=== PATIENT | female | born 1935 | race Caucasian/White ===

== ENCOUNTER 2019-12-11 10:57 | Emergency (ER) | payer MEDICARE, BC ==
[~2019-12-11] VITALS: Ht 172.7 cm; Wt 90.7 kg
--- OUTSIDE RECORDS SUMMARY | ~2019-12-11 | XMS | Encounter Summary ---
Demographics + + + | Address | [address] | | | [place] [address] | + + + | Home Phone | | + + + | Preferred Language | Unknown | + + + | Marital Status | | + + + | Pentecostalism Affiliation | 1073 | + + + | Race | Unknown | + + + | Ethnic Group | Unknown | + + + Author + + + | Author | [facility] | | | and [place] | + + + | Organization | [facility] | | | and [place] | + + + | Address | Unknown | + + + | Phone | Unavailable | + + + Support + + +---------+ + | Name | Relationship | Address | Phone | + + +---------+ + | Indy Cristal | ECON | Unknown | | + + +---------+ + | Rachelvaleria Mckeon | ECON | Unknown | | + + +---------+ + Care Team Providers + +------+ + | Care Screw Machine Adjuster Automatic Name | Role | Phone | + +------+ + | Chinmay Driscoll MD | PCP | | + +------+ + Reason for Visit + + + | Reason | Comments | + + + | ED Follow-up | | + + + Encounter Details +--------+ + + + + | Date | Type | Department | Care Team | Description | +--------+ + + + + | 07/25/ | Telephone | [facility] | Nidhi Vázquez | ED Follow-up | | 2017 | | [facility] | L, Technologist | | | | | [address] | | | | | | [facility] | | | | | | [place] | | | | | | [address] | | | | | | [phone] | | | +--------+ + + + + Social History + +-------+ +--------+------+ | Tobacco Use | Types | Packs/Day | Years | Date | | | | | Used | | + +-------+ +--------+------+ | Never Smoker | | | | | + +-------+ +--------+------+ + +---+---+---+ | Smokeless Tobacco: | | | | | Never Used | | | | + +---+---+---+ + + +---------+ + | Alcohol Use | Drinks/Week | oz/Week | Comments | + + +---------+ + | No | | | | + + +---------+ + + + + | Sex Assigned at | Date Recorded | | | | + + + | Not on file | | + + + + + + + | Job Start Date | Occupation | Industry | + + + + | Not on file | Not on file | Not on file | + + + + + + + + | Travel History | Travel Start | Travel End | + + + + + + | No recent travel history available. | + + documented as of this encounter Plan of Treatment +--------+---------+ + + + | Date | Type | Specialty | Care Team | Description | +--------+---------+ + + + | 02/08/ | Office | Nephrology | Homero Soto MD | | | 2019 | Visit | | [address] [facility] [address] | | | | | | [address] | | | | | | [address] | | | | | | (Fax) | | +--------+---------+ + + + documented as of this encounter Visit Diagnoses Not on filedocumented in this encounter"
--- OUTSIDE RECORDS SUMMARY | ~2019-12-11 | XMS | Encounter Summary ---
Demographics + + + | Address | [address] | | | [place] [address] | + + + | Home Phone | | + + + | Preferred Language | Unknown | + + + | Marital Status | | + + + | Latter-Day Affiliation | 1073 | + + + | Race | Unknown | + + + | Ethnic Group | Unknown | + + + Author + + + | Author | [facility] | | | and [place] | + + + | Organization | [facility] | | | [...] Team Providers + +------+ + | Care Finishing Powder Press Operator Name | Role | Phone | + +------+ + | Chinmay Driscoll MD | PCP | | + +------+ + Encounter Details +--------+ + + + + | Date | Type | Department | Care Team | Description | +--------+ + + + + | 01/20/ | Orders Only | [facility] | Will Rodriguez MD | Back pain (Primary | | 2012 | | NEUROSURGERY [address] | [address] | Dx) | | | | [address] | [place] [address] | | | | | [place] | [phone] | | | | | [address] | | | | | | [phone] | | | +--------+ + + + + Social History + +-------+ +--------+------+ | Tobacco Use | Types | Packs/Day | Years | Date | | | | | Used | | + +-------+ +--------+------+ | Never Assessed | | | | | + +-------+ +--------+------+ + + + | Sex Assigned at [...] | Homero Soto MD | | | 2020 | Visit | | [address] [address] [address] | | | | | | [address] [place], [place] | | | | | | [address] | | | | | | | | +--------+---------+ + + + + +---------+--------+ + + | Name | Type | Priori | Associated Diagnoses | Order Schedule | | | | ty | | | + +---------+--------+ + + | XR Lumbar Spine 4 + | Imaging | Routin | Back pain | Expected: | | Vw | | e | | 01/20/2013, Expires: | | | | | | 01/20/2014 | + +---------+--------+ + + documented as of this encounter Visit Diagnoses + + | Diagnosis | + + | Back pain - Primary Backache, unspecified | + + documented in this encounter"
--- OUTSIDE RECORDS SUMMARY | ~2019-12-11 | XMS | Encounter Summary ---
Demographics + + + | Address | [address] | | | [place] [address] | + + + | Home Phone | | + + + | Preferred Language | Unknown | + + + | Marital Status | | + + + | Christianity Affiliation | 1073 | + + + | Race | Unknown | + + + | Ethnic Group | Unknown | + + + Author + + + | Author | [facility] | | | and [place] | + + + | Organization | [facility] | | | and [place] | + + + | Address | Unknown | + + + | Phone | Unavailable | + + + Support + + +---------+ + | Name | Relationship | Address | Phone | + + +---------+ + | Indy Bee | ECON | Unknown | | + + +---------+ + | Rachelvaleria Mckeon | ECON | Unknown | | + + +---------+ + Care Team Providers + +------+ + | Care Trauma Surgeon Name | Role | Phone | + +------+ + | Chinmay Driscoll MD | PCP | | + +------+ + Reason for Visit +--------+ + | Reason | Comments | +--------+ + | Other | cardiac clearance | +--------+ + Encounter Details +--------+ + + + + | Date | Type | Department | Care Team | Description | +--------+ + + + + | 05/13/ | Telephone | [facility] [place] | Will Rodriguez MD | Other (cardiac | | 2012 | | NEUROSURGERY [address] | [address] | clearance) | | | | [address] | [place] [address] | | | | | [place] | [phone] | | | | | [address] | | | | | | [phone] | | | +--------+ + + + [...] 2020 | Visit | | [address] [facility] | | | | | | [address] | | | | | | [address] | | | | | | | | +--------+---------+ + + + documented as of this encounter Visit Diagnoses Not on filedocumented in this encounter"
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
--- OUTSIDE RECORDS SUMMARY | ~2019-12-11 | XMS | Clinical Summary ---
Demographics + + + | Address | [address] | | | [place] [address] | + + + | Home Phone | | + + + | Preferred Language | Unknown | + + + | Marital Status | | + + + | Mandaen Affiliation | Unknown | + + + | Race | Unknown | + + + | Ethnic Group | Unknown | + + + Author + + + | Author | [email or web address] (Historical as of | | | 03-08-19) | + + + | Organization | 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 | Disp. | Refills | Star | End | Statu | | | | | | t | Date | s | | | | | | Date | | | + + +--------+---------+------+------+-------+ | telmisartan | Take 80 mg by mouth | | | | | Activ | | (MICARDIS) 80 MG | daily. | | | | | e | | tablet | | | | | | | + + +--------+---------+------+------+-------+ | potassium chloride | Take 10 mEq by mouth | | | | | Activ | | (K-TAB) 10 MEQ CR | 2 (two) times daily | | | | | e | | tablet | with meals. | | | | | | + + +--------+---------+------+------+-------+ | diltiazem (TIAZAC) | Take 360 mg by mouth | | | | | Activ | | 360 MG 24 hr | daily. | | | | | e | | capsule | | | | | | | + + +--------+---------+------+------+-------+ | atorvastatin | Take 10 mg by mouth | | | | | Activ | | (LIPITOR) 10 MG | daily. | | | | | e | | tablet | | | | | | | + + +--------+---------+------+------+-------+ | levothyroxine | Take 50 mcg by mouth | | | | | Activ | | (SYNTHROID) 50 MCG | every morning | | | | | e | | tablet | before breakfast. | | | | | | + + +--------+---------+------+------+-------+ | metoprolol | Take 25 mg by mouth | | | | | Activ | | (TOPROL-XL) 25 MG 24 | daily. | | | | | e | | hr tablet | | | | | | | + + +--------+---------+------+------+-------+ | terazosin (HYTRIN) | Take 10 mg by mouth | | | | | Activ | | 10 MG capsule | nightly. | | | | | e | + + +--------+---------+------+------+-------+ | metFORMIN | Take 500 mg by mouth | | | | | Activ | | (GLUCOPHAGE) 500 MG | 2 (two) times daily | | | | | e | | tablet | with meals. | | | | | | + + +--------+---------+------+------+-------+ | rivaroxaban | Take 20 mg by mouth | | | | | Activ | | (XARELTO) 20 MG | daily with dinner. | | | | | e | | tablet | | | | | | | + + +--------+---------+------+------+-------+ | misoprostol | Take 1 tablet by | 60 | 1 | 03/2 | | Activ | | (CYTOTEC) 200 MCG | mouth 2 (two) times | tablet | | 8/20 | | e | | tablet | daily. | | | 15 | | | + + +--------+---------+------+------+-------+ Active Problems + + + | Problem | Noted Date | + + + | Acute blood loss anemia | 10/16/2014 | + + + | Antral ulcer | 10/16/2014 | + + + | A-fib | 10/15/2014 | + + + | DM type 2 (diabetes mellitus, type 2) | 10/15/2014 | + + + | HTN (hypertension) | 10/15/2014 | + + + Resolved Problems + + + + | Problem | Noted | Resolved | | | Date | Date | + + + + | GI bleed | 10/16/19 | | | | 15 | 5 | + + + + Family History + + +------+ + | Medical History | Relation | Name | Comments | + + +------+ + | Cancer | Mother | | | + + +------+ + + +------+--------+ + | Relation | Name | Status | Comments | + +------+--------+ + | Mother | | | | + +------+--------+ + Social History + +-------+ +--------+------+ | Tobacco Use | Types | Packs/Day | Years | Date | | | | | Used | | + +-------+ +--------+------+ | Never Smoker | | | | | + +-------+ +--------+------+ + + +---------+ + | Alcohol Use | Drinks/We | oz/Week | Comments | | | ek | | | + + +---------+ + | No | | | | + + +---------+ + + + + | Sex Assigned at | Date Recorded | | | | + + + | Not on file | | + + + Last Filed Vital Signs + + + + | Vital Sign | Reading | Time Taken | + + + + | Blood Pressure | 166/82 | 10/17/2014 3:30 PM PDT | + + + + | Pulse | 96 | 10/17/2014 3:30 PM PDT | + + + + | Temperature | 36.7 C (98.1 F) | 10/17/2014 3:15 PM PDT | + + + + | Respiratory Rate | 20 | 10/17/2014 3:15 PM PDT | + + + + | Oxygen Saturation | 96% | 10/17/2014 3:15 PM PDT | + + + + | Inhaled Oxygen | - | - | | Concentration | | | + + + + | Weight | 102.8 kg (226 lb | 10/17/2014 3:49 AM PDT | | | 10.1 oz) | | + + + + | Height | 170.2 cm (5' 7") | 10/15/2014 4:27 PM PDT | + + + + | Body Mass Index | 35.5 | 10/17/2014 3:49 AM PDT | + + + + Plan of Treatment + + + + + | Health Maintenance | Due Date | Last Done | Comments | + + + + + | Vaccine: | | | | | Dtap/Tdap/Td (1 - | 5 | | | | Tdap) | | | | + + + + + | Vaccine: Zoster (1 | | | | | of 2) | 6 | | | + + + + + | DEXA SCAN SCREENING | | | | | | 1 | | | + + + + + | Vaccine: | | | | | Pneumococcal 65+ | 1 | | | | Low/Medium Risk (1 | | | | | of 2 - PCV13) | | | | + + + + + | Vaccine: Influenza | | | | | (Season Ended) | 0 | | | + + + + + Results Not on filefrom Last 3 Months Insurance + +--------+ +------+-------+ + | Payer | Benefi | Subscriber | Type | Phone | Address | | | t Plan | ID | | | | | | / | | | | | | | Group | | | | | + +--------+ +------+-------+ + | MEDICARE | MEDICA | [id number] | | | [address] | | | RE | | | | [place] [phone] | | | IP-OP | | | | | + +--------+ +------+-------+ + | REGENCE | REGENC | [id number] | | | | | | E-OREG | [phone] | | | | | | ON | | | | | + +--------+ +------+-------+ + + +--------+ +--------+ + + | Guarantor Name | Accoun | Relation to | Date | Phone | Billing Address | | | t Type | Patient | of | | | | | | | | | | + +--------+ +--------+ + + | GIA ARCOS | Person [birth year] Self [birth year] Home: | [address] | | | al/Fam | | [phone] | [phone] [place] | | | gee | | | [phone] | [phone] | + +--------+ +--------+ + +
--- OUTSIDE RECORDS SUMMARY | ~2019-12-11 | XMS | Encounter Summary ---
Demographics + + + | Address | [address] | | | [place] [address] | + + + | Home Phone | | + + + | Preferred Language | Unknown | + + + | Marital Status | | + + + | Jainism Affiliation | [id number] | + + + [...] Team Providers + +------+ + | Care Tutoring Manager Name | Role | Phone | + +------+ + | Chinmay Driscoll MD | PCP | | + +------+ + Encounter Details +--------+ + + + + | Date | Type | Department | Care Team | Description | +--------+ + + + + | 10/15/ | Hospital | [facility] | Abraham Lindsey, | STEVEN deras | | 2015 - | Encounter | [facility] | MD [address] | | | | | CARE FLO[address] | [place] [address] | | | 10/17/ | | [address] | [phone] | | | 2014 | | [place], [place] | | | | | | [address] | | | | | | [phone] | | | +--------+ + + + [...] + + documented as of this encounter Discharge Summaries Solis Blake MD - 10/17/2014 12:10 PM PDTFormatting of this note might be different f rom the original. Discharge Summaries by Solis Blake MD at 10/17/14 1210 Author: Solis Blake MD Service: Hospitalist Author Type: Physician Filed: 10/17/14 1214 Date of Service: 10/17/141209 Status: Signed Rehabilitation Specialist: Solis Blake MD (Physician) [facility] Service: Hospitalist Physician Discharge Summary Pt: Gia Arcos AGE/SEX: 78 y.o. female ROOM: 4459/4459-1 PCP: CHINMAY DRISCOLL : 1935 Admit date: 10/15/2014 Discharge date and time: 10/17/2014 12:10 PM Admitting Physician: Abraham Lindsey MD Discharge Physician: Solis Blake MD Consults: Dr. Tobar Primary Discharge Diagnoses: Principal Problem: Acute blood loss anemia Active Problems: A-fib DM type 2 (diabetes mellitus, type 2) HTN (hypertension) Antral ulcer Resolved Problems: GI bleed Secondary Discharge Diagnoses: Nill Discharged Condition: stable Significant Diagnostic Studies: EGD 1. Normal esophagus and duodenum. 2. Antral ulceration, most likely cause of upper gastrointestinal bleeding, biopsied for CL Otest. HPI and Hospital Course: The patient is a 78 y.o. female with significant past medical history of afib on xarelto, D M type 2, HTN, who presents as a transfer from [facility] with GI bleed and found to be in acute posthemorrhagic anemia GI bleed with acute blood loss anemia: Due to antral ulcer. She is already on PPI and use of Prossar. She received 4 units of pac ked RBCs. She is feeling better now. She said that she is feeling more energetic. I discu ssed with daughter in detail as well. I discussed with Dr. Tobar as well. Patient will be o n 2 PPIs. She should not be taking and regulation medication for 3-4 days. She should talk with her primary care doctor as well and am starting her" A-fib: Rate well controlled. Going to hold anticoagulant for another 4 days DM type 2 (diabetes mellitus, type 2) : Without any documented complication. Blood glucose is better controlled HTN (hypertension): Blood pressure is approximately control she is not on any medicines while she is in a hospi abdirizak She Had no CP, SOB, N/V, Diarrhea, Abdominal pain or THOMPSON. No constipation or change in bowel habits. No orthopnea or PND. Appetite is good without abdominal bloating. No cough or fever . No dizziness, lightheadedness or any symptoms suggestive of stroke. I recommended her to have a colonoscopy as an outpatient as well. Discharge Vitals: Filed Vitals: 10/16/14 2323 10/17/14 0349 10/17/14 0753 10/17/14 1122 BP: 153/78 162/75 168/90 162/82 Pulse: 82 87 95 92 Temp: 98.3 F (36.8 C) 97.8 F (36.6 C) 98.2 F (36.8 C) 98.3 F (36.8 C) TempSrc: Oral Oral Oral Oral Resp: 16 16 18 18 Height: Weight: 102.8 kg (226 lb 10.1 oz) SpO2: 98% 98% 96% Discharge Exam: Constitutional: Alert and oriented to person, place, and time. Appears well-developed and w ell-nourished. Cardiovascular: Normal rate, regular rhythm, normal heart sounds with S1 and S2 and intact distal pulses. Exam reveals no gallop and no friction rub. No murmur heard. Pulmonary/Chest: Effort normal and breath sounds normal. No stridor. No respiratory distres s. no wheezes. no rales. exhibits no tenderness. Abdominal: Soft. Bowel sounds are normal. exhibits no distension and no mass. There is no t enderness. There is no rebound and no guarding. Musculoskeletal: Normal range of motion.exhibits no tenderness. exhibits no edema. Neurological: Alert and oriented to person, place, and time. Has normal reflexes. display s normal reflexes. No cranial nerve deficit. Exhibits normal muscle tone. Coordination norm al. Skin: Skin is warm and dry. No rash noted. No erythema. No pallor. Psychiatric: Has a normal mood and affect. Behavior is normal. Judgment normal. LABS: Recent Labs Lab 10/17/14 0524 10/16/14 2200 10/16/14 0750 10/16/14 0601 10/15/14 1721 WBC 6.85 -- -- 8.12 -- 8.28 HGB 10.6* 10.0* 8.0* 8.3* < > 9.9* HCT 30.9* 30.7* 24.1* 24.9* < > 29.9* PLT 91* -- -- 107* -- 118* NEUTOPHILPCT 74.29 -- -- 81.03 -- 85.56 MONOPCT 6.10 -- -- 5.15 -- 4.72 < > = values in this interval not displayed. Recent Labs Lab 10/17/14 0524 10/16/14 0601 10/15/14 1721 NA 138 139 140 K 3.0* 3.1* 4.2 CL 107 109 107 CO2 27 24 24 BUN 28* 54* 73* CREATININE 1.12* 1.17* 1.31* PROT 4.8* 4.2* -- BILITOT 0.9 0.6 -- ALT 11 9* -- AST 14 11 -- Invalid input(s): LABALBU Recent Labs Lab 10/17/14 0524 10/16/14 0601 MG 2.0 2.3 No results for input(s): AMYLASE in the last 168 hours. No results for input(s): PHART, PO2ART, KFA4HBX, S7LHSGNM, BEART in the last 168 hours. Recent Labs Lab 10/16/14 06 APTT 26 INR 1.1 Recent Labs Lab 10/16/14 0601 10/16/14 0013 10/15/14 1721 CKTOTAL 24* 26* 27* TROPONINI 0.033 0.037 0.028 CKMBINDEX 5.8 8.1 5.6 Disposition: Final discharge disposition not confirmed Patient Instructions: Medication List START taking these medications misoprostol 200 MCG tablet QTY: 60 tablet Refills: 1 Commonly known as: CYTOTEC Take 1 tablet by mouth 2 (two) times daily. pantoprazole 40 MG tablet QTY: 30 tablet Refills: 1 Commonly known as: PROTONIX Take 1 tablet by mouth every morning before breakfast. CONTINUE taking these medications atorvastatin 10 MG tablet Refills: 0 Commonly known as: LIPITOR diltiazem 360 MG 24 hr capsule Refills: 0 Commonly known as: TIAZAC levothyroxine 50 MCG tablet Refills: 0 Commonly known as: SYNTHROID metFORMIN 500 MG tablet Refills: 0 Commonly known as: GLUCOPHAGE metoprolol 25 MG 24 hr tablet Refills: 0 Commonly known as: TOPROL-XL potassium chloride 10 MEQ CR tablet Refills: 0 Commonly known as: K-TAB telmisartan 80 MG tablet Refills: 0 Commonly known as: MICARDIS terazosin 10 MG capsule Refills: 0 Commonly known as: HYTRIN XARELTO 20 MG tablet Refills: 0 Generic drug: rivaroxaban Where to Get Your Medications These are the prescriptions that you need to picker tender. You may get the following medications from any pharmacy - misoprostol 200 MCG tablet - pantoprazole 40 MG tablet Activity: activity as tolerated Diet: clear liquids, advance as tolerated Wound Care: not applicable Follow-up with PCP [address] Tobar 2 weeks Discharge took more than 35 minutes, to include final examination, discussion of admission, and preparation of prescriptions, instructions for ongoing care, follow up and dictation of summary. Signed: Solis Blake MD 10/17/2014 12:10 PM Dictation software, Tag'By, used which may contain error for similar sounding words even af ter review. Personal communication requested for any clarification. documented in this encounter Medications at Time of Discharge + + + +---------+ + + | Medication | Sig | Dispensed | Refills | Start | End Date | | | | | | Date | | + + + +---------+ + + | atorvaSTATin | Take 10 mg by mouth | | 0 | 08/04/19 | | | (LIPITOR) 10 mg | Daily. | | | 15 | | | tablet | | | | | | + + + +---------+ + + | diltiazem | Take 360 mg by mouth | | 0 | | | | (CARDIZEM CD) 360 MG | Daily. | | | | | | 24 hr capsule | | | | | | + + + +---------+ + + | diphenhydrAMINE | Take 25 mg by mouth | | 0 | | | | (BENADRYL) 25 mg | as needed. | | | | | | tablet | | | | | | + + + +---------+ + + | levothyroxine | Take 50 mcg by mouth | | 0 | | | | (SYNTHROID, | every morning | | | | | | LEVOTHROID) 50 mcg | (before breakfast). | | | | | | tablet | | | | | | + + + +---------+ + + | loperamide | Take 2 mg by mouth | | 0 | | | | (IMODIUM) 2 mg | as needed. | | | | | | capsule | | | | | | + + + +---------+ + + | metoprolol | Take 25 mg by mouth | | 0 | | | | succinate | Daily. 1 tablet once | | | | | | (TOPROL-XL) 25 mg 24 | per day | | | | | | hr tablet | | | | | | + + + +---------+ + + | Multiple | Take by mouth | | 0 | | | | Vitamins-Minerals | Daily. | | | | | | (CENTRUM SILVER PO) | | | | | | + + + +---------+ + + | potassium chloride | | | 0 | 08/18/19 | | | (KLOR-CON) 10 mEq | | | | 15 | | | CR tablet | | | | | | + + + +---------+ + + | terazosin (HYTRIN) | Take 10 mg by mouth | | 0 | | | | 5 mg capsule | nightly. | | | | | + + + +---------+ + + | Ascorbic Acid | Take 1 tablet by | | 0 | | | | (VITAMIN C PO) | mouth Daily. | | | | 0 | + + + +---------+ + + | cromolyn | 1 spray by Nasal | | 0 | | | | (NASALCROM) 5.2 | route Daily as | | | | 0 | | MG/ACT nasal spray | needed. | | | | | + + + +---------+ + + | cyclobenzaprine | Take 5 mg by mouth 3 | | 0 | | | | (FLEXERIL) 10 mg | times daily as | | | | 8 | | tablet | needed. | | | | | + + + +---------+ + + | | Take 0.5 tablets by | | 0 | | | | HYDROcodone-acetamin | mouth every 6 hours | | | | 8 | | ophen (NORCO) 5-325 | as needed. | | | | | | mg per tablet | | | | | | + + + +---------+ + + | metFORMIN | Take 1,000 mg by | | 0 | | | | (GLUCOPHAGE) 500 mg | mouth 2 times daily | | | | 0 | | tablet | (with breakfast & | | | | | | | dinner). | | | | | + + + +---------+ + + | rivaroxaban | Take 20 mg by mouth | | 0 | | | | (XARELTO) 20 mg | Daily (with dinner). | | | | 8 | | tablet | | | | | | + + + +---------+ + + | TAZTIA XT 360 MG | | | 1 | 08/11/19 | | | 24 hr capsule | | | | 15 | 0 | + + + +---------+ + + | telmisartan | Take 80 mg by mouth | | 0 | | | | (MICARDIS) 80 MG | Daily. | | | | 0 | | tablet | | | | | | + + + +---------+ + + | | | | 0 | 08/17/19 | | | triamterene-hydrochl | | | | 15 | 8 | | orothiazide | | | | | | | (DYAZIDE) 37.5-25 MG | | | | | | | per capsule | | | | | | + + + +---------+ + + documented as of this encounter Progress Notes Conversion Transaction, Provider Unknown - 10/17/2014 5:44 PM PDTFormatting of this note m ight be different from the original. Nurse Progress Note by Anne Santa RN at 10/17/141743 Author: Anne Santa RN Service: (none) Author Type: Registered Nurse Filed: 10/17/141745 Date of Service: 10/17/141743 Status: Signed Rehabilitation Specialist: Anne Santa RN (Registered Nurse) Family And caregiver present for discharge teaching pt alert and oriented X4 . pts new RX' s given to caregiver. Pt discharged via private car to home with caregiver. onver shola Transaction, Provider Unknown - 10/17/2014 3:12 PM PDT Case Management by SOURAV Bradley at 10/17/141511 Author: SOURAV Bradley Service: (none) Author Type: Stock Wetter Filed: 10/17/141512 Date of Service: 10/17/141511 Status: Signed Rehabilitation Specialist: SOURAV Bradley (Stock Wetter) 10/17/14 1500 Discharge Planning Evaluation Admitting Diagnosis Acute Blood Loss Anticipated Disposition Facility Type Home Weekend Discharge planning: GEOLOGY FACULTY MEMBER spoke with Anne LEWIS Nurse regarding discharge needs, marc diehl Pt does not need to be seen by CM at this time and has no discharge needs or concerns. I encouraged them to enter a CM consult as needs arise. Jermaine Chevysom, Armor Officer [phone] cell onver shola Transaction, Provider Unknown - 10/16/2014 6:20 PM PDT Nurse Progress Note by Anne Santa RN at 10/16/141819 Author: Anne Santa RN Service: (none) Author Type: Registered Nurse Filed: 10/16/141824 Date of Service: 10/16/141819 Status: Signed Rehabilitation Specialist: Anne Santa RN (Registered Nurse) Pts first unit of blood is completed iv lasix is being given and second unit to be hung. Pt tolerated first infusion without complications. Solis Ortiz MD - 10/16/2014 1:07 PM PDT Progress Notes by Solis Blake MD at 10/16/14 1307 Author: Solis Blake MD Service: Hospitalist Author Type: Physician Filed: 10/16/14 1447 Date of Service: 10/16/14 1307 Status: Addendum Rehabilitation Specialist: Solis Blake MD (Physician) Related Notes: Original Note by Solis Blake MD (Physician) filed at 10/16/14 1446 [facility] Service: Hospitalist Progress Note Pt: Gia Arcos AGE/SEX: 78 y.o. female ROOM: [facility]9/4459-1 : 1935 PCP: CHINMAY DRISCOLL ADMIT DATE: 10/15/2014 TODAY'S DATE: 10/16/2014 Hospital Day/Hospital Course: LOS: 1 day The patient is a 78 y.o. female with significant past medical history of afib on xarelto, D M type 2, HTN, who presents as a transfer from [facility] ER from Dr Sarah for GI bleed. SP EGD 1. Normal esophagus and duodenum. 2. Antral ulceration, most likely cause of upper gastrointestinal bleeding, biopsied for CL Otest. SUBJECTIVE: Patient seen and examine. She still having a black colored stool. She is still feeling we ak and tired.. No chest pain, SOB, THOMPSON. No cough on recumbency. Had no orthopnea or PND. No Abdominal pain, N/V or fever. Still feeling tired and fatigued. No dizziness or lightheadedn ess. Scheduled Medications: misoprostol 200 mcg Oral BID pantoprazole 40 mg Intravenous BID Continuous Infusions sodium chloride (IV) 110 mL/hr at 10/15/14 2245 PRN Medications labetalol, ondansetron Allergy: Allergies Allergen Reactions Codeine Anxiety shortness of breath Shellfish Allergy Rash Shortness of breath Seasonal Allergies [Other-Environmental] Cough OBJECTIVE: Vitals: Patient Vitals for the past 24 hrs: BP Temp Temp src Pulse Resp SpO2 Height Weight 10/16/14 1114 111/58 mmHg 98.4 F (36.9 C) Oral 94 20 92 % - - 10/16/14 0741 123/57 mmHg 97.9 F (36.6 C) Axillary 94 18 95 % - - 10/16/14 0441 126/65 mmHg 98.7 F (37.1 C) Oral 109 20 96 % - 102 kg (224 lb 13.9 oz) 10/15/14 2318 116/57 mmHg 98.4 F (36.9 C) Oral 98 18 93 % - - 10/15/14 2139 114/64 mmHg 99.1 F (37.3 C) Oral 108 - 95 % - - 10/15/14 2112 92/51 mmHg 99.2 F (37.3 C) Temporal 108 18 98 % - - 10/15/14 1923 141/67 mmHg 98.8 F (37.1 C) Oral 129 18 98 % - 101.4 kg (223 lb 8.7 oz) 10/15/14 1627 134/68 mmHg 98.4 F (36.9 C) Oral 111 14 - 1.702 m (5' 7") 101.4 kg (223 l b 8.7 oz) I&O Detailed Table: Intake/Output Summary (Last 24 hours) at 10/16/14 1307 Last data filed at 10/16/14 1115 Gross per 24 hour Intake 1700 ml Output 1350 ml Net 350 ml Patient Vitals for the past 96 hrs: Weight 10/16/14 0441 102 kg (224 lb 13.9 oz) 10/15/14 1923 101.4 kg (223 lb 8.7 oz) 10/15/14 1627 101.4 kg (223 lb 8.7 oz) Hemodynamics Last 24hrs: Physical Examination: Constitutional: Alert and oriented to person, place, and time. Appears well-developed and w ell-nourished. HEENT: Neck supple, no JVD, non icteric sclera. Cardiovascular: Normal rate, regular rhythm, normal heart sounds with S1 and S2, and intact distal pulses. Exam reveals no gallop and no friction rub. No murmur heard. Pulmonary/Chest: Effort normal and breath sounds normal. No stridor. No respiratory distres s. no wheezes. no rales. exhibits no tenderness. Abdominal: Soft. Bowel sounds are normal. exhibits no distension and no mass. There is no t enderness. There is no rebound and no guarding. Extremeties/Musculoskeletal: Normal range of motion.exhibits no tenderness. exhibits no ed virgie. Neurological: Alert and oriented to person, place, and time. Has normal reflexes. No cran ial nerve deficit. Exhibits normal muscle tone. Coordination normal. Skin: Skin is warm and dry. No rash noted. No erythema. No pallor. Psychiatric: Has a normal mood and affect. Behavior is normal. Judgment normal. LABS: Recent Labs Lab 10/16/14 0750 10/16/14 0601 10/16/14 0013 10/15/14 1721 WBC -- 8.12 -- 8.28 HGB 8.0* 8.3* 9.6* 9.9* HCT 24.1* 24.9* 29.3* 29.9* PLT -- 107* -- 118* NEUTOPHILPCT -- 81.03 -- 85.56 MONOPCT -- 5.15 -- 4.72 Recent Labs Lab 10/16/14 0601 10/15/14 1721 NA 139 140 K 3.1* 4.2 CL 109 107 CO2 24 24 BUN 54* 73* CREATININE 1.17* 1.31* PROT 4.2* -- BILITOT 0.6 -- ALT 9* -- AST 11 -- Phosphorus: Lab Results Component Value Date PHOS 2.3 10/16/2014 Recent Labs Lab 10/16/14 0601 MG 2.3 Recent Labs Lab 10/16/14 0601 APTT 26 INR 1.1 Recent Labs Lab 10/16/14 0601 10/16/14 0013 10/15/14 1721 CKTOTAL 24* 26* 27* TROPONINI 0.033 0.037 0.028 CKMBINDEX 5.8 8.1 5.6 PROBLEM LIST Principal Problem: Acute blood loss anemia Active Problems: GI bleed A-fib DM type 2 (diabetes mellitus, type 2) HTN (hypertension) Antral ulcer ASSESSMENT & PLAN The patient is a 78 y.o. female with significant past medical history of afib on xarelto, D M type 2, HTN, who presents as a transfer from [facility] ER from for GI bleed. Principal Problem: GI bleed with acute blood loss anemia: Due to antral ulcer. She is already on PPI and use of Proscar. Her hemoglobin is low. I am going to give her 2 units of packed RBCs. Continue to monitor Active Problems: A-fib: Rate well controlled. Going to hold anticoagulant for another 3 days DM type 2 (diabetes mellitus, type 2) : Without any documented complication. Blood glucose is better controlled HTN (hypertension): Blood pressure is approximately control she is not on any medicines while she is in a hosp ital Solis Blake MD, FACP 10/16/2014 1:07 PM Dictation software, Tag'By, used which may contain error for similar sounding words even af ter review. Personal communication requested for any clarification. onversion Transac tion, Provider Unknown - 10/16/2014 7:59 AM PDTFormatting of this note might be different f rom the original. Nurse Progress Note by Anne Santa RN at 10/16/14 0759 Author: Anne Santa RN Service: (none) Author Type: Registered Nurse Filed: 10/16/14 0801 Date of Service: 10/16/14758 Status: Signed Rehabilitation Specialist: Anne Santa RN (Registered Nurse) Spoke with Dr. Hayden , pt Potassium is 3.1. And to request the meds to be released so the p t can get her morning meds as ordered. meds are on SEP hold. New orders recvd verbally for p otassium replacement. See orders. onver shola Transaction, Provider Unknown - 10/15/2014 10:01 PM PDT Progress Notes by Ngozi Liu RN at 10/15/142200 Author: Ngozi Liu RN Service: (none) Author Type: Registered Nurse Filed: 10/16/14433 Date of Service: 10/15/142200 Status: Addendum Rehabilitation Specialist: Ngozi Liu RN (Registered Nurse) Related Notes: Original Note by Ngozi Liu RN (Registered Nurse) filed at 2243 Dr Tobar made aware all of medications on SEP hold and needs to be released and he can only release them and the nurse or pharmacy does not have the authority. He replied "okay" , will wait until orders reviewed and released per physician to give any medication. [place] 2215: [facility] paged regarding releasing orders or placing new ones, will await call. 2245: Orders from [facility] received for few orders that Dr. Tobar continues to have on MAR hold . Replaced for mag citrate, cytotec and protnix drip and NS at 110/hr. Will continue to monitor. [place] 0430: Patient able to drink all of Mag Citrate per orders last evening. Patient had two lar ge incontinent dark black loose stools. All bedding changed and patient changed and cleaned. Mayelin Peralta RP - 10/15/2014 5:02 PM PDTFormatting of this note might be different from t he original. Progress Notes by Mayelin Minor RPH at 10/15/141701 Author: Mayelin Minor RPH Service: (none) Author Type: Pharmacist Filed: 10/15/141701 Date of Service: 10/15/141701 Status: Signed Rehabilitation Specialist: Mayelin Minor RPH (Pharmacist) Clinical Pharmacy Note - Renal Dose Adjustment Gia Arcos 78 y.o. female Ht Readings from Last 1 Encounters: No data found for Ht Wt Readings from Last 1 Encounters: 10/15/14 101.4 kg (223 lb 8.7 oz) No results found for this basename: creatinine Creatinine clearance cannot be calculated (Unknown ideal weight.) Pharmacy to renally adjust medications per Dr. Lindsey Plan: No height on file. Will follow up once data is available. Pharmacy will continue to follow and adjust as appropriate. Pharmacist: Mayelin Minor 10/15/2014 5:02 PM documente d in this encounter Plan of Treatment +--------+---------+ + + + | Date | Type | Specialty | Care Team | Description | +--------+---------+ + + + | 02/08/ | Office | Nephrology | Homero Soto MD | | | 2019 | Visit | | [address] [facility] | | | | | | [address] [place], [place] | | | | | | [address] | | | | | | | | +--------+---------+ + + + documented as of this encounter Procedures + +--------+ + + + | Procedure Name | Priori | Date/Time | Associated Diagnosis | Comments | | | ty | | | | + +--------+ + + + | EXTERNAL LAB: CBC | Routin | 10/17/2014 | | Results for this | | | e | 5:24 AM | | procedure are in the | | | | PDT | | results section. | + +--------+ + + + | MAGNESIUM | Routin | 10/17/2014 | | Results for this | | | e | 5:24 AM | | procedure are in the | | | | PDT | | results section. | + +--------+ + + + | COMPREHENSIVE | Routin | 10/17/2014 | | Results for this | | METABOLIC PANEL | e | 5:24 AM | | procedure are in the | | | | PDT | | results section. | + +--------+ + + + | HEMOGLOBIN AND | Routin | 10/16/2014 | | Results for this | | HEMATOCRIT | e | 10:00 PM | | procedure are in the | | | | PDT | | results section. | + +--------+ + + + | HEMOGLOBIN AND | Routin | 10/16/2014 | | Results for this | | HEMATOCRIT | e | 7:50 AM | | procedure are in the | | | | PDT | | results section. | + +--------+ + + + | EXTERNAL LAB: CBC | Routin | 10/16/2014 | | Results for this | | | e | 6:01 AM | | procedure are in the | | | | PDT | | results section. | + +--------+ + + + | TROPONIN I | Routin | 10/16/2014 | | Results for this | | | e | 6:01 AM | | procedure are in the | | | | PDT | | results section. | + +--------+ + + + | CK-MB | Routin | 10/16/2014 | | Results for this | | | e | 6:01 AM | | procedure are in the | | | | PDT | | results section. | + +--------+ + + + | PTT | Routin | 10/16/2014 | | Results for this | | | e | 6:01 AM | | procedure are in the | | | | PDT | | results section. | + +--------+ + + + | PROTIME INR | Routin | 10/16/2014 | | Results for this | | | e | 6:01 AM | | procedure are in the | | | | PDT | | results section. | + +--------+ + + + | PHOSPHORUS | Routin | 10/16/2014 | | Results for this | | | e | 6:01 AM | | procedure are in the | | | | PDT | | results section. | + +--------+ + + + | MAGNESIUM | Routin | 10/16/2014 | | Results for this | | | e | 6:01 AM | | procedure are in the | | | | PDT | | results section. | + +--------+ + + + | CK TOTAL | Routin | 10/16/2014 | | Results for this | | | e | 6:01 AM | | procedure are in the | | | | PDT | | results section. | + +--------+ + + + | COMPREHENSIVE | Routin | 10/16/2014 | | Results for this | | METABOLIC PANEL | e | 6:01 AM | | procedure are in the | | | | PDT | | results section. | + +--------+ + + + | TROPONIN I | Routin | 10/16/2014 | | Results for this | | | e | 12:13 AM | | procedure are in the | | | | PDT | | results section. | + +--------+ + + + | CK-MB | Routin | 10/16/2014 | | Results for this | | | e | 12:13 AM | | procedure are in the | | | | PDT | | results section. | + +--------+ + + + | HEMOGLOBIN AND | Routin | 10/16/2014 | | Results for this | | HEMATOCRIT | e | 12:13 AM | | procedure are in the | | | | PDT | | results section. | + +--------+ + + + | CK TOTAL | Routin | 10/16/2014 | | Results for this | | | e | 12:13 AM | | procedure are in the | | | | PDT | | results section. | + +--------+ + + + | HELICOBACTER PYLORI | Routin | 10/15/2014 | | Results for this | | BIOPSY | e | 9:06 PM | | procedure are in the | | | | PDT | | results section. | + +--------+ + + + | EXTERNAL LAB: OCCULT | Timed | 10/15/2014 | | Results for this | | BLOOD, SCREENING | | 6:09 PM | | procedure are in the | | | | PDT | | results section. | + +--------+ + + + | EXTERNAL LAB: CBC | Routin | 10/15/2014 | | Results for this | | | e | 5:21 PM | | procedure are in the | | | | PDT | | results section. | + +--------+ + + + | TROPONIN I | Routin | 10/15/2014 | | Results for this | | | e | 5:21 PM | | procedure are in the | | | | PDT | | results section. | + +--------+ + + + | CK-MB | Routin | 10/15/2014 | | Results for this | | | e | 5:21 PM | | procedure are in the | | | | PDT | | results section. | + +--------+ + + + | CK TOTAL | Routin | 10/15/2014 | | Results for this | | | e | 5:21 PM | | procedure are in the | | | | PDT | | results section. | + +--------+ + + + | BASIC METABOLIC | Routin | 10/15/2014 | | Results for this | | PANEL | e | 5:21 PM | | procedure are in the | | | | PDT | | results section. | + +--------+ + + + | ECG 12 LEAD | Routin | 10/15/2014 | | Results for this | | | e | 4:47 PM | | procedure are in the | | | | PDT | | results section. | + +--------+ + + + documented in this encounter Results External Lab: CBC (10/17/2014 5:24 AM PDT) + + + + + + | Component | Value | Ref Range | Performed | Pathologist | | | | | At | Signature | + + + + + + | WBC | 6.85Comment: Testing | 3.80 - 11.00 | EXTERNAL | | | | performed at [facility], [address] | K/uL | LAB | | | | [address], | | | | | | [place] [address] | | | | + + + + + + | Red Blood | 3.28 (L)Comment: Testing | 3.70 - 5.10 | EXTERNAL | | | Cells | performed at [facility], [address] | M/uL | LAB | | | Counted | [address], | | | | | | [place] [address] | | | | + + + + + + | Hemoglobin | 10.6 (L)Comment: Testing | 11.3 - 15.5 | EXTERNAL | | | | performed at [facility], [address] | g/dL | LAB | | | | [address], | | | | | | [place] [address] | | | | + + + + + + | Hematocrit, | 30.9 (L)Comment: Testing | 34.0 - 46.0 % | EXTERNAL | | | POC | performed at [facility], [address] | | LAB | | | | [address], | | | | | | [place] [address] | | | | + + + + + + | MCV | 94.3Comment: Testing | 80.0 - 100.0 fl | EXTERNAL | | | | performed at [facility], [address] | | LAB | | | | [address], | | | | | | [place] [address] | | | | + + + + + + | MCH | 32.4Comment: Testing | 27.0 - 34.0 pg | EXTERNAL | | | | performed at [facility], [address] | | LAB | | | | [address], | | | | | | [place] [address] | | | | + + + + + + | MCHC | 34.4Comment: Testing | 32.0 - 35.5 | EXTERNAL | | | | performed at [facility], [address] | g/dL | LAB | | | | [address], | | | | | | [place] [address] | | | | + + + + + + | RDW-CV | 48.1Comment: Testing | 37 - 53 fl | EXTERNAL | | | | performed at [facility], [address] | | LAB | | | | [address], | | | | | | [place] [address] | | | | + + + + + + | Platelet | 91 (L)Comment: Testing | 150 - 400 K/uL | EXTERNAL | | | Count | performed at [facility], [address] | | LAB | | | Plasma | [address], | | | | | | [place] [address] | | | | + + + + + + | MPV | 8.6Comment: Testing | fl | EXTERNAL | | | | performed at [facility], [address] | | LAB | | | | [address], | | | | | | [place] [address] | | | | + + + + + + | Differentia | AUTOMATEDComment: | | EXTERNAL | | | l Type | Testing performed at | | LAB | | | | [facility], [address] | | | | | | [place] | | | | | | [address] | | | | + + + + + + | % Segmented | 74.29Comment: Testing | % | EXTERNAL | | | | performed at [facility], [address] | | LAB | | | Neutrophils | [address], | | | | | | [place] [address] | | | | + + + + + + | % | 15.03Comment: Testing | % | EXTERNAL | | | Lymphocytes | performed at [facility], [address] | | LAB | | | | [address], | | | | | | [place] [address] | | | | + + + + + + | % Monocytes | 6.10Comment: Testing | % | EXTERNAL | | | | performed at [facility], [address] | | LAB | | | | [address], | | | | | | [place] [address] | | | | + + + + + + | % | 4.04Comment: Testing | % | EXTERNAL | | | Eosinophils | performed at [facility], [address] | | LAB | | | | [address], | | | | | | [place] [address] | | | | + + + + + + | % Basophils | 0.54Comment: Testing | % | EXTERNAL | | | | performed at [facility], [address] | | LAB | | | | [address], | | | | | | [place] [address] | | | | + + + + + + | Absolute | 5.09Comment: Testing | 1.90 - 7.40 | EXTERNAL | | | Segmented | performed at [facility], [address] | K/uL | LAB | | | Neutrophils | [address], | | | | | | [place] [address] | | | | + + + + + + | Absolute | 1.03Comment: Testing | 1.00 - 3.90 | EXTERNAL | | | Lymphocytes | performed at [facility], [address] | K/uL | LAB | | | | [address], | | | | | | [place] [address] | | | | + + + + + + | Absolute | 0.42Comment: Testing | 0.00 - 0.80 | EXTERNAL | | | Monocytes | performed at [facility], [address] | K/uL | LAB | | | | [address], | | | | | | [place] [address] | | | | + + + + + + | Absolute | 0.28Comment: Testing | 0.00 - 0.50 | EXTERNAL | | | Eosinophils | performed at [facility], [address] | K/uL | LAB | | | | [address], | | | | | | [place] [address] | | | | + + + + + + | Absolute | 0.04Comment: Testing | 0.00 - 0.10 | EXTERNAL | | | Basophils | performed at [facility], [address] | K/uL | LAB | | | | [address], | | | | | | [place] [address] | | | | + + + + + + + + | Specimen | + + | Blood specimen | | (specimen) | + + + +---------+ + + | Performing | Address | City/State/Zipcode | Phone Number | | Organization | | | | + +---------+ + + | EXTERNAL LAB | | | | + +---------+ + + Magnesium (10/17/2014 5:24 AM PDT) + + + + + + | Component | Value | Ref Range | Performed | Pathologist | | | | | At | Signature | + + + + + + | Magnesium | 2.0Comment: Testing | 1.7 - 2.4 mg/dL | EXTERNAL | | | | performed at [facility], [address] | | LAB | | | | [address], | | | | | | [place] [address] | | | | + + + + + + + + | Specimen | + + | Blood specimen | | (specimen) | + + + +---------+ + + | Performing | Address | City/State/Zipcode | Phone Number | | Organization | | | | + +---------+ + + | EXTERNAL LAB | | | | + +---------+ + + Comprehensive Metabolic Panel (10/17/2014 5:24 AM PDT) + + + + + + | Component | Value | Ref Range | Performed | Pathologist | | | | | At | Signature | + + + + + + | Na | 138Comment: Testing | 135 - 143 | EXTERNAL | | | | performed at [facility], [address] | mmol/L | LAB | | | | [address], | | | | | | [place] [address] | | | | + + + + + + | K | 3.0 (L)Comment: Testing | 3.5 - 4.9 | EXTERNAL | | | | performed at [facility], [address] | mmol/L | LAB | | | | [address], | | | | | | [place] [address] | | | | + + + + + + | Cl | 107Comment: Testing | 99 - 109 mmol/L | EXTERNAL | | | | performed at [facility], [address] | | LAB | | | | [address], | | | | | | [place] [address] | | | | + + + + + + | CO2 | 27Comment: Testing | 23 - 32 mmol/L | EXTERNAL | | | | performed at [facility], [address] | | LAB | | | | [address], | | | | | | [place] [address] | | | | + + + + + + | Anion Gap | 7Comment: Testing | 5 - 20 mmol/L | EXTERNAL | | | | performed at [facility], [address] | | LAB | | | | [address], | | | | | | [place] [address] | | | | + + + + + + | Glucose, | 142 (H)Comment: Testing | 65 - 99 mg/dL | EXTERNAL | | | Fasting | performed at [facility], [address] | | LAB | | | | [address], | | | | | | [place] [address] | | | | + + + + + + | BUN | 28 (H)Comment: Testing | 8 - 25 mg/dL | EXTERNAL | | | | performed at [facility], [address] | | LAB | | | | [address], | | | | | | [place] [address] | | | | + + + + + + | Creatinine | 1.12 (H)Comment: Testing | 0.50 - 1.00 | EXTERNAL | | | | performed at [facility], [address] | mg/dL | LAB | | | | [address], | | | | | | [place] [address] | | | | + + + + + + | BUN/Creatin | 25Comment: Testing | | EXTERNAL | | | ine Ratio | performed at [facility], [address] | | LAB | | | | [address], | | | | | | [place] [address] | | | | + + + + + + | Calcium | 8.0 (L)Comment: Testing | 8.5 - 10.5 | EXTERNAL | | | | performed at [facility], [address] | mg/dL | LAB | | | | [address], | | | | | | [place] [address] | | | | + + + + + + | Protein, | 4.8 (L)Comment: Testing | 6.3 - 8.2 g/dL | EXTERNAL | | | Total | performed at [facility], [address] | | LAB | | | | [address], | | | | | | [place] [address] | | | | + + + + + + | Albumin | 2.9 (L)Comment: Testing | 3.3 - 4.8 g/dL | EXTERNAL | | | | performed at [facility], [address] | | LAB | | | | [address], | | | | | | [place] [address] | | | | + + + + + + | Globulin | 1.9Comment: Testing | 1.3 - 4.9 g/dL | EXTERNAL | | | | performed at [facility], [address] | | LAB | | | | [address], | | | | | | [place] [address] | | | | + + + + + + | A/G Ratio | 1.5Comment: Testing | 1.0 - 2.4 | EXTERNAL | | | | performed at [facility], [address] | | LAB | | | | [address], | | | | | | [place] [address] | | | | + + + + + + | Bilirubin | 0.9Comment: Testing | 0.1 - 1.5 mg/dL | EXTERNAL | | | Total | performed at [facility], [address] | | LAB | | | | [address], | | | | | | [place] [address] | | | | + + + + + + | ALP, | 43Comment: Testing | 35 - 115 U/L | EXTERNAL | | | External | performed at [facility], [address] | | LAB | | | | [address], | | | | | | [place] [address] | | | | + + + + + + | AST | 14Comment: Testing | 10 - 45 U/L | EXTERNAL | | | | performed at [facility], [address] | | LAB | | | | [address], | | | | | | [place] [address] | | | | + + + + + + | ALT | 11Comment: Testing | 10 - 65 U/L | EXTERNAL | | | | performed at [facility], [address] | | LAB | | | | [address], | | | | | | [place] [address] | | | | + + + + + + | Estimated | 50 (L)Comment: GFR <60: | mL/min/1.73m2 | EXTERNAL | | | GFR | CHRONIC KIDNEY DISEASE, | | LAB | | | | IF FOUND OVER A 3 MONTH | | | | | | PERIOD.GFR <15: KIDNEY | | | | | | FAILURE.FOR | | | | | | AMERICANS, MULTIPLY THE | | | | | | CALCULATED GFR BY | | | | | | 1.210.Testing performed | | | | | | at [facility], [address] | | | | | | [address], | | | | | | [place] [address] | | | | + + + + + + + + | Specimen | + + | Blood specimen | | (specimen) | + + + +---------+ + + | Performing | Address | City/State/Zipcode | Phone Number | | Organization | | | | + +---------+ + + | EXTERNAL LAB | | | | + +---------+ + + Hemoglobin and Hematocrit (10/16/2014 10:00 PM PDT) + + + + + + | Component | Value | Ref Range | Performed | Pathologist | | | | | At | Signature | + + + + + + | Hemoglobin | 10.0 (L)Comment: Testing | 11.3 - 15.5 | EXTERNAL | | | | performed at [facility];[address] | g/dL | LAB | | | | [address];[place] | | | | | | [address] | | | | + + + + + + | Hematocrit, | 30.7 (L)Comment: Testing | 34.0 - 46.0 % | EXTERNAL | | | POC | performed at [facility];[address] | | LAB | | | | [address];[place] | | | | | | [address] | | | | + + + + + + + + | Specimen | + + | | + + + +---------+ + + | Performing | Address | City/State/Zipcode | Phone Number | | Organization | | | | + +---------+ + + | EXTERNAL LAB | | | | + +---------+ + + Hemoglobin and Hematocrit (10/16/2014 7:50 AM PDT) + + + + + + | Component | Value | Ref Range | Performed | Pathologist | | | | | At | Signature | + + + + + + | Hemoglobin | 8.0 (L)Comment: Testing | 11.3 - 15.5 | EXTERNAL | | | | performed at [facility];[address] | g/dL | LAB | | | | [address];[place] | | | | | | [address] | | | | + + + + + + | Hematocrit, | 24.1 (L)Comment: Testing | 34.0 - 46.0 % | EXTERNAL | | | POC | performed at [facility];[address] | | LAB | | | | [address];[place] | | | | | | [address] | | | | + + + + + + + + | Specimen | + + | | + + + +---------+ + + | Performing | Address | City/State/Zipcode | Phone Number | | Organization | | | | + +---------+ + + | EXTERNAL LAB | | | | + +---------+ + + CK-MB (10/16/2014 6:01 AM PDT) + + + + + -+ | Component | Value | Ref Range | Performed | Pathologist | | | | | At | Signature | + + + + + -+ | CK-MB | 1.4Comment: Testing | 0.5 - 3.6 ng/mL | EXTERNAL | | | | performed at [facility];[address] | | LAB | | | | [address];[place], [place] | | | | | | [address] | | | | + + + + + -+ | CK-MB Index | 5.8Comment: CK INDEX | | EXTERNAL | | | | INTERPRETATION: | | LAB | | | | MMB ng/mL | | | | | | | | | | | |CK INDEX INTERPRETATION: | | | | | | MMB ng/mL | | | | | | | | | | + + + + + -+ + + | Specimen | + + | Blood specimen | | (specimen) | + + + +---------+ + + | Performing | Address | City/State/Zipcode | Phone Number | | Organization | | | | + +---------+ + + | EXTERNAL LAB | | | | + +---------+ + + Troponin I (10/16/2014 6:01 AM PDT) + + + + + + | Component | Value | Ref Range | Performed | Pathologist | | | | | At | Signature | + + + + + + | Troponin I, | 0.033Comment: 0.00 to | 0.00 - 0.10 | EXTERNAL | | | Qual | 0.10 CONSISTENT WITH | ng/mL | LAB | | | | NORMAL POPULATION0.11 to | | | | | | 0.60 CONSISTENT WITH | | | | | | INCREASED RISK FOR | | | | | | ADVERSE OUTCOMES> 0.60 | | | | | | CONSISTENT | | | | | | WITH WHO CRITERIA FOR | | | | | | ACUTE SD Testing | | | | | | performed at [facility];[address] | | | | | | [address] [facility];[place], [place] | | | | | | [address] | | | | + + + + + + + + | Specimen | + + | Blood specimen | | (specimen) | + + + +---------+ + + | Performing | Address | City/State/Zipcode | Phone Number | | Organization | | | | + +---------+ + + | EXTERNAL LAB | | | | + +---------+ + + PTT (10/16/2014 6:01 AM PDT) + + + + + + | Component | Value | Ref Range | Performed | Pathologist | | | | | At | Signature | + + + + + + | aPTT, | 26Comment: Testing | 23 - 32 seconds | EXTERNAL | | | Patient | performed at [facility];[address] | | LAB | | | | [address];[place] | | | | | | [address] | | | | + + + + + + + + | Specimen | + + | Blood specimen | | (specimen) | + + + +---------+ + + | Performing | Address | City/State/Zipcode | Phone Number | | Organization | | | | + +---------+ + + | EXTERNAL LAB | | | | + +---------+ + + Protime INR (10/16/2014 6:01 AM PDT) + + + + + + | Component | Value | Ref Range | Performed | Pathologist | | | | | At | Signature | + + + + + + | INR | 1.1Comment: REFERENCE | | EXTERNAL | | | | RANGE:0.9 - 1.2 | | LAB | | | | NON-ANTICOAGULATED2.0 | | | | | | - 3.0 ALL OTHER | | | | | | THERAPEUTIC | | | | | | INDICATIONS2.5 - 3.5 | | | | | | MECHANICAL HEART VALVES, | | | | | | RECURRENT OR SYSTEMIC | | | | | | EMBOLISMTesting | | | | | | performed at [facility] | | | | | | [facility];[place], [place] | | | | | | [address] | | | | + + + + + + + + | Specimen | + + | Blood specimen | | (specimen) | + + + +---------+ + + | Performing | Address | City/State/Zipcode | Phone Number | | Organization | | | | + +---------+ + + | EXTERNAL LAB | | | | + +---------+ + + External Lab: CBC (10/16/2014 6:01 AM PDT) + + + + + + | Component | Value | Ref Range | Performed | Pathologist | | | | | At | Signature | + + + + + + | WBC | 8.12Comment: Testing | 3.80 - 11.00 | EXTERNAL | | | | performed at [facility], [address] | K/uL | LAB | | | | [address], | | | | | | [place] [address] | | | | + + + + + + | Red Blood | 2.62 (L)Comment: Testing | 3.70 - 5.10 | EXTERNAL | | | Cells | performed at [facility], [address] | M/[address] | LAB | | | Counted | [address], | | | | | | [place] [address] | | | | + + + + + + | Hemoglobin | 8.3 (L)Comment: Testing | 11.3 - 15.5 | EXTERNAL | | | | performed at [facility], [address] | g/dL | LAB | | | | [address], | | | | | | [place] [address] | | | | + + + + + + | Hematocrit, | 24.9 (L)Comment: Testing | 34.0 - 46.0 % | EXTERNAL | | | POC | performed at [facility], [address] | | LAB | | | | [address], | | | | | | [place] [address] | | | | + + + + + + | MCV | 95.1Comment: Testing | 80.0 - 100.0 fl | EXTERNAL | | | | performed at [facility], [address] | | LAB | | | | [address], | | | | | | [place] [address] | | | | + + + + + + | MCH | 31.7Comment: Testing | 27.0 - 34.0 pg | EXTERNAL | | | | performed at [facility], [address] | | LAB | | | | [address], | | | | | | [place] [address] | | | | + + + + + + | MCHC | 33.4Comment: Testing | 32.0 - 35.5 | EXTERNAL | | | | performed at [facility], [address] | g/dL | LAB | | | | [address], | | | | | | [place] [address] | | | | + + + + + + | RDW-CV | 46.8Comment: Testing | 37 - 53 fl | EXTERNAL | | | | performed at [facility], [address] | | LAB | | | | [address], | | | | | | [place] [address] | | | | + + + + + + | Platelet | 107 (L)Comment: Testing | 150 - 400 K/uL | EXTERNAL | | | Count | performed at [facility], [address] | | LAB | | | Plasma | [address], | | | | | | [place] [address] | | | | + + + + + + | MPV | 9.2Comment: Testing | fl | EXTERNAL | | | | performed at [facility], [address] | | LAB | | | | [address], | | | | | | [place] [address] | | | | + + + + + + | Differentia | AUTOMATEDComment: | | EXTERNAL | | | l Type | Testing performed at | | LAB | | | | [facility], [address] | | | | | | [place] | | | | | | [address] | | | | + + + + + + | % Segmented | 81.03Comment: Testing | % | EXTERNAL | | | | performed at [facility], [address] | | LAB | | | Neutrophils | [address], | | | | | | [place] [address] | | | | + + + + + + | % | 12.64Comment: Testing | % | EXTERNAL | | | Lymphocytes | performed at [facility], [address] | | LAB | | | | [address], | | | | | | [place] [address] | | | | + + + + + + | % Monocytes | 5.15Comment: Testing | % | EXTERNAL | | | | performed at [facility], [address] | | LAB | | | | [address], | | | | | | [place] [address] | | | | + + + + + + | % | 0.85Comment: Testing | % | EXTERNAL | | | Eosinophils | performed at [facility], [address] | | LAB | | | | [address], | | | | | | [place] [address] | | | | + + + + + + | % Basophils | 0.33Comment: Testing | % | EXTERNAL | | | | performed at [facility], [address] | | LAB | | | | [address], | | | | | | [place] [address] | | | | + + + + + + | Absolute | 6.58Comment: Testing | 1.90 - 7.40 | EXTERNAL | | | Segmented | performed at [facility], [address] | K/uL | LAB | | | Neutrophils | [address], | | | | | | [place] [address] | | | | + + + + + + | Absolute | 1.03Comment: Testing | 1.00 - 3.90 | EXTERNAL | | | Lymphocytes | performed at [facility], [address] | K/uL | LAB | | | | [address], | | | | | | [place] [address] | | | | + + + + + + | Absolute | 0.42Comment: Testing | 0.00 - 0.80 | EXTERNAL | | | Monocytes | performed at [facility], [address] | K/uL | LAB | | | | [address], | | | | | | [place] [address] | | | | + + + + + + | Absolute | 0.07Comment: Testing | 0.00 - 0.50 | EXTERNAL | | | Eosinophils | performed at [facility], [address] | K/uL | LAB | | | | [address], | | | | | | [place] [address] | | | | + + + + + + | Absolute | 0.03Comment: Testing | 0.00 - 0.10 | EXTERNAL | | | Basophils | performed at [facility], [address] | K/uL | LAB | | | | [address], | | | | | | [place] [address] | | | | + + + + + + + + | Specimen | + + | Blood specimen | | (specimen) | + + + +---------+ + + | Performing | Address | City/State/Zipcode | Phone Number | | Organization | | | | + +---------+ + + | EXTERNAL LAB | | | | + +---------+ + + Phosphorus (10/16/2014 6:01 AM PDT) + + + + + + | Component | Value | Ref Range | Performed | Pathologist | | | | | At | Signature | + + + + + + | PHOSPHORUS | 2.3Comment: Testing | 2.3 - 4.8 mg/dL | EXTERNAL | | | | performed at [facility], [address] | | LAB | | | | [address], | | | | | | [place] [address] | | | | + + + + + + + + | Specimen | + + | Blood specimen | | (specimen) | + + + +---------+ + + | Performing | Address | City/State/Zipcode | Phone Number | | Organization | | | | + +---------+ + + | EXTERNAL LAB | | | | + +---------+ + + Magnesium (10/16/2014 6:01 AM PDT) + + + + + + | Component | Value | Ref Range | Performed | Pathologist | | | | | At | Signature | + + + + + + | Magnesium | 2.3Comment: Testing | 1.7 - 2.4 mg/dL | EXTERNAL | | | | performed at [facility], [address] | | LAB | | | | [address], | | | | | | [place] [address] | | | | + + + + + + + + | Specimen | + + | Blood specimen | | (specimen) | + + + +---------+ + + | Performing | Address | City/State/Zipcode | Phone Number | | Organization | | | | + +---------+ + + | EXTERNAL LAB | | | | + +---------+ + + CK Total (10/16/2014 6:01 AM PDT) + + + + + + | Component | Value | Ref Range | Performed | Pathologist | | | | | At | Signature | + + + + + + | CK, Total | 24 (L)Comment: Testing | 30 - 240 U/L | EXTERNAL | | | | performed at [facility];[address] | | LAB | | | [address];[place], [place] | | | | | | [address] | | | | + + + + + + + + | Specimen | + + | Blood specimen | | (specimen) | + + + +---------+ + + | Performing | Address | City/State/Zipcode | Phone Number | | Organization | | | | + +---------+ + + | EXTERNAL LAB | | | | + +---------+ + + Comprehensive Metabolic Panel (10/16/2014 6:01 AM PDT) + + + + + + | Component | Value | Ref Range | Performed | Pathologist | | | | | At | Signature | + + + + + + | Na | 139Comment: Testing | 135 - 143 | EXTERNAL | | | | performed at [facility], [address] | mmol/L | LAB | | | | [address], | | | | | | [place] [address] | | | | + + + + + + | K | 3.1 (L)Comment: Testing | 3.5 - 4.9 | EXTERNAL | | | | performed at [facility], [address] | mmol/L | LAB | | | | [address], | | | | | | [place] [address] | | | | + + + + + + | Cl | 109Comment: Testing | 99 - 109 mmol/L | EXTERNAL | | | | performed at [facility], [address] | | LAB | | | | [address], | | | | | | [place] [address] | | | | + + + + + + | CO2 | 24Comment: Testing | 23 - 32 mmol/L | EXTERNAL | | | | performed at [facility], [address] | | LAB | | | | [address], | | | | | | [place] [address] | | | | + + + + + + | Anion Gap | 9Comment: Testing | 5 - 20 mmol/L | EXTERNAL | | | | performed at [facility], [address] | | LAB | | | | [address], | | | | | | [place] [address] | | | | + + + + + + | Glucose, | 182 (H)Comment: Testing | 65 - 99 mg/dL | EXTERNAL | | | Fasting | performed at [facility], [address] | | LAB | | | | [address], | | | | | | [place] [address] | | | | + + + + + + | BUN | 54 (H)Comment: Testing | 8 - 25 mg/dL | EXTERNAL | | | | performed at [facility], [address] | | LAB | | | | [address], | | | | | | [place] [address] | | | | + + + + + + | Creatinine | 1.17 (H)Comment: Testing | 0.50 - 1.00 | EXTERNAL | | | | performed at [facility], [address] | mg/dL | LAB | | | | [address], | | | | | | [place] [address] | | | | + + + + + + | BUN/Creatin | 46Comment: Testing | | EXTERNAL | | | ine Ratio | performed at [facility], [address] | | LAB | | | | [address], | | | | | | [place] [address] | | | | + + + + + + | Calcium | 7.7 (L)Comment: Testing | 8.5 - 10.5 | EXTERNAL | | | | performed at [facility], [address] | mg/dL | LAB | | | | [address], | | | | | | [place] [address] | | | | + + + + + + | Protein, | 4.2 (L)Comment: Testing | 6.3 - 8.2 g/dL | EXTERNAL | | | Total | performed at [facility], [address] | | LAB | | | | [address], | | | | | | [place] [address] | | | | + + + + + + | Albumin | 2.6 (L)Comment: Testing | 3.3 - 4.8 g/dL | EXTERNAL | | | | performed at [facility], [address] | | LAB | | | | [address], | | | | | | [place] [address] | | | | + + + + + + | Globulin | 1.6Comment: Testing | 1.3 - 4.9 g/dL | EXTERNAL | | | | performed at [facility], [address] | | LAB | | | | [address], | | | | | | [place] [address] | | | | + + + + + + | A/G Ratio | 1.6Comment: Testing | 1.0 - 2.4 | EXTERNAL | | | | performed at [facility], [address] | | LAB | | | | [address], | | | | | | [place] [address] | | | | + + + + + + | Bilirubin | 0.6Comment: Testing | 0.1 - 1.5 mg/dL | EXTERNAL | | | Total | performed at [facility], [address] | | LAB | | | | [address], | | | | | | [place] [address] | | | | + + + + + + | ALP, | 36Comment: Testing | 35 - 115 U/L | EXTERNAL | | | External | performed at [facility], [address] | | LAB | | | | [address], | | | | | | [place] [address] | | | | + + + + + + | AST | 11Comment: Testing | 10 - 45 U/L | EXTERNAL | | | | performed at [facility], [address] | | LAB | | | | [address], | | | | | | [place] [address] | | | | + + + + + + | ALT | 9 (L)Comment: Testing | 10 - 65 U/L | EXTERNAL | | | | performed at [facility], [address] | | LAB | | | | [facility], | | | | | | [place] [address] | | | | + + + + + + | Estimated | 48 (L)Comment: GFR <60: | mL/min/1.73m2 | EXTERNAL | | | GFR | CHRONIC KIDNEY DISEASE, | | LAB | | | | IF FOUND OVER A 3 MONTH | | | | | | PERIOD.GFR <15: KIDNEY | | | | | | FAILURE.FOR | | | | | | AMERICANS, MULTIPLY THE | | | | | | CALCULATED GFR BY | | | | | | 1.210.Testing performed | | | | | | at [facility], [address] | | | | | [facility], | | | | | | [place] [address] | | | | + + + + + + + + | Specimen | + + | Blood specimen | | (specimen) | + + + +---------+ + + | Performing | Address | City/State/Zipcode | Phone Number | | Organization | | | | + +---------+ + + | EXTERNAL LAB | | | | + +---------+ + + Hemoglobin and Hematocrit (10/16/2014 12:13 AM PDT) + + + + + + | Component | Value | Ref Range | Performed | Pathologist | | | | | At | Signature | + + + + + + | Hemoglobin | 9.6 (L)Comment: Testing | 11.3 - 15.5 | EXTERNAL | | | | performed at [facility];888 | g/dL | LAB | | | | [address];[place] | | | | | | [address] | | | | + + + + + + | Hematocrit, | 29.3 (L)Comment: Testing | 34.0 - 46.0 % | EXTERNAL | | | POC | performed at [facility];[address] | | LAB | | | | [address];[place], [place] | | | | | | [address] | | | | + + + + + + + + | Specimen | + + | | + + + +---------+ + + | Performing | Address | City/State/Zipcode | Phone Number | | Organization | | | | + +---------+ + + | EXTERNAL LAB | | | | + +---------+ + + CK-MB (10/16/2014 12:13 AM PDT) + + + + + -+ | Component | Value | Ref Range | Performed | Pathologist | | | | | At | Signature | + + + + + -+ | CK-MB | 2.1Comment: Testing | 0.5 - 3.6 ng/mL | EXTERNAL | | | | performed at [facility] | | LAB | | | | [facility];[place], [place] | | | | | | [address] | | | | + + + + + -+ | CK-MB Index | 8.1Comment: CK INDEX | | EXTERNAL | | | | INTERPRETATION: | | LAB | | | | MMB ng/mL | | | | | | | | | | | |CK INDEX INTERPRETATION: | | | | | | MMB ng/mL | | | | | | | | | | + + + + + -+ + + | Specimen | + + | Blood specimen | | (specimen) | + + + +---------+ + + | Performing | Address | City/State/Zipcode | Phone Number | | Organization | | | | + +---------+ + + | EXTERNAL LAB | | | | + +---------+ + + Troponin I (10/16/2014 12:13 AM PDT) + + + + + + | Component | Value | Ref Range | Performed | Pathologist | | | | | At | Signature | + + + + + + | Troponin I, | 0.037Comment: 0.00 to | 0.00 - 0.10 | EXTERNAL | | | Qual | 0.10 CONSISTENT WITH | ng/mL | LAB | | | | NORMAL POPULATION0.11 to | | | | | | 0.60 CONSISTENT WITH | | | | | | INCREASED RISK FOR | | | | | | ADVERSE OUTCOMES> 0.60 | | | | | | CONSISTENT | | | | | | WITH WHO CRITERIA FOR | | | | | | ACUTE SD Testing | | | | | | performed at [facility];[address] | [address];[place], [place] | | | | | | [address] | | | | + + + + + + + + | Specimen | + + | Blood specimen | | (specimen) | + + + +---------+ + + | Performing | Address | City/State/Zipcode | Phone Number | | Organization | | | | + +---------+ + + | EXTERNAL LAB | | | | + +---------+ + + CK Total (10/16/2014 12:13 AM PDT) + + + + + + | Component | Value | Ref Range | Performed | Pathologist | | | | | At | Signature | + + + + + + | CK, Total | 26 (L)Comment: Testing | 30 - 240 U/L | EXTERNAL | | | | performed at [facility];[address] | | LAB | | | | [address];[place] | | | | | | [address] | | | | + + + + + + + + | Specimen | + + | Blood specimen | | (specimen) | + + + +---------+ + + | Performing | Address | City/State/Zipcode | Phone Number | | Organization | | | | + +---------+ + + | EXTERNAL LAB | | | | + +---------+ + + Helicobactor pylori Biopsy (10/15/2014 9:06 PM PDT) + + + + + + | Component | Value | Ref Range | Performed | Pathologist | | | | | At | Signature | + + + + + + | Time | 2111Comment: Testing | | EXTERNAL | | | Received | performed at [facility];[address] | | LAB | | | | [address];[place] | | | | | | [address] | | | | + + + + + + | 24hr Read | NEGATIVEComment: Testing | | EXTERNAL | | | | performed at [facility];[address] | | LAB | | | | [address];[place] | | | | | | [address] | | | | + + + + + + + + | Specimen | + + | | + + + +---------+ + + | Performing | Address | City/State/Zipcode | Phone Number | | Organization | | | | + +---------+ + + | EXTERNAL LAB | | | | + +---------+ + + External Lab: Occult Blood, Screening (10/15/2014 6:09 PM PDT) + + | Specimen | + + | Stool specimen | | (specimen) | + + + + + | Narrative | Performed At | + + + | Fecal Occult Blood POSITIVE Abnormal | EXTERNAL LAB | | Testing performed at [facility];[address] [facility];[place] [address] | | + + + + +---------+ + + | Performing | Address | City/State/Zipcode | Phone Number | | Organization | | | | + +---------+ + + | EXTERNAL LAB | | | | + +---------+ + + CK-MB (10/15/2014 5:21 PM PDT) + + + + + -+ | Component | Value | Ref Range | Performed | Pathologist | | | | | At | Signature | + + + + + -+ | CK-MB | 1.5Comment: Testing | 0.5 - 3.6 ng/mL | EXTERNAL | | | | performed at [facility];[address] | | LAB | | | | [address];[place] | | | | | | [address] | | | | + + + + + -+ | CK-MB Index | 5.6Comment: CK INDEX | | EXTERNAL | | | | INTERPRETATION: | | LAB | | | | MMB ng/mL | | | | | | | | | | | |CK INDEX INTERPRETATION: | | | | | | MMB ng/mL | | | | | | | | | | + + + + + -+ + + | Specimen | + + | | + + + +---------+ + + | Performing | Address | City/State/Zipcode | Phone Number | | Organization | | | | + +---------+ + + | EXTERNAL LAB | | | | + +---------+ + + Troponin I (10/15/2014 5:21 PM PDT) + + + + + + | Component | Value | Ref Range | Performed | Pathologist | | | | | At | Signature | + + + + + + | Troponin I, | 0.028Comment: 0.00 to | 0.00 - 0.10 | EXTERNAL | | | Qual | 0.10 CONSISTENT WITH | ng/mL | LAB | | | | NORMAL POPULATION0.11 to | | | | | | 0.60 CONSISTENT WITH | | | | | | INCREASED RISK FOR | | | | | | ADVERSE OUTCOMES> 0.60 | | | | | | CONSISTENT | | | | | | WITH WHO CRITERIA FOR | | | | | | ACUTE SD Testing | | | | | | performed at [facility];[address] | | | | | | [address] [facility];[place], [place] | | | | | | [address] | | | | + + + + + + + + | Specimen | + + | Blood specimen | | (specimen) | + + + +---------+ + + | Performing | Address | City/State/Zipcode | Phone Number | | Organization | | | | + +---------+ + + | EXTERNAL LAB | | | | + +---------+ + + External Lab: CBC (10/15/2014 5:21 PM PDT) + + + + + + | Component | Value | Ref Range | Performed | Pathologist | | | | | At | Signature | + + + + + + | WBC | 8.28Comment: Testing | 3.80 - 11.00 | EXTERNAL | | | | performed at [facility];[address] | K/uL | LAB | | | | [address];[place] | | | | | | [address] | | | | + + + + + + | Red Blood | 3.12 (L)Comment: Testing | 3.70 - 5.10 | EXTERNAL | | | Cells | performed at [facility];[address] | M/uL | LAB | | | Counted | [address];[place] | | | | | | [address] | | | | + + + + + + | Hemoglobin | 9.9 (L)Comment: Testing | 11.3 - 15.5 | EXTERNAL | | | | performed at [facility];888 | g/dL | LAB | | | | [address];[place] | | | | | | [address] | | | | + + + + + + | Hematocrit, | 29.9 (L)Comment: Testing | 34.0 - 46.0 % | EXTERNAL | | | POC | performed at [facility];[address] | | LAB | | | | [address];[place] | | | | | | [address] | | | | + + + + + + | MCV | 95.8Comment: Testing | 80.0 - 100.0 fl | EXTERNAL | | | | performed at [facility];[address] | | LAB | | | | [address];[place] | | | | | | [address] | | | | + + + + + + | MCH | 31.8Comment: Testing | 27.0 - 34.0 pg | EXTERNAL | | | | performed at [facility];[address] | | LAB | | | | [address];[place] | | | | | | [address] | | | | + + + + + + | MCHC | 33.2Comment: Testing | 32.0 - 35.5 | EXTERNAL | | | | performed at [facility];888 | g/dL | LAB | | | | [address];[place] | | | | | | [address] | | | | + + + + + + | RDW-CV | 46.8Comment: Testing | 37 - 53 fl | EXTERNAL | | | | performed at [facility];[address] | | LAB | | | | [address];[place] | | | | | | [address] | | | | + + + + + + | Platelet | 118 (L)Comment: Testing | 150 - 400 K/uL | EXTERNAL | | | Count | performed at [facility];[address] | | LAB | | | Plasma | [address];[place] | | | | | | [address] | | | | + + + + + + | MPV | 9.1Comment: Testing | fl | EXTERNAL | | | | performed at [facility];[address] | | LAB | | | | [address];[place] | | | | | | [address] | | | | + + + + + + | Differentia | AUTOMATEDComment: | | EXTERNAL | | | l Type | Testing performed at | | LAB | | | | [facility];[address];[place] [address] | | | | + + + + + + | % Segmented | 85.56Comment: Testing | % | EXTERNAL | | | | performed at [facility];[address] | | LAB | | | Neutrophils | [address];[place] | | | | | | [address] | | | | + + + + + + | % | 9.29Comment: Testing | % | EXTERNAL | | | Lymphocytes | performed at [facility];[address] | | LAB | | | | [address];[place] | | | | | | [address] | | | | + + + + + + | % Monocytes | 4.72Comment: Testing | % | EXTERNAL | | | | performed at [facility];[address] | | LAB | | | | [address];[place] | | | | | | [address] | | | | + + + + + + | % | 0.03Comment: Testing | % | EXTERNAL | | | Eosinophils | performed at [facility];[address] | | LAB | | | | [address];[place] | | | | | | [address] | | | | + + + + + + | % Basophils | 0.40Comment: Testing | % | EXTERNAL | | | | performed at [facility];[address] | | LAB | | | | [address];[place] | | | | | | [address] | | | | + + + + + + | Absolute | 7.09Comment: Testing | 1.90 - 7.40 | EXTERNAL | | | Segmented | performed at [facility];[address] | K/uL | LAB | | | Neutrophils | [address];[place] | | | | | | [address] | | | | + + + + + + | Absolute | 0.77 (L)Comment: Testing | 1.00 - 3.90 | EXTERNAL | | | Lymphocytes | performed at [facility];[address] | K/uL | LAB | | | | [address];[place] | | | | | | [address] | | | | + + + + + + | Absolute | 0.39Comment: Testing | 0.00 - 0.80 | EXTERNAL | | | Monocytes | performed at [facility];[address] | K/uL | LAB | | | | [address];[place] | | | | | | [address] | | | | + + + + + + | Absolute | 0.00Comment: Testing | 0.00 - 0.50 | EXTERNAL | | | Eosinophils | performed at [facility];[address] | K/uL | LAB | | | | [address];[place] | | | | | | [address] | | | | + + + + + + | Absolute | 0.03Comment: Testing | 0.00 - 0.10 | EXTERNAL | | | Basophils | performed at [facility];[address] | K/uL | LAB | | | | [address];[place] | | | | | | [address] | | | | + + + + + + | RBC | RBC AND PLT MORPHOLOGY | | EXTERNAL | | | Morphology | APPEAR NORMALComment: | | LAB | | | | Testing performed at | | | | | | [facility];[address];[place] [address] | | | | + + + + + + | Platelet | ADEQUATEComment: Testing | | EXTERNAL | | | Estimate | performed at [facility];[address] | | LAB | | | | [address];[place] | | | | | | [address] | | | | + + + + + + | Differentia | SLIDE SCANNED, AGREES | | EXTERNAL | | | l Comments | WITH AUTOMATED | | LAB | | | | RESULTS.Comment: Testing | | | | | | performed at [facility];[address] | | | | | | [address];[place] | | | | | | [address] | | | | + + + + + + + + | Specimen | + + | Blood specimen | | (specimen) | + + + +---------+ + + | Performing | Address | City/State/Zipcode | Phone Number | | Organization | | | | + +---------+ + + | EXTERNAL LAB | | | | + +---------+ + + CK Total (10/15/2014 5:21 PM PDT) + + + + + + | Component | Value | Ref Range | Performed | Pathologist | | | | | At | Signature | + + + + + + | CK, Total | 27 (L)Comment: Testing | 30 - 240 U/L | EXTERNAL | | | | performed at [facility];[address] | | LAB | | | | [facility], [place] | | | | | | [address] | | | | + + + + + + + + | Specimen | + + | Blood specimen | | (specimen) | + + + +---------+ + + | Performing | Address | City/State/Zipcode | Phone Number | | Organization | | | | + +---------+ + + | EXTERNAL LAB | | | | + +---------+ + + Basic Metabolic Panel (10/15/2014 5:21 PM PDT) + + + + + + | Component | Value | Ref Range | Performed | Pathologist | | | | | At | Signature | + + + + + + | Na | 140Comment: Testing | 135 - 143 | EXTERNAL | | | | performed at [facility];888 | mmol/L | LAB | | | | [address];[place] | | | | | | [address] | | | | + + + + + + | K | 4.2Comment: Testing | 3.5 - 4.9 | EXTERNAL | | | | performed at [facility];888 | mmol/L | LAB | | | | [address];[place] | | | | | | [address] | | | | + + + + + + | Cl | 107Comment: Testing | 99 - 109 mmol/L | EXTERNAL | | | | performed at [facility];[address] | | LAB | | | | [address];[place] | | | | | | [address] | | | | + + + + + + | CO2 | 24Comment: Testing | 23 - 32 mmol/L | EXTERNAL | | | | performed at [facility];[address] | | LAB | | | | [address];[place] | | | | | | [address] | | | | + + + + + + | Anion Gap | 14Comment: Testing | 5 - 20 mmol/L | EXTERNAL | | | | performed at [facility];[address] | | LAB | | | | [address];[place] | | | | | | [address] | | | | + + + + + + | Glucose, | 234 (H)Comment: Testing | 65 - 99 mg/dL | EXTERNAL | | | Fasting | performed at [facility];[address] | | LAB | | | | [address];[place] | | | | | | [address] | | | | + + + + + + | BUN | 73 (H)Comment: Testing | 8 - 25 mg/dL | EXTERNAL | | | | performed at [facility];[address] | | LAB | | | | [address];[place] | | | | | | [address] | | | | + + + + + + | Creatinine | 1.31 (H)Comment: Testing | 0.50 - 1.00 | EXTERNAL | | | | performed at [facility];888 | mg/dL | LAB | | | | [address];[place] | | | | | | [address] | | | | + + + + + + | BUN/Creatin | 56Comment: Testing | | EXTERNAL | | | ine Ratio | performed at [facility];[address] | | LAB | | | | [address];[place] | | | | | | [address] | | | | + + + + + + | Calcium | 7.9 (L)Comment: Testing | 8.5 - 10.5 | EXTERNAL | | | | performed at [facility];888 | mg/dL | LAB | | | | [address];[place] | | | | | | [address] | | | | + + + + + + | Estimated | 42 (L)Comment: GFR <60: | mL/min/1.73m2 | EXTERNAL | | | GFR | CHRONIC KIDNEY DISEASE, | | LAB | | | | IF FOUND OVER A 3 MONTH | | | | | | PERIOD.GFR <15: KIDNEY | | | | | | FAILURE.FOR | | | | | | AMERICANS, MULTIPLY THE | | | | | | CALCULATED GFR BY | | | | | | 1.210.Testing performed | | | | | | at [facility];[address];[place] [address] | | | | + + + + + + + + | Specimen | + + | Blood specimen | | (specimen) | + + + +---------+ + + | Performing | Address | City/State/Zipcode | Phone Number | | Organization | | | | + +---------+ + + | EXTERNAL LAB | | | | + +---------+ + + ECG 12 lead (10/15/2014 4:47 PM PDT) + + + + + + | Component | Value | Ref Range | Performed | Pathologist | | | | | At | Signature | + + + + + + | DIAGNOSIS: | Atrial fibrillation with | | EXTERNAL | | | | rapid ventricular | | LAB | | | | rateLeft anterior | | | | | | fascicular | | | | | | blockNonspecific ST and | | | | | | T wave | | | | | | abnormalityAbnormal | | | | | | ECGNo previous ECGs | | | | | | availableConfirmed by | | | | | | HOMERO MIKE ([id number]) on | | | | | | 10/18/2014 4:04:41 PM | | | | + + + + + + + + | Specimen | + + | | + + + + + | Narrative | Performed At | + + + | Historically converted procedure from [facility] environment | EXTERNAL LAB | + + + + +---------+ + + | Performing | Address | City/State/Zipcode | Phone Number | | Organization | | | | + +---------+ + + | EXTERNAL LAB | | | | + +---------+ + + documented in this encounter Visit Diagnoses + + | Diagnosis | + + | GI bleed Hemorrhage of gastrointestinal tract, unspecified | + + documented in this encounter
--- OUTSIDE RECORDS SUMMARY | ~2019-12-11 | XMS | Encounter Summary ---
Demographics + + + | Address | [address] | | | [place] [address] | + + + | Home Phone | | + + + | Preferred Language | Unknown | + + + | Marital Status | | + + + | Jain Affiliation | [id number] | + + + | Race | Unknown | + + + | Ethnic Group | Unknown | + + + Author + + + | Author | [facility] | | | and [place] | + + + | Organization | [facility] | | | [...] Team Providers + +------+ + | Care Indexer Name | Role | Phone | + +------+ + | Tino Salmeron DO | PCP | | + +------+ + Encounter Details +--------+ + + + + | Date | Type | Department | Care Team | Description | +--------+ + + + + | 08/23/ | Orders Only | [facility] | Will Rodriguez MD | S/P lumbar spinal | | 2018 | | NEUROSURGERY [address] | fusion (Primary Dx); | | | | [address] | [place] [address] | Spinal stenosis of | | | | [place], [place] | [phone] | lumbar region with | | | | [address] | | neurogenic | | | | [phone] | | claudication; Lumbar | | | | | | radiculopathy - | | | | | | primarily into the | | | | | | left lower | | | | | | extremity; Lumbar | | | | | | [...] | | | | | | nerve roots; DDD | | | | | | (degenerative disc | | | | | | disease), lumbar - | | | | | | multilevel, | | | | | | especially at L3-L4 | | | | | | and L4-L5; Spinal | | | | | | stenosis of lumbar | | | | | | region with | | | | | | radiculopathy - | | | | | | severe at L4-L5 | +--------+ + + + + Social [...] 2019 | Visit | | [address] [facility] | | | | | | [address] [place] | | | | | | [address] | | | | | | | | +--------+---------+ + + + documented as of this encounter Results XR Lumbar Spine 4 + Vw (08/28/2017 1:18 PM PST) + + | Specimen | + + | | + + + + + | Narrative | Performed At | + + + | EXAM:XR LUMBAR SPINE 4 + VW CLINICAL HISTORY: Back pain | [facility] | | COMPARISON: Lumbar spine radiographs dating to February 16, 2014. | | | FINDINGS: Frontal and lateral views. Mild levoconvex scoliosis. | | | Posterior and interbody fusion changes at L4-L5. Intact hardware. | | | No change in position of the interbody graft markers. No change | | | in spinal alignment. There is the suggestion of solid fusion at the | | | L4-L5 disc level. Moderate disc narrowing at L3-L4. Mild at | | | L2-L3. Stable mild superior endplate deformity of L1. In the | | | neutral lateral position there is minimal anterolisthesis of L2. | | | There is no abnormal translation with flexion or extension. | | | Partially visualized arthroplasty changes in the left hip. | | | IMPRESSION - No radiographic evidence for an interval | | | complication. Suggestion of solid osseous fusion at the L4-L5 | | | level. Spondylosis above the operative level. L2 | | | spondylolisthesis without abnormal translation. Dictated and | | | Signed by: Ant Jackson MD Electronically signed: 08/28/2017 4:30 | | | PM | | + + + + + | Procedure Note | + + | Km Samuels Results In - 08/28/2017 4:33 PM PST EXAM:XR LUMBAR SPINE 4 + VW | | | | CLINICAL HISTORY: Back pain | | | | COMPARISON: Lumbar spine radiographs dating to February 16, 2014. | | | | FINDINGS: Frontal and lateral views. Mild levoconvex scoliosis. Posterior and | | interbody fusion changes at L4-L5. Intact hardware. No change in position of | | the interbody graft markers. No change in spinal alignment. There is the | | suggestion of solid fusion at the L4-L5 disc level. Moderate disc narrowing at | | L3-L4. Mild at L2-L3. Stable mild superior endplate deformity of L1. In the | | neutral lateral position there is minimal anterolisthesis of L2. There is no | | abnormal translation with flexion or extension. Partially visualized | | arthroplasty changes in the left hip. | | | | IMPRESSION - | | | | No radiographic evidence for an interval complication. | | | | Suggestion of solid osseous fusion at the L4-L5 level. | | | | Spondylosis above the operative level. | | | | L2 spondylolisthesis without abnormal translation. | | | | Dictated and Signed by: Ant Jackson MD | | Electronically signed: 08/28/2017 4:30 PM | + + + +---------+ + + | Performing | Address | City/State/Zipcode | Phone Number | | Organization | | | | + +---------+ + + | [facility] | | | | + +---------+ + + documented in this encounter Visit Diagnoses + + | Diagnosis | + + | S/P lumbar spinal fusion - Primary Arthrodesis status | + + | Spinal stenosis of lumbar region with neurogenic claudication Spinal stenosis, lumbar | | region, with neurogenic claudication | + + | Lumbar radiculopathy - primarily into the left lower extremity Thoracic or | | lumbosacral neuritis or radiculitis, unspecified | + + | 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
--- OUTSIDE RECORDS SUMMARY | ~2019-12-11 | XMS | Encounter Summary ---
Demographics + + + | Address | [address] | | | [place] [address] | + + + | Home Phone | | + + + | Preferred Language | Unknown | + + + | Marital Status | | + + + | Taoist Affiliation | 1073 | + + + | Race | Unknown | + + + | Ethnic Group | Unknown | + + + Author + + + | Author | [facility] | | | and [place] | + + + | Organization | [facility] | | | and [...] Team Providers + +------+ + | Care Bail Agent Name | Role | Phone | + +------+ + | Tino Salmeron DO | PCP | | + +------+ + Encounter Details +--------+ + + + + | Date | Type | Department | Care Team | Description | +--------+ + + + + | 10/06/ | Orders Only | [facility] | Homero Soto MD | Essential | | 2020 | | NEPHROLOGY [place] | [address] [place] | hypertension | | | | [address] | [address] [place], [place] | (Primary Dx); CKD | | | | [address] | [address] | (chronic kidney | | | | [place], [place] | | disease) stage 3, | | | | [address] | | GFR 30-59 ml/min | | | | [phone] | | (HCC); Persistent | | | [...] 2020 | Visit | | [address] [place] | | | | | | [address] [place] | | | | | | [address] | | | | | | (Fax) | | +--------+---------+ + + + + [...] ml/min | | | | | | (HCC) Persistent | | | | | | proteinuria | | + +---------+--------+ + + | Renal Function Panel | Lab | Routin | Essential | Expected: | | | | e | hypertension CKD | 02/06/2020, Expires: | | | | | (chronic kidney | 10/06/2020 | | | | | disease) stage 3, | | | | | | GFR 30-59 ml/min | | | | | | (HCC) Persistent | | | | | | proteinuria | | + +---------+--------+ + + | CBC with | Lab | Routin | Essential | Expected: | | Differential | | e | hypertension CKD | 02/06/2020, Expires: | | | | | (chronic kidney | 10/06/2020 | | | | | disease) stage 3, | | | | | | GFR 30-59 ml/min | | | | | | ([facility]) Persistent | | | | | | proteinuria | | + +---------+--------+ + + | Parathyroid Hormone, | Lab | Routin | Essential | Expected: | | Intact | | e | hypertension CKD | 02/06/2020, Expires: | | | | | (chronic kidney | 10/06/2020 | | | | | disease) stage 3, | | | | | | GFR 30-59 ml/min | | | | | | ([facility]) Persistent | | | | [...] ml/min | | | | | | ([facility]) Persistent | | | | | | proteinuria | | + +---------+--------+ + + documented as of this encounter Visit Diagnoses + + | Diagnosis | + + | Essential hypertension - Primary Unspecified essential hypertension | + + | CKD (chronic kidney disease) stage 3, GFR 30-59 ml/min ([facility]) Chronic kidney disease, | | Stage III (moderate) | + + | Persistent proteinuria Proteinuria | + + documented in this encounter"
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
--- OUTSIDE RECORDS SUMMARY | ~2019-12-11 | XMS | Encounter Summary ---
Demographics + + + | Address | [address] | | | [place] [address] | + + + | Home Phone | | + + + | Preferred Language | Unknown | + + + | Marital Status | | + + + | Sabianist Affiliation | 1073 | + + + | Race | Unknown | + + + | Ethnic Group | Unknown | + + + Author + + + | Author | [facility] | | | and [place] | + + + | Organization | [facility] | | [...] Team Providers + +------+ + | Care Women'S Garment Fitter Name | Role | Phone | + [...] | | | e disc | [place] [address] | [address] Phone: | | | | | disease), | Phone: | [phone] | | | | | lumbar | [phone] | Fax: | | | | | Lumbar | Fax: | [phone] | | | | | radicular | [phone] | | | | | | pain [...] | | | | e disc | [place] [address] | | | | | | disease), | Phone: | | | | | | lumbar | [phone] | | | | | | Lumbar | Fax: | | | | | | radicular | [phone] | | | | | | pain [...] | | | | | Procedures | [address] | [address] [place] | | | | | SD OFFICE | [address] | [place], [place] | | | | | CONSULTATION | [place], | [address] Phone: | | | | | NEW/ESTAB | [place] | [phone] | | | | | PATIENT 60 | [address] | Fax: | | | | | MIN | Phone: | [phone] | | | | | | [phone] | | | | | | | Fax: | | | | | | | [phone] | | +--------+--------+ + + + + Encounter Details +--------+---------+ + + + | Date | Type | Department | Care Team | Description | +--------+---------+ + + + | 01/20/ | Office | [facility] | Luigi James, | Lumbar stenosis | | 2013 | Visit | NEUROSURGERY [address] | PA-C [address] | (Primary Dx); DDD | | | | [address] | [address] [place] [facility], [place] | (degenerative disc | | | | [place], [place] | [address] | disease), lumbar; | | | | [address] | | Lumbar radicular | | | | [phone] | | pain; Low back pain; | [...] 11:45 AM PDT Luigi James PA-C [address] [facility] [place] [address] FAX: NEUROSURGERY HISTORY AND PHYSICAL EXAMINATION CHIEF [...] has no apparent deficits with short or longterm memory. CRANIAL NERVES: II: Acuity is intact. [...] Intrinsics 5 5 Ulnar Intrinsics 5 5 Sports Medicine Trainer Strength 5 5 Hip Flexion 4+ 4+ [...] 2020 | Visit | | [address] [facility] | | | | | | [address] [place] | | | | | | [address] | | | | | | | [...]
--- OUTSIDE RECORDS SUMMARY | ~2019-12-11 | XMS | Encounter Summary ---
Demographics + + + | Address | [address] | | | [place] [address] | + + + | Home Phone | | + + + | Preferred Language | Unknown | + + + | Marital Status | | + + + | Presybeterian Affiliation | 1073 | + + + | Race | Unknown | + + + | Ethnic Group | Unknown | + + + Author + + + | Author | [facility] | | | and [place] | + + + | Organization | [facility] | | | [...] Team Providers + +------+ + | Care Reinforcing Steel Worker Wire Mesh Name | Role | Phone | + +------+ + | Tino Salmeron DO | PCP | | + +------+ + Encounter Details +--------+ + + + + | Date | Type | Department | Care Team | Description | +--------+ + + + + | 09/06/ | Imaging | [facility] | Provider, | | | 2018 | Exam | [facility] | [place] [address] | | | | | IMAGING [address] | [address]. | | | | | [address] [place] | [place] [address] | | | | | [place] [address] | | | | | | [phone] | | | +--------+ + + + [...] 2020 | Visit | | [address] [facility] | | | | | | [facility] | | | | | | [address] | | | | | | | | +--------+---------+ + + + documented as of this encounter Procedures + +--------+ + + + | Procedure Name | Priori | Date/Time | Associated Diagnosis | Comments | | | ty | | | | + +--------+ + + + | MRI CERVICAL SPINE | Routin | 09/04/2017 | | Results for this | | WO CONTRAST | e | 3:20 PM | | procedure are in the | | | | PST | | results section. | + +--------+ + + + documented in this encounter Results MRI Cervical Spine wo Contrast (09/04/2017 3:20 PM PST) + + | Specimen | + + | | + + + + + | Narrative | Performed At | + + + | External films for comparison only - no result from [facility]. | [facility] | + + + + +---------+ + + | Performing | Address | City/State/Zipcode | Phone Number | | Organization | | | | + +---------+ + + | [facility] | | | | + +---------+ + + documented in this encounter Visit Diagnoses Not on filedocumented in this encounter"
--- OUTSIDE RECORDS SUMMARY | ~2019-12-11 | XMS | Encounter Summary ---
Demographics + + + | Address | [address] | | | [place] [address] | + + + | Home Phone | | + + + | Preferred Language | Unknown | + + + | Marital Status | | + + + | Adventist Affiliation | 1073 | + + + [...] Team Providers + +------+ + | Care Die Sinking Machine Operator Name | Role | Phone | + +------+ + | Chinmay Driscoll MD | PCP | | + +------+ + Encounter Details +--------+ + + + + | Date | Type | Department | Care Team | Description | +--------+ + + + + | 01/20/ | Hospital | [facility] | Luigi James, | | | 2013 | Encounter | MED CTR XRAY [address] | PA-C [address] | | | | | [place] | [place], [place] | | | | | [place] [address] | [address] | | | | | [phone] | | | +--------+ + + + [...] | 250 mcg tablet | mouth Daily. 1/2 | | | | 4 | | [...] | + + + +---------+--------+ + | Iron-Vitamins | Take by mouth. | | 0 | | | | (GERITOL PO) | Geritopl Vitamin B | | | | 3 | | | complex with C and | | | | | | | Iron tablet I capful | | | | | | | daily | | | | | + + + +---------+--------+ + | levothyroxine | Take 50 mcg by mouth | | 0 | | | | (SYNTHROID, | every morning | | | | 3 | | LEVOTHROID) 25 | (before breakfast). | | | | | | mcg/mL suspension | | | | | | + + + +---------+--------+ + | losartan (COZAAR) | Take 100 mg by mouth | | 0 | | | | 100 MG tablet | Daily. | | | | 3 | + + + +---------+--------+ + | metFORMIN | Take 1,000 mg by | | 0 | | | | (GLUCOPHAGE) 500 mg | mouth 2 times daily | | | | 0 | | tablet | (with breakfast & | | | | | | | dinner). | | | | | + + + +---------+--------+ + | Naproxen Sodium | Take by mouth. | | 0 | | | | (ALEVE PO) | | | | | 3 | + + + +---------+--------+ + | [...] | + + + +---------+--------+ + | Triamterene-HCTZ | Take 25 mg by mouth. | | 0 | | | | (DYAZIDE PO) | Take 1 capsule | | | | 3 | | | daily | | | | | + + + +---------+--------+ + documented as of this encounter Plan of Treatment +--------+---------+ + + + | Date | Type | Specialty | Care Team | Description | +--------+---------+ + + + | 02/08/ | Office | Nephrology | Homero Soto MD | | | 2019 | Visit | | [address] [facility] | | | | | | [address] [facility] [place] | | | | | | [address] | | | | | | | | +--------+---------+ + + + documented as of this encounter Procedures + +--------+ + + + | Procedure Name | Priori | Date/Time | Associated Diagnosis | Comments | | | ty | | | | + +--------+ + + + | XR LUMBAR SPINE 2 [place] | Routin | 01/20/2013 | | Results for this | | 3 VW | e | 1:35 PM | | procedure are in the | | | | PDT | | results section. | + +--------+ + + + documented in this encounter Results XR Lumbar Spine 2 or 3 Vw (01/20/2013 1:35 PM PDT) + + | Specimen | + + | | + + + + + | Narrative | Performed At | + + + | [facility] | [place] | | Department [address] [facility] [place] [facility] | | [ rep [address]] [ rep [facility] | | st zip] Signed | - IMAGING | | | | | Patient Name: GIA ARCOS Physician: | | | ANTHONY. : 1935 Age: 77 Sex: F Unit #: [id number] | | | Exam Date: 01/20/13 [facility]: [facility] | | | Report #: [id number] Page: | | | %(RAD)RES..mtdd.print.filter("pg") of %(RAD) | | | RES..mtdd.print.filter("tpg") | | | | | | Accession Number: [id number] | | | LUMBAR SPINE, 01/20/2013 CLINICAL HISTORY: BACK PAIN. | | | FINDINGS: AP and lateral views of the lumbar spine are | | | reviewed. Flexion and extension views could not be performed | | | because of patient's pain, and inability to position. | | | There are five lumbar-type vertebral bodies. On these views, alignment | | | is within the normal range. There is 20% loss of vertebral body | | | height of L1, secondary to superior endplate depression. This would | | | be age indeterminate, with no prior studies available for comparison. | | | The other vertebral body heights appear normal. There is narrowing | | | of the L3-4 disk interspace with good maintenance of the remaining | | | disk interspaces. Heavy vascular calcifications are noted. | | | IMPRESSION: 1. LIMITED EXAM BECAUSE OF PATIENT'S INABILITY TO | | | PERFORM FLEXION AND EXTENSION MANEUVERS. 2. A 20% | | | COMPRESSION DEFORMITY INVOLVING THE SUPERIOR ENDPLATE OF L1. | | | 3. DISK SPACE NARROWING AT L3-4. Dictated | | | Date/Time: 01/20/2013 13:35 Transcribed Date/Time: 01/20/2013 | | | 14:16 Exercise Specialist: <<Signature | | | on File>> | | | | | | Antonio Minor MD01/20/13 1527 <Electronically signed by | | | Antonio Minor MD> Antonio Minor MD 01/20/13 | | | 1335 Exercise Specialist: [email or web address]/01/13 1416 | | | Luigi James PA-C | | + + + + + + + + | Performing | Address | City/State/Zipcode | Phone Number | | Organization | | | | + + + + + | [facility] | [address] | [place] | [phone] | | [facility] | | [address] | | | - IMAGING | | | | + + + + + documented in this encounter Visit Diagnoses Not on filedocumented in this encounter
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
--- OUTSIDE RECORDS SUMMARY | ~2019-12-11 | XMS | Encounter Summary ---
Demographics + + + | Address | [address] | | | [place] [address] | + + + | Home Phone | | + + + | Preferred Language | Unknown | + + + | Marital Status | | + + + | Hinduism Affiliation | 1073 | + + + | Race | Unknown | + + + | Ethnic Group | Unknown | + + + Author + + + | Author | [facility] | | | and [place] | + + + | Organization | [facility] | | | [...] Team Providers + +------+ + | Care Orchestrator Name | Role | Phone | + +------+ + | Chinmay Driscoll MD | PCP | | + +------+ + Encounter Details +--------+ + + + + | Date | Type | Department | Care Team | Description | +--------+ + + + + | 07/09/ | Hospital | [facility] | Will Rodriguez MD | | | 2012 | Encounter | MED CTR LABORATORY | [address] | | | | | [address] [place] | [place] [address] | | | | | [place] | [phone] | | | | | [address] | | | | | | [phone] | | | +--------+ + + + [...] 2019 | Visit | | [address] [facility] | | | | | | [address] [facility] | | | | | | [address] | | | | | | | [...] Performed At | + + + | [facility] | [place] | | Department [address] | [facility] | | [ rep [address]] [ rep [facility] | | st zip] Signed | - IMAGING | | | | | Patient Name: DILSHAD ARCOS Physician: | | | JUD. : 1935 Age: 77 Sex: F Unit #: [id number] | | | Exam Date: 07/09/13 Location: LAB | | | Report #: [id number] Page: | | | %(RAD)RES..mtdd.print.filter("pg") of %(RAD) | | | RES..mtdd.print.filter("tpg") | | | | | | Accession Number: [id number] | | | CHEST X-RAY CLINICAL HISTORY: [...] Transcribed | | | Date/Time: 07/09/2013 13:23 Concrete Analyst: | | | <<Signature on File>> | | | Jair | | | MD Merrill07/09/13 1726 <Electronically signed by Jair Momin MD> | | | Jair Momin MD 07/09/13 1317 Concrete Analyst: [employer] | | | Qorsdyucjfeki01/18/13 1323 Will Rodriguez MD | | + + + + + + + + | Performing | Address | City/State/Zipcode | Phone Number | | Organization | | | | + + + + + | [facility] | [address] | [place] | [phone] | | [facility] | | [address] | | | - IMAGING | | [...] + | [facility] | [address] | [place] | [phone] | | [facility] | | [address] | | | - LABORATORY | | | | + + + + + | [facility] | [address] | [place], [place] | | | [facility] | | [address] | | | - LABORATORY | | [...] | | Time | | seconds | [facility] | | | | | | MEDICAL | | | | | | CENTER - | | | | | | LABORATORY | | + + + + + + | PATIENT | 13.1 | seconds | [facility] | | | NORMAL MEAN | | | [facility] | | [...] + | [facility] | [address] | [place] | [phone] | | [facility] | | [address] | | | - LABORATORY | | | | + + + + + | [facility] | [address] | [place], [place] | | | [facility] | | [address], [facility] | | | - LABORATORY | | | | + + + + + CBC no Differential (07/09/2013 11:50 AM PST) + +---------+ + + + | Component | Value | Ref Range | Performed | Pathologist | | | | | At | Signature | + +---------+ + + + | WBC | 6.0 | 4.0 - 11.0 K/uL | [facility] | | | | | | [facility] | | | | | [facility] | | | | | | C[facility] - | | | | | | LABORATORY | | + +---------+ + + + | RBC | 4.25 | 3.70 - 5.20 | [facility] | | | | | M/uL | [facility] | | | | | | [facility] | | | | | | CENTER - | | | | | | LABORATORY | | + +---------+ + + + | Hemoglobin | 13.6 | 11.5 - 16.0 | [facility] | | | | | gm/dL | [facility] | | | | [...] (L) | 140 - 440 K/uL | [facility] | | | Count | | | [facility] | | [...] + + | [facility] | [address] | [place] | [phone] | | [facility] | | [address] | | | - LABORATORY | | | | + + + + + | [facility] | [address] | [place] | | | [facility] | | [address], [facility] | | | - LABORATORY | [...] [facility] | | | | | | [facility] | | | | | | [facility] | | | | | | CENTER - | | | | | | LABORATORY | | + + + + + + | Calcium | 10.0 | 8.3 - 10.5 | [facility] | | | | | mg/dL | [facility] | | | | [...] (H) | 7 - 18 mg/dL | [facility] | | | | | | [facility] | | | | | | MEDICAL | | | | | | CENTER - | | | | | | LABORATORY | | + + + + + + | Creatinine | 1.31 (H) | 0.60 - 1.30 | [facility] | | | | | mg/dL | [facility] | | | | | | MEDICAL | | | | | | CENTER - | | | | | | LABORATORY | | + + + + + + | Estimated | 39 (L)Comment: For | >60 mL/min/A | [facility] | | | GFR | -Americans, | [...] | ine Ratio | | | [facility] | | [...] | + + + + + | [facility] | [address] | [place] | [phone] | | [facility] | | [address] | | | - LABORATORY | | | | + + + + + | [facility] | [address] | [place] | | | [facility] | | [address] [place] [address] | | | - LABORATORY | | | | + + + + + documented in this encounter Visit Diagnoses Not on filedocumented in this encounter
--- OUTSIDE RECORDS SUMMARY | ~2019-12-11 | XMS | Encounter Summary ---
Demographics + + + | Address | [address] | | | [place] [address] | + + + | Home Phone [...] Team Providers + +------+ + | Care Field Talent Qualification Specialist Name | Role | Phone | + +------+ + | Chinmay Driscoll MD | PCP | | + +------+ + Encounter Details +--------+ + + + + | Date | Type | Department | Care Team | Description | +--------+ + + + + | 09/01/ | Hospital | [facility] | Tate Barrientos | S/P lumbar spinal | | 2014 | Encounter | MED CTR XRAY [address] | [address] | fusion; Lumbar | | | | [place] | [address] | radiculopathy - | | | | [place] [address] | [place] [address] | primarily into the | | | | [phone] | [phone] | left lower | | | | [...] | | | | nerve roots | +--------+ + + + + Social [...] 2020 | Visit | | [address] [facility] | | | | | | [address] [place] | | | | | | [address] | | | | | | | | +--------+---------+ + + + documented as of this encounter Procedures + +--------+ + + + | Procedure Name | Priori | Date/Time | Associated Diagnosis | Comments | | | ty | | | | + +--------+ + + + | XR LUMBAR SPINE 2 OR | Routin | 09/01/2014 | S/P lumbar spinal | Results for this | | 3 VW | e | 1:26 PM | fusion Lumbar | procedure are in the | | | | PST | radiculopathy - | results section. | | | | | primarily into the | | | | | | left lower extremity | | | | | | DDD (degenerative | | | | | | disc disease), | | | | | | lumbar - multilevel, | | | | | | especially at L3-L4 | | | | | | and L4-L5 Lumbar | | | | | | [...] | | | | nerve roots | | + +--------+ + + + documented [...] prior lumbar spine x-rays. FINDINGS: There | [facility] | | is stable hardware for posterior fusion extending from L4 through L5 | [facility] | | with interbody hardware at L4-5. [...] ST. | [address] | [place], [place] | [phone] | | [facility] | | [address] | | | - IMAGING | | | | + + + + + documented in this encounter Visit Diagnoses + + | Diagnosis | + + | S/P lumbar spinal fusion Arthrodesis status | + + | Lumbar [...] myelopathy | + + documented in this encounter"
--- OUTSIDE RECORDS SUMMARY | ~2019-12-11 | XMS | Encounter Summary ---
Demographics + + + | Address | [address] | | | [place] [address] | + + + | Home Phone [...] Team Providers + +------+ + | Care Data Center Consultant Name | Role | Phone | + [...] | | | [address] | [place] [address] | | | | | [place] [address] | | | | | | [phone] | | | +--------+ + + + [...] 2020 | Visit | | [address] [facility] | | | | | | [address] [facility] | | | | | | [address] | | | | | | | | +--------+---------+ + + + documented as of this encounter Procedures + +--------+ + + + | Procedure Name | Priori | Date/Time | Associated Diagnosis | Comments | | | ty | | | | + +--------+ + + + | XR FEMUR LEFT 2+VW | Routin | 07/24/2017 | | Results for this | | | e | 2:00 PM | | procedure are in the | | | | PST | | results section. | + +--------+ + + + documented in this encounter Results XR Femur Left 2+Vw (07/24/2017 2:00 PM PST) + + | Specimen | + + | | + + + + + | Narrative | Performed At | + + + | External films for comparison only - no result from [place]. | [facility] | + + + + +---------+ + + | Performing | Address | City/State/Zipcode | Phone Number | | Organization | | | | + +---------+ + + | [facility] | | | | + +---------+ + + documented in this encounter Visit Diagnoses Not on filedocumented in this encounter"
--- OUTSIDE RECORDS SUMMARY | ~2019-12-11 | XMS | Encounter Summary ---
Demographics + + + | Address | [address] | | | [place] [address] | + + + | Home Phone | | + + + | Preferred Language | Unknown | + + + | Marital Status | | + + + | Confucianism Affiliation | 1073 | + + + | Race | Unknown | + + + | Ethnic Group | Unknown | + + + Author + + + | Author | [facility] | | | and [place] | + + + | Organization | [facility] | | | [...] Team Providers + +------+ + | Care Merchandise Displayer Name | Role | Phone | + +------+ + | Chinmay Driscoll MD | PCP | | + +------+ + Reason for Visit +--------+ + | Reason | Comments | +--------+ + | Other | PO information | +--------+ + Encounter Details +--------+ + + + + | Date | Type | Department | Care Team | Description | +--------+ + + + + | 04/21/ | Telephone | [facility] | Will Rodriguez MD | Other (PO | | 2012 | | NEUROSURGERY [address] | [address] | information) | | | | [address] | [place] [address] | | | | | [place] | [phone] | | | | | [address] | | | | | | [phone] | | | +--------+ + + + [...] 2020 | Visit | | [address] [facility] | | | | | | [address] [place] | | | | | | [address] | | | | | | | | +--------+---------+ + + + documented as of this encounter Visit Diagnoses Not on filedocumented in this encounter"
--- OUTSIDE RECORDS SUMMARY | ~2019-12-11 | XMS | Encounter Summary ---
Demographics + + + | Address | [address] | | | [place] [address] | + + + | Home Phone | | + + + | Preferred Language | Unknown | + + + | Marital Status | | + + + | Latter Day Affiliation | 1073 | + + + | Race | Unknown | + + + | Ethnic Group | Unknown | + + + Author + + + | Author | [facility] | | | and [place] | + + + | Organization | 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 | | | | | | tablet | | | | | | + + + +---------+ + + | apixaban (ELIQUIS) | Take 2.5 mg by mouth | | 0 | | | | 2.5 mg tablet | 2 times daily. | | | | | + + [...] + + + +---------+ + + | miSOPROStol | Take 200 mcg by | | 0 | | | | (CYTOTEC) 200 MCG | mouth 2 times daily. | | | | | | tablet | | | | | | + + + +---------+ + + | Multiple | Take by mouth | | 0 | | | | Vitamins-Minerals | Daily. | | | | | | (CENTRUM SILVER PO) | | | | | | + + + +---------+ + + | pantoprazole | Take 40 mg by mouth | | 0 | | | | (PROTONIX) 40 mg | every morning | | | | | | tablet | (before breakfast). | | | | | + + [...] +---------+ + + | metFORMIN | Take 500 mg by mouth | | 0 | 07/27/19 | | | (GLUCOPHAGE-XR) 500 | 2 times daily. | | | 18 | 0 | | mg 24 hr tablet | | | | | [...] 2019 | Visit | | [address] [place] | | | | | | [address] [place] | | | | | | [address] | | | | | | | | +--------+---------+ + + + documented as of this encounter Procedures + +--------+ + + + | Procedure Name | Priori | Date/Time | Associated Diagnosis | Comments | | | ty | | | | + +--------+ + + + | XR LUMBAR SPINE 4 + | Routin | 08/28/2017 | Spinal stenosis of | Results for this | | VW | e | 1:18 PM | lumbar region with | procedure are in the | | | | PST | neurogenic | results section. | | | | | claudication Lumbar | | | | | | radiculopathy - | | | | | | primarily into the | | | | | | left lower extremity | | | | | | Lumbar disc | | | | | | herniation with | | | | | [...] | | | | | nerve roots DDD | | | | | | (degenerative disc | | | | | | disease), lumbar - | | | | | | multilevel, | | | | | | especially at L3-L4 | | | | | | and L4-L5 Spinal | | | | | | stenosis of lumbar | | | | | | region with | | | | | | radiculopathy - | | | | | | severe at L4-L5 S/P | | | | | | lumbar spinal | | | | | | fusion | | + +--------+ + + + documented in this encounter Results XR Lumbar Spine 4 [...] + | Arvind, Rad Results In - 08/28/2017 4:33 PM PST [...] status | + + documented in this encounter"
--- OUTSIDE RECORDS SUMMARY | ~2019-12-11 | XMS | Clinical Summary ---
Demographics + + + | Address | [address] | | | [place] [address] | + + + | Home Phone | | + + + | Preferred Language | Unknown | + + + | Marital Status | | + + + | Cheondoism Affiliation | [id number] | + + + | Race | Unknown | + + + | Ethnic Group | Unknown | + + + Author + + + | Author | [facility] | | | and [place] | + + + | Organization | [facility] | | | and [...] Team Providers + +------+ + | Care Operating Room Aide Name | Role | Phone | + +------+ + | Tino Salmeron DO | PCP | | + +------+ + Allergies + + + + + + | Active Allergy | Reactions | Severity | Noted | Comments | | | | | Date | | + + + + + + | Codeine | Itching, Anxiety | Medium | 01/21/20 | shortness of | | | | | 13 | breath | + + + + + + | Iodine | Other (See Comments) | | 08/28/19 | Reaction not | | | | | 18 | specified on patient | | | | | | questionnaire. | + + + + + + | Lisinopril | Other (See Comments) | | 04/17/20 | cough | | | | | 13 | | + + + + + + | Amlodipine Besylate | | | 04/17/20 | | | | | | 13 | | + + + + + + | Shellfish | Hives, Nausea And | Medium | 01/21/20 | | | | Vomiting | | 13 | | + + + + + + Medications + + + +---------+------+------+-------+ | Medication | Sig | Dispensed | Refills | Star | End | Statu | | | | | | t | Date | s | | | | | | Date | | | + + + +---------+------+------+-------+ | metoprolol | Take 25 mg by mouth | | 0 | | | Activ | | succinate | Daily. 1 tablet once | | | | | e | | (TOPROL-XL) 25 mg 24 | per day | | | | | | | hr tablet | | | | | | | + + + +---------+------+------+-------+ | diltiazem | Take 360 mg by mouth | | 0 | | | Activ | | (CARDIZEM CD) 360 MG | Daily. | | | | | e | | 24 hr capsule | | | | | | | + + + +---------+------+------+-------+ | terazosin (HYTRIN) | Take 10 mg by mouth | | 0 | | | Activ | | 5 mg capsule | nightly. | | | | | e | + + + +---------+------+------+-------+ | levothyroxine | Take 50 mcg by mouth | | 0 | | | Activ | | (SYNTHROID, | every morning | | | | | e | | LEVOTHROID) 50 mcg | (before breakfast). | | | | | | | tablet | | | | | | | + + + +---------+------+------+-------+ | Multiple | Take by mouth | | 0 | | | Activ | | Vitamins-Minerals | Daily. | | | | | e | | (CENTRUM SILVER PO) | | | | | | | + + + +---------+------+------+-------+ | loperamide | Take 2 mg by mouth | | 0 | | | Activ | | (IMODIUM) 2 mg | as needed. | | | | | e | | capsule | | | | | | | + + + +---------+------+------+-------+ | diphenhydrAMINE | Take 25 mg by mouth | | 0 | | | Activ | | (BENADRYL) 25 mg | as needed. | | | | | e | | tablet | | | | | | | + + + +---------+------+------+-------+ | atorvaSTATin | Take 10 mg by mouth | | 0 | 01/1 | | Activ | | (LIPITOR) 10 mg | Daily. | | | 3/20 | | e | | tablet | | | | 15 | | | + + + +---------+------+------+-------+ | potassium chloride | | | 0 | /2 | | Activ | | (KLOR-CON) 10 mEq | | | | 7/20 | | e | | CR tablet | | | | 15 | | | + + + +---------+------+------+-------+ | pantoprazole | Take 40 mg by mouth | | 0 | | | Activ | | (PROTONIX) 40 mg | every morning | | | | | e | | tablet | (before breakfast). | | | | | | + + + +---------+------+------+-------+ | apixaban (ELIQUIS) | Take 2.5 mg by mouth | | 0 | | | Activ | | 2.5 mg tablet | 2 times daily. | | | | | e | + + + +---------+------+------+-------+ | miSOPROStol | Take 200 mcg by | | 0 | | | Activ | | (CYTOTEC) 200 MCG | mouth 2 times daily. | | | | | e | | tablet | | | | | | | + + + +---------+------+------+-------+ | acetaminophen | Take 500 mg by mouth | | 0 | | | Activ | | (TYLENOL) 500 mg | as needed for Pain. | | | | | e | | tablet | | | | | | | + + + +---------+------+------+-------+ | glipiZIDE | | | 0 | 12/1 | | Activ | | (GLUCOTROL XL) 5 mg | | | | 6/20 | | e | | 24 hr tablet | | | | 19 | | | + + + +---------+------+------+-------+ | losartan (COZAAR) | Take 100 mg by mouth | | 0 | 11/2 | | Activ | | 100 MG tablet | Daily. | | | 5/20 | | e | | | | | | 19 | | | + + + +---------+------+------+-------+ | torsemide | Take 10 mg by mouth | | 0 | | | Activ | | (DEMADEX) 10 mg | Daily. | | | | | e | | tablet | | | | | | | + + + +---------+------+------+-------+ Active Problems + + + | Problem | Noted Date | + + + | CKD (chronic kidney disease) stage 3, GFR 30-59 ml/min | 10/06/2019 | + + + | Persistent proteinuria | 10/06/2019 | + + + | Continuous leakage of urine | 10/06/2019 | + + + | Cervical spinal stenosis | 11/21/2017 | + + + | Lumbar spinal stenosis | 11/21/2017 | + + + | Cervical radicular pain | 08/28/2017 | + + + | Hyperreflexia | 08/28/2017 | + + + | Antral ulcer | 10/16/2014 | + + + | Acute blood loss anemia | 10/16/2014 | + + + | Type 2 diabetes mellitus with diabetic nephropathy, without | 10/15/2014 | | long-term current use of insulin | | + + + | S/P lumbar spinal fusion | 02/16/2014 | + + + | Essential hypertension | 04/17/2013 | + + + | A-fib | 04/17/2013 | + + + | Lumbar radiculopathy - primarily into the left lower extremity | 03/01/2013 | + + + | DDD (degenerative disc disease), lumbar - multilevel, especially | 03/01/2013 | | at L3-L4 and L4-L5 | | + + + | 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 disc | 03/01/2013 | | herniation at L4-L5 that significantly narrows the central canal | | | and appears to impinge on the L5 nerve roots | | + + + | Spinal stenosis of lumbar region with radiculopathy - severe at | 03/01/2013 | | L4-L5 | | + + + Encounters +--------+ + + + + | Date | Type | Specialty | Care Team | Description | +--------+ + + + + | 10/29/ | Office | Cardiology | Arminda Askew DO | Atrial fibrillation, | | 2019 | Visit | | | unspecified type | | | | | | ([facility]) (Primary Dx); | | | | | | Pulmonary HTN ([facility]); | | | | | | Pre-op evaluation; | | | | | | Essential | | | | | | hypertension; 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, without | | | | | | long-term current | | | | | | use of insulin | | | | | | ([facility]); CKD (chronic | | | | | | kidney disease) | | | | | | stage 3, GFR 30-59 | | | | | | ml/min ([facility]) | +--------+ + + + + | 10/06/ | Orders Only | Nephrology | Homero Soto MD | Essential | | 2020 | | | | hypertension | | | | | | (Primary Dx); CKD | | | | | | (chronic kidney | | | | | | disease) stage 3, | | | | | | GFR 30-59 ml/min | | | | | | ([facility]); Persistent | | | | | | proteinuria | +--------+ + + + + | 10/05/ | Office | Nephrology | Homero Soto MD | Essential | | 2019 | Visit | | | hypertension | | | | | | (Primary Dx); CKD | | | | | | (chronic kidney | | | | | | disease) stage 3, | | | | | | GFR 30-59 ml/min | | | | | | ([facility]); Persistent | | | | | | proteinuria; 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, without | | | | | | long-term current | | | | | | use of insulin | | | | | | ([facility]); Continuous | | | | | | leakage of urine | +--------+ + + + + | 10/02/ | Documentati | Nephrology | Jaylon | Results (10/02/19) | | 2020 | on | | Ngo[facility] Terrell | | | | | | [employer] | | +--------+ + + + + | 09/23/ | Orders Only | Nephrology | Homero Soto MD | Hypertension, | | 2019 | | | | unspecified type | | | | | | (Primary Dx); | | | | | | Chronic kidney | | | | | | disease, stage III | | | | | | (moderate) (HCC) | +--------+ + + + + | 09/23/ | Orders Only | Nephrology | Jaylon, | | | 2020 | | | [facility] | | | | | | [employer] | | +--------+ + + + + from Last 3 Months Family History + + + + + | Medical History | Relation | Name | Comments | + + + + + | Parkinsonism | Brother | Willy | | + + + + + | No known problems | Brothjennifer | Roc | | | | | 1/2 | | + + + + + | Early | Father | | MVA | + + + + + | Cancer | Maternal | | | | | Aunt | | | + + + + + | No known problems | Maternal | | | | | Grandfath | | | | | er | | | + + + + + | No known problems | Maternal | | | | | Grandmoth | | | | | er | | | + + + + + | Heart disease | Maternal | | | | | Uncle | | | + + + + + | Cancer | Mother | | | + + + + + | Diabetes | Mother | | | + + + + + | No known problems | Paternal | | | | | Grandfath | | | | | er | | | + + + + + | No known problems | Paternal | | | | | Grandmoth | | | | | er | | | + + + + + | Hypertension | Sister | Skye 1/2 | | + + + + + | No known problems | Sister | Darlyssa | | | | | 1/2 | | + + + + + + + + + + | Relation | Name | Status | Comments | + + + + + | Brother | Willy | Alive | Parkinsons | + + + + + | Brother | Roc 1/2 | | Arthritis | | | | (Age | | | | | 74) | | + + + + + | Father | | | car accident | | | | (Age | | | | | 25) | | + + + + + | Maternal Aunt | | | Cancer | | | | (Age | | | | | 82) | | + + + + + | Maternal Grandfather | | | | | | | (Age | | | | | 87) | | + + + + + | Maternal Grandmother | | | | | | | (Age | | | | | 89) | | + + + + + | Maternal Uncle | | | Heart Disease | | | | (Age | | | | | 85) | | + + + + + | Mother | | | Cancer | | | | (Age | | | | | 78) | | + + + + + | Paternal Grandfather | | | | | | | (Age | | | | | 81) | | + + + + + | Paternal Grandmother | | | | | | | (Age | | | | | 81) | | + + + + + | Sister | Skye 1/2 | Alive | HTN | + + + + + | Sister | Darlyssa | Alive | | | | 1/2 | | | + + + + + Social History + [...] recent travel history available. | + + Last Filed Vital Signs + + + + + | Vital Sign | Reading | Time Taken | Comments | + + + + + | Blood Pressure | 116/62 | 10/30/2019 2:47 PM | | | | | PDT | | + + + + + | Pulse | 100 | 10/30/2019 2:47 PM | | | | | PDT | | + + + + + | Temperature | 37.2 C (98.9 F) | 07/24/2017 12:21 PM | | | | | PST | | + + + + + | Respiratory Rate | 16 | 11/21/2017 10:43 AM | | | | | PDT | | + + + + + | Oxygen Saturation | 96% | 10/30/2019 2:47 PM | | | | | PDT | | + + + + + | Inhaled Oxygen | - | - | | | Concentration | | | | + + + + + | Weight | 92.1 kg (203 lb) | 10/30/2019 2:47 PM | | | | | PDT | | + + + + + | Height | 170.2 cm (5' 7") | 10/30/2019 2:47 PM | | | | | PDT | | + + + + + | Body Mass Index | 31.79 | 10/30/2019 2:47 PM | | | | | PDT | | + + + + + Plan of Treatment +--------+---------+ + + + | Date | Type | Specialty | Care Team | Description | +--------+---------+ + + + | 02/08/ | Office | Nephrology | Homero Soto MD | | | 2019 | Visit | | [address] | | | | | | [address] [place], [place] | | | | | | [address] | | | | | | | | +--------+---------+ + + + + + + + + | Health Maintenance | Due Date | Last Done | Comments | + + + + + | Vaccine: | | | | | Dtap/Tdap/Td (1 - | 7 | | | | Tdap) | | | | + + + + + | Diabetic Eye Exam | | | | | | 4 | | | + + + + + | Diabetic Foot Exam | | | | | | 4 | | | + + + + + | Hemoglobin A1c | | | | | Screening | 4 | | | + + + + + | Vaccine: Zoster (1 | | | | | of 2) | 6 | | | + + + + + | Vaccine: | | | | | Pneumococcal 65+ (1 | 1 | | | | of 2 - PCV13) | | | | + + + + + | Adult Annual | | | | | Wellness Visit | 5 | | | + + + + + | Vaccine: Influenza | | | | | (Season Ended) | 0 | | | + + + + + Procedures + +--------+ + + + | Procedure Name | Priori | Date/Time | Associated Diagnosis | Comments | | | ty | | | | + +--------+ + + + | ECG 12 LEAD | Routin | 10/30/2019 | Atrial | Results for this | | | e | 2:58 PM | fibrillation, | procedure are in the | | | | PDT | unspecified type | results section. | | | | | (HCC) | | + +--------+ + + + | LABS - EXTERNAL SCAN | | 10/02/2019 | | Results for this | | | | 12:00 AM | | procedure are in the | | | | PDT | | results section. | + +--------+ + + + | LABS - EXTERNAL SCAN | | 10/02/2019 | | Results for this | | | | 12:00 AM | | procedure are in the | | | | PDT | | results section. | + +--------+ + + + | LABS - EXTERNAL SCAN | | 10/02/2019 | | Results for this | | | | 12:00 AM | | procedure are in the | | | | PDT | | results section. | + +--------+ + + + | URINALYSIS | Routin | 10/02/2019 | | Results for this | | | e | | | procedure are in the | | | | | | results section. | + +--------+ + + + | CBC NO DIFFERENTIAL | Routin | 10/02/2019 | | Results for this | | | e | | | procedure are in the | | | | | | results section. | + +--------+ + + + | BASIC METABOLIC | Routin | 10/02/2019 | | Results for this | | PANEL | e | | | procedure are in the | | | | | | results section. | + +--------+ + + + | PROTEIN/CREATININE | Routin | 10/02/2019 | | Results for this | | RATIO, URINE | e | | | procedure are in the | | | | | | results section. | + +--------+ + + + | URIC ACID | Routin | 10/02/2019 | | Results for this | | | e | | | procedure are in the | | | | | | results section. | + +--------+ + + + from Last 3 Months Results ECG 12 lead (10/30/2019 2:58 PM PDT) + + + + + + | Component | Value | Ref Range | Performed | Pathologist | | | | | At | Signature | + + + + + + | VENTRICULAR | 99 | BPM | [facility] | | | RATE EKG | | | | | + + + + + + | ATRIAL RATE | 86 | BPM | [facility] | | + + + + + + | QRS | 110 | ms | [facility] | | | DURATION | | | | | + + + + + + | Q-T | 382 | ms | [facility] | | | INTERVAL | | | | | + + + + + + | Q-T | 490 | ms | [facility] | | | INTERVAL | | | | | | (CORRECTED) | | | | | + + + + + + | QRS AXIS | -33 | degrees | [facility] | | + + + + + + | T AXIS | 84 | degrees | [facility] | | + + + + + + | INTERPRETAT | Atrial fibrillationLeft | | [facility] | | | ION TEXT | axis deviationMinimal | | | | | | voltage criteria for | | | | | | LVH, may be normal | | | | | | variantNonspecific ST | | | | | | and T wave | | | | | | abnormalityProlonged | | | | | | QTAbnormal ECGWhen | | | | | | compared with ECG of | | | | | | 15-OCT-2014 16:47,No | | | | | | significant change was | | | | | | foundConfirmed by ROBERT | | | | | | ARMINDA ARAUJO ([id number]) on | | | | | | 11/03/2019 12:39:57 PM | | | | + + + + + + + + | Specimen | + + | | + + + + + | Narrative | Performed At | + + + | | | + + + + +---------+ + + | Performing | Address | City/State/Zipcode | Phone Number | | Organization | | | | + +---------+ + + | [facility] | | | | + +---------+ + + LABS - EXTERNAL SCAN (10/02/2019 12:00 AM PDT)Only the most recent of 3 results within the time period is included. + + + | Narrative | Performed At | + + + | Ordered by an | | | unspecified provider. | | + + + CBC with Manual Differential (10/02/2019) + + + + + + | Component | Value | Ref Range | Performed | Pathologist | | | | | At | Signature | + + + + + + | WBC | 5.2 | 4.5 - 11.0 | | | + + + + + + | RBC | 3.96 | 3.80 - 5.10 | | | | | | M/uL | | | + + + + + + | Hemoglobin | 12.6 | 12 - 16 | | | + + + + + + | Hematocrit, | 37.8 | 35.0 - 45.0 % | | | | POC | | | | | + + + + + + | MCV | 95.4 | 81.0 - 99.0 fL | | | + + + + + + | MCH | 32.0 | 27.0 - 33.0 pg | | | + + + + + + | MCHC | 33.0 | 30.0 - 36.0 | | | | | | g/dL | | | + + + + + + | Platelet | 147 | 140 - 440 | | | | Count | | | | | | Plasma | | | | | + + + + + + | RDW | 13.6 | 10.5 - 15.0 | | | + + + + + + | BAL | 74 | 39 - 80 % | | | | Neutrophils | | | | | | % | | | | | + + + + + + | % | 18.1 (A) | 24 - 44 | | | | Lymphocytes | | | | | + + + + + + | Monocyte % | 6.1 | 0 - 12 | | | + + + + + + | BAL | 2 | 0 - 6 % | | | | Eosinophils | | | | | | % | | | | | + + + + + + | BF % | 1 | 0 - 2 % | | | | Basophils | | | | | + + + + + + + + | Specimen | + + | Blood | + + Protein/Creatinine Ratio, Urine (10/02/2019) + +-------+ + + + | Component | Value | Ref Range | Performed | Pathologist | | | | | At | Signature | + +-------+ + + + | Protein/Cre | 111.7 | 0 - 150 | | | | at Ratio | | | | | + +-------+ + + + + + | Specimen | + + | Urine | + + Urinalysis (10/02/2019) + + + + + + | Component | Value | Ref Range | Performed | Pathologist | | | | | At | Signature | + + + + + + | Color | yellow | | | | + + + + + + | Clarity | Clear | | | | + + + + + + | Specific | 1.012 | 1.001 - 1.030 | | | | [place], | | | | | | Urine | | | | | + + + + + + | pH, Urine | 5.0 | 5.0 - 8.0 | | | + + + + + + | Protein, | Negative | Negative | | | | Urine | | | | | + + + + + + | Glucose, | Negative | Negative | | | | Urine | | | | | + + + + + + | Ketones, | Negative | Negative | | | | Urine | | | | | + + + + + + | Bilirubin, | Negative | Negative | | | | Urine | | | | | + + + + + + | Blood, | Negative | Negative | | | | Urine | | | | | + + + + + + | Nitrite, | Negative | Negative | | | | Urine | | | | | + + + + + + | Urobilinoge | Negative | < 0.2 mg/dL, | | | | n, Urine | | 1.0 mg/dL, 4.0 | | | | | | mg/dL, Normal, | | | | | | 1.0 E.U./dL, | | | | | | 0.2 E.U./dL, | | | | | | 0.2 mg/dL, | | | | | | Negative, 1 | | | | | | mg/dL, <2.0 | | | | | | mg/dL | | | + + + + + + | Leukocyte | Negative | Negative | | | | Esterase, | | | | | | Urine | | | | | + + + + + + | CASTS | 2+ | | | | + + + + + + | WBC UA | 5 | /HPF | | | + + + + + + | RBC UA | 0 | /HPF | | | + + + + + + | EPITHELIAL | 1 | /LPF | | | | CASTS UA | | | | | + + + + + + | Bacteria, | 1+ | | | | | UA | | | | | + + + + + + | CRYSTAL UA | Negative | | | | + + + + + + + + | Specimen | + + | Urine | + + Uric Acid (10/02/2019) + +-------+ + + + | Component | Value | Ref Range | Performed | Pathologist | | | | | At | Signature | + +-------+ + + + | Uric Acid | 5.7 | 2.3 - 6.6 | | | + +-------+ + + + + + | Specimen | + + | Blood | + + Basic Metabolic Panel (10/02/2019) + + + + + + | Component | Value | Ref Range | Performed | Pathologist | | | | | At | Signature | + + + + + + | Na | 137 | 132 - 143 | | | | | | mmol/L | | | + + + + + + | K | 3.7 | 3.6 - 5.1 | | | | | | mmol/L | | | + + + + + + | Cl | 99 | 95 - 112 mmol/L | | | + + + + + + | CO2 | 99 | 95 - 112 mmol/L | | | + + + + + + | Anion Gap | 11 | 7 - 21 mmol/L | | | + + + + + + | Glucose | 183 (A) | 70 - 100 mg/dL | | | + + + + + + | BUN | 31 (A) | 6 - 23 mg/dL | | | + + + + + + | Estimated | 36.0 (A) | 60.0 - 140.0 | | | | GFR | | mL/min/1.73m2 | | | + + + + + + | Creatinine | 1.41 (A) | 0.70 - 1.11 | | | | | | mg/dL | | | + + + + + + | BUN/Creatin | 22 | 6.0 - 28.6 | | | | ine Ratio | | | | | + + + + + + | Calcium | 9.4 | 8.5 - 10.3 | | | + + + + + + + + | Specimen | + + | Blood | + + from Last 3 Months Insurance + +--------+ +--------+ +---------+--------+ | Payer | Benefi | Subscriber | Effect | Phone | Address | Type | | | t Plan | ID | [place] | | | | | | / | | Dates | | | | | | Group | | | | | | + +--------+ +--------+ +---------+--------+ | MEDICARE | MEDICA | [id number] | 11/21/19 | [phone] | | Medica | | | RE | | 01-Pre | 5 | | re | | | PART A | | sent | | | | | | AND B | | | | | | + +--------+ +--------+ +---------+--------+ | MEDICARE | MEDICA | [id number] | 11/21/19 | [phone] | | Medica | | | RE | | 01-Pre | 5 | | re | | | PART A | | sent | | | | | | AND B | | | | | | + +--------+ +--------+ +---------+--------+ | [place] | [id number] | 07/23/19 | [phone] | | [place] | | | [place] | 3 | 11-Pre | 9 | | ity | | | MDCR | | sent | | | | | | SUPPL | | | | | | + +--------+ +--------+ +---------+--------+ | BCBS | BCBS | [id number] | 07/23/19 | | | Indemn | | | [place] | 3 | 11-Pre | | | ity | | | MDCR | | sent | | | | | | SUPPL | | | | | | + +--------+ +--------+ +---------+--------+ + +--------+ +--------+ + + | Guarantor Name | Accoun | Relation to | Date | Phone | Billing Address | | | t Type | Patient | of | | | | | | | | | | + +--------+ +--------+ + + | Gia Arcos | Person | Self [birth year] | [address] | | | al/Fam | | 1936 | [phone] | [place], [place] | | | gee | | | 8 (Home) | [phone] | + +--------+ +--------+ + + | Gia Arcos | Person | Self [birth year] | [address] | | | al/Fam | | 1936 | [phone] | [place], [place] | | | gee | | | [address] (Home) | [phone] | + +--------+ +--------+ + + Advance Directives + + + + + | Type | Date Recorded | Patient | Explanation | | | | 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
--- OUTSIDE RECORDS SUMMARY | ~2019-12-11 | XMS | Encounter Summary ---
Demographics + + + | Address | [address] | | | [place] [address] | + + + | Home Phone | | + + + | Preferred Language | Unknown | + + + | Marital Status | | + + + | Orthodoxy Affiliation | 1073 | + + + [...] Team Providers + +------+ + | Care Conference Assistant Name | Role | Phone | [...] + + | Closed | Specialty | Cardiology | Diagnoses | Will Michael | Matthew, | | | Services | | Arrhythmia | MD [address] | | | Required | | | [address] | MD Robert | | | | | | [place], | [address] | | | | | | [place] [address] | [address] | | | | | | Phone: | [place] | | | | | | [phone] | [address] Phone: | | | | | | Fax: | [phone] | | | | | | [phone] | Fax: | | | | | | | [phone] | +--------+ + + + + + Reason for Visit + + + | Reason | Comments | + + + | Follow-up | Back pain and discuss surgery | + + + Encounter Details +--------+---------+ + + + | Date | Type | Department | Care Team | Description | +--------+---------+ + + + | 03/18/ | Office | [facility] [place] | Will Michael MD | Lumbar stenosis with | | 2012 | Visit | NEUROSURGERY [address] | [address] | neurogenic | | | | [address] | [place] [address] | claudication | | | | [place] | [phone] | (Primary Dx); | | | | [address] | | Spondylolisthesis of | | | | [phone] | | lumbar region; | | | | | | Lumbar | | | | | | radiculopathy; Facet | | | | | | arthropathy, | | | | | | lumbar; Lumbar | | | | | | spondylosis; | | | | | | Arrhythmia | +--------+---------+ + + + Social History [...] | Blood Pressure | 121/62 | 03/18/2013 2:11 PM | | | | | PDT | | + + + + + | Pulse | 71 | 03/18/2013 2:11 PM | | | | | PDT | | + + + + + | Temperature | - | - | | + + + + + | Respiratory Rate | 18 | 03/18/2013 2:11 PM | | | | | PDT | | + + + + + | Oxygen Saturation | - | - | | + + + + + | Inhaled Oxygen | - | - | | | Concentration | | | | + + + + + | Weight | 71.7 kg (158 lb) | 03/18/2013 2:11 PM | | | | | PDT | | + + + + + | Height | 172.7 cm (5' 8") | 03/18/2013 2:11 PM | | | | | PDT | | + + + + + | Body Mass Index | 24.02 | 03/18/2013 2:11 PM | | | | | PDT | | + + + + + documented in this encounter Progress Notes Will Michael MD - 03/18/2013 2:50 PM PDTFormatting of this note might be different from t néstor original. Arnaud Barrientos PA-C and Will Michael M.D. [address] [place] [address], [address] [place], [place] [id number] FAX: NEUROSURGERY FOLLOW-UP CHIEF COMPLAINT: Chief Complaint Patient presents with Follow-up Back pain and discuss surgery HISTORY OF PRESENT ILLNESS: The patient is a 77 y.o. female with the complaint of left viral ed low back and leg pain. She is here today to discuss potential surgery with Dr. michael. She has not yet followed up with her primary care provider to have surgical clearance. Patient admits that she has evidently a history of atrial fibrillation it does not sound like she i s seen a chairman president and chief executive officer before. Her symptoms began a long time ago, but with recent exacerbat ion of symptoms about 4 months ago. Since that time the patient feel her pain has been wors ening. She rates the pain as severe. She describes the pain as a sharp, burning pain that starts in her left low back/buttock region and shoots down the posterior aspect of her left leg all the way down to the bottom of her foot. She recently saw Dr. Jaime and had an injection February 27, 2013, which has given her some relief but this has worn off. She repor ts that she is now able to walk, albeit very slowly. She states that she has no symptoms on her right leg. She admits that before this injection she can hardly walk and function lik e a normal person. She also has a little bit of numbness in her toes on both feet, but has had this for a long time. The patient does not report any change in bowel or bladder functio n recently. She reports that the pain just comes on when it wants to and it is severe. She knows that at her age the outcome may not be as great, but she would like to have surgery b ecause she just can't continue living this way. [...] accident CURRENT MEDICATIONS: Current Outpatient Prescriptions Medication Status Sig Dispense [...] Active Take 250 mcg by mouth Daily. diltiazem (CARDIZEM CD) 360 MG 24 hr capsule Active Take 360 mg by mouth Daily. HYDROcodone-acetaminophen (NORCO) 5-325 mg per tablet Active Take 0.5 tablets by mouth every 6 hours as needed. Iron-Vitamins (GERITOL PO) Active Take by mouth. Geritopl Vitamin B complex with C and Iron tablet I capful daily levothyroxine (SYNTHROID, LEVOTHROID) 25 mcg/mL suspension Active Take 50 mcg by mouth every morning (before breakfast). losartan (COZAAR) 100 MG tablet Active Take 100 mg by mouth Daily. metFORMIN (GLUCOPHAGE) 500 mg tablet Active Take 500 mg by mouth 2 times daily (with br eakfast & dinner). metoprolol succinate (TOPROL-XL) 25 mg 24 hr tablet Active Take 25 mg by mouth Daily. 1 tablet once per day potassium chloride (KLOR-CON 10) 10 mEq CR tablet Active Take 10 mEq by mouth Daily. Ta ke 1 tablet PO twice daily rivaroxaban (XARELTO) 20 mg tablet Active Take 20 mg by mouth Daily (with dinner). terazosin (HYTRIN) 5 mg capsule Active Take 5 mg by mouth nightly. Take one tablet raz y Triamterene-HCTZ (DYAZIDE PO) Active Take 25 mg by mouth. Take 1 [...] no rheumatoid arthritis. PHYSICAL EXAMINATION: Blood pressure 121/62, pulse 71, resp. rate 18, height 1.727 m (5' 8"), weight 71.668 kg (1 58 lb). Body mass index is 24.02 kg/(m^2). GENERAL: Gia Arcos is in no [...] has no apparent deficits with short or shelter memory. CRANIAL NERVES: II: Acuity is intact. [...] Intrinsics 5 5 Ulnar Intrinsics 5 5 Water Attendant Strength 5 5 Hip Flexion 4+ 4+ [...] ASSESSMENT: NEUROSURGICAL DIAGNOSES: Encounter Diagnoses Name Primary? Spondylolisthesis of lumbar region Lumbar stenosis with neurogenic claudication Yes Lumbar radiculopathy Facet arthropathy, lumbar Lumbar spondylosis Arrhythmia GENERAL DIAGNOSES: Past Medical History Diagnosis Date [...] felt cardiac evaluation would be of benefit. I will refer her for this and hope she can be cleared and the blood thinners can be safely stopped and managed. In terms of s urgery, if she is cleared, I favored a TLIF at L4-5 to address her major disease. We discussed the risks, alternatives, and benefits [...] provide her with the best possible outcome. We will get the cardiac clearance and then make a final decision. I spent 30 minutes in visit with Gia Gutierrez Isrrael today with the majority of time spent counse lling the patient on her diagnosis, options for her care, and coordinating her care. ELECTRONICALLY SIGNED BY: Arnaud Barrientos PA-C, Will Michael M.D. 03/18/2013 15:19Electronica lly signed by Will Michael MD at 03/18/2013 3:20 PM PDTdocumented in this encounter Plan of Treatment +--------+---------+ + + + | Date | Type | Specialty | Care Team | Description | +--------+---------+ + + + | 02/08/ | Office | Nephrology | Homero Soto MD | | | 2019 | Visit | | [address] [facility] | | | | | | [address] [place], [place] | | | | | | [id number] | | | | | | | | +--------+---------+ + + + + + +--------+ + + | Name | Type | Priori | Associated Diagnoses | Order Schedule | | | | ty | | | + + +--------+ + + | Ambulatory referral | Outpatient | Routin | Arrhythmia | 1 Occurrences | | to Cardiology | Referral | e | | starting 03/18/2013 | | | | | | until 03/18/2014 | + + +--------+ + + documented as of this encounter Visit Diagnoses + + | Diagnosis | + + | Lumbar stenosis with neurogenic claudication - Primary Spinal stenosis, lumbar | | region, with neurogenic claudication | + + | Spondylolisthesis of lumbar region Acquired spondylolisthesis | + + | Lumbar radiculopathy Thoracic or lumbosacral neuritis or radiculitis, unspecified | + + | Facet arthropathy, lumbar Lumbosacral spondylosis without myelopathy | + + | Lumbar spondylosis Lumbosacral spondylosis without myelopathy | + + | Arrhythmia Cardiac dysrhythmia, unspecified | + + documented in this encounter
--- OUTSIDE RECORDS SUMMARY | ~2019-12-11 | XMS | Encounter Summary ---
Demographics + + + | Address | [address] | | | [place] [address] | + + + | Home Phone | | + + + | Preferred Language | Unknown | + + + | Marital Status | | + + + | Shinto Affiliation | 1073 | + + + | Race | Unknown | + + + | Ethnic Group | Unknown | + + + Author + + + | Author | [facility] | | | and [place] | + + + | Organization | [facility] | | | and [...] Team Providers + +------+ + | Care Property Loss Insurance Claim Adjuster Name | Role | Phone | + [...] | | | [address] | [place] [address] | | | | | [place] [address] | | | | | | [phone] | | | +--------+ + + + [...] 2020 | Visit | | [address] [facility] | | | | | | [address] [facility] | | | | | | [address] | | | | | | | | +--------+---------+ + + + documented as of this encounter Procedures + +--------+ + + + | Procedure Name | Priori | Date/Time | Associated Diagnosis | Comments | | | ty | | | | + +--------+ + + + | CT LUMBAR SPINE WO | Routin | 09/04/2017 | | Results for this | | CONTRAST | e | 2:30 PM | | procedure are in the | | | | PST | | results section. | + +--------+ + + + documented in this encounter Results CT Lumbar Spine wo Contrast (09/04/2017 2:30 PM PST) + + | Specimen | + + | | + + + + + | Narrative | Performed At | + + + | External films for comparison only - no result from [place]. | [facility] | + + + + +---------+ + + | Performing | Address | City/State/Zipcode | Phone Number | | Organization | | | | + +---------+ + + | [facility] | | | | + +---------+ + + documented in this encounter Visit Diagnoses Not on filedocumented in this encounter"
--- OUTSIDE RECORDS SUMMARY | ~2019-12-11 | XMS | Encounter Summary ---
Demographics + + + | Address | [address] | | | [place] [address] | + + + | Home Phone | | + + + | Preferred Language | Unknown | + + + | Marital Status | | + + + | Anabaptism Affiliation | 1073 | + + + | Race | Unknown | + + + | Ethnic Group | Unknown | + + + Author + + + | Author | [facility] | | | and [place] | + + + | Organization | [facility] | | | [...] Team Providers + +------+ + | Care Auto Technician Name | Role | Phone | + +------+ + | Chinmay Driscoll MD | PCP | | + +------+ + Reason for Visit + + + | Reason | Comments | + + + | Leg Pain | | + + + Encounter Details +--------+ + + + + | Date | Type | Department | Care Team | Description | +--------+ + + + + | 07/24/ | Hospital | [facility] | Andres Rick W, | Left hip pain | | 2018 | Encounter | [facility] | [place] [address] | (Primary Dx); | | | | Care [address] | [place] [address] | Chronic left-sided | | | | Jhon[place], | [phone] | low back pain with | | | | [place] [address] | | left-sided sciatica | | | | [phone] | Favio Jaffe MD | | | | | | [address] | | | | | | [address] [place] | | | | | | [phone] | | | | | | | [...] + + + | Blood Pressure | 142/63 | 07/24/2017 10:40 AM | | | | | PST | | + + + + + | Pulse | 62 | 07/24/2017 10:40 AM | | | | | PST | | + + + + + | Temperature | 37.1 C (98.7 F) | 07/24/2017 10:40 AM | | | | | PST | | + + + + + | Respiratory Rate | 16 | 07/24/2017 10:40 AM | | | | | PST | | + + + + + | Oxygen Saturation | 99% | 07/24/2017 10:40 AM | | | | | PST | | + + + + + | Inhaled Oxygen | - | - | | | Concentration | | | | + + + + + | Weight | 90.7 kg (200 lb) | 07/24/2017 10:40 AM | | | | | PST | | + + + + + | Height | 170.2 cm (5' 7") | 07/24/2017 10:40 AM | | | | | PST | | + + + + + | Body Mass Index | 31.32 | 07/24/2017 10:40 AM | | | | | PST | | + + + + + documented in this encounter Medications at Time [...] by mouth | | 0 | | 02/06/201 | | (XARELTO) 20 mg | Daily [...] Visit | | [address] [facility] | | | | | | [address] [place], [place] | | | | | | [address] | | | | | | | | +--------+---------+ + + + documented as of this encounter Visit Diagnoses + + | Diagnosis | + + | Left hip pain - Primary Pain in joint, pelvic region and thigh | + + | Chronic left-sided low back pain with left-sided sciatica | + + documented in this encounter
--- OUTSIDE RECORDS SUMMARY | ~2019-12-11 | XMS | Encounter Summary ---
Demographics + + + | Address | [address] | | | [place] [address] | + + + | Home Phone | | + + + | Preferred Language | Unknown | + + + | Marital Status | | + + + | Quaker Affiliation | 1073 | + + + | Race | Unknown | + + + | Ethnic Group | Unknown | + + + Author + + + | Author | [facility] | | | and [place] | + + + | Organization | [facility] | | [...] Team Providers + +------+ + | Care Engine Watchman Name | Role | Phone | + +------+ + | Chinmay Driscoll MD | PCP | | + +------+ + Reason for Visit + + + | Reason | Comments | + + + | Appointment | | + + + Encounter Details +--------+ + + + + | Date | Type | Department | Care Team | Description | +--------+ + + + + | 12/09/ | Telephone | [facility] | Shakeel, | Appointment | | 2013 | | CARDIOLOGY [address] | Nadine ELECTRICAL APPLIANCE SERVICER [address] | | | | | [place], | [place], | | | | | [place] [address] | [place] [address] | | | | | [phone] | [phone] | | | | | | | [...] 2020 | Visit | | [address] [facility] | | | | | | [address] [place] | | | | | | [address] | | | | | | | | +--------+---------+ + + + documented as of this encounter Visit Diagnoses Not on filedocumented in this encounter"
--- OUTSIDE RECORDS SUMMARY | ~2019-12-11 | XMS | Encounter Summary ---
Demographics + + + | Address | [address] | | | [place] [address] | + + + | Home Phone | | + + + | Preferred Language | Unknown | + + + | Marital Status | | + + + | Hinduism Affiliation | 1073 | + + + | Race | Unknown | + + + | Ethnic Group | Unknown | + + + Author + + + | Author | [facility] | | | and [place] | + + + | Organization | [facility] | | | and [...] Team Providers + +------+ + | Care Stock Or Delivery Clerk Name | Role | Phone | + +------+ + | Chinmay Driscoll MD | PCP | | + +------+ + Encounter Details +--------+ + + + + | Date | Type | Department | Care Team | Description | +--------+ + + + + | 02/16/ | Hospital | [facility] | Tate Barrientos | Spinal stenosis of | | 2013 | Encounter | MED CTR XRAY [address] | [address] | lumbar region with | | | | [place] | [address] | radiculopathy - | | | | [place] [address] | [place] [address] | severe at L4-L5 | | | | [phone] | [phone] | | | | | | | [...] 2020 | Visit | | [address] [facility] | | | | | | [address] [place], [place] | | | | | | [address] | | | | | | | | +--------+---------+ + + + documented as of this encounter Procedures + +--------+ + + + | Procedure Name | Priori | Date/Time | Associated Diagnosis | Comments | | | ty | | | | + +--------+ + + + | XR LUMBAR SPINE 2 OR | Routin | 02/16/2014 | Spinal stenosis of | Results for this | | 3 VW | e | 1:55 PM | lumbar region with | procedure are in the | | | | PDT | radiculopathy - | results section. | | | | | severe at L4-L5 | | + +--------+ + + + documented in this encounter Results XR Lumbar Spine 2 or 3 Vw (02/16/2014 1:55 PM PDT) + + | Specimen | + + | | + + + + + | Narrative | Performed At | + + + | XR LUMBAR SPINE 2 OR 3 VW 02/16/2014 1:55 PM HISTORY: Postop. | [facility] | | COMPARISON: 11/04/2013. FINDINGS: There is stable hardware for | LAB | | posterior fusion from L4 through L5 with interbody hardware at L4-5. | | | The hardware remain intact. Mild levoscoliosis of the lumbar spine is | | | present. There is mild spondylosis. Stable mild superior endplate | | | depression is visualized of L1. Mild disc narrowing is at L2-3. There | | | is severe disc narrowing at L3-4. Facet joints are intact. There is | | | no evidence for spondylolysis. Moderate atherosclerosis is observed. | | | Visualized ribs and pelvic osseous structures show no acute findings. | | | IMPRESSION - Stable posterior fusion from L4 through L5. | | | Stable degenerative changes. Stable mild compression fracture of | | | L1. Dictated and Signed by: Jair Momin MD Electronically | | | signed: 02/16/2014 3:25 PM | | + + + + + | Procedure Note | + + | Arvind, Rad Results In - 02/16/2014 3:28 PM PDT XR LUMBAR SPINE 2 OR 3 VW 02/16/2014 | | 1:55 PMHISTORY: Postop.COMPARISON: 11/04/2013.FINDINGS:There is stable hardware for | | posterior fusion from L4 through L5 with interbodyhardware at L4-5. The hardware remain | | intact. Mild levoscoliosis of the lumbarspine is present. There is mild spondylosis. | | Stable mild superior endplatedepression is visualized of L1. Mild disc narrowing is at | | L2-3. There is severedisc narrowing at L3-4. Facet joints are intact. There is no | | evidence forspondylolysis. Moderate atherosclerosis is observed. Visualized ribs and | | pelvicosseous structures show no acute findings.IMPRESSION -Stable posterior fusion from | | L4 through L5.Stable degenerative changes.Stable mild compression fracture of | | L1.Dictated and Signed by: Jair Momin MD Electronically signed: 02/16/2014 3:25 PM | |depression is visualized of L1. Mild disc narrowing is at L2-3. There is severe | |disc narrowing at L3-4. Facet joints are intact. There is no evidence for | |spondylolysis. Moderate atherosclerosis is observed. Visualized ribs and pelvic | |osseous structures show no acute findings. | | | |IMPRESSION - | |Stable posterior fusion from L4 through L5. | | | |Stable degenerative changes. | | | |Stable mild compression fracture of L1. | | | |Dictated and Signed by: Jair Momin MD | | Electronically signed: 02/16/2014 3:25 PM | + + + +---------+ + + | Performing | Address | City/State/Zipcode | Phone Number | | Organization | | | | + +---------+ + + | [facility] | | | [phone] | + +---------+ + + | [facility] | | | [phone] | + +---------+ + + documented in this encounter Visit Diagnoses + + | Diagnosis | + + | 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
--- OUTSIDE RECORDS SUMMARY | ~2019-12-11 | XMS | Encounter Summary ---
Demographics + + + | Address | [address] | | | [place] [address] | + + + | Home Phone [...] Author | [facility] | | | and [place] | + [...] Team Providers + +------+ + | Care Highway Patrol Commander Name | Role | Phone | + [...] + + | 07/11/ | Telephone | [facility] | AyadpowertanikaJoni, | Appointment | | 2019 | | CARDIOLOGY [address] | MD [address] [place] | | | | | [place], | [place], | | | | | [place] [address] | [place] [address] | | | | | [phone] | [phone] | | | | | | | [...] | Visit | | [address] [facility] | | | | | | [address] [place] | | | | | | [address] | | | | | | | | +--------+---------+ + + + documented as of this encounter Visit Diagnoses Not on filedocumented in this encounter"
--- OUTSIDE RECORDS SUMMARY | ~2019-12-11 | XMS | Encounter Summary ---
Demographics + + + | Address | [address] | | | [place] [address] | + + + | Home Phone | | + + + | Preferred Language | Unknown | + + + | Marital Status | | + + + | Mormonism Affiliation | 1073 | + + + | Race | Unknown | + + + | Ethnic Group | Unknown | + + + Author + + + | Author | [facility] | | | and [place] | + + + | Organization | [facility] | | | [...] Providers + +------+ + | Care Auto Leasing Manager Name | Role | Phone | [...] + + | 02/16/ | Office | [facility] | Tate Barrientos | S/P lumbar spinal | | 2013 | Visit | NEUROSURGERY [address] | [address] | fusion (Primary Dx); | | | | [address] | [address] | Lumbar | | | | [place], [place] | [place] [address] | radiculopathy - | | | | [address] | [phone] | primarily into the | | | | [phone] | | left lower | | | [...] months with x-rays of your lumbar spineElectron donny signed by LAVINIA Baker at 02/16/2014 3:36 PM PDT documented in this encounter Progress Notes Tate Barrientos PA - 02/16/2014 3:38 PM PDTFormatting of this note might be differen t from the original. LAVINIA Rosenthal [address] [facility], [address] [place] [address] FAX: NEUROSURGERY FOLLOW-UP CHIEF COMPLAINT: Chief Complaint [...] spent 20 minutes in visit with Gia Arcos today [...] 2020 | Visit | | [address] [facility] | | | | | | [address] [place] | | | | | | [address] | | | | | | | [...] lumbar spine x-rays. FINDINGS: There | [facility] | | is stable hardware for posterior fusion extending from L4 through L5 | [facility] | | with interbody hardware at [...] | Procedure Note | + + | mK Samuels Results In - 09/01/2014 5:38 PM PST [...] ST[address] | [address] | [place] | [phone] | | [facility] | | [address] | | | - IMAGING | | [...]
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
--- OUTSIDE RECORDS SUMMARY | ~2019-12-11 | XMS | Encounter Summary ---
Demographics + + + | Address | [address] | | | [place] [address] | + + + | Home Phone [...] Team Providers + +------+ + | Care Applied Research Director Name | Role | Phone | [...] | | | [place], | [address] | | | | | | [place] [address] | [address] | | | | | | Phone: | [place] | | | | | | [phone] | [address] Phone: | | | | | | Fax: | [phone] | | | | | | [phone] | Fax: | | | | | | | [phone] | +--------+ + + + + + Reason for Visit + + + | Reason | Comments | + + + | Follow-up | Back pain and discuss surgery | + + + Encounter Details +--------+---------+ + + + | Date | Type | Department | Care Team | Description | +--------+---------+ + + + | 03/18/ | Office | [facility] [place] | Will Michael MD | Lumbar stenosis with | | 2012 | Visit | NEUROSURGERY [address] | [address] | neurogenic | | | | [address] | [place] [address] | claudication | | | | [place] | [phone] | (Primary Dx); | | | | [address] | | 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 [address] [place] [address], [address] [place], [place] [address] FAX: NEUROSURGERY FOLLOW-UP CHIEF COMPLAINT: Chief Complaint [...] sound like she i s seen a central supply manager before. Her symptoms began a long time [...] has no apparent deficits with short or skilled nursing memory. CRANIAL NERVES: II: Acuity is intact. [...] Intrinsics 5 5 Ulnar Intrinsics 5 5 Kettle Room Helper Strength 5 5 Hip Flexion 4+ 4+ [...] 2019 | Visit | | [address] [facility] | | | | | | [address] [place], [place] | | | | | | [address] | | | | | | | [...]
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
--- OUTSIDE RECORDS SUMMARY | ~2019-12-11 | XMS | Encounter Summary ---
Demographics + + + | Address | [address] | | | [place] [address] | + + + | Home Phone | | + + + | Preferred Language | Unknown | + + + | Marital Status | | + + + | Rastafarian Affiliation | 1073 | + + + | Race | Unknown | + + + | Ethnic Group | Unknown | + + + Author + + + | Author | [facility] | | | and [place] | + + + | Organization | [facility] | | [...] Team Providers + +------+ + | Care National Park Ranger Name | Role | Phone | + +------+ + | Tino Salmeron DO | PCP | | + +------+ + Reason for Visit + + + | Reason | Comments | + + + | Appointment | | + + + | Neurosurgery | | | Appointment | | + + + Encounter Details +--------+ + + + + | Date | Type | Department | Care Team | Description | +--------+ + + + + | 12/26/ | Telephone | [facility] | Will Rodriguez MD | Appointment; | | 2017 | | NEUROSUR[address]ERY [address] | [address] | Neurosurgery | | | | [address] | [place] [address] | Appointment | | | | [place] | [phone] | | | | | [address] | | | | | | [phone] | | | +--------+ + + + [...] [place] | | | | | | [address] | | | | | | | | +--------+---------+ + + + documented as of this encounter Visit Diagnoses Not on filedocumented in this encounter"
--- OUTSIDE RECORDS SUMMARY | ~2019-12-11 | XMS | Encounter Summary ---
Demographics + + + | Address | [address] | | | [place] [address] | + + + | Home Phone | | + + + | Preferred Language | Unknown | + + + | Marital Status | | + + + | Advent Affiliation | 1073 | + + + | Race | Unknown | + + + | Ethnic Group | Unknown | + + + Author + + + | Author | [facility] | | | and [place] | + + + | Organization | [facility] | | | [...] Team Providers + +------+ + | Care Survey Operations Director Name | Role | Phone | [...] | Physical | Diagnoses | [place], | | | | Services | Therapy | Spinal | Tate | | | | Required | | stenosis of | NAYA Thayer | | | | | | lumbar | [address] | | | | | | region with | [address] | | | | | | radiculopath | [place] | | | | | | y | [address] | | | | | | | Phone: | | | | | | | [phone] | | | | | | | Fax: | | | | | | | [phone] | | +--------+ + + + + + Reason for Visit + + + | Reason | Comments | + + + | Follow-up | 12 week PO s/p lumbar fusion | + + + Encounter Details +--------+---------+ + + + | Date | Type | Department | Care Team | Description | +--------+---------+ + + + | 11/04/ | Office | [facility] | Tate Barrientos | Spinal stenosis of | | 2013 | Visit | NEUROSURGERY [address] | [address] | lumbar region with | | | | [address] | [address] | radiculopathy - | | | | [place], [place] | [place] [address] | severe at L4-L5 | | | | [address] | [phone] | (Primary Dx) | | | | [phone] | | | +--------+---------+ + + + [...] + + + | Blood Pressure | 128/71 | 11/04/2013 3:03 PM | | | | | PDT | | + + + + + | Pulse | 84 | 11/04/2013 3:03 PM | | | | | PDT | | + + + + + | Temperature | - | - | | + + + + + | Respiratory Rate | 16 | 11/04/2013 3:03 PM | | | | | PDT | | + + + + + | Oxygen Saturation | - | - | | + + + + + | Inhaled Oxygen | - | - | | | Concentration | | | | + + + + + | Weight | 81.6 kg (180 lb) | 11/04/2013 3:03 PM | | | | | PDT | | + + + + + | Height | 170.2 cm (5' 7") | 11/04/2013 3:03 PM | | | | | PDT | | + + + + + | Body Mass Index | 28.19 | 11/04/2013 3:03 PM | | | | | PDT | | + + + + + documented in this encounter Patient Instructions Patient Instructions Tate Barrientos PA - 11/04/2013 3:22 PM PDTToday we ordered phy sical therapy for you to start participating in. I've asked you to start increasing your ac tivities very slowly over the next couple months. You can also start weaning your brace. I nstructions are noted below. We will see you back in 3 months with x-rays SPINE BRACE WEANING PROTOCOL (5 WEEKS) Below are instructions for weaning your brace. You can move through the weeks slower if yo u feel the need to do so, but the overall goal is to get you out of the brace slowly over th e next several weeks. WEEK 1 If you have been using your brace for activities like sleeping, showering, do not use the b race for these activities any longer but continue using it for everything else. WEEK 2 Stop wearing your brace for sitting and short distance walking. You should use the brace f or anything more involved. WEEK 3 Stop using the brace for medium distance walking. You can bend and twist your back but sti ll proceed slowly with these activities. WEEK 4 Stop using the brace for everything but the most difficult tasks. You should now be able to go on long walks and lift more weight as directed. Add more bending and twisting as tolera igor. WEEK 5 Stop using the brace for daily use. I would encourage you to use the brace in the future f or activities that you know might aggravate your back or cause pain. You should still work to strengthen your back and use good technique when rock picker 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 Electronica lly signed by LAVINIA Baker at 11/04/2013 3:23 PM PDT documented in this encounter Progress Notes Tate Barrientos PA - 11/04/2013 3:24 PM PDTFormatting of this note might be differen t from the original. LAVINIA Rosenthal [address] [facility] [facility] [place], [place] [address] FAX: NEUROSURGERY FOLLOW-UP CHIEF COMPLAINT: Chief Complaint Patient presents with Follow-up 12 week PO s/p lumbar fusion HISTORY OF PRESENT ILLNESS: The patient is a 77 y.o. female that had a lumbar fusion by Dr Sharon michael around 3 months ago . She returns and overall is doing well. The patient complains o f occasional low back pain but her leg symptoms have improved. She is slowly increasing her activities. The patient is still taking narcotics for pain management. She takes about on e half of a tablet up to twice a day. The patient has been walking as directed and has trie d to remain active although she is fairly slowly progressing her activities. Overall, the p atient is pleased with her improvement. PAST MEDICAL HISTORY: Past Medical History Diagnosis [...] Hypertension Sister INTERIM PHYSICAL EXAMINATION: Blood pressure 128/71, pulse 84, resp. rate 16, height 1.702 m (5' 7"), weight 81.647 kg (1 80 lb). Body mass index is 28.19 kg/(m^2). GENERAL: Gia Arcos is in no acute distress with unlabored respirations. SPINE: The patient s incisions are healing well without drainage, significant erythema, o r discharge EXTREMITIES: No lower extremity edema. NEUROLOGICAL EXAMINATION: MENTAL STATUS: The patient is awake, alert, and oriented. She follows simple and complex commands MOTOR EXAM: Motor strength is 5/5. SENSORY EXAM: The sensory examination is stable REFLEXES: Reflexes are unchanged from her preoperative history and physical. RADIOGRAPHIC REVIEW: The patient s postoperative x-rays show stable instrumentation and alignment and were rev iewed with the patient today. There have been no interval changes since the immediate posto perative films. Complete fusion has yet occurred, but this is normal and would not be expec igor at this time. ASSESSMENT: S/P lumbar fusion for: Encounter Diagnosis Name Primary? 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 I was pleased to see at least some further improvement and expect more improvement with time. This was discussed with the patient today. I have increased the patient s activities further, and I would like the patient to continue to ad ortiz with activities as tolerated and as directed. I would like her to start weaning her b race at this time and have included instructions for this. We would also ask her to partici clovis in physical therapy I spent 15 minutes in visit with Gia Arcos today with the majority of time spent cou nselling the patient on her recovery and coordinating her future care. The patient will fol low-up with me in around 3-4 months for re-evaluation. ELECTRONICALLY SIGNED BY: LAVINIA Rosenthal, 11/04/2013 15:24 documented in this encounter Plan of Treatment +--------+---------+ + + + | Date | Type | Specialty | Care Team | Description | +--------+---------+ + + + | 02/08/ | Office | Nephrology | Homero Soto MD | | | 2020 | Visit | | [address] | | | | | | [address] [place] | | | | | | [address] | | | | | | | | +--------+---------+ + + + + + +--------+ + + | Name | Type | Priori | Associated Diagnoses | Order Schedule | | | | ty | | | + + +--------+ + + | OUTPATIENT PT | Outpatient | Routin | Spinal stenosis of | 1 Occurrences | | EXTERNAL | Referral | e | lumbar region with | starting 11/04/2013 | | | | | radiculopathy - | until 11/04/2014 | | | | | severe at L4-L5 | | + + +--------+ + + [...] + + | Performing | Address | City/State/[facility] | Phone Number | | Organization | | | | + +---------+ + + | [facility] | | | [phone] | + +---------+ + + | [facility] | | | [phone] | + +---------+ + + documented in this encounter Visit Diagnoses + + | Diagnosis | + + | 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
--- OUTSIDE RECORDS SUMMARY | ~2019-12-11 | XMS | Encounter Summary ---
Demographics + + + | Address | [address] | | | [place] [address] | + + + | Home Phone [...] Team Providers + +------+ + | Care Manager Of Environmental Services Name | Role | Phone | + +------+ + | Chinmay Driscoll MD | PCP | | + +------+ + Encounter Details +--------+ + + + + | Date | Type | Department | Care Team | Description | +--------+ + + + + | 04/25/ | Hospital | [facility] | Joni Sepulveda, | | | 2012 | Encounter | MED CTR XRAY [address] | MD [address] | | | | | [address] [place] | [place], | | | | | [place] [address] | [place] [address] | | | | | [phone] | [phone] | | | | | | | [...] | Visit | | [address] [facility] [facility] | | | | | | [address] [place], [place] | | | | | | [address] | | | | | | | | +--------+---------+ + + + documented as of this encounter Procedures + +--------+ + + + | Procedure Name | Priori | Date/Time | Associated Diagnosis | Comments | | | ty | | | | + +--------+ + + + | ECHO COMPLETE | Routin | 04/25/2013 | | Results for this | | | e | 9:55 AM | | procedure are in the | | | | PDT | | results section. | + +--------+ + + + documented in this encounter Results ECHO Complete (04/25/2013 9:55 AM PDT) + + | Specimen | + + | | + + + + + | Narrative | Performed At | + + + | [facility] | [place] | | Department [address] | [facility] | | [ rep ct [address]] [ rep ct [facility] | | st zip] Signed | - IMAGING | | | | | Patient Name: DILSHAD ARCOS Physician: | | | Kianna : 1935 Age: 77 Sex: F Unit #: [id number] | | | Exam Date: 04/25/13 Location: [facility] | | | Report #: [id number] Page: | | | %(RAD)RES..mtdd.print.filter("pg") of %(RAD) | | | RES..mtdd.print.filter("tpg") | | | | | | Accession Number: [id number] | | | E C H O C A R D I O G R A P H Y R E P O R T | | | HEIGHT: 67" WEIGHT: 158# | | | TANK TENDER: THALIA REFERRING DR: JOHN GARCIA DR: | | | JOHN DIAGNOSIS: A-FIB | | | | | | M E A S U R E M E N T S | | | Aortic Root: 30 mm LV | | | Diameter-diastole: 53 mm Aortic Cusp Sep: 17 mm | | | LV Diameter--systole: 35 mm LA: | | | 41 mm Fractional Shortenin % | | | IVS--diastole: 11 mm PFV Aortic Valve: | | | IVS--systole: 16 mm MPG Mitral | | | Valve: mmHg LVPW--diastole: 11 mm | | | PFV TR Jet: 3.14 m/s LVPW--systole: | | | 16 mm RA/RV PP mmHg | | | | | | | | | ECHOCARDIOGRAM, 04/25/2013 CLINICAL HISTORY: | | | ATRIAL FIBRILLATION. TECHNICAL DATA: The quality of the | | | study is adequate. This is a 2-D Echo/M-Mode/Doppler/color flow | | | Doppler study. FINDINGS: Left atrial size is mildly | | | dilated. Left ventricular size is normal with normal wall | | | thickness and normal left ventricular systolic function. LVEF is 65%. | | | Aortic root is normal. Right atrial size is mildly dilated. | | | Right ventricular size normal with normal wall thickness and normal | | | right ventricular systolic function. Pericardium is normal. The | | | pulmonary artery is normal with a mild pulmonary hypertension. | | | Peak systolic pressure of 40-45 mmHg. Aortic valve is trileaflet | | | and opens normally. Mitral valve is mildly thickened and calcified | | | with a mild mitral valve regurgitation. Mitral valve opens | | | adequately. There is a mild mitral annular calcification. | | | Pulmonic valve is normal with a mild pulmonary valve insufficiency. | | | Tricuspid valve is normal with a mild tricuspid valve | | | regurgitation. IVC is dilated with a less than 60% of a respiratory | | | collapse. IMPRESSION: 1. A MILD BIATRIAL | | | DILATATION. 2. A NORMAL LEFT VENTRICULAR SIZE WALL | | | THICKNESS AND MOTION. PRESERVED LEFT VENTRICULAR SYSTOLIC | | | FUNCTION. LVEF IS 65%. 3. A MILDLY THICKENED AND | | | CALCIFIED MITRAL VALVE WITH A MILD MITRAL VALVE REGURGITATION. | | | 4. A MILD MITRAL ANNULAR CALCIFICATION. 5. A MILD | | | TRICUSPID VALVE REGURGITATION. 6. A MILD PULMONARY | | | HYPERTENSION WITH A PEAK SYSTOLIC PRESSURE OF 45-50 MMHG. | | | Dictated Date/Time: 04/25/2013 09:55 Transcribed Date/Time: | | | 04/25/2013 11:21 Corn Popper: | | | <<Signature on File>> | | | Joni | | | MD Coco [facility] FAS 0723 <Electronically signed by | | | Joni Sepulveda MD, [facility], [facility] CENTERErnesto, FASMatt, FASYOSEF> Maidaong | | | MD Coco [facility] ANTHONY 04/25/13 0955 Corn Popper: South | | | [id number]/04/13 1121 | | + + + + + + + + | Performing | Address | City/State/Zipcode | Phone Number | | Organization | | | | + + + + + | [facility] | [address] | [place] | [phone] | | [facility] | | [address] | | | - IMAGING | | | | + + + + + documented in this encounter Visit Diagnoses Not on filedocumented in this encounter
--- OUTSIDE RECORDS SUMMARY | ~2019-12-11 | XMS | Encounter Summary ---
Demographics + + + | Address | [address] | | | [place] [address] | + + + | Home Phone | | + + + | Preferred Language | Unknown | + + + | Marital Status | | + + + | Sikh Affiliation | 1073 | + + + [...] Team Providers + +------+ + | Care Insulation Sprayer Name | Role | Phone | + +------+ + | Chinmay Driscoll MD | PCP | | + +------+ + Encounter Details +--------+ + + + + | Date | Type | Department | Care Team | Description | +--------+ + + + + | 07/28/ | Hospital | [facility] | Will Rodriguez MD | | | 2014 - | Encounter | MED CTR SURGICAL | [address] | | | | | [address] | [place] [address] | | | 07/30/ | | [place] [address] | [phone] | | | 2013 | | [phone] | | | +--------+ + + + [...] Visit | | [address] [facility] | | | | | | [address] [place] | | | | | | [address] | | | | | | | [...] + | [facility] | [address] | [place], [place] | [phone] | | [facility] | | [address] | | | - LABORATORY | | | | + + + + + | [facility] | [address] | [place], [place] | | | [facility] | | [address] [place] [address] | | | - LABORATORY | | [...] + | [facility] | [address] | [place] | [phone] | | [facility] | | [address] | | | - LABORATORY | | | | + + + + + | [facility] | [address] | [place], [place] | | | [facility] | | [address], [facility] | | | - LABORATORY | [...] + | [facility] | [address] | [place] | [phone] | | [facility] | | [address] | | | - LABORATORY | | | | + + + + + | [facility] | [address] | [place] | | | [facility] | | [address] | | | - LABORATORY [...] + | [facility] | [address] | [place], [place] | [phone] | | [facility] | | [address] | | | - LABORATORY | | | | + + + + + | [facility] | [address] | [place], [place] | | | [facility] | | [address], [facility] | | | - LABORATORY | | | | + + + + + XR Lumbar Spine 2 or 3 Vw (07/29/2013 5:55 PM PST) + + | Specimen | + + | | + + + + + | Narrative | Performed At | + + + | [facility] | [place] | | Department [address] [facility] [place] | [facility] | | [ rep ct [address]] [ rep [facility] | | st zip] Signed | - IMAGING | | | | | Patient Name: DILSHAD ARCOS Matt Physician: | | | YAMLio. : 1935 Age: 77 Sex: F Unit #: [id number] | | | Exam Date: 07/29/13 Location: [address] [place] [address] | | | Report #: [id number] Page: | | | %(RAD)RES..mtdd.print.filter("pg") of %(RAD) | | | RES..mtdd.print.filter("tpg") | | | | | | Accession Number: [id number] | | | LUMBAR SPINE LIMITED X-RAY [...] | | | Transcribed Date/Time: 07/29/2013 18:32 Colorist Dyer: | | | MS1 <<Signature on File>> | | | Will | | | Matt Lagos MD07/30/13 0913 <Electronically signed by Will Gutierrez | | | Yolis ARAUJO> Will Lagos MD 07/29/13 1162 | | | Colorist Dyer: South Sbvclafndbufy13/07/14 1254 | | | Will Rodriguez MD | | + + + + + + + + | Performing | Address | City/State/Zipcode | Phone Number | | Organization | | | | + + + + + | [facility] | [address] | [place] | [phone] | | [facility] | | [address] | | | - IMAGING | | [...] + | [facility] | [address] | [place] | [phone] | | [facility] | | [address] | | | - LABORATORY | | | | + + + + + | [facility] | [address] | [place], [place] | | | [facility] | | [address] | | | - LABORATORY [...] + | [facility] | [address] | [place], [place] | [phone] | | [facility] | | [address] | | | - LABORATORY | | | | + + + + + | [facility] | [address] | [place], [place] | | | [facility] | | [address], [facility] | | | - LABORATORY | [...] + | [facility] | [address] | [place] | [phone] | | [facility] | | [address] | | | - LABORATORY | | | | + + + + + | [facility] | [address] | [place] | | | [facility] | | [address], [facility] | | | - LABORATORY | [...] + | [facility] | [address] | [place], [place] | [phone] | | [facility] | | [address] | | | - LABORATORY | | | | + + + + + | [facility] | [address] | [place], [place] | | | [facility] | | [address] | | | - LABORATORY | | | | + + + + + XR Spine 1 Vw (07/28/2013 11:09 AM PST) + + | Specimen | + + | | + + + + + | Narrative | Performed At | + + + | [facility] | [place] | | Department [address] [facility] | [facility] | | [ rep ct street1+2] [ rep [facility] | | [facility]] Signed | - IMAGING | | | | | Patient Name: DILSHAD ARCOS Physician: | | | Lio. : 1935 Age: 77 Sex: F Unit #: [id number] | | | Exam Date: 07/28/13 Location: [address] [place] [address] | | | Report #: [id number] Page: | | | %(RAD)RES..mtdd.print.filter("pg") of %(RAD) | | | RES..mtdd.print.filter("tpg") | | | | | | Accession Number: [id number] | | | SPINE, [facility] [...] Jackson MD 07/28/13 1109 | | | Colorist Dyer: Christina Palm07/28/13 1536 | | | Will Rodriguez MD | | + + + + + + + + | Performing | Address | City/State[facility] | Phone Number | | Organization | | | | + + + + + | [facility] | [address] | [place], [place] | [phone] | | [facility] | | [address] | | | - IMAGING | | [...] + | [facility] | [address] | [place], [place] | [phone] | | [facility] | | [address] | | | - LABORATORY | | | | + + + + + | [facility] | [address] | [place], [place] | | | [facility] | | [address] [place] [address] | | | - LABORATORY | | [...] + | [facility] | [address] | [place], [place] | [phone] | | [facility] | | [address] | | | - LABORATORY | | | | + + + + + | [facility] | [address] | [place], [place] | | | [facility] | | [address], [facility] | | | - LABORATORY | | | | + + + + + POC Glucose (07/28/2013 6:57 AM PST) + +-------+ + + + | Component | Value | Ref Range | Performed | Pathologist | | | | | At | Signature | + +-------+ + + + | Glucose, | 140 | 79 - 150 md/dL | PAVELE [...] | + + + + + | [facility] | [address] | [place] | [phone] | | [facility] | | [address] | | | - LABORATORY | | | | + + + + + | [facility] | [address] | [place] | | | [facility] | | [address] | | | - LABORATORY | | | | + + + + + documented in this encounter Visit Diagnoses Not on filedocumented in this encounter
--- OUTSIDE RECORDS SUMMARY | ~2019-12-11 | XMS | Clinical Summary ---
Demographics + + + | Address | [address] | | | [place] [address] | + + + | Home Phone | | + + + | Preferred Language | Unknown | + + + | Marital Status | | + + + | Shinto Affiliation | 1073 | + + + | Race | Unknown | + + + | Ethnic Group | Unknown | + + + Author + + + | Author | [facility] | | | and [place] | + + + | Organization | [facility] | | | and [...] Team Providers + +------+ + | Care Sales Enablement Specialist Name | Role | Phone | [...] type | | | | | | ([facility]) (Primary Dx); | | | | | | Pulmonary HTN ([facility]); | | | | | | Pre-op [...] insulin | | | | | | ([facility]); CKD (chronic | | | | | | kidney disease) | | | | | | stage 3, GFR 30-59 | | | | | | ml/min ([facility]) | +--------+ + + + + | [...] ml/min | | | | | | ([facility]); Persistent | | | | | | [...] ml/min | | | | | | ([facility]); Persistent | | | | | | proteinuria; 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, without | | | | | | long-term current | | | | | | use of insulin | | | | | | ([facility]); Continuous | | | | | | leakage of urine | +--------+ + + + + | 10/02/ | Documentati | Nephrology | Jaylon | Results (10/02/19) | | 2020 | on | | Ngozi Terrell | | | | | | Ladle Repairer | | +--------+ + + + [...] Medical | | | | | | Ladle Repairer | | +--------+ + + + [...] 2019 | Visit | | [address] [facility] | | | | | | [address] [place], [place] | | | | | | [address] | | | | | | | [...] | | | | | ARMINDA ARAUJO (4520) on | | | | | | [...] 1.001 - 1.030 | | | | [place], | | | | | | Urine [...] +--------+ +---------+--------+ | MEDICARE | MEDICA | [id number] | 11/21/19 | [phone] | | Medica | | | RE | | 01-Pre | 5 | | re | | | PART A | | sent | | | | | | AND B | | | | | | + +--------+ +--------+ +---------+--------+ | MEDICARE | MEDICA | [id number] | 11/21/19 | [phone] | | Medica | | | RE | | 01-Pre | 5 | | re | | | PART A | | sent | | | | | | AND B | | | | | | + +--------+ +--------+ +---------+--------+ | [place] | [place] | [id number] | 07/23/19 | [phone] | | Indemn | | | [place] | 3 | 11-Pre | 9 | | ity | | | MDCR | | sent | | | | | | SUPPL | | | | | | + +--------+ +--------+ +---------+--------+ | BCBS | BCBS | [id number] | 07/23/19 | | | Indemn | [...] | | al/Fam | | 1936 | [phone] | [place], [place] | | | gee | | | 8 (Home) | [phone] | + +--------+ +--------+ + + | Gia Arcos | Person | Self | [birth year] | [address] | | | al/Fam | | 1936 | [phone] | [place], [place] | | | gee | | | 8 (Home) | [address] | + +--------+ +--------+ + + Advance Directives + + + + + | Type | Date Recorded | Patient | Explanation | | | | Sales Operations Director | | + + + + + | Power of | | | | | Pantry Goods Maker | | | | + + + + + | Advance | 02/16/2014 1:11 | | | | Directive | PM | | | + + + + +
--- OUTSIDE RECORDS SUMMARY | ~2019-12-11 | XMS | Encounter Summary ---
Demographics + + + | Address | [address] | | | [place] [address] | + + + | Home Phone | | + + + | Preferred Language | Unknown | + + + | Marital Status | | + + + | Latter Day Affiliation | 1073 | + + + | Race | Unknown | + + + | Ethnic Group | Unknown | + + + Author + + + | Author | [facility] | | | and [place] | + + + | Organization | [facility] | | | [...] Team Providers + +------+ + | Care Shingle Trimmer Name | Role | Phone | + +------+ + | Chinmay Drisclol MD | PCP | | + +------+ + Reason for Visit +--------+ + | Reason | Comments | +--------+ + | Other | | +--------+ + Encounter Details +--------+ + + + + | Date | Type | Department | Care Team | Description | +--------+ + + + + | 03/06/ | Telephone | [facility] | Thaddeus Jaime | Other | | 2012 | | PHYSIATRY [address] | [address], [address] | | | | [address] | [place], [place] | | | | | [place], [place] | [address] | | | | | [address] | | | | | | [phone] | | | +--------+ + + + [...] 2020 | Visit | | [address] [facility] | | | | | | [address] | | | | | | [address] | | | | | | | | +--------+---------+ + + + documented as of this encounter Visit Diagnoses Not on filedocumented in this encounter"
--- OUTSIDE RECORDS SUMMARY | ~2019-12-11 | XMS | Encounter Summary ---
Demographics + + + | Address | [address] | | | [place] [address] | + + + | Home Phone | | + + + | Preferred Language | Unknown | + + + | Marital Status | | + + + | Mandaeism Affiliation | 1073 | + + + | Race | Unknown | + + + | Ethnic Group | Unknown | + + + Author + + + | Author | [facility] | | | and [place] | + + + | Organization | [facility] | | [...] Team Providers + +------+ + | Care Foreclosure Paralegal Name | Role | Phone | + [...] + | 12/09/ | Telephone | [facility] | Shakeel, | Appointment | | 2013 | | CARDIOLOGY [address] | Nadine BRAKE REPAIRER [address] | | | | | [place], | [place], | | | | | [place] [address] | [place] [address] | | | | | [phone] | [phone] | | | | | | | [...] 2020 | Visit | | [address] [facility] | | | | | | [address] | | | | | | [address] | | | | | | | | +--------+---------+ + + + documented as of this encounter Visit Diagnoses Not on filedocumented in this encounter"
--- OUTSIDE RECORDS SUMMARY | ~2019-12-11 | XMS | Encounter Summary ---
Demographics + + + | Address | [address] | | | [place] [address] | + + + | Home Phone | | + + + | Preferred Language | Unknown | + + + | Marital Status | | + + + | Pentecostalism Affiliation | 1073 | + + + | Race | Unknown | + + + | Ethnic Group | Unknown | + + + Author + + + | Author | [facility] | | | and [place] | + + + | Organization | [facility] | | | [...] Team Providers + +------+ + | Care Chair Springer Name | Role | Phone | + +------+ + | Chinmay Driscoll MD | PCP | | + +------+ + Reason for Visit +--------+ + | Reason | Comments | +--------+ + | Other | injections | +--------+ + Encounter Details +--------+ + + + + | Date | Type | Department | Care Team | Description | +--------+ + + + + | 01/27/ | Telephone | [facility] [place] | Luigi James, | Other (injections ) | | 2012 | | NEUROSURGERY [address] | PA-C [address] | | | | [address] | [place], [place] | | | | | [place], [place] | [address] | | | | | [address] | | | | | | [phone] | | | +--------+ + + + [...] 2020 | Visit | | [address] [facility] | | | | | | [facility] | | | | | | [address] | | | | | | | | +--------+---------+ + + + documented as of this encounter Visit Diagnoses Not on filedocumented in this encounter"
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
--- OUTSIDE RECORDS SUMMARY | ~2019-12-11 | XMS | Encounter Summary ---
Demographics + + + | Address | [address] | | | [place] [address] | + + + | Home Phone | | + + + | Preferred Language | Unknown | + + + | Marital Status | | + + + | Lutheran Affiliation | 1073 | + + + [...] Providers + +------+ + | Care Director Product Development Name | Role | Phone | + +------+ + | Tino Salmeron DO | PCP | | + +------+ + Encounter Details +--------+ + + + + | Date | Type | Department | Care Team | Description | +--------+ + + + + | 08/24/ | Abstract | [facility] [place] | Tate Barrientos | | | 2017 | | NEUROSURGERY [address] | [address] | | | | | [address] | [address] | | | | | [place], [place] | [place] [address] | | | | | [address] | [phone] | | | | | [phone] | | | +--------+ + + + [...] 2020 | Visit | | [address] [facility] | | | | | | [address] | | | | | | [address] | | | | | | | | +--------+---------+ + + + documented as of this encounter Visit Diagnoses Not on filedocumented in this encounter"
--- OUTSIDE RECORDS SUMMARY | ~2019-12-11 | XMS | Encounter Summary ---
Demographics + + + | Address | [address] | | | [place] [address] | + + + | Home Phone [...] Team Providers + +------+ + | Care System Integration Engineer Name | Role | Phone | + [...] + | 03/06/ | Telephone | [facility] | Thaddeus Jaime | Other | | 2012 | | PHYSIATRY [address] | [address] | | | | [address] | [place], [place] | | | | | [place], [place] | [address] | | | | | [address] | | | | | | [phone] | | | +--------+ + + + [...] 2020 | Visit | | [address] [facility] | | | | | | [address] | | | | | | [address] | | | | | | | | +--------+---------+ + + + documented as of this encounter Visit Diagnoses Not on filedocumented in this encounter"
--- OUTSIDE RECORDS SUMMARY | ~2019-12-11 | XMS | Encounter Summary ---
Demographics + + + | Address | [address] | | | [place] [address] | + + + | Home Phone | | + + + | Preferred Language | Unknown | + + + | Marital Status | | + + + | Holiness Affiliation | 1073 | + + + | Race | Unknown | + + + | Ethnic Group | Unknown | + + + Author + + + | Author | [facility] | | | and [place] | + + + | Organization | [facility] | | [...] Team Providers + +------+ + | Care Staff Genetic Counselor Name | Role | Phone | + [...] | | | [address] | [place] [address] | | | | | [place] [address] | | | | | | [phone] | | | +--------+ + + + [...] 2020 | Visit | | [address] [facility] | | | | | | [address] [facility] | | | | | | [address] | | | | | | | [...] for comparison only - no result from [place]. | [facility] | + + + + +---------+ + + | Performing | Address | City/State/Zipcode | Phone Number | | Organization | | | | + +---------+ + + | [facility] | | | | + +---------+ + + documented in this encounter Visit Diagnoses Not on filedocumented in this encounter"
--- OUTSIDE RECORDS SUMMARY | ~2019-12-11 | XMS | Encounter Summary ---
Demographics + + + | Address | [address] | | | [place] [address] | + + + | Home Phone [...] Team Providers + +------+ + | Care Lead Teller Name | Role | Phone | + +------+ + | Tino Salmeron DO | PCP | | + +------+ + Encounter Details +--------+ + + + + | Date | Type | Department | Care Team | Description | +--------+ + + + + | 09/06/ | Imaging | [facility] | Provider, | | | 2018 | Exam | [facility] | MD [address] | | | | | IMAGING [address] | [address]. | | | | | [address] | [place] [address] | | | | | [place] [address] | | | | | | [phone] | | | +--------+ + + + [...] 2020 | Visit | | [address] [facility] | | | | | | [address] [facility] | | | | | [address] | | | | | | | [...]
--- OUTSIDE RECORDS SUMMARY | ~2019-12-11 | XMS | Encounter Summary ---
Demographics + + + | Address | [address] | | | [place] [address] | + + + | Home Phone [...] Team Providers + +------+ + | Care City Collector Name | Role | Phone | + [...] | | [address] | [place] [address] | | | | | [place] | [phone] | | | | | [address] | | | | | | [phone] | | | +--------+ + + + [...] 2020 | Visit | | [address] [facility] | | | | | | [address] [place] | | | | | | [address] | | | | | | | | +--------+---------+ + + + documented as of this encounter Visit Diagnoses Not on filedocumented in this encounter"
--- OUTSIDE RECORDS SUMMARY | ~2019-12-11 | XMS | Encounter Summary ---
Demographics + + + | Address | [address] | | | [place] [address] | + + + | Home Phone [...] Team Providers + +------+ + | Care Chilling Hood Operator Name | Role | Phone | [...] + + | 06/06/ | Office | [facility] | Tate Barrientos | 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 | Visit | NEUROSURGERY [address] | [address] | lumbar region with | | | | [address] | [address] | radiculopathy - | | | | [place] | [place] [address] | severe at L4-L5 | | | | [address] | [phone] | (Primary Dx); Lumbar | | | | [phone] | | radiculopathy - | | | [...] from the original. Arnaud Barrientos PA-C [address] [facility] [facility] [place], [place] [address] FAX: NEUROSURGERY FOLLOW-UP CHIEF COMPLAINT: Chief Complaint Patient presents with Follow-up Discuss Surgery HISTORY OF PRESENT ILLNESS: The patient is a 77 y.o. female with the complaint of left viral ed low back and leg pain. She is here today to discuss potential surgery after having seen a retail reset merchandiser and has obtained cardiac clearance She has not yet followed up with her primary care provider to have surgical clearance. Ernesto araujo admits that she has evidently a history of atrial fibrillation it does not sound like she is seen a retail reset merchandiser before. Her symptoms began a long time [...] mg per tablet Take 1 tablet by Daily. ALLERGIES: Allergies Allergen Reactions Codeine Itching [...] has no apparent deficits with short or terminal carman memory. CRANIAL NERVES: II: Acuity is intact. [...] Intrinsics 5 5 Ulnar Intrinsics 5 5 Cannery Worker Strength 5 5 Hip Flexion 4+ 4+ [...] 2020 | Visit | | [address] [facility] | | | | | | [address] [place], [place] | | | | | | [address] | | | | | | | [...]
--- OUTSIDE RECORDS SUMMARY | ~2019-12-11 | XMS | Encounter Summary ---
Demographics + + + | Address | [address] | | | [place] [address] | + + + | Home Phone | | + + + | Preferred Language | Unknown | + + + | Marital Status | | + + + | Advent Affiliation | 1073 | + + + | Race | Unknown | + + + | Ethnic Group | Unknown | + + + Author + + + | Author | [facility] | | | and [place] | + + + | Organization | [facility] | | [...] Team Providers + +------+ + | Care Weather Analyst Name | Role | Phone | + +------+ + | Chinmay Driscoll MD | PCP | | + +------+ + Encounter Details +--------+ + + + + | Date | Type | Department | Care Team | Description | +--------+ + + + + | 07/10/ | Orders Only | [facility] [place] | Tate Barrientos | S/P lumbar fusion | | 2012 | | NEUROSURGERY [address] | [address] | (Primary Dx) | | | | [address] | [address] | | | | | [place], [place] | [place] [address] | | | | | [address] | [phone] | | | | | [phone] | | | +--------+ + + + [...] | Visit | | [address] [facility] | | | | | | [address] [place], [place] | | | | | | [address] | | | | | | | | +--------+---------+ + + + documented as of this encounter Results XR Lumbar Spine 2 or 3 Vw (09/03/2013 4:06 PM PST) + + | Specimen | + + | | + + + + + | Narrative | Performed At | + + + | [facility] | [place] | | Department [address] [facility] [address] | [facility] | | [ rep [address]] [ rep [facility] | | [facility]] Signed | - IMAGING | | | | | Patient Name: DILSHAD ARCOS Physician: | | | : 1935 Age: 77 Sex: F Unit #: [id number] | | | Exam Date: 09/03/13 Location: [facility] | | | Report #: [id number] Page: | | | %(RAD)RES..mtdd.print.filter("pg") of %(RAD) | | | RES..mtdd.print.filter("tpg") | | | | | | Accession Number: [id number] | | | TWO VIEWS LUMBAR SPINE FROM 09/03/2013 CLINICAL HISTORY: | | | FOLLOWUP LUMBAR FUSION. COMPARISON: Lumbar radiographs | | | 07/29/2013 and 01/20/2013, lumbar MRI 12/20/2012. FINDINGS: | | | Five fez-oud-cjyxwin, lumbar-type vertebrae are suggested. There | | [...] Transcribed Date/Time: 09/03/2013 16:17 | | | Taxation Economist: <<Signature on File>> | | | Eulogio Buckner | | Constantine Cerda MD09/03/13 2226 <Electronically signed by Eulogio Cerda | | | MD> Eulogio Cerda MD 09/03/13 1606 Taxation Economist: | | | TagCashx Ppdvkzadjnoel90/12/14 1617 LAVINIA Holder | | | | | + + + + + + + + | Performing | Address | City/State/Zipcode | Phone Number | | Organization | | | | + + + + + | [facility] | [address] | [place] | [phone] | | [facility] | | [address] | | | - IMAGING | | | | + + + + + documented in this encounter Visit Diagnoses + + | Diagnosis | + + | S/P lumbar fusion - Primary Arthrodesis status | + + documented in this encounter
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
--- OUTSIDE RECORDS SUMMARY | ~2019-12-11 | XMS | Encounter Summary ---
Demographics + + + | Address | [address] | | | [place] [address] | + + + | Home Phone | | + + + | Preferred Language | Unknown | + + + | Marital Status | | + + + | Evangelical Affiliation | 1073 | + + + | Race | Unknown | + + + | Ethnic Group | Unknown | + + + Author + + + | Author | [facility] | | | and [place] | + + + | Organization | [facility] | | | [...] Providers + +------+ + | Care Senior Database Administrator Name | Role | Phone | + [...] + + | 06/06/ | Office | [facility] | Tate Barrientos | 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 | Visit | NEUROSURGERY [address] | [address] | lumbar region with | | | | [address] | [address] | radiculopathy - | | | | [place] | [place] [address] | severe at L4-L5 | | | | [address] | [phone] | (Primary Dx); Lumbar | | | | [phone] | | radiculopathy - | | | [...] from the original. Arnaud Barrientos PA-C [address] [facility] [place], [place] [id number] FAX: NEUROSURGERY FOLLOW-UP CHIEF COMPLAINT: Chief Complaint Patient presents with Follow-up Discuss Surgery HISTORY OF PRESENT ILLNESS: The patient is a 77 y.o. female with the complaint of left viral ed low back and leg pain. She is here today to discuss potential surgery after having seen a fretted instrument maker hand and has obtained cardiac clearance She has not yet followed up with her primary care provider to have surgical clearance. Ernesto araujo admits that she has evidently a history of atrial fibrillation it does not sound like she is seen a fretted instrument maker hand before. Her symptoms began a long time [...] no apparent deficits with short or terminal supervisor memory. CRANIAL NERVES: II: Acuity is intact. [...] Intrinsics 5 5 Ulnar Intrinsics 5 5 Installer Strength 5 5 Hip Flexion 4+ 4+ [...] 2020 | Visit | | [address] [facility] | | | | | | [address] [place], [place] | | | | | | [address] | | | | | | | [...]
--- OUTSIDE RECORDS SUMMARY | ~2019-12-11 | XMS | Encounter Summary ---
Demographics + + + | Address | [address] | | | [place] [address] | + + + | Home Phone | | + + + | Preferred Language | Unknown | + + + | Marital Status | | + + + | Congregation Affiliation | 1073 | + + + | Race | Unknown | + + + | Ethnic Group | Unknown | + + + Author + + + | Author | [facility] | | | and [place] | + + + | Organization | [facility] | | | [...] Team Providers + +------+ + | Care Form Raiser Name | Role | Phone | + [...] | | | | | y | [address] | | | | | | | Phone: | | | | | | | [phone] | | | | | | | Fax: | | | | | | | [phone] | | +--------+ + + + + + Reason for Visit + + + | Reason | Comments | + + + | Follow-up | 12 week PO s/p lumbar fusion | + + + Encounter Details +--------+---------+ + + + | Date | Type | Department | Care Team | Description | +--------+---------+ + + + | 11/04/ | Office | [facility] | Tate Barrientos | Spinal stenosis of | | 2013 | Visit | NEUROSURGERY [address] | [address] | lumbar region with | | | | [address] | [address] | radiculopathy - | | | | [place], [place] | [place] [address] | severe at L4-L5 | | | | [address] | [phone] | (Primary Dx) | | | | [phone] | | | +--------+---------+ + + + [...] your back and use 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 Electronica lly signed by LAVINIA Baker at 11/04/2013 3:23 PM PDT documented in this encounter Progress Notes Tate Barrientos PA - 11/04/2013 3:24 PM PDTFormatting of this note might be differen t from the original. 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
--- OUTSIDE RECORDS SUMMARY | ~2019-12-11 | XMS | Encounter Summary ---
Demographics + + + | Address | [address] | | | [place] [address] | + + + | Home Phone | | + + + | Preferred Language | Unknown | + + + | Marital Status | | + + + | Temple Affiliation | 1073 | + + + | Race | Unknown | + + + | Ethnic Group | Unknown | + + + Author + + + | Author | [facility] | | | and [place] | + + + | Organization | [facility] | | [...] Team Providers + +------+ + | Care Detention Officer Name | Role | Phone | + +------+ + | Chinmay Driscoll MD | PCP | | + +------+ + Encounter Details +--------+ + + + + | Date | Type | Department | Care Team | Description | +--------+ + + + + | 04/17/ | Abstract | [facility] [place] | Joni Sepulveda, | HTN (hypertension) | | 2012 | | CARDIOLOGY [address] | MD [address] | (Primary Dx); | | | | [place], | [place], | Paroxysmal a-fib | | | | [place] [address] | [place] [address] | (HCC) | | | | [phone] | [phone] | | | | | | | [...] 2019 | Visit | | [address] [facility] | | | | | | [address] [place] | | | | | | [address] | | | | | | | | +--------+---------+ + + + documented as of this encounter Visit Diagnoses + + | Diagnosis | + + | HTN (hypertension) - Primary Unspecified essential hypertension | + + | Paroxysmal A-fib (HCC) Atrial fibrillation | + + documented in this encounter
--- OUTSIDE RECORDS SUMMARY | ~2019-12-11 | XMS | Encounter Summary ---
Demographics + + + | Address | [address] | | | [place] [address] | + + + | Home Phone | | + + + | Preferred Language | Unknown | + + + | Marital Status | | + + + | Denominational Affiliation | 1073 | + + + [...] Providers + +------+ + | Care Senior Marketing Associate Name | Role | Phone | + [...] [place], [place] | | | | | [place], [place] | [address] | | | | | [address] | | | | | | [phone] | | | +--------+ + + + [...] 2019 | Visit | | [address] [facility] | | | | | | [address] [place] | | | | | | [address] | | | | | | | | +--------+---------+ + + + documented as of this encounter Visit Diagnoses Not on filedocumented in this encounter"
--- OUTSIDE RECORDS SUMMARY | ~2019-12-11 | XMS | Encounter Summary ---
Demographics + + + | Address | [address] | | | [place] [address] | + + + | Home Phone | | + + + | Preferred Language | Unknown | + + + | Marital Status | | + + + | Caodaism Affiliation | 1073 | + + + | Race | Unknown | + + + | Ethnic Group | Unknown | + + + Author + + + | Author | [facility] | | | and [place] | + + + | Organization | [facility] | | [...] Providers + +------+ + | Care Lead Furnace Operator Name | Role | Phone | [...] | | | [address] [place] | [place] [address] | | | | | [place] [address] | | | | | | [phone] | | | +--------+ + + + [...] 2020 | Visit | | [address] [facility] | | | | | | [facility] | | | | | | [address] | | | | | | | [...] for comparison only - no result from [place]. | [facility] | + + + + +---------+ + + | Performing | Address | City/State/Zipcode | Phone Number | | Organization | | | | + +---------+ + + | [facility] | | | | + +---------+ + + documented in this encounter Visit Diagnoses Not on filedocumented in this encounter"
--- OUTSIDE RECORDS SUMMARY | ~2019-12-11 | XMS | Encounter Summary ---
Demographics + + + | Address | [address] | | | [place] [address] | + + + | Home Phone | | + + + | Preferred Language | Unknown | + + + | Marital Status | | + + + | Mandaen Affiliation | 1073 | + + + | Race | Unknown | + + + | Ethnic Group | Unknown | + + + Author + + + | Author | [facility] | | | and [place] | + + + | Organization | [facility] | | | [...] Providers + +------+ + | Care Marketing Co Op Name | Role | Phone | + [...] + | 04/25/ | Office | [facility] | Joni Sepulveda, | Atrial fibrillation | | 2012 | Visit | CARDIOLOGY [address] | [address] [facility] | ([facility]) (Primary Dx); | | | | [place], | [place], | Preoperative | | | | [place] [address] | [place] [address] | clearance | | | | [phone] | [phone] | | | | | | | [...] + documented in this encounter Progress Notes oJni Sepulveda MD - 04/25/2013 10:11 AM PDTFormatting [...] normal angiogram approximately in 2004 at the [place], [place]. B. Patient was first diagnosed with [...] is complaining about the expensive copayment of 100-2011 months. She prefers to try less ex [...] made to ensure accuracy; however, inadvertent computerized senior data integration developer errors may be pre sent. documented in this encounter Plan of Treatment +--------+---------+ + + + | Date | Type | Specialty | Care Team | Description | +--------+---------+ + + + | 02/08/ | Office | Nephrology | Homero Soto MD | | | 2020 | Visit | | [address] [facility] | | | | | | [address] [place], [place] | | | | | | [address] | | | | | | | | +--------+---------+ + + + documented as of this encounter Visit Diagnoses + + | Diagnosis | + + | Atrial fibrillation (HCC) - Primary Atrial fibrillation | + + | Preoperative clearance Preoperative examination, unspecified | + + documented in this encounter
--- OUTSIDE RECORDS SUMMARY | ~2019-12-11 | XMS | Encounter Summary ---
Demographics + + + | Address | [address] | | | [place] [address] | + + + | Home Phone | | + + + | Preferred Language | Unknown | + + + | Marital Status | | + + + | Episcopalian Affiliation | 1073 | + + + | Race | Unknown | + + + | Ethnic Group | Unknown | + + + Author + + + | Author | [facility] | | | and [place] | + + + | Organization | [facility] | | [...] Team Providers + +------+ + | Care Pharmacy Data Analyst Name | Role | Phone | [...] | | | [address] [place] | [place] [address] | | | | | [place] [address] | | | | | | [phone] | | | +--------+ + + + [...] 2020 | Visit | | [address] [facility] | | | | | | [facility] | | | | | | [address] | | | | | | | [...] for comparison only - no result from [place]. | [facility] | + + + + +---------+ + + | Performing | Address | City/State/Zipcode | Phone Number | | Organization | | | | + +---------+ + + | [facility] | | | | + +---------+ + + documented in this encounter Visit Diagnoses Not on filedocumented in this encounter"
--- OUTSIDE RECORDS SUMMARY | ~2019-12-11 | XMS | Encounter Summary ---
Demographics + + + | Address | [address] | | | [place] [address] | + + + | Home Phone | | + + + | Preferred Language | Unknown | + + + | Marital Status | | + + + | Mormonism Affiliation | 1073 | + + + | Race | Unknown | + + + | Ethnic Group | Unknown | + + + Author + + + | Author | [facility] | | | and [place] | + + + | Organization | [facility] | | [...] Team Providers + +------+ + | Care Mechanical Car Checker Name | Role | Phone | + +------+ + | Tino Salmeron DO | PCP | | + +------+ + Encounter Details +--------+ + + + + | Date | Type | Department | Care Team | Description | +--------+ + + + + | 08/28/ | Abstract | [facility] [place] | Tate Barrientos | | | 2018 | | NEUROSURGERY [address] | [address] | | | | | [address] | [address] | | | | | [place], [place] | [place] [address] | | | | | [address] | [phone] | | | | | [phone] | | | +--------+ + + + [...] 2020 | Visit | | [address] [facility] | | | | | | [address] [place] [address] | | | | | | [address] | | | | | | | | +--------+---------+ + + + documented as of this encounter Visit Diagnoses Not on filedocumented in this encounter"
--- OUTSIDE RECORDS SUMMARY | ~2019-12-11 | XMS | Encounter Summary ---
Demographics + + + | Address | [address] | | | [place] [address] | + + + | Home Phone [...] Team Providers + +------+ + | Care Configuration Management Architect Name | Role | Phone | + +------+ + | Tino Salmeron DO | PCP | | + +------+ + Encounter Details +--------+ + + + + | Date | Type | Department | Care Team | Description | +--------+ + + + + | 09/23/ | Orders Only | [facility] | Jaylon, | | | 2019 | | NEPHROLOGY [place] | Ngozi Terrell | | | | | [address] | Squad Sergeant | | | | | [address] [place], [place] | | | | | | [address] | | | | | | [phone] | | | +--------+ + + + [...] 2020 | Visit | | [address] [facility] | | | | | | [address] [place], [place] | | | | | | [address] | | | | | | | | +--------+---------+ + + + documented as of this encounter Procedures + +--------+ + + + | Procedure Name | Priori | Date/Time | Associated Diagnosis | Comments | | | ty | | | | + +--------+ + + + | BASIC METABOLIC | Routin | 06/20/2019 | | Results for this | | PANEL | e | | | procedure are in the | | | | | | results section. | + +--------+ + + + | CBC NO DIFFERENTIAL | Routin | 02/27/2019 | | Results for this | | | e | | | procedure are in the | | | | | | results section. | + +--------+ + + + | TSH | Routin | 02/27/2019 | | Results for this | | | e | | | procedure are in the | | | | | | results section. | + +--------+ + + + | COMPREHENSIVE | Routin | 02/27/2019 | | Results for this | | METABOLIC PANEL | e | | | procedure are in the | | | | | | results section. | + +--------+ + + + | CBC NO DIFFERENTIAL | Routin | 08/29/2018 | | Results for this | | | e | | | procedure are in the | | | | | | results section. | + +--------+ + + + | TSH | Routin | 08/29/2018 | | Results for this | | | e | | | procedure are in the | | | | | | results section. | + +--------+ + + + | BASIC METABOLIC | Routin | 08/29/2018 | | Results for this | | PANEL | e | | | procedure are in the | | | | | | results section. | + +--------+ + + + documented in this encounter Results Basic Metabolic Panel (06/20/2019) + + + + + + | Component | Value | Ref Range | Performed | Pathologist | | | | | At | Signature | + + + + + + | Na | 138 | 132 - 143 | | | | | | mmol/L | | | + + + + + + | K | 3.6 | 3.6 - 5.1 | | | | | | mmol/L | | | + + + + + + | Cl | 98 | 95 - 112 mmol/L | | | + + + + + + | CO2 | 30 | 19 - 31 mmol/L | | | + + + + + + | Glucose | 14 | 7 - 21 mg/dL | | | + + + + + + | Calcium | 9.6 | 8.5 - 10.3 | | | + + + + + + | BUN | 25 (A) | 6 - 23 mg/dL | | | + + + + + + | Creatinine | 1.36 (A) | 0.70 - 1.11 | | | | | | mg/dL | | | + + + + + + | Estimated | 37.0 (A) | 60.0 - 140.0 | | | | GFR | | mL/min/1.73m2 | | | + + + + + + | BUN/Creatin | 18 | 6.0 - 28.6 | | | | ine Ratio | | | | | + + + + + + + + | Specimen | + + | Blood | + + CBC with Manual Differential (02/27/2019) + + + + + + | Component | Value | Ref Range | Performed | Pathologist | | | | | At | Signature | + + + + + + | WBC | 6.2 | 4.5 - 11.0 | | | + + + + + + | RBC | 4.26 | 3.80 - 5.10 | | | | | | M/uL | | | + + + + + + | Hemoglobin | 13.2 | 12 - 16 | | | + + + + + + | Hematocrit, | 39.9 | 35.0 - 45.0 % | | | | POC | | | | | + + + + + + | MCV | 93.7 | 81.0 - 99.0 fL | | | + + + + + + | MCH | 31.0 | 27.0 - 33.0 pg | | | + + + + + + | MCHC | 33.0 | 30.0 - 36.0 | | | | | | g/dL | | | + + + + + + | Platelet | 167 | 140 - 440 | | | | Count | | | | | | Plasma | | | | | + + + + + + | RDW | 14.5 | 10.5 - 15.0 | | | + + + + + + | BAL | 76 | 39 - 80 % | | | | Neutrophils | | | | | | % | | | | | + + + + + + | % | 16.5 (A) | 24 - 44 | | | | Lymphocytes | | | | | + + + + + + | Monocyte % | 6.6 | 0 - 12 | | | + + + + + + | BAL | 1 | 0 - 6 % | | | | Eosinophils | | | | | | % | | | | | + + + + + + | BF % | 0 | 0 - 2 % | | | | Basophils | | | | | + + + + + + + + | Specimen | + + | Blood | + + TSH (02/27/2019) + +-------+ + + + | Component | Value | Ref Range | Performed | Pathologist | | | | | At | Signature | + +-------+ + + + | TSH+Free T4 | 1.46 | 0.270 - 4.20 | | | + +-------+ + + + + + | Specimen | + + | Blood | + + Comprehensive Metabolic Panel (02/27/2019) + + + + + + | Component | Value | Ref Range | Performed | Pathologist | | | | | At | Signature | + + + + + + | Na | 135 | 132 - 143 | | | | | | mmol/L | | | + + + + + + | K | 4.2 | 3.6 - 5.1 | | | | | | mmol/L | | | + + + + + + | Cl | 99 | 95 - 112 mmol/L | | | + + + + + + | CO2 | 28 | 19 - 31 mmol/L | | | + + + + + + | Anion Gap | 12 | 7 - 21 mmol/L | | | + + + + + + | Glucose | 174 (A) | 70 - 100 mg/dL | | | + + + + + + | BUN | 26 (A) | 6 - 23 mg/dL | | | + + + + + + | Creatinine | 1.36 (A) | 0.70 - 1.11 | | | | | | mg/dL | | | + + + + + + | Estimated | 37.0 (A) | 60.0 - 140.0 | | | | GFR | | mL/min/1.73m2 | | | + + + + + + | BUN/Creatin | 19.1 | 6.0 - 28.6 | | | | ine Ratio | | | | | + + + + + + | Calcium | 9.6 | 8.5 - 10.3 | | | + + + + + + | AST | 10 (A) | 13 - 39 U/L | | | + + + + + + | ALT | 7 | 7 - 52 U/L | | | + + + + + + | ALP, | 108 | 31 - 130 | | | | External | | | | | + + + + + + | Protein, | 6.7 | 6.0 - 8.3 | | | | Total | | | | | + + + + + + | Albumin | 4.0 | 3.5 - 5.0 g/dL | | | + + + + + + | Globulin | 2.7 | 1.8 - 3.5 | | | + + + + + + | Albumin/Magdalene | 1.5 | 1.1 - 2.4 | | | | bulin Ratio | | | | | + + + + + + + + | Specimen | + + | Blood | + + CBC with Manual Differential (08/29/2018) + + + + + + | Component | Value | Ref Range | Performed | Pathologist | | | | | At | Signature | + + + + + + | WBC | 6.30 | 4.5 - 11.0 | | | + + + + + + | RBC | 4.36 | 3.80 - 5.10 | | | | | | M/uL | | | + + + + + + | Hemoglobin | 13.3 | 12 - 16 | | | + + + + + + | Hematocrit, | 40.3 | 35.0 - 45.0 % | | | | POC | | | | | + + + + + + | MCV | 92.3 | 81.0 - 99.0 fL | | | + + + + + + | MCH | 31.0 | 27.0 - 33.0 pg | | | + + + + + + | MCHC | 33.0 | 30.0 - 36.0 | | | | | | g/dL | | | + + + + + + | Platelet | 166 | 140 - 440 | | | | Count | | | | | | Plasma | | | | | + + + + + + | RDW | 14.2 | 10.5 - 15.0 | | | + + + + + + | BAL | 73 | 39 - 80 % | | | | Neutrophils | | | | | | % | | | | | + + + + + + | % | 18.1 (A) | 24 - 44 | | | | Lymphocytes | | | | | + + + + + + | Monocyte % | 7.2 | 0 - 12 | | | + + + + + + | BAL | 2 | 0 - 6 % | | | | Eosinophils | | | | | | % | | | | | + + + + + + | BF % | 0 | 0 - 2 % | | | | Basophils | | | | | + + + + + + + + | Specimen | + + | Blood | + + TSH (08/29/2018) + +-------+ + + + | Component | Value | Ref Range | Performed | Pathologist | | | | | At | Signature | + +-------+ + + + | TSH+Free T4 | 1.30 | 0.270 - 4.20 | | | + +-------+ + + + + + | Specimen | + + | Blood | + + Basic Metabolic Panel (08/29/2018) + + + + + + | [...] | 4.2 | 3.6 - 5.1 | | | | | | mmol/L | | | + + + + + + | Cl | 100 | 95 - 112 mmol/L | | | + + + + + + | CO2 | 27 | 19 - 31 mmol/L | | | + + + + + + | Anion Gap | 14 | 7 - 21 mmol/L | | | + + + + + + | Glucose | 174 (A) | 70 - 100 mg/dL | | | + + + + + + | BUN | 23 | 6 - 23 mg/dL | | | + + + + + + | Creatinine | 1.35 (A) | 0.70 - 1.11 | | | | | | mg/dL | | | + + + + + + | Estimated | 38.0 (A) | 60.0 - 140.0 | | | | GFR | | mL/min/1.73m2 | | | + + + + + + | BUN/Creatin | 17 | 6.0 - 28.6 | | | | ine Ratio | | | | | + + + + + + | Calcium | 9.2 | 8.5 - 10.3 | | | + + + + + + | AST | 11 (A) | 13 - 39 U/L | | | + + + + + + | ALT | 7 | 7 - 52 U/L | | | + + + + + + | ALP, | 102 | 31 - 130 | | | | External | | | | | + + + + + + | BILIRUBIN, | 0.7 | 0.0 - 1.2 | | | | TOTAL | | | | | + + + + + + | Protein, | 6.5 | 6.0 - 8.3 | | | | Total | | | | | + + + + + + | Albumin | 3.9 | 3.5 - 5.0 g/dL | | | + + + + + + | Globulin | 2.6 | 1.8 - 3.5 | | | + + + + + + | Albumin/Magdalene | 1.5 | 1.1 - 2.4 | | | | bulin Ratio | | | | | + + + + + + + + | Specimen | + + | Blood | + + documented in this encounter Visit Diagnoses Not on filedocumented in this encounter"
--- OUTSIDE RECORDS SUMMARY | ~2019-12-11 | XMS | Encounter Summary ---
Demographics + + + | Address | [address] | | | [place] [address] | + + + | Home Phone [...] Team Providers + +------+ + | Care Monogram And Letter Paster Name | Role | Phone | + [...] | | | [address] [place] | [place] [address] | | | | | [place] [address] | | | | | | [phone] | | | +--------+ + + + [...] 2020 | Visit | | [address] [facility] | | | | | | [address] [facility] | | | | | | [address] | | | | | | | [...]
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
--- OUTSIDE RECORDS SUMMARY | ~2019-12-11 | XMS | Encounter Summary ---
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
--- OUTSIDE RECORDS SUMMARY | ~2019-12-11 | XMS | Encounter Summary ---
Demographics + + + | Address | [address] | | | [place] [address] | + + + | Home Phone | | + + + | Preferred Language | Unknown | + + + | Marital Status | | + + + | Zoroastrian Affiliation | 1073 | + + + | Race | Unknown | + + + | Ethnic Group | Unknown | + + + Author + + + | Author | [facility] | | | and [place] | + + + | Organization | [facility] | | | [...] Team Providers + +------+ + | Care Bobcat Driver/Labor Name | Role | Phone | + [...] | | | [address] [place] | [place] [address] | | | | | [place] [address] | | | | | | [phone] | | | +--------+ + + + [...] 2020 | Visit | | [address] [facility] | | | | | | [address] [facility] | | | | | | [address] | | | | | | | [...] for comparison only - no result from [place]. | [facility] | + + + + +---------+ + + | Performing | Address | City/State/Zipcode | Phone Number | | Organization | | | | + +---------+ + + | [facility] | | | | + +---------+ + + documented in this encounter Visit Diagnoses Not on filedocumented in this encounter"
--- OUTSIDE RECORDS SUMMARY | ~2019-12-11 | XMS | Encounter Summary ---
Demographics + + + | Address | [address] | | | [place] [address] | + + + | Home Phone [...] Team Providers + +------+ + | Care Dialysis Technician Name | Role | Phone | [...] | | [address] | [place] [address] | | | | | [place] | [phone] | | | | | [address] | | | | | | [phone] | | | +--------+ + + + [...] 02/08/ | Office | Nephrology | Homero Soot MD | | | 2020 | Visit | | [address] [facility] [address] | | | | | | [address] [place], [place] | | | | | | [address] | | | | | | | [...]
--- OUTSIDE RECORDS SUMMARY | ~2019-12-11 | XMS | Encounter Summary ---
Demographics + + + | Address | [address] | | | [place] [address] | + + + | Home Phone [...] Team Providers + +------+ + | Care Heater Worker Name | Role | Phone | + +------+ + | Tino Salmeron DO | PCP | | + +------+ + Encounter Details +--------+ + + + + | Date | Type | Department | Care Team | Description | +--------+ + + + + | 09/23/ | Orders Only | [facility] | Homero Soto MD | Hypertension, | | 2019 | | NEPHROLOGY [place] | [address] [place] | unspecified type | | | | [address] [place] | [address] [place], [place] | (Primary Dx); | | | | [address] [place], [place] | [address] | Chronic kidney | | | | [address] | | disease, stage III | | | | [phone] | | (moderate) (HCC) | +--------+ + [...] | | | | | | [address] [place], [place] | | | | | | [address] | | | | | | | | +--------+---------+ + + + + +------+--------+ + + | Name | Type | Priori | Associated Diagnoses | Order Schedule | | | | ty | | | + +------+--------+ + + | Basic Metabolic | Lab | Routin | Hypertension, | Expected: | | Panel | | e | unspecified type | 09/25/2019, Expires: | | | | | Chronic kidney | 09/23/2020 | | | | | disease, stage III | | | | | | (moderate) (HCC) | | + +------+--------+ + + | Protein/Creatinine | Lab | Routin | Hypertension, | Expected: | | Ratio, Urine | | e | unspecified type | 09/25/2019, Expires: | | | | | Chronic kidney | 09/23/2020 | | | | | disease, stage III | | | | | | (moderate) (HCC) | | + +------+--------+ + + | Uric Acid | Lab | Routin | Hypertension, | Expected: | | | | e | unspecified type | 09/25/2019, Expires: | | | | | Chronic kidney | 09/23/2020 | | | | | disease, stage III | | | | | | (moderate) (HCC) | | + +------+--------+ + + | Urinalysis With | Lab | Routin | Hypertension, | Expected: | | Microscopic | | e | unspecified type | 09/25/2019, Expires: | | | | | Chronic kidney | 09/23/2020 | | | | | disease, stage III | | | | | | (moderate) (HCC) | | + +------+--------+ + + | CBC with | Lab | Routin | Hypertension, | Expected: | | Differential | | e | unspecified type | 09/25/2019, Expires: | | | | | Chronic kidney | 09/23/2020 | | | | | disease, stage III | | | | | | (moderate) (HCC) | | + +------+--------+ + + documented as of this encounter Visit Diagnoses + + | Diagnosis | + + | Hypertension, unspecified type - Primary | + + | Chronic kidney disease, stage III (moderate) (HCC) Chronic kidney disease, Stage III | | (moderate) | + + documented in this encounter"
--- OUTSIDE RECORDS SUMMARY | ~2019-12-11 | XMS | Encounter Summary ---
Demographics + + + | Address | [address] | | | [place] [address] | + + + | Home Phone [...] Team Providers + +------+ + | Care Winder Helper Name | Role | Phone | + [...] + | 04/25/ | Office | [facility] | Joni Sepulveda, | Atrial fibrillation | | 2012 | Visit | CARDIOLOGY [address] | [address] [facility] | ([facility]) (Primary Dx); | | | | [place], | [place], | Preoperative | | | | [place] [address] | [place] [address] | clearance | | | | [phone] | [phone] | | | | | | | [...] normal angiogram approximately in 2004 at the [place], [place]. B. Patient was first diagnosed with [...] made to ensure accuracy; however, inadvertent computerized data warehouse specialist errors may be pre sent. documented in this encounter Plan of Treatment +--------+---------+ + + + | Date | Type | Specialty | Care Team | Description | +--------+---------+ + + + | 02/08/ | Office | Nephrology | Homero Soto MD | | | 2020 | Visit | | [address] [facility] | | | | | | [address] [place], [place] | | | | | | [address] | | | | | | | | +--------+---------+ + + + documented as of this encounter Visit Diagnoses + + | Diagnosis | + + | Atrial fibrillation (HCC) - Primary Atrial fibrillation | + + | Preoperative clearance Preoperative examination, unspecified | + + documented in this encounter
--- OUTSIDE RECORDS SUMMARY | ~2019-12-11 | XMS | Encounter Summary ---
Demographics + + + | Address | [address] | | | [place] [address] | + + + | Home Phone | | + + + | Preferred Language | Unknown | + + + | Marital Status | | + + + | Adventism Affiliation | 1073 | + + + | Race | Unknown | + + + | Ethnic Group | Unknown | + + + Author + + + | Author | [facility] | | | and [place] | + + + | Organization | [facility] | | | [...] Team Providers + +------+ + | Care Thermal Cutter Hand Name | Role | Phone | + [...] | | [address] | [place] [address] | | | | | [place] | [phone] | | | | | [address] | | | | | | [phone] | | | +--------+ + + + [...] 2020 | Visit | | [address] [facility] | | | | | | [address] [place] | | | | | | [address] | | | | | | | | +--------+---------+ + + + documented as of this encounter Visit Diagnoses Not on filedocumented in this encounter"
--- OUTSIDE RECORDS SUMMARY | ~2019-12-11 | XMS | Encounter Summary ---
Demographics + + + | Address | [address] | | | [place] [address] | + + + | Home Phone [...] Team Providers + +------+ + | Care Nuclear Security Officer Name | Role | Phone | + +------+ + | Tino Salmeron DO | PCP | | + +------+ + Encounter Details +--------+ + + + + | Date | Type | Department | Care Team | Description | +--------+ + + + + | 09/23/ | Orders Only | [facility] | Homero Soto MD | Hypertension, | | 2019 | | NEPHROLOGY [place] | [address] [place] | unspecified type | | | | [address] [place] | [address] [place], [place] | (Primary Dx); | | | | [address] [place], [place] | [address] | Chronic kidney | | | | [address] | | disease, stage III | | | | [phone] | | (moderate) (HCC) | +--------+ + [...] | | | | | | [address] [place], [place] | | | | | | [address] | | | | | | | [...]
--- OUTSIDE RECORDS SUMMARY | ~2019-12-11 | XMS | Encounter Summary ---
Demographics + + + | Address | [address] | | | [place] [address] | + + + | Home Phone | | + + + | Preferred Language | Unknown | + + + | Marital Status | | + + + | Islam Affiliation | 1073 | + + + [...] Providers + +------+ + | Care Senior Information Security Architect Name | Role | Phone | + +------+ + | Chinmay Driscoll MD | PCP | | + +------+ + Encounter Details +--------+ + + + + | Date | Type | Department | Care Team | Description | +--------+ + + + + | 07/09/ | Hospital | [facility] | Will Rodriguez MD | | | 2012 | Encounter | MED CTR LABORATORY | [address] | | | | | [address] | [place] [address] | | | | | [place] | [phone] | | | | | [address] | | | | | | [phone] | | | +--------+ + + + [...] 2019 | Visit | | [address] [facility] | | | | | | [facility] | | | | | | [address] | | | | | | | [...] At | + + + | [facility] Diagnostic Imaging | [place] | | Department [address] [facility] | [facility] | | [ rep [address]] [ rep [facility] | | st zip] Signed | - IMAGING | | | | | Patient Name: DILSHAD ARCOS Physician: | | | JUD. : 1935 Age: 77 Sex: F Unit #: [id number] | | | Exam Date: 07/09/13 Location: LAB | | | Report #: [id number] Page: | | | %(RAD)RES..mtdd.print.filter("pg") of %(RAD) | | | RES..mtdd.print.filter("tpg") | | | | | | Accession Number: [id number] | | | CHEST X-RAY CLINICAL HISTORY: [...] Transcribed | | | Date/Time: 07/09/2013 13:23 Supervisor Electronics Inspection: | | | <<Signature on File>> | | | Jair | | | MD Merrill07/09/13 1726 <Electronically signed by Jair Momin MD> | | | Jair Momin MD 07/09/13 1317 Supervisor Electronics Inspection: [employer] | | | Xnqjeojzpokfl32/18/13 1323 Will Rodriguez MD | | + + + + + + + + | Performing | Address | City/State/Zipcode | Phone Number | | Organization | | | | + + + + + | [facility] | [address] | [place] | [phone] | | [facility] | | [address] | | | - IMAGING | | [...] + | [facility] | [address] | [place] | [phone] | | [facility] | | [address] | | | - LABORATORY | | | | + + + + + | [facility] | [address] | [place], [place] | | | [facility] | | [address] | | | - LABORATORY [...] + | [facility] | [address] | [place] | [phone] | | [facility] | | [address] | | | - LABORATORY | | | | + + + + + | [facility] | [address] | [place], [place] | | | [facility] | | [address], [facility] | | | [...] + | [facility] | [address] | [place] | [phone] | | [facility] | | [address] | | | - LABORATORY | | | | + + + + + | [facility] | [address] | [place] | | | [facility] | | [address], [facility] | | | [...] ST. | [address] | [place] | [phone] | | [facility] | | [address] | | | - LABORATORY | | | | + + + + + | [facility] | [address] | [place] | | | [facility] | | [address] [place] [address] | | | - LABORATORY | | | | + + + + + documented in this encounter Visit Diagnoses Not on filedocumented in this encounter
--- OUTSIDE RECORDS SUMMARY | ~2019-12-11 | XMS | Clinical Summary ---
Demographics + + + | Address | [address] | | | [place] [address] | + + + | Home Phone | | + + + | Preferred Language | Unknown | + + + | Marital Status | | + + + | Congregation Affiliation | Unknown | + + + | Race | Unknown | + + + | Ethnic Group | Unknown | + + + Author + + + | Author | [employer] (Historical as of | | | 03-08-19) | + + + | Organization | [facility] (Historical as of | | | 03-08-19) | + + + | Address | Unknown | + + + | Phone | Unavailable | + + + Support + + + + + | Name | Relationship | Address | Phone | + + + + + | Darlene Hatch | ECON | , [address] | | + + + + + | Rod Bain | ECON | Unknown | | + + + + + Care Team Providers + +------+ + | Care Surfacing Machine Operator Name | Role | Phone [...] +------+-------+ + | MEDICARE | MEDICA | [id number] | | | [address] | | | RE | | | | [place] [address] | | | IP-OP | | | | | + +--------+ +------+-------+ + | REGENCE | REGENC | [id number] | | | | | | E-OREG [...] | gee | | | [address]18 | [address] | + +--------+ +--------+ + +
--- OUTSIDE RECORDS SUMMARY | ~2019-12-11 | XMS | Encounter Summary ---
Demographics + + + | Address | [address] | | | [place] [address] | + + + | Home Phone [...] Team Providers + +------+ + | Care Wheel Molder Name | Role | Phone | + [...] [address] | | | | | [place], [place] | [place] [address] | | | | | [address] | [phone] | | | | | [phone] | | | +--------+ + + + [...] | | | | | | [address] [place], [place] | | | | | | [address] | | | | | | | | +--------+---------+ + + + documented as of this encounter Results XR Lumbar Spine 2 or 3 Vw (09/03/2013 4:06 PM PST) + + | Specimen | + + | | + + + + + | Narrative | Performed At | + + + | [facility] Diagnostic Imaging | [place] | | Department [address] [facility] | [facility] | | [ rep [address]] [ rep [facility] | | [facility]] Signed | - IMAGING | | | | | Patient Name: DILSHAD ARCOS Physician: | | | : 1935 Age: 77 Sex: F Unit #: [id number] | | | Exam Date: 09/03/13 [place] [facility] | | | Report #: [id number] Page: | | | %(RAD)RES..mtdd.print.filter("pg") of %(RAD) | | | RES..mtdd.print.filter("tpg") | | | | | | Accession Number: [id number] | | | TWO VIEWS LUMBAR SPINE FROM 09/03/2013 CLINICAL HISTORY: | | | FOLLOWUP LUMBAR FUSION. COMPARISON: Lumbar radiographs | | | 07/29/2013 and 01/20/2013, lumbar MRI 12/20/2012. FINDINGS: | | | Five nph-noc-yzxwljb, lumbar-type vertebrae are suggested. There | | [...] Transcribed Date/Time: 09/03/2013 16:17 | | | Mold Shaker: <<Signature on File>> | | | Eulogio Buckner | | Constantine Cerda MD09/03/13 2226 <Electronically signed by Eulogio Cerda | | | MD> Eulogio Cerda MD 09/03/13 1606 Mold Shaker: | | | Hashdocx Bsmmlgtnuorxz44/12/14 1617 LAVINIA Holder | | | | | + + + + + + + + | Performing | Address | City/State/Zipcode | Phone Number | | Organization | | | | + + + + + | [facility] | [address] | [place] | [phone] | | [facility] | | [address] | | | - IMAGING | | | | + + + + + documented in this encounter Visit Diagnoses + + | Diagnosis | + + | S/P lumbar fusion - Primary Arthrodesis status | + + documented in this encounter
--- OUTSIDE RECORDS SUMMARY | ~2019-12-11 | XMS | Encounter Summary ---
Demographics + + + | Address | [address] | | | [place] [address] | + + + | Home Phone [...] Team Providers + +------+ + | Care Owner Operator Tanker Truck Driver Name | Role | Phone | + +------+ + | Tino Salmeron DO | PCP | | + +------+ + Encounter Details +--------+ + + + + | Date | Type | Department | Care Team | Description | +--------+ + + + + | 04/25/ | Orders Only | [facility] [place] | Joni Sepulveda, | A-fib ([facility]) | | 2012 | | CARDIOLOGY [address] | MD [address] | | | | | [place], | [place], | | | | | [place] [address] | [place] [address] | | | | | [phone] | [phone] | | | | | | | [...] 2019 | Visit | | [address] [facility] | | | | | | [address] [place] | | | | | | [address] | | | | | | | | +--------+---------+ + + + documented as of this encounter Visit Diagnoses + + | Diagnosis | + + | A-fib (HCC) Atrial fibrillation | + + documented in this encounter"
--- OUTSIDE RECORDS SUMMARY | ~2019-12-11 | XMS | Encounter Summary ---
Demographics + + + | Address | [address] | | | [place] [address] | + + + | Home Phone | | + + + | Preferred Language | Unknown | + + + | Marital Status | | + + + | Episcopal Affiliation | 1073 | + + + [...] Team Providers + +------+ + | Care Oil Expeller Name | Role | Phone | + +------+ + | Chinmay Driscoll MD | PCP | | + +------+ + Encounter Details +--------+ + + + + | Date | Type | Department | Care Team | Description | +--------+ + + + + | 11/04/ | Hospital | [facility] | Will Rodriguez MD | S/P lumbar fusion | | 2014 | Encounter | MED CTR XRAY [address] | [address] | | | | | [place] | [place] [address] | | | | | [place] [address] | [phone] | | | | | [phone] | | | +--------+ + + + [...] 2020 | Visit | | [address] [facility] | | | | | | [address] [place], [place] | | | | | | [address] | | | | | | | [...] of the lumbar spine. 5 | | ffdjbo-sxvhggerdxoxj-pptk vertebral bodies. No change in spinal alignment. [...] + | MISCELLANEOUS LAB | | | [phone] | + +---------+ + + | MISCELANIOUS LAB | | | [phone] | + +---------+ + + documented in this encounter Visit Diagnoses + + | Diagnosis | + + | S/P lumbar fusion Arthrodesis status | + + documented in this encounter"
--- OUTSIDE RECORDS SUMMARY | ~2019-12-11 | XMS | Encounter Summary ---
Demographics + + + | Address | [address] | | | [place] [address] | + + + | Home Phone [...] Team Providers + +------+ + | Care Winterizer Name | Role | Phone | + [...] | | | [address] | [place] [address] | | | | | [place] [address] | | | | | | [phone] | | | +--------+ + + + [...] 2020 | Visit | | [address] [facility] | | | | | | [address] [facility] | | | | | | [address] | | | | | | | [...] for comparison only - no result from [place]. | [facility] | + + + + +---------+ + + | Performing | Address | City/State/Zipcode | Phone Number | | Organization | | | | + +---------+ + + | [facility] | | | | + +---------+ + + documented in this encounter Visit Diagnoses Not on filedocumented in this encounter"
--- OUTSIDE RECORDS SUMMARY | ~2019-12-11 | XMS | Encounter Summary ---
Demographics + + + | Address | [address] | | | [place] [address] | + + + | Home Phone | | + + + | Preferred Language | Unknown | + + + | Marital Status | | + + + | Restoration Affiliation | 1073 | + + + [...] Team Providers + +------+ + | Care Pastry Cook Name | Role | Phone | + [...] | | [address] | [place] [address] | | | | | [place] | [phone] | | | | | [address] | | | | | | [phone] | | | +--------+---------+ + + + [...] encounter Progress Notes Will Rodriguez MD - 09/03/2013 1:24 PM PSTFormatting of this note might be different from t he original. Will Rodriguez MD [address] [place] [address], [address] [place], [place] [address] FAX: NEUROSURGERY SURGICAL FOLLOW-UP CHIEF COMPLAINT: Chief [...] this process and discussed this at length d uring today's visit. I am hoping to see [...] 2019 | Visit | | [address] [place] | | | | | | [address] [place], [place] | | | | | | [address] | | | | | | | [...] + | Km Samuels Results In - 11/04/2013 3:06 PM PDT EXAM: XR LUMBAR SPINE 2 OR 3 VW dated | | 11/04/2013 2:05 PMHISTORY:PostopCOMPARISON: September 03, 2013 and July 29, | | 2013.FINDINGS: Frontal and lateral views of the lumbar spine. 5 | | bvdofy-ocgvmsvvuxgzn-hoxu vertebral bodies. No change in spinal alignment. [...] + | MISCELLANEOUS LAB | | | [phone] | + +---------+ + + | MISCELANIOUS LAB | | | [phone] | + +---------+ + + documented in this encounter Visit Diagnoses + + | Diagnosis | + + | S/P lumbar fusion - Primary Arthrodesis status | + + documented in this encounter
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
--- OUTSIDE RECORDS SUMMARY | ~2019-12-11 | XMS | Encounter Summary ---
Demographics + + + | Address | [address] | | | [place] [address] | + + + | Home Phone [...] Team Providers + +------+ + | Care Brick Molder Hand Name | Role | Phone | [...] + + | 10/02/ | Documentati | [facility] | Jaylon, | Results (10/02/19) | | 2020 | on | NEPHROLOGY [place] | Ngozi Terrell | | | | | [address] | Cable Repairer | | | | | [place] [facility] | | | | | | [place] | | | | | | [address] | | | | | | [phone] | | | +--------+ + + + [...] 2020 | Visit | | [address] [facility] | | | | | | [address] [place] | | | | | | [address] | | | | | | | [...] 1.001 - 1.030 | | | | Joshua, | | | | | | Urine [...]
--- OUTSIDE RECORDS SUMMARY | ~2019-12-11 | XMS | Encounter Summary ---
Demographics + + + | Address | [address] | | | [place] [address] | + + + | Home Phone | | + + + | Preferred Language | Unknown | + + + | Marital Status | | + + + | Yazidism Affiliation | 1073 | + + + | Race | Unknown | + + + | Ethnic Group | Unknown | + + + Author + + + | Author | [facility] | | | and [place] | + + + | Organization | [facility] | | | [...] Providers + +------+ + | Care Director Global Market Research Name | Role | Phone | + [...] [address] | | | | | [facility] [address] | [place] [address] | | | | | [place] | [phone] | | | | | [address] | | | | | | [phone] | | | +--------+ + + + [...] 2020 | Visit | | [address] [facility] | | | | | | [address] [place] | | | | | | [address] | | | | | | (Fax) | | +--------+---------+ + + + documented as of this encounter Visit Diagnoses Not on filedocumented in this encounter"
--- OUTSIDE RECORDS SUMMARY | ~2019-12-11 | XMS | Encounter Summary ---
Demographics + + + | Address | [address] | | | [place] [address] | + + + | Home Phone | | + + + | Preferred Language | Unknown | + + + | Marital Status | | + + + | Amish Affiliation | 1073 | + + + | Race | Unknown | + + + | Ethnic Group | Unknown | + + + Author + + + | Author | [facility] | | | and [place] | + + + | Organization | [facility] | | [...] Team Providers + +------+ + | Care Rate Analyst Name | Role | Phone | + +------+ + | Chinmay Driscoll MD | PCP | | + +------+ + Encounter Details +--------+ + + + + | Date | Type | Department | Care Team | Description | +--------+ + + + + | 04/17/ | Abstract | [facility] [place] | Joni Sepulveda, | HTN (hypertension) | | 2012 | | CARDIOLOGY [address] | MD [address] | (Primary Dx); | | | | [place], | [place], | Paroxysmal a-fib | | | | [place] [address] | [place] [address] | (HCC) | | | | [phone] | [phone] | | | | | | | [...] 2019 | Visit | | [address] [facility] | | | | | | [address] [place] | | | | | | [address] | | | | | | | | +--------+---------+ + + + documented as of this encounter Visit Diagnoses + + | Diagnosis | + + | HTN (hypertension) - Primary Unspecified essential hypertension | + + | Paroxysmal A-fib (HCC) Atrial fibrillation | + + documented in this encounter
--- OUTSIDE RECORDS SUMMARY | ~2019-12-11 | XMS | Encounter Summary ---
Demographics + + + | Address | [address] | | | [place] [address] | + + + | Home Phone [...] Team Providers + +------+ + | Care Mathematics Academic Chair Name | Role | Phone | + +------+ + | Chinmay Driscoll MD | PCP | | + +------+ + Reason for Visit +---------+ + | Reason | Comments | +---------+ + | Post Op | post op update | +---------+ + Encounter Details +--------+ + + + + | Date | Type | Department | Care Team | Description | +--------+ + + + + | 08/05/ | Telephone | [facility] | Will Rodriguez MD | Post Op (post op | | 2013 | | NEUROSURGERY [address] | [address] | update) | | | | [address] | [place] [address] | | | | | [place] | [phone] | | | | | [address] | | | | | | [phone] | | | +--------+ + + + [...] 2020 | Visit | | [address] [facility] | | | | | | [address] [place], [place] | | | | | | [address] | | | | | | | | +--------+---------+ + + + documented as of this encounter Visit Diagnoses Not on filedocumented in this encounter"
--- OUTSIDE RECORDS SUMMARY | ~2019-12-11 | XMS | Encounter Summary ---
Demographics + + + | Address | [address] | | | [place] [address] | + + + | Home Phone [...] Team Providers + +------+ + | Care Hospital Tray Service Worker Name | Role | Phone | [...] | | IMAGING [address] | [address]. | | | | | [address] | [place] [address] | | | | | [place] [address] | | | | | | [phone] | | | +--------+ + + + [...] 2020 | Visit | | [address] [facility] | | | | | | [address] [facility] | | | | | | [address] | | | | | | | [...]
--- OUTSIDE RECORDS SUMMARY | ~2019-12-11 | XMS | Encounter Summary ---
Demographics + + + | Address | [address] | | | [place] [address] | + + + | Home Phone [...] Team Providers + +------+ + | Care Compressed Gas Equipment Mechanic Name | Role | Phone | + [...] + + | 02/16/ | Office | [facility] | Tate Barrientos | S/P lumbar spinal | | 2013 | Visit | NEUROSURGERY [address] | [address] | fusion (Primary Dx); | | | | [address] | [address] | Lumbar | | | | [place], [place] | [place] [address] | radiculopathy - | | | | [address] | [phone] | primarily into the | | | | [phone] | | left lower | | | [...] t from the original. LAVINIA Rosenthal [address] [facility], [address] [place] [address] FAX: NEUROSURGERY FOLLOW-UP CHIEF COMPLAINT: Chief Complaint [...] 2020 | Visit | | [address] [facility] | | | | | | [address] [place] | | | | | | [address] | | | | | | | [...] fusion extending from L4 through L5 | [facility] | | with interbody hardware at [...] + | Km Samuels Results In - 09/01/2014 5:38 PM [...] [address] | [address] | [place] | [phone] | | [facility] | | [address] | | | - IMAGING | | [...]
--- OUTSIDE RECORDS SUMMARY | ~2019-12-11 | XMS | Encounter Summary ---
Demographics + + + | Address | [address] | | | [place] [address] | + + + | Home Phone [...] Providers + +------+ + | Care Building Rental Manager Name | Role | Phone | + +------+ + | Chinmay Driscoll MD | PCP | | + +------+ + Encounter Details +--------+ + + + + | Date | Type | Department | Care Team | Description | +--------+ + + + + | 02/28/ | Hospital | [facility] | Thaddeus Jaime | | | 2013 | Encounter | MED CTR XRAY [address] | T, [address] | | | | [place] | [place], [place] | | | | | [place] [address] | [address] | | | | | [phone] | | | +--------+ + + + [...] 2019 | Visit | | [address] [facility] | | | | | | [address] [place] | | | | | | [address] | | | | | | | [...] Performed At | + + + | [facility] Diagnostic Imaging | [place] | | Department [address] [facility] | [facility] | | [ rep ct [address]] [ rep [facility] | | st zip] Signed | - IMAGING | | | | | Patient Name: GIA ARCOS Physician: | | | 01 : 1935 Age: 77 Sex: F Unit #: [id number] | | | Exam Date: 02/28/13 Location: [facility] | | | Report #: [id number] Page: | | | %(RAD)RES..mtdd.print.filter("pg") of %(RAD) | | | RES..mtdd.print.filter("tpg") | | | | | | Accession Number: [id number] | | | PROCEDURE NOTE EPIDURAL STEROID [...] Transcribed Date/Time: 02/28/2013 | | | 20:36 Certified Medical Coding Specialist: | | | <<Signature on File>> | | | Thaddeus Colón | | | MD Addison03/12/13 1875 <Electronically signed by Thaddeus Colón | | | Addison ARAUJO> Thaddeus Jaime MD 02/28/13 3213 | | | Certified Medical Coding Specialist: LIFEmee Ymaczhohvpvyc25/09/136 | | | | | + + + + + + + + | Performing | Address | City/State/Zipcode | Phone Number | | Organization | | | | + + + + + | [facility] | [address] | [place] | [phone] | | [facility] | | [address] | | | - IMAGING | | | | + + + + + documented in this encounter Visit Diagnoses Not on filedocumented in this encounter
--- OUTSIDE RECORDS SUMMARY | ~2019-12-11 | XMS | Encounter Summary ---
Demographics + + + | Address | [address] | | | [place] [address] | + + + | Home Phone | | + + + | Preferred Language | Unknown | + + + | Marital Status | | + + + | Pentecostal Affiliation | 1073 | + + + | Race | Unknown | + + + | Ethnic Group | Unknown | + + + Author + + + | Author | [facility] | | | and [place] | + + + | Organization | [facility] | | [...] Team Providers + +------+ + | Care Fugitive Detective Name | Role | Phone | + [...] L, Technologist | | | | | [address] | | | | | | [facility] | | | | | | [place] | | | | | | [address] | | | | | | [phone] | | | +--------+ + + + [...] Visit | | [address] [facility] | | | | | | [address] [place] | | | | | | [address] | | | | | | (Fax) | | +--------+---------+ + + + documented as of this encounter Visit Diagnoses Not on filedocumented in this encounter"
--- OUTSIDE RECORDS SUMMARY | ~2019-12-11 | XMS | Encounter Summary ---
Demographics + + + | Address | [address] | | | [place] [address] | + + + | Home Phone | | + + + | Preferred Language | Unknown | + + + | Marital Status | | + + + | Synagogue Affiliation | 1073 | + + + | Race | Unknown | + + + | Ethnic Group | Unknown | + + + Author + + + | Author | [facility] | | | and [place] | + + + | Organization | [facility] | | [...] Providers + +------+ + | Care Product Inspection Supervisor Name | Role | Phone | [...] | | | e disc | [place] [address] | [address] Phone: | | | | | disease), | Phone: | [phone] | | | | | lumbar | [phone] | Fax: | | | | | Lumbar | Fax: | [phone] | | | | | radicular | [phone] | | | | | | pain Low | | | | | | | back pain | | | +--------+ + + + + + Encounter Details +--------+---------+ + + + | Date | Type | Department | Care Team | Description | +--------+---------+ + + + | 02/20/ | Office | [facility] | Thaddeus Jaime | Lumbar radiculopathy | | 2012 | Visit | PHYSIATRY [address] | TMD [address] | - primarily into | | | | [address] | [address] [place] | the left lower | | | | [place] | [address] | extremity (Primary | | | | [address] | | Dx); DDD | | | | [phone] | | (degenerative disc | | | [...] does have some health problems that make [facility] a less ideal surgical candidate but if she does not respond to conservative care this paulo uld be considered again. documented in this encounter Plan of Treatment +--------+---------+ + + + | Date | Type | Specialty | Care Team | Description | +--------+---------+ + + + | 02/08/ | Office | Nephrology | Homero Soto MD | | | 2019 | Visit | | [address] [facility] | | | | | | 160 [place], [place] | | | | | | [address] | | | | | | | [...]
--- OUTSIDE RECORDS SUMMARY | ~2019-12-11 | XMS | Encounter Summary ---
Demographics + + + | Address | [address] | | | [place] [address] | + + + | Home Phone [...] Team Providers + +------+ + | Care Joiner Name | Role | Phone | + [...] + | 07/11/ | Telephone | [facility] | AyadpowertanikaJoni, | Appointment | | 2019 | | CARDIOLOGY [address] | [place] [address] [place] | | | | | [place], | [place], | | | | | [place] [address] | [place] [address] | | | | | [phone] | [phone] | | | | | | | [...] [place] | | | | | | [address] | | | | | | | | +--------+---------+ + + + documented as of this encounter Visit Diagnoses Not on filedocumented in this encounter"
--- OUTSIDE RECORDS SUMMARY | ~2019-12-11 | XMS | Encounter Summary ---
Demographics + + + | Address | [address] | | | [place] [address] | + + + | Home Phone [...] Providers + +------+ + | Care Director Search Marketing Strategies Name | Role | Phone | + +------+ + | Chinmay Driscoll MD | PCP | | + +------+ + Encounter Details +--------+ + + + + | Date | Type | Department | Care Team | Description | +--------+ + + + + | 09/03/ | Hospital | [facility] | Will Rodriguez MD | S/P lumbar fusion | | 2014 | Encounter | MED CTR XRAY [address] | [address] | | | | | [place] | [place] [address] | | | | | [place] [address] | [phone] | | | | | [phone] | | | +--------+ + + + [...] 2020 | Visit | | [address] [facility] | | | | | | 160 [place], [place] | | | | | | [address] | | | | | | | [...] Performed At | + + + | [facility] | [place] | | Department [address] [facility] | [facility] | | [ rep ct [address]] [ rep [facility] | | [facility]] Signed | - IMAGING | | | | | Patient Name: GIA ARCOS Physician: | | | : 1935 Age: 77 Sex: F Unit #: [id number] | | | Exam Date: 09/03/13 Location: [facility] | | | Report #: [id number] Page: | | | %(RAD)RES..mtdd.print.filter("pg") of %(RAD) | | | RES..mtdd.print.filter("tpg") | | | | | | Accession Number: [id number] | | | TWO VIEWS LUMBAR SPINE FROM 09/03/2013 CLINICAL HISTORY: | | | FOLLOWUP LUMBAR FUSION. COMPARISON: Lumbar radiographs | | | 07/29/2013 and 01/20/2013, lumbar MRI 12/20/2012. FINDINGS: | | | Five fmd-szs-gypvduz, lumbar-type vertebrae are suggested. There | | [...] Transcribed Date/Time: 09/03/2013 16:17 | | | Records Specialist: <<Signature on File>> | | | Eulogio Cerda MD09/03/13 2226 <Electronically signed by Eulogio Cerda | | | > Eulogio Cerda MD 09/03/13 1606 Records Specialist: | | | Webmedx Wemtrzjpnycmf16/12/14 1617 LAVINIA Holder | | | | | + + + + + + + + | Performing | Address | City/State/Zipcode | Phone Number | | Organization | | | | + + + + + | [facility] | [address] | [place] | [phone] | | [facility] | | [address] | | | - IMAGING | | | | + + + + + documented in this encounter Visit Diagnoses + + | Diagnosis | + + | S/P lumbar fusion Arthrodesis status | + + documented in this encounter
--- OUTSIDE RECORDS SUMMARY | ~2019-12-11 | XMS | Encounter Summary ---
Demographics + + + | Address | [address] | | | [place] [address] | + + + | Home Phone | | + + + | Preferred Language | Unknown | + + + | Marital Status | | + + + | Nondenominational Affiliation | 1073 | + + + [...] Team Providers + +------+ + | Care Billposting Supervisor Name | Role | Phone | + +------+ + | Chinmay Driscoll MD | PCP | | + +------+ + Reason for Visit +--------+ + | Reason | Comments | +--------+ + | Other | COUMADIN RECOMMENDATIONS | +--------+ + Encounter Details +--------+ + + + + | Date | Type | Department | Care Team | Description | +--------+ + + + + | 07/10/ | Telephone | [facility] | Will Rodriguez MD | Other (COUMADIN | | 2012 | | NEUROSURGERY [address] | [address] | RECOMMENDATIONS) | | | | [address] [facility] [address] | [place] [address] | | | | | [place] | [phone] | | | | | [address] | | | | | | [phone] | | | +--------+ + + + [...] 2020 | Visit | | [address] [facility] | | | | | | [address] [place] | | | | | | [address] | | | | | | | | +--------+---------+ + + + documented as of this encounter Visit Diagnoses Not on filedocumented in this encounter"
--- OUTSIDE RECORDS SUMMARY | ~2019-12-11 | XMS | Encounter Summary ---
Demographics + + + | Address | [address] | | | [place] [address] | + + + | Home Phone [...] Providers + +------+ + | Care Food Or Baggage Handling Rampman Name | Role | Phone | + +------+ + | Tino Salmeron DO | PCP | | + +------+ + Encounter Details +--------+ + + + + | Date | Type | Department | Care Team | Description | +--------+ + + + + | 04/25/ | Orders Only | [facility] [place] | Joni Sepulveda, | A-fib ([facility]) | | 2012 | | CARDIOLOGY [address] | MD [address] [place] | | | | | [place], | [place], | | | | | [place] [address] | [place] [address] | | | | | [phone] | [phone] | | | | | | | [...] 2019 | Visit | | [address] [facility] | | | | | | [address] [place] | | | | | | [address] | | | | | | | | +--------+---------+ + + + documented as of this encounter Visit Diagnoses + + | Diagnosis | + + | A-fib (HCC) Atrial fibrillation | + + documented in this encounter"
--- OUTSIDE RECORDS SUMMARY | ~2019-12-11 | XMS | Encounter Summary ---
Demographics + + + | Address | [address] | | | [place] [address] | + + + | Home Phone [...] Team Providers + +------+ + | Care Laminating Machine Feeder Name | Role | Phone | + +------+ + | Tino Salmeron DO | PCP | | + +------+ + Encounter Details +--------+ + + + + | Date | Type | Department | Care Team | Description | +--------+ + + + + | 09/23/ | Orders Only | [facility] | Jaylon, | | | 2019 | | NEPHROLOGY [place] | Ngozi Terrell | | | | | [address] | Senior Clinical Data Manager | | | | | [address] [place], [place] | | | | | | [address] | | | | | | [phone] | | | +--------+ + + + [...] 2020 | Visit | | [address] [facility] | | | | | | 160 [place], [place] | | | | | | [address] | | | | | | | [...] + + + + + + | Albumin/Mag[place]en | 1.5 | 1.1 - 2.4 | [...]
--- OUTSIDE RECORDS SUMMARY | ~2019-12-11 | XMS | Encounter Summary ---
Demographics + + + | Address | [address] | | | [place] [address] | + + + | Home Phone | | + + + | Preferred Language | Unknown | + + + | Marital Status | | + + + | Amish Affiliation | 1073 | + + + | Race | Unknown | + + + | Ethnic Group | Unknown | + + + Author + + + | Author | [facility] | | | and [place] | + + + | Organization | [facility] | | [...] Team Providers + +------+ + | Care Window Covering Sales Consultant Name | Role | Phone | + +------+ + | Chinmay Driscoll MD | PCP | | + +------+ + Encounter Details +--------+ + + + + | Date | Type | Department | Care Team | Description | +--------+ + + + + | 02/28/ | Hospital | [facility] | Thaddeus Jaime | | | 2013 | Encounter | MED CTR XRAY [address] | T, [address] | | | | | [place] | ST [place], [place] | | | | | [place] [address] | [address] | | | | | [phone] | | | +--------+ + + + [...] Visit | | [address] [facility] | | | | | | [address] [place] | | | | | | [address] | | | | | | | [...] Performed At | + + + | [facility] Diagnostic Imaging | [place] | | Department [address] [facility] | [facility] | | [ rep ct street[address]] [ rep [facility] | | st zip] Signed | - IMAGING | | | | | Patient Name: GIA ARCOS Physician: | | | 01 : 1935 Age: 77 Sex: F Unit #: [id number] | | | Exam Date: 02/28/13 Location: [facility] | | | Report #: [id number] Page: | | | %(RAD)RES..mtdd.print.filter("pg") of %(RAD) | | | RES..mtdd.print.filter("tpg") | | | | | | Accession Number: [id number] | | | PROCEDURE NOTE EPIDURAL STEROID [...] Transcribed Date/Time: 02/28/2013 | | | 20:36 Canvas Worker Apprentice: | | | <<Signature on File>> | | | Thaddeus Colón | | | MD Addison03/12/13 5895 <Electronically signed by Thaddeus Colón | | | Addison ARAUJO> Thaddeus Jaime MD 02/28/13 0913 | | | Canvas Worker Apprentice: PAIEON Pjmtqelszpijy47/09/136 | | | | | + + + + + + + + | Performing | Address | City/State/Zipcode | Phone Number | | Organization | | | | + + + + + | [facility] | [address] | [place] | [phone] | | [facility] | | [address] | | | - IMAGING | | | | + + + + + documented in this encounter Visit Diagnoses Not on filedocumented in this encounter
--- OUTSIDE RECORDS SUMMARY | ~2019-12-11 | XMS | Encounter Summary ---
Demographics + + + | Address | [address] | | | [place] [address] | + + + | Home Phone [...] Team Providers + +------+ + | Care Regional Facilities Specialist Name | Role | Phone | + +------+ + | Chinmay Driscoll MD | PCP | | + +------+ + Reason for Visit +--------+ + | Reason | Comments | +--------+ + | Other | presurgical check-in | +--------+ + Encounter Details +--------+ + + + + | Date | Type | Department | Care Team | Description | +--------+ + + + + | 07/24/ | Telephone | [facility] | Will Rodriguez MD | Other (presurgical | | 2014 | | NEUROSURGERY [address] | [address] | check-in) | | | | [address] | [place] [address] | | | | | [place] | [phone] | | | | | [address] | | | | | | [phone] | | | +--------+ + + + [...] 2020 | Visit | | [address] [facility] | | | | | | [address] [place] | | | | | | [address] | | | | | | | | +--------+---------+ + + + documented as of this encounter Visit Diagnoses Not on filedocumented in this encounter"
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
--- OUTSIDE RECORDS SUMMARY | ~2019-12-11 | XMS | Encounter Summary ---
Demographics + + + | Address | [address] | | | [place] [address] | + + + | Home Phone [...] Team Providers + +------+ + | Care Privacy Specialist Name | Role | Phone | [...] Echo | | | | | Melva ([facility]) | MD Joni | [address] | | | | | Procedures | [address] | [place], | | | | | ECHO | [address] | [place] | | | | | Complete | [place], | [address] | | | | | | [place] [address] | Phone: | | | | | | Phone: | [phone] | | | | | | [phone] | Fax: | | | | | | Fax: | [phone] | | | | | | [phone] | | +--------+--------+ + + + + [...] + + | 04/18/ | Office | [facility] | Joni Sepulveda, | Establishing care | | 2012 | Visit | CARDIOLOGY [address] | [address] | with new doctor, | | | | Jazmin Khan, | [place], | encounter for | | | | [place] [address] | [place] [address] | (Primary Dx); Pre-op | | | | [phone] | [phone] | exam; HTN | | | | [...] [facility] [place] B. Patient was first diagnosed with [...] is in a class II of the [place] [employer] functional class. There is no [...] made to ensure accuracy; however, inadvertent computerized service developer errors may be pre sent. documented in this encounter Plan of Treatment +--------+---------+ + + + | Date | Type | Specialty | Care Team | Description | +--------+---------+ + + + | 02/08/ | Office | Nephrology | Homero Soto MD | | | 2020 | Visit | | [address] | | | | | | [address] [place], [place] | | | | | | [address] | | | | | | | [...] Complete | Echocardiog | Routin | A-fib ([facility]) | Expected: | | | luiz | [...]
--- OUTSIDE RECORDS SUMMARY | ~2019-12-11 | XMS | Encounter Summary ---
Demographics + + + | Address | [address] | | | [place] [address] | + + + | Home Phone [...] + | Author | [facility] | | | and [place] | + + + | Organization | [facility] | | | and [...] Team Providers + +------+ + | Care Toll Line Repairer Name | Role | Phone | + [...] | | [address] | [place] [address] | | | | | [place] | [phone] | | | | | [address] | | | | | | [phone] | | | +--------+ + + + [...] 2020 | Visit | | [address] [facility] | | | | | | [address] [place], [place] | | | | | | [address] | | | | | | | | +--------+---------+ + + + documented as of this encounter Visit Diagnoses Not on filedocumented in this encounter"
--- OUTSIDE RECORDS SUMMARY | ~2019-12-11 | XMS | Encounter Summary ---
Demographics + + + | Address | [address] | | | [place] [address] | + + + | Home Phone [...] Team Providers + +------+ + | Care Sonar Subsystem Equipment Operator Name | Role | Phone | + +------+ + | Chinmay Driscoll MD | PCP | | + +------+ + Encounter Details +--------+ + + + + | Date | Type | Department | Care Team | Description | +--------+ + + + + | 04/25/ | Hospital | [facility] | Joni Sepulveda, | | | 2012 | Encounter | MED CTR XRAY [address] | MD [address] [place] | | | | | [place] | [place], | | | | | [place] [address] | [place] [address] | | | | | [phone] | [phone] | | | | | | | [...] 2020 | Visit | | [address] [facility] | | | | | | 160 [place], [place] | | | | | | [address] | | | | | | | [...] Performed At | + + + | Merged With [facility] | SIMON | | Department [address] [place] | [facility] | | [ rep ct street[address]] [ rep ct [facility] | | st zip] Signed | - IMAGING | | | | | Patient Name: DILSHAD ARCOS Physician: | | | Kianna : 1935 Age: 77 Sex: F Unit #: [id number] | | | Exam Date: 04/25/13 [place] [facility] [place] | | Report #: [id number] Page: | | | %(RAD)RES..mtdd.print.filter("pg") of %(RAD) | | | RES..mtdd.print.filter("tpg") | | | | | | Accession Number: [id number] | | | E C H O C A R D I O G R A P H Y R E P O R T | | | HEIGHT: 67" WEIGHT: 158# | | | L[employer]CHO[employer] SPANISH TEACHER: THALIA REFERRING DR: JOHN GARCIA DR: | [...] Transcribed Date/Time: | | | 04/25/2013 11:21 Web Marketing Analyst: | | | <<Signature on File>> | | | Joni | | | MD Coco [facility] FAS 0723 <Electronically signed by | | | Joni Sepulveda MD, [facility], [facility]CAREErnesto, FASMatt, FASYOSEF> Maidaong | | | MD Coco [facility] ANTHONY 04/25/13 0955 Web Marketing Analyst: South | | | Uwbolxqusmsaq27/04/13 1121 | | + + + + + + + + | Performing | Address | City/State/Zipcode | Phone Number | | Organization | | | | + + + + + | ROBERT MURPHY | [address] | [place] | [phone] | | [facility] | | [address] | | | - IMAGING | | | | + + + + + documented in this encounter Visit Diagnoses Not on filedocumented in this encounter
--- OUTSIDE RECORDS SUMMARY | ~2019-12-11 | XMS | Encounter Summary ---
Demographics + + + | Address | [address] | | | [place] [address] | + + + | Home Phone | | + + + | Preferred Language | Unknown | + + + | Marital Status | | + + + | Yazidi Affiliation | 1073 | + + + [...] Team Providers + +------+ + | Care Shuttler Car Name | Role | Phone | + [...] + + | 09/01/ | Office | [facility] | FloydArnaudTate | Spinal stenosis of | | 2014 | Visit | NEUROSURGERY [address] | [address] | lumbar region with | | | | [address] | [address] | radiculopathy - | | | | [place], [place] | [place] [address] | severe at L4-L5 | | | | [address] | [phone] | (Primary Dx); S/P | | | | [phone] | | lumbar spinal fusion | +--------+---------+ [...] differen t from the original. LAVINIA Rosenthal [address] [place] [address], [facility] [address] [place] [address] FAX: NEUROSURGERY FOLLOW-UP CHIEF COMPLAINT: Chief Complaint [...] 2019 | Visit | | [address] [facility] | | | | | | 160 [place], [place] | | | | | | [address] | | | | | | | [...]
--- OUTSIDE RECORDS SUMMARY | ~2019-12-11 | XMS | Encounter Summary ---
Demographics + + + | Address | [address] | | | [place] [address] | + + + | Home Phone [...] Team Providers + +------+ + | Care Motor Coach Bus Driver Name | Role | Phone | [...] + + | 10/02/ | Documentati | [facility] | Jaylon, | Results (10/02/19) | | 2020 | on | NEPHROLOGY JAKUB | Ngozi Terrell | | | | | [address] | Train Controller | | | | | BRIANNA CHACON [facility] | | | | | | [place] | | | | | | [address] | | | | | | [phone] | | | +--------+ + + + [...] 2020 | Visit | | [address] [facility] | | | | | | [address] [place] | | | | | | [address] | | | | | | | [...] 1.001 - 1.030 | | | | [place], | | | | | | Urine [...]
--- OUTSIDE RECORDS SUMMARY | ~2019-12-11 | XMS | Encounter Summary ---
Demographics + + + | Address | [address] | | | [place] [address] | + + + | Home Phone [...] Team Providers + +------+ + | Care Slasher Tender Name | Role | Phone | + [...] | | | e disc | [place] [address] | [address] Phone: | | | | | disease), | Phone: | [phone] | | | | | lumbar | [phone] | Fax: | | | | | Lumbar | Fax: | [phone] | | | | | radicular | [phone] | | | | | | pain Low | | | | | | | back pain | | | +--------+ + + + + + Encounter Details +--------+---------+ + + + | Date | Type | Department | Care Team | Description | +--------+---------+ + + + | 02/20/ | Office | [facility] | Thaddeus Jaime | Lumbar radiculopathy | | 2012 | Visit | PHYSIATRY [address] | [address] | - primarily into | | | | [address] | [address] [place] | the left lower | | | | [place] | [address] | extremity (Primary | | | | [address] | | Dx); DDD | | | | [phone] | | (degenerative disc | | | [...] does have some health problems that make formerly [facility] a less ideal surgical candidate [...] 2019 | Visit | | [address] [facility] | | | | | | 160 [place], [place] | | | | | | [address] | | | | | | | [...]
--- OUTSIDE RECORDS SUMMARY | ~2019-12-11 | XMS | Encounter Summary ---
Demographics + + + | Address | [address] | | | [place] [address] | + + + | Home Phone [...] Team Providers + +------+ + | Care Cartoon Animator Name | Role | Phone | + [...] + + | 07/22/ | Office | [facility] | Floyd Tate | 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 | Visit | NEUROSURGERY [address] | [address] | lumbar region with | | | | [address] | [address] | radiculopathy - | | | | [place], [place] | [place] [address] | severe at L4-L5 | | | | [address] | [phone] | (Primary Dx); Lumbar | | | | [phone] | | radiculopathy - | | | [...] familiarity with bracing after surgery. Will Rodriguez est, Tate LAVINIA Thayer - 07/22/2013 11:30 AM PST Arnaud KATE-C [address] [facility], [address] [place] [address] FAX: NEUROSURGERY FOLLOW-UP CHIEF COMPLAINT: Chief Complaint Patient presents with Follow-up Pre-Op HISTORY OF PRESENT ILLNESS: The patient is a 77 y.o. female with the complaint of left viral ed low back and leg pain. She is here today to discuss her upcoming next week surgery after having seen a welfare interviewer and has obtained cardiac clearance. Patient is here to discuss her surgery. She has stopped her Coumadin at this time in anticipation of surgery next week . Patient admits that she has evidently a history of atrial fibrillation it does not soun d like she is seen a welfare interviewer before. Her symptoms began a long time [...] has no apparent deficits with short or termite technician memory. CRANIAL NERVES: II: Acuity is intact. [...] Intrinsics 5 5 Ulnar Intrinsics 5 5 Manager Sales Support Strength 5 5 Hip Flexion 4+ 4+ [...] 2020 | Visit | | [address] [facility] | | | | | | 160 [place], [place] | | | | | | [address] | | | | | | | [...]
--- OUTSIDE RECORDS SUMMARY | ~2019-12-11 | XMS | Encounter Summary ---
Demographics + + + | Address | [address] | | | [place] [address] | + + + | Home Phone [...] Team Providers + +------+ + | Care Capacitor Pack Press Operator Name | Role | Phone [...] + + | 07/22/ | Office | [facility] | Floyd Tate | 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 | Visit | NEUROSURGERY [address] | [address] | lumbar region with | | | | [address] | [address] | radiculopathy - | | | | [place], [place] | [place] [address] | severe at L4-L5 | | | | [address] | [phone] | (Primary Dx); Lumbar | | | | [phone] | | radiculopathy - | | | [...] 07/22/2013 11:30 AM PST Arnaud KATE-C [address] [facility], [address] [place] [address] FAX: NEUROSURGERY FOLLOW-UP CHIEF COMPLAINT: Chief Complaint Patient presents with Follow-up Pre-Op HISTORY OF PRESENT ILLNESS: The patient is a 77 y.o. female with the complaint of left viral ed low back and leg pain. She is here today to discuss her upcoming next week surgery after having seen a crm architect and has obtained cardiac clearance. Patient is here to discuss her surgery. She has stopped her Coumadin at this time in anticipation of surgery next week . Patient admits that she has evidently a history of atrial fibrillation it does not soun d like she is seen a crm architect before. Her symptoms began a long time [...] no apparent deficits with short or long goods drier memory. CRANIAL NERVES: II: Acuity is intact. [...] Intrinsics 5 5 Ulnar Intrinsics 5 5 Stabber Strength 5 5 Hip Flexion 4+ 4+ [...] 2020 | Visit | | [address] [facility] | | | | | | 160 [place], [place] | | | | | | [address] | | | | | | | [...]
--- OUTSIDE RECORDS SUMMARY | ~2019-12-11 | XMS | Encounter Summary ---
Demographics + + + | Address | [address] | | | [place] [address] | + + + | Home Phone | | + + + | Preferred Language | Unknown | + + + | Marital Status | | + + + | Yazdanism Affiliation | 1073 | + + + | Race | Unknown | + + + | Ethnic Group | Unknown | + + + Author + + + | Author | [facility] | | | and [place] | + + + | Organization | [facility] | | | [...] Team Providers + +------+ + | Care Accounting System Expert Name | Role | Phone | + +------+ + | Tino Salmeron DO | PCP | | + +------+ + Encounter Details +--------+ + + + + | Date | Type | Department | Care Team | Description | +--------+ + + + + | 10/06/ | Orders Only | [facility] | Homero Soto MD | Essential | | 2020 | | NEPHROLOGY JAKUB | [address] [place] | hypertension | | | | [address] | [address] [place], [place] | (Primary Dx); CKD | | | | [address] | [address] | (chronic kidney | | | | [place], [place] | | disease) stage 3, | | | | [address] | | GFR 30-59 ml/min | | | | [phone] | | (HCC); Persistent | | | [...] 02/08/ | Office | Nephrology | Homero Stoo MD | | | 2020 | Visit | | [address] [place] | | | | | | [address] [place] | | | | | | [address] | | | | | | (Fax) [...] | | | | | ([facility]) Persistent | | | | | [...] | | | | | ([facility]) Persistent | | | | | [...] | | | | | ([facility]) Persistent | | | | | | proteinuria | | + +---------+--------+ + + documented as of this encounter Visit Diagnoses + + | Diagnosis | + + | Essential hypertension - Primary Unspecified essential hypertension | + + | CKD (chronic kidney disease) stage 3, GFR 30-59 ml/min ([facility]) Chronic kidney disease, | | Stage III (moderate) | + + | Persistent proteinuria Proteinuria | + + documented in this encounter"
--- OUTSIDE RECORDS SUMMARY | ~2019-12-11 | XMS | Encounter Summary ---
Demographics + + + | Address | [address] | | | [place] [address] | + + + | Home Phone | | + + + | Preferred Language | Unknown | + + + | Marital Status | | + + + | Yazidi Affiliation | 1073 | + + + | Race | Unknown | + + + | Ethnic Group | Unknown | + + + Author + + + | Author | [facility] | | | and [place] | + + + | Organization | [facility] | | | [...] Team Providers + +------+ + | Care Policy Value Calculator Name | Role | Phone | + [...] | | [address] | [place] [address] | Spinal stenosis of | | | | [place], [place] | [phone] | lumbar region with | | | | [address] | | neurogenic | | | | [phone] | | claudication; Lumbar | | | [...] 2019 | Visit | | [address] [facility] | | | | | | 160 [place] | | | | | | [address] | | | | | | | [...]
--- OUTSIDE RECORDS SUMMARY | ~2019-12-11 | XMS | Encounter Summary ---
Demographics + + + | Address | [address] | | | [place] [address] | + + + | Home Phone [...] Team Providers + +------+ + | Care Distribution Tech Name | Role | Phone | + [...] | | [address] | [place] [address] | | | | | [place] | [phone] | | | | | [address] | | | | | | [phone] | | | +--------+ + + + [...] 2020 | Visit | | [address] [facility] | | | | | | 160 [place] | | | | | | [address] | | | | | | | | +--------+---------+ + + + documented as of this encounter Visit Diagnoses Not on filedocumented in this encounter"
--- OUTSIDE RECORDS SUMMARY | ~2019-12-11 | XMS | Encounter Summary ---
Demographics + + + | Address | [address] | | | [place] [address] | + + + | Home Phone | | + + + | Preferred Language | Unknown | + + + | Marital Status | | + + + | Gnosticist Affiliation | 1073 | + + + | Race | Unknown | + + + | Ethnic Group | Unknown | + + + Author + + + | Author | [facility] | | | and [place] | + + + | Organization | [facility] | | | [...] Team Providers + +------+ + | Care Line Welder Name | Role | Phone | [...] AVE | | | | | [address] [facility] [address] | [place] [address] | | | | | [place] | [phone] | | | | | [address] | | | | | | [phone] | | | +--------+ + + + [...] 2020 | Visit | | [address] [facility] | | | | | | [address] [place] | | | | | | [address] | | | | | | (Fax) | | +--------+---------+ + + + documented as of this encounter Visit Diagnoses Not on filedocumented in this encounter"
--- OUTSIDE RECORDS SUMMARY | ~2019-12-11 | XMS | Encounter Summary ---
Demographics + + + | Address | [address] | | | [place] [address] | + + + | Home Phone [...] Team Providers + +------+ + | Care Glass Frame Fitter Name | Role | Phone | [...] [address] | | | | | [place], [place] | [place] [address] | | | | | [address] | [phone] | | | | | [phone] | | | +--------+ + + + [...] 2020 | Visit | | [address] [facility] | | | | | | [address] [place] | | | | | | [address] | | | | | | | | +--------+---------+ + + + documented as of this encounter Visit Diagnoses Not on filedocumented in this encounter"
--- OUTSIDE RECORDS SUMMARY | ~2019-12-11 | XMS | Encounter Summary ---
Demographics + + + | Address | [address] | | | [place] [address] | + + + | Home Phone | | + + + | Preferred Language | Unknown | + + + | Marital Status | | + + + | Church Affiliation | 1073 | + + + [...] Team Providers + +------+ + | Care Network Account Manager Name | Role | Phone | [...] | (Primary Dx) | | | | [place] [address] [address] | [address] [facility] | | | | | [facility] | [place] [address] | | | | | [place], [place] | [phone] | | | | | [address] | | | | | | [phone] | | | +--------+ + + + [...] Instructions Instructions David Herzog MD - 07/24/2017Use yozl-yxk-uriguxi Tylenol, thousa nd milligrams every 6 hours [...] 2020 | Visit | | [address] [facility] | | | | | | [address] [place] | | | | | | [address] | | | | | | | [...] - 1.030 | [facility] | | | [place], | | | [facility] | | [...] | | | [place], | | | [facility] | | [...] + + + | [facility] | [address] [facility] | [place] [address] | | | [facility] | | | | | LABORATORY [...] + + | Arvind, Rad Results In 07/24/2017 5:01 PM PST | | MRI [...] | Arvind, Rad Results In - 07/24/2017 2:35 PM PST | | LEFT [...] | | | | | Signed by: Cla Arzola | + + + +---------+ + + | Performing | Address | City/State/[facility] | Phone Number | | Organization [...] | Extra Tube | B | | [facility] | | | | | | [facility] | | [...] + + + | [facility] | [address] | [place] [address] | | | [facility] | | [...] [facility] | | | | | | [facility] | | | | | | [facility] | | | | | | LABORATORY | | + + + + + + | Estimated | 45 (L)Comment: GFR <60: | >60 | [facility] | | | GFR | Chronic kidney disease, | ml/min/1.73m2 | [facility] | | | | if found over [...] + + | [facility] | [address] | [place] [address] | | | [facility] | | | | | LABORATORY | | | | + + + + + CBC with Differential (07/24/2017 1:05 PM PST) + + + + + + | Component | Value | Ref Range | Performed | Pathologist | | | | | At | Signature | + + + + + + | WBC | 5.1 | 4.0 - 11.0 K/uL | [facility] | | | | | | [facility] | [facility] | | | | | | LABORATORY | | + + + + + + | RBC | 4.18 | 3.80 - 5.20 | [facility] | | | | | M/uL | [facility] | | | | | | [facility] | | | | | | LABORATORY | | + + + + + + | Hemoglobin | 13.5 | 11.6 - 15.5 | [facility] | | | | | g/dL | [facility] | | | | | | [...] 0.00 | 0.0 - 0.1 K/uL | [facility] | | | Basophils | | | [facility] | | [...] + + + | [facility] | [address] [facility] | [place] [address] | | | [facility] | | | | | LABORATORY [...]
--- OUTSIDE RECORDS SUMMARY | ~2019-12-11 | XMS | Encounter Summary ---
Demographics + + + | Address | [address] | | | [place] [address] | + + + | Home Phone [...] Team Providers + +------+ + | Care Residential Plumber Name | Role | Phone | + [...] [address] | | | | | [place], [place] | [place] [address] | | | | | [address] | [phone] | | | | | [phone] | | | +--------+ + + + [...] 2020 | Visit | | [address] [facility] | | | | | | [address] [place] | | | | | | [address] | | | | | | | | +--------+---------+ + + + documented as of this encounter Visit Diagnoses Not on filedocumented in this encounter"
--- OUTSIDE RECORDS SUMMARY | ~2019-12-11 | XMS | Encounter Summary ---
Demographics + + + | Address | [address] | | | [place] [address] | + + + | Home Phone [...] Team Providers + +------+ + | Care Conversion Worker Name | Role | Phone | [...] Echo | | | | | Melva ([facility]) | MD Joni | [address] | | | | | Procedures | [address] | [place], | | | | | ECHO | [address] | [place] | | | | | Complete | [place], | [address] | | | | | | [place] [address] | Phone: | | | | | | Phone: | [phone] | | | | | | [phone] | Fax: | | | | | | Fax: | [phone] | | | | | | [phone] | | +--------+--------+ + + + + [...] + + | 04/18/ | Office | [facility] | Joni Sepulveda, | Establishing care | | 2012 | Visit | CARDIOLOGY [address] | [address] | with new doctor, | | | | [place], | [place], | [place] | | | | [place] [address] | [place] [address] | (Primary Dx); Pre-op | | | | [phone] | [phone] | exam; HTN | | | | [...] history of permanent atrial fibrillation, severe s yoamira stenosis with chronic back pain, diabetes, and [...] normal [place] [place] [facility] [place] B. Patient was first diagnosed with [...] is in a class II of the [place] [employer] functional class. There is no [...] made to ensure accuracy; however, inadvertent computerized fiction and nonfiction author errors may be pre sent. documented in this encounter Plan of Treatment +--------+---------+ + + + | Date | Type | Specialty | Care Team | Description | +--------+---------+ + + + | 02/08/ | Office | Nephrology | Homero Soto MD | | | 2020 | Visit | | [address] | | | | | | [address] [place], [place] | | | | | | [address] | | | | | | | [...] Complete | Echocardiog | Routin | A-fib ([facility]) | Expected: | | | [...]
--- OUTSIDE RECORDS SUMMARY | ~2019-12-11 | XMS | Encounter Summary ---
Demographics + + + | Address | [address] | | | [place] [address] | + + + | Home Phone | | + + + | Preferred Language | Unknown | + + + | Marital Status | | + + + | Sikhism Affiliation | 1073 | + + + | Race | Unknown | + + + | Ethnic Group | Unknown | + + + Author + + + | Author | [facility] | | | and [place] | + + + | Organization | [facility] | | | [...] Team Providers + +------+ + | Care Local Company Refrigerated Truck Driver Name | Role | Phone [...] + + | 07/24/ | Hospital | [place] | Andres Rick W, | Left hip pain | | 2018 | Encounter | [facility] | [place] [address] | (Primary Dx); | | | | Care [address] | [place] [address] | Chronic left-sided | | | | Jhonathan Serr[place], | [phone] | low back pain with | | | | [place] [address] | | left-sided sciatica | | | | [phone] | Favio Jaffe MD | | | | | | [address] [place] | | | | | | [address] [place] | | | | | | [id number] | | | | | | | [...] 2020 | Visit | | [address] [facility] | | | | | | 160 [place], [place] | | | | | | [address] | | | | | | | [...]
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
--- OUTSIDE RECORDS SUMMARY | ~2019-12-11 | XMS | Encounter Summary ---
Demographics + + + | Address | [address] | | | [place] [address] | + + + | Home Phone [...] Team Providers + +------+ + | Care Electrolysis Investigator Name | Role | Phone | + [...] + + | 03/03/ | [facility] | [facility] | Luigi James, | DDD (degenerative | | 2012 | Visit | NEUROSURGERY [address] | PA-C [address] | disc disease), | | | | [address] | [place], [place] | lumbar (Primary Dx); | | | | [place], [place] | [address] | Lumbar stenosis; | | | | [address] | | Lumbar radicular | | | | [phone] | | pain | +--------+---------+ + + [...] 03/03/2013 10:21 AM PDT Luigi James PA-C [address] [place] [address], [address] [place] [address] FAX: NEUROSURGERY HISTORY AND PHYSICAL EXAMINATION CHIEF [...] Dr. Jaime and had an injection Aug ust 2012, which has given her some relief. [...] has no apparent deficits with short or superintendent marine oil terminal memory. CRANIAL NERVES: II: Acuity is intact. [...] Intrinsics 5 5 Ulnar Intrinsics 5 5 Cylinder Batcher Strength 5 5 Hip Flexion 4+ 4+ [...] 2019 | Visit | | [address] [facility] | | | | | | [address] | | | | | | [address] | | | | | | | [...]
--- OUTSIDE RECORDS SUMMARY | ~2019-12-11 | XMS | Encounter Summary ---
Demographics + + + | Address | [address] | | | [place] [address] | + + + | Home Phone [...] Team Providers + +------+ + | Care Co Founder & Ceo Name | Role | Phone | + +------+ + | Chinmay Driscoll MD | PCP | | + +------+ + Encounter Details +--------+ + + + + | Date | Type | Department | Care Team | Description | +--------+ + + + + | 07/28/ | Hospital | [facility] | Will Rodriguez MD | | | 2014 - | Encounter | MED CTR SURGICAL | [address] | | | | | [address] | [place] [address] | | | 07/30/ | | [place] [address] | [phone] | | | 2013 | | [phone] | | | +--------+ + + + [...] 2019 | Visit | | [address] [facility] | | | | | | [address] | | | | | | [address] | | | | | | | [...] + | [facility] | [address] | [place], [place] | [phone] | | [facility] | | [address] | | | - LABORATORY | | | | + + + + + | [facility] | [address] | [place], [place] | | | [facility] | | [address] [place] [address] | | | - LABORATORY | | [...] + | [facility] | [address] | [place] | [phone] | | [facility] | | [address] | | | - LABORATORY | | | | + + + + + | [facility] | [address] | [place], [place] | | | [facility] | | [address], [facility] | | | - LABORATORY | | [...] + | [facility] | [address] | [place] | [phone] | | [facility] | | [address] | | | - LABORATORY | | | | + + + + + | [facility] | [address] | [place] | | | [facility] | | [address] | | | - LABORATORY | | [...] + | [facility] | [address] | [place], [place] | [phone] | | [facility] | | [address] | | | - LABORATORY | | | | + + + + + | [facility] | [address] | [place], [place] | | | [facility] | | [address], [facility] | | | - LABORATORY | | | | + + + + + XR Lumbar Spine 2 or 3 Vw (07/29/2013 5:55 PM PST) + + | Specimen | + + | | + + + + + | Narrative | Performed At | + + + | Diagnostic Imaging | [facility] | | Department [address] [facility], [place] | [facility] | | [ rep [address]] [ rep [facility] | | st zip] Signed | - IMAGING | | | | | Patient Name: DILSHAD ARCOS Matt Physician: | | | YAMLio. : 1935 Age: 77 Sex: F Unit #: [id number] | | | Exam Date: 07/29/13 Location: [address] [place] [address] | | | Report #: [id number] Page: | | | %(RAD)RES..mtdd.print.filter("pg") of %(RAD) | | | RES..mtdd.print.filter("tpg") | | | | | | Accession Number: [id number] | | | LUMBAR SPINE LIMITED X-RAY [...] | | | Transcribed Date/Time: 07/29/2013 18:32 Manager Machine: | | | MS1 <<Signature on File>> | | | Will | | | Matt Lagos MD07/30/13 0913 <Electronically signed by Will Gutierrez | | | Yolis ARAUJO> Will Lagos MD 07/29/13 0114 | | | Manager Machine: [place]ves[place]34/07/14 9509 | | | Will Rodriguez MD | | + + + + + + + + | Performing | Address | City/State/Zipcode | Phone Number | | Organization | | | | + + + + + | [facility] | [address] | [place] | [phone] | | [facility] | | [address] | | | - IMAGING | | [...] + | [facility] | [address] | [place] | [phone] | | [facility] | | [address] | | | - LABORATORY | | | | + + + + + | [facility] | [address] | [place], [place] | | | [facility] | | [address] | | | - LABORATORY | | [...] + | [facility] | [address] | [place], [place] | [phone] | | [facility] | | [address] | | | - LABORATORY | | | | + + + + + | [facility] | [address] | [place], [place] | | | [facility] | | [address], [facility] | | | - LABORATORY | | [...] + | [facility] | [address] | [place] | [phone] | | [facility] | | [address] | | | - LABORATORY | | | | + + + + + | [facility] | [address] | [place] | | | [facility] | | [address], [facility] | | | - LABORATORY | | [...] + | [facility] | [address] | [place], [place] | [phone] | | [facility] | | [address] | | | - LABORATORY | | | | + + + + + | [facility] | [address] | [place], [place] | | | [facility] | | [address] | | | - LABORATORY | | | | + + + + + XR Spine 1 Vw (07/28/2013 11:09 AM PST) + + | Specimen | + + | | + + + + + | Narrative | Performed At | + + + | Diagnostic Imaging | [facility] | | Department [address] [facility] | [facility] | | [ rep ct [address]] [ rep [facility] | | [facility]] Signed | - IMAGING | | | | | Patient Name: DILSHAD ARCOS Physician: | | | Lio. : 1935 Age: 77 Sex: F Unit #: [id number] | | | Exam Date: 07/28/13 Location: [address] [place] [address] | | | Report #: [id number] Page: | | | %(RAD)RES..mtdd.print.filter("pg") of %(RAD) | | | RES..mtdd.print.filter("tpg") | | | | | | Accession Number: [id number] | | | SPINE, [facility] [...] Jackson MD 07/28/13 1109 | | | Manager Machine: Christina Palm07/28/13 1536 | | | Will Rodriguez MD | | + + + + + + + + | Performing | Address | City/State/[facility] | Phone Number | | Organization | | | | + + + + + | [facility] | [address] | [place], [place] | [phone] | | [facility] | | [address] | | | - IMAGING | | [...] + | [facility] | [address] | [place], [place] | [phone] | | [facility] | | [address] | | | - LABORATORY | | | | + + + + + | [facility] | [address] | [place], [place] | | | [facility] | | [id number] [place] [address] | | | - LABORATORY | | [...] + | [facility] | [address] | [place], [place] | [phone] | | [facility] | | [address] | | | - LABORATORY | | | | + + + + + | [facility] | [address] | [place], [place] | | | [facility] | | [address], [facility] | | | - LABORATORY | | [...] [address] | [place] | [phone] | | [facility] | | [address] | | | - LABORATORY | | | | + + + + + | [facility] | [address] | [place] | | | [facility] | | [address] | | | - LABORATORY | | | | + + + + + documented in this encounter Visit Diagnoses Not on filedocumented in this encounter
--- OUTSIDE RECORDS SUMMARY | ~2019-12-11 | XMS | Encounter Summary ---
Demographics + + + | Address | [address] | | | [place] [address] | + + + | Home Phone [...] Providers + +------+ + | Care Sales Planning Coordinator Name | Role | Phone | [...] | [address] | [place], [place] | | | | | [place], [place] | [address] | | | | | [address] | | | | | | [phone] | | | +--------+ + + + [...] 2020 | Visit | | [address] [facility] | | | | | | [address] [facility] | | | | | | [address] | | | | | | | | +--------+---------+ + + + documented as of this encounter Visit Diagnoses Not on filedocumented in this encounter"
--- OUTSIDE RECORDS SUMMARY | ~2019-12-11 | XMS | Encounter Summary ---
Demographics + + + | Address | [address] | | | [place] [address] | + + + | Home Phone [...] Team Providers + +------+ + | Care Sawmill Hand Name | Role | Phone | + +------+ + | Chnimay Driscoll MD | PCP | | + +------+ + Encounter Details +--------+ + + + + | Date | Type | Department | Care Team | Description | +--------+ + + + + | 09/01/ | Hospital | [facility] | Tate Barrientos | S/P lumbar spinal | | 2014 | Encounter | MED CTR XRAY [address] | [address] | fusion; Lumbar | | | | [place] | [address] | radiculopathy - | | | | [place] [address] | [place] [address] | primarily into the | | | | [phone] | [phone] | left lower | | | | [...] 2020 | Visit | | [address] [facility] | | | | | | [address] | | | | | | [address] | | | | | | | [...] prior lumbar spine x-rays. FINDINGS: There | [facility] | | is stable hardware for posterior fusion extending from L4 through L5 | [facility] | | with interbody hardware at [...] | + + + + + | [facility] | [address] | [place], [place] | [phone] | | [facility] | | [address] | | | - IMAGING | | [...]
--- OUTSIDE RECORDS SUMMARY | ~2019-12-11 | XMS | Encounter Summary ---
Demographics + + + | Address | [address] | | | [place] [address] | + + + | Home Phone [...] Team Providers + +------+ + | Care Wool Supplier Name | Role | Phone | + +------+ + | Chinmay Driscoll MD | PCP | | + +------+ + Encounter Details +--------+ + + + + | Date | Type | Department | Care Team | Description | +--------+ + + + + | 11/04/ | Hospital | [facility] | Will Rodriguez MD | S/P lumbar fusion | | 2014 | Encounter | MED CTR XRAY [address] | [address] | | | | | [place] | [place] [address] | | | | | [place] [address] | [phone] | | | | | [phone] | | | +--------+ + + + [...] 2020 | Visit | | [address] [facility] | | | | | | [address] [place], [place] | | | | | | [address] | | | | | | | [...] of the lumbar spine. 5 | | [id number]-[id number]-[id number] vertebral bodies. No change in spinal alignment. [...] + | [facility] | | | [phone] | + +---------+ + + | [facility] | | | [phone] | + +---------+ + + documented in this encounter Visit Diagnoses + + | Diagnosis | + + | S/P lumbar fusion Arthrodesis status | + + documented in this encounter"
--- OUTSIDE RECORDS SUMMARY | ~2019-12-11 | XMS | Encounter Summary ---
Demographics + + + | Address | [address] | | | [place] [address] | + + + | Home Phone [...] Providers + +------+ + | Care Accounting Advisory Services Manager Name | Role | Phone | + +------+ + | Chinmay Driscoll MD | PCP | | + +------+ + Encounter Details +--------+ + + + + | Date | Type | Department | Care Team | Description | +--------+ + + + + | 10/15/ | Hospital | [facility] | bAraham Lindsey, | STEVEN deras | | 2015 - | Encounter | [facility] | MD [address] | | | | | CARE FLOOR [address] | [place] [address] | | | 10/17/ | | [address] | [phone] | | | 2014 | | [place], [place] | | | | | | [address] | | | | | | [phone] | | | +--------+ + + + [...] 1214 Date of Service: 10/17/141209 Status: Signed Elevator Operator Freight: Solis Blake MD (Physician) [facility] Service: Hospitalist Physician Discharge Summary Pt: [...] HTN, who presents as a transfer from [facility] with GI bleed and found to be [...] hours. No results for input(s): PHART, PO2ART, MWU4ABE, V4UOSBVI, BEART in the last 168 hours. Recent [...] are the prescriptions that you need to grape picker. You may get the following medications [...] Blake MD 10/17/2014 12:10 PM Dictation software, Retail Optimization, used which may contain error for similar [...] 10/17/141745 Date of Service: 10/17/141743 Status: Signed Elevator Operator Freight: Anne Santa RN (Registered Nurse) Family And caregiver present for discharge teaching pt alert and oriented X4 . pts new RX' s given to caregiver. Pt discharged via private car to home with caregiver. onver shola Transaction, Provider Unknown - 10/17/2014 3:12 PM PDT Case Management by SOURAV Bradley at 10/17/141511 Author: SOURAV Bradley Service: (none) Author Type: Precision Lathe Operator Filed: 10/17/141512 Date of Service: 10/17/141511 Status: Signed Elevator Operator Freight: SOURAV Bradley (Precision Lathe Operator) 10/17/14 1500 Discharge Planning Evaluation Admitting Diagnosis Acute Blood Loss Anticipated Disposition Facility Type Home Weekend Discharge planning: AUTOMOTIVE ELECTRICAL HELPER spoke with Anne LEWIS Nurse regarding discharge needs, marc diehl Pt does not need to be seen by CM at this time and has no discharge needs or concerns. I encouraged them to enter a CM consult as needs arise. Jermaine Chevysom, Retail Assistant Store Manager [phone] cell onver shola Transaction, Provider Unknown - 10/16/2014 6:20 PM PDT Nurse Progress Note by Anne Santa RN at 10/16/141819 Author: Anne Santa RN Service: (none) Author Type: Registered Nurse Filed: 10/16/141824 Date of Service: 10/16/141819 Status: Signed Elevator Operator Freight: Anne Santa RN (Registered Nurse) Pts first [...] Date of Service: 10/16/14 1307 Status: Addendum Elevator Operator Freight: Solis Blake MD (Physician) Related Notes: Original Note by Solis Blake MD (Physician) filed at 10/16/14 1446 [facility] Service: Hospitalist Progress Note Pt: Gia Arcos AGE/SEX: 78 y.o. female ROOM: [facility]9/4459-1 : 1935 PCP: CHINMAY DRISCOLL ADMIT DATE: 10/15/2014 TODAY'S DATE: 10/16/2014 Hospital Day/Hospital Course: LOS: 1 day The patient is a 78 y.o. female with significant past medical history of afib on xarelto, D M type 2, HTN, who presents as a transfer from [facility] ER from Dr Sarah for GI bleed. [...] HTN, who presents as a transfer from [facility] ER from for GI bleed. Principal Problem: [...] MD, FACP 10/16/2014 1:07 PM Dictation software, Retail Optimization, used which may contain error for similar [...] 0801 Date of Service: 10/16/14758 Status: Signed Elevator Operator Freight: Anne Santa RN (Registered Nurse) Spoke with [...] 10/16/14433 Date of Service: 10/15/142200 Status: Addendum Elevator Operator Freight: Ngozi Liu RN (Registered Nurse) Related Notes: [...] physician to give any medication. [place] 2215: [facility] paged regarding releasing orders or placing new ones, will await call. 2245: Orders from [facility] received for few orders that Dr. Tobar [...] 10/15/141701 Date of Service: 10/15/141701 Status: Signed Elevator Operator Freight: Mayelin Minor RPH (Pharmacist) Clinical Pharmacy Note [...] 2019 | Visit | | [address] | | | | | | [address] [place], [place] | | | | | | [address] | | | | | | | [...] EXTERNAL | | | | performed at [facility], [address] | K/uL | LAB | | | | [address], | | | | | | [place] [address] | | | | + + + + + + | Red Blood | 3.28 (L)Comment: Testing | 3.70 - 5.10 | EXTERNAL | | | Cells | performed at [facility], [address] | M/uL | LAB | | | Counted | [address], | | | | | | [place] [address] | | | | + + + + + + | Hemoglobin | 10.6 (L)Comment: Testing | 11.3 - 15.5 | EXTERNAL | | | | performed at [facility], [address] | g/dL | LAB | | | | [address], | | | | | | [place] [address] | | | | + + + + + + | Hematocrit, | 30.9 (L)Comment: Testing | 34.0 - 46.0 % | EXTERNAL | | | POC | performed at [facility], [address] | | LAB | | | | [address], | | | | | | [place] [address] | | | | + + + + + + | MCV | 94.3Comment: Testing | 80.0 - 100.0 fl | EXTERNAL | | | | performed at [facility], [address] | | LAB | | | | [address], | | | | | | [place] [address] | | | | + + + + + + | MCH | 32.4Comment: Testing | 27.0 - 34.0 pg | EXTERNAL | | | | performed at [facility], [address] | | LAB | | | | [address], | | | | | | [place] [address] | | | | + + + + + + | MCHC | 34.4Comment: Testing | 32.0 - 35.5 | EXTERNAL | | | | performed at [facility], [address] | g/dL | LAB | | | | [address], | | | | | | [place] [address] | | | | + + + + + + | RDW-CV | 48.1Comment: Testing | 37 - 53 fl | EXTERNAL | | | | performed at [facility], [address] | | LAB | | | | [address], | | | | | | [place] [address] | | | | + + + + + + | Platelet | 91 (L)Comment: Testing | 150 - 400 K/uL | EXTERNAL | | | Count | performed at [facility], [address] | | LAB | | | Plasma | [address], | | | | | | [place] [address] | | | | + + + + + + | MPV | 8.6Comment: Testing | fl | EXTERNAL | | | | performed at [facility], [address] | | LAB | | | | [address], | | | | | | [place] [address] | | | | + + + + + + | Differentia | AUTOMATEDComment: | | EXTERNAL | | | l Type | Testing performed at | | LAB | | | | [facility], [address] | | | | | | [place] | | | | | | [address] | | | | + + + + + + | % Segmented | 74.29Comment: Testing | % | EXTERNAL | | | | performed at [facility], [address] | | LAB | | | Neutrophils | [address], | | | | | | [place] [address] | | | | + + + + + + | % | 15.03Comment: Testing | % | EXTERNAL | | | Lymphocytes | performed at [facility], [address] | | LAB | | | | [address], | | | | | | [place] [address] | | | | + + + + + + | % Monocytes | 6.10Comment: Testing | % | EXTERNAL | | | | performed at [facility], [address] | | LAB | | | | [address], | | | | | | [place] [address] | | | | + + + + + + | % | 4.04Comment: Testing | % | EXTERNAL | | | Eosinophils | performed at [facility], [address] | | LAB | | | | [address], | | | | | | [place] [address] | | | | + + + + + + | % Basophils | 0.54Comment: Testing | % | EXTERNAL | | | | performed at [facility], [address] | | LAB | | | | [address], | | | | | | [place] [address] | | | | + + + + + + | Absolute | 5.09Comment: Testing | 1.90 - 7.40 | EXTERNAL | | | Segmented | performed at [facility], [address] | K/uL | LAB | | | Neutrophils | [address], | | | | | | [place] [address] | | | | + + + + + + | Absolute | 1.03Comment: Testing | 1.00 - 3.90 | EXTERNAL | | | Lymphocytes | performed at [facility], [address] | K/uL | LAB | | | | [address], | | | | | | [place] [address] | | | | + + + + + + | Absolute | 0.42Comment: Testing | 0.00 - 0.80 | EXTERNAL | | | Monocytes | performed at [facility], [address] | K/uL | LAB | | | | [address], | | | | | | [place] [address] | | | | + + + + + + | Absolute | 0.28Comment: Testing | 0.00 - 0.50 | EXTERNAL | | | Eosinophils | performed at [facility], [address] | K/uL | LAB | | | | [address], | | | | | | [place] [address] | | | | + + + + + + | Absolute | 0.04Comment: Testing | 0.00 - 0.10 | EXTERNAL | | | Basophils | performed at [facility], [address] | K/uL | LAB | | | | [address], | | | | | | [place] [address] | | | | + + + [...] EXTERNAL | | | | performed at [facility], [address] | | LAB | | | | [address], | | | | | | [place] [address] | | | | + + + [...] | | | | | [place] [address] | | | | + + + + + + | K | 3.0 (L)Comment: Testing | 3.5 - 4.9 | EXTERNAL | | | | performed at [facility], [address] | mmol/L | LAB | | | | [address], | | | | | | [place] [address] | | | | + + + + + + | Cl | 107Comment: Testing | 99 - 109 mmol/L | EXTERNAL | | | | performed at [facility], [address] | | LAB | | | | [address], | | | | | | [place] [address] | | | | + + + + + + | CO2 | 27Comment: Testing | 23 - 32 mmol/L | EXTERNAL | | | | performed at [facility], [address] | | LAB | | | | [address], | | | | | | [place] [address] | | | | + + + + + + | Anion Gap | 7Comment: Testing | 5 - 20 mmol/L | EXTERNAL | | | | performed at [facility], [address] | | LAB | | | | [address], | | | | | | [place] [address] | | | | + + + + + + | Glucose, | 142 (H)Comment: Testing | 65 - 99 mg/dL | EXTERNAL | | | Fasting | performed at [facility], [address] | | LAB | | | | [address], | | | | | | [place] [address] | | | | + + + + + + | BUN | 28 (H)Comment: Testing | 8 - 25 mg/dL | EXTERNAL | | | | performed at [facility], [address] | | LAB | | | | [address], | | | | | | [place] [address] | | | | + + + + + + | Creatinine | 1.12 (H)Comment: Testing | 0.50 - 1.00 | EXTERNAL | | | | performed at [facility], [address] | mg/dL | LAB | | | | [address], | | | | | | [place] [address] | | | | + + + + + + | BUN/Creatin | 25Comment: Testing | | EXTERNAL | | | ine Ratio | performed at [facility], [address] | | LAB | | | | [address], | | | | | | [place] [address] | | | | + + + + + + | Calcium | 8.0 (L)Comment: Testing | 8.5 - 10.5 | EXTERNAL | | | | performed at [facility], [address] | mg/dL | LAB | | | | [address], | | | | | | [place] [address] | | | | + + + + + + | Protein, | 4.8 (L)Comment: Testing | 6.3 - 8.2 g/dL | EXTERNAL | | | Total | performed at [facility], [address] | | LAB | | | [address], | | | | | | [place] [address] | | | | + + + + + + | Albumin | 2.9 (L)Comment: Testing | 3.3 - 4.8 g/dL | EXTERNAL | | | | performed at [facility], [address] | | LAB | | | | [address], | | | | | | [place] [address] | | | | + + + + + + | Globulin | 1.9Comment: Testing | 1.3 - 4.9 g/dL | EXTERNAL | | | | performed at [facility], [address] | | LAB | | | | [address], | | | | | | [place] [address] | | | | + + + + + + | A/G Ratio | 1.5Comment: Testing | 1.0 - 2.4 | EXTERNAL | | | | performed at [facility], [address] | | LAB | | | | [address], | | | | | | [place] [address] | | | | + + + + + + | Bilirubin | 0.9Comment: Testing | 0.1 - 1.5 mg/dL | EXTERNAL | | | Total | performed at [facility], [address] | | LAB | | | | [address], | | | | | | [place] [address] | | | | + + + + + + | ALP, | 43Comment: Testing | 35 - 115 U/L | EXTERNAL | | | External | performed at [facility], [address] | | LAB | | | | [address], | | | | | | [place] [address] | | | | + + + + + + | AST | 14Comment: Testing | 10 - 45 U/L | EXTERNAL | | | | performed at [facility], [address] | | LAB | | | | [address], | | | | | | [place] [address] | | | | + + + + + + | ALT | 11Comment: Testing | 10 - 65 U/L | EXTERNAL | | | | performed at [facility], [address] | | LAB | | | | [address], | | | | | | [place] [address] | | | | + + + [...] | | | | | | at [facility], [address] | | | | | | [address], | | | | | | [place] [address] | | | | + + + [...] EXTERNAL | | | | performed at [facility];[address] | g/dL | LAB | | | | [address];[place] | | | | | | [address] | | | | + + + + + + | Hematocrit, | 30.7 (L)Comment: Testing | 34.0 - 46.0 % | EXTERNAL | | | POC | performed at [facility];[address] | | LAB | | | | [address];[place] | | | | | | [address] | | | | + + + [...] EXTERNAL | | | | performed at [facility];[address] | g/dL | LAB | | | | [address];[place] | | | | | | [address] | | | | + + + + + + | Hematocrit, | 24.1 (L)Comment: Testing | 34.0 - 46.0 % | EXTERNAL | | | POC | performed at [facility];[address] | | LAB | | | | [address];[place] | | | | | | [address] | | | | + + + [...] EXTERNAL | | | | performed at [facility];[address] | | LAB | | | | [address];[place], [place] | | | | | | [address] | | | | + + + [...] | | | | | | ACUTE AR Testing | | | | | | performed at [facility];[address] | | | | | | [address] [facility];[place], [place] | | | | | | [address] | | | | + + + [...] | | | Patient | performed at [facility];[address] | | LAB | | | | [address];[place] | | | | | | [address] | | | | + + + [...] | | | | | performed at [facility] | | | | | | [facility];[place], [place] | | | | | | [address] | | | | + + + [...] EXTERNAL | | | | performed at [facility], [address] | K/uL | LAB | | | | [address], | | | | | | [place] [address] | | | | + + + + + + | Red Blood | 2.62 (L)Comment: Testing | 3.70 - 5.10 | EXTERNAL | | | Cells | performed at [facility], [address] | M/uL | LAB | | | Counted | [address], | | | | | | [place] [address] | | | | + + + + + + | Hemoglobin | 8.3 (L)Comment: Testing | 11.3 - 15.5 | EXTERNAL | | | | performed at [facility], [address] | g/dL | LAB | | | | [address], | | | | | | [place] [address] | | | | + + + + + + | Hematocrit, | 24.9 (L)Comment: Testing | 34.0 - 46.0 % | EXTERNAL | | | POC | performed at [facility], [address] | | LAB | | | | [address], | | | | | | [place] [address] | | | | + + + + + + | MCV | 95.1Comment: Testing | 80.0 - 100.0 fl | EXTERNAL | | | | performed at [facility], [address] | | LAB | | | | [address], | | | | | | [place] [address] | | | | + + + + + + | MCH | 31.7Comment: Testing | 27.0 - 34.0 pg | EXTERNAL | | | | performed at [facility], [address] | | LAB | | | | [address], | | | | | | [place] [address] | | | | + + + + + + | MCHC | 33.4Comment: Testing | 32.0 - 35.5 | EXTERNAL | | | | performed at [facility], [address] | g/dL | LAB | | | | [address], | | | | | | [place] [address] | | | | + + + + + + | RDW-CV | 46.8Comment: Testing | 37 - 53 fl | EXTERNAL | | | | performed at [facility], [address] | | LAB | | | | [address], | | | | | | [place] [address] | | | | + + + + + + | Platelet | 107 (L)Comment: Testing | 150 - 400 K/uL | EXTERNAL | | | Count | performed at [facility], [address] | | LAB | | | Plasma | [address], | | | | | | [place] [address] | | | | + + + + + + | MPV | 9.2Comment: Testing | fl | EXTERNAL | | | | performed at [facility], [address] | | LAB | | | | [address], | | | | | | [place] [address] | | | | + + + + + + | Differentia | AUTOMATEDComment: | | EXTERNAL | | | l Type | Testing performed at | | LAB | | | | [facility], [address] | | | | | | [place] | | | | | | [address] | | | | + + + + + + | % Segmented | 81.03Comment: Testing | % | EXTERNAL | | | | performed at [facility], [address] | | LAB | | | Neutrophils | [address], | | | | | | [place] [address] | | | | + + + + + + | % | 12.64Comment: Testing | % | EXTERNAL | | | Lymphocytes | performed at [facility], [address] | | LAB | | | | [address], | | | | | | [place] [address] | | | | + + + + + + | % Monocytes | 5.15Comment: Testing | % | EXTERNAL | | | | performed at [facility], [address] | | LAB | | | | [address], | | | | | | [place] [address] | | | | + + + + + + | % | 0.85Comment: Testing | % | EXTERNAL | | | Eosinophils | performed at [facility], [address] | | LAB | | | | [address], | | | | | | [place] [address] | | | | + + + + + + | % Basophils | 0.33Comment: Testing | % | EXTERNAL | | | | performed at [facility], [address] | | LAB | | | | [address], | | | | | | [place] [address] | | | | + + + + + + | Absolute | 6.58Comment: Testing | 1.90 - 7.40 | EXTERNAL | | | Segmented | performed at [facility], [address] | K/uL | LAB | | | Neutrophils | [address], | | | | | | [place] [address] | | | | + + + + + + | Absolute | 1.03Comment: Testing | 1.00 - 3.90 | EXTERNAL | | | Lymphocytes | performed at [facility], [address] | K/uL | LAB | | | | [address], | | | | | | [place] [address] | | | | + + + + + + | Absolute | 0.42Comment: Testing | 0.00 - 0.80 | EXTERNAL | | | Monocytes | performed at [facility], [address] | K/uL | LAB | | | | [address], | | | | | | [place] [address] | | | | + + + + + + | Absolute | 0.07Comment: Testing | 0.00 - 0.50 | EXTERNAL | | | Eosinophils | performed at [facility], [address] | K/uL | LAB | | | | [address], | | | | | | [place] [address] | | | | + + + + + + | Absolute | 0.03Comment: Testing | 0.00 - 0.10 | EXTERNAL | | | Basophils | performed at [facility], [address] | K/uL | LAB | | | | [address], | | | | | | [place] [address] | | | | + + + [...] | | | | | [place] [address] | | | | + + + [...] EXTERNAL | | | | performed at [facility], [address] | | LAB | | | | [address], | | | | | | [place] [address] | | | | + + + [...] EXTERNAL | | | | performed at [facility];[address] | | LAB | | | | [address];[place], [place] | | | | | | [address] | | | | + + + [...] | | | | | [place] [address] | | | | + + + + + + | K | 3.1 (L)Comment: Testing | 3.5 - 4.9 | EXTERNAL | | | | performed at [facility], [address] | mmol/L | LAB | | | | [address], | | | | | | [place] [address] | | | | + + + + + + | Cl | 109Comment: Testing | 99 - 109 mmol/L | EXTERNAL | | | | performed at [facility], [address] | | LAB | | | | [address], | | | | | | [place] [address] | | | | + + + + + + | CO2 | 24Comment: Testing | 23 - 32 mmol/L | EXTERNAL | | | | performed at [facility], [address] | | LAB | | | | [address], | | | | | | [place] [address] | | | | + + + + + + | Anion Gap | 9Comment: Testing | 5 - 20 mmol/L | EXTERNAL | | | | performed at [facility], [address] | | LAB | | | | [address], | | | | | | [place] [address] | | | | + + + + + + | Glucose, | 182 (H)Comment: Testing | 65 - 99 mg/dL | EXTERNAL | | | Fasting | performed at [facility], [address] | | LAB | | | | [address], | | | | | | [place] [address] | | | | + + + + + + | BUN | 54 (H)Comment: Testing | 8 - 25 mg/dL | EXTERNAL | | | | performed at [facility], [address] | | LAB | | | | [address], | | | | | | [place] [address] | | | | + + + + + + | Creatinine | 1.17 (H)Comment: Testing | 0.50 - 1.00 | EXTERNAL | | | | performed at [facility], [address] | mg/dL | LAB | | | | [address], | | | | | | [place] [address] | | | | + + + + + + | BUN/Creatin | 46Comment: Testing | | EXTERNAL | | | ine Ratio | performed at [facility], [address] | | LAB | | | | [address], | | | | | | [place] [address] | | | | + + + + + + | Calcium | 7.7 (L)Comment: Testing | 8.5 - 10.5 | EXTERNAL | | | | performed at [facility], [address] | mg/dL | LAB | | | | [address], | | | | | | [place] [address] | | | | + + + + + + | Protein, | 4.2 (L)Comment: Testing | 6.3 - 8.2 g/dL | EXTERNAL | | | Total | performed at [facility], [address] | | LAB | | | | [address], | | | | | | [place] [address] | | | | + + + + + + | Albumin | 2.6 (L)Comment: Testing | 3.3 - 4.8 g/dL | EXTERNAL | | | | performed at [facility], [address] | | LAB | | | | [address], | | | | | | [place] [address] | | | | + + + + + + | Globulin | 1.6Comment: Testing | 1.3 - 4.9 g/dL | EXTERNAL | | | | performed at [facility], [address] | | LAB | | | | [address], | | | | | | [place] [address] | | | | + + + + + + | A/G Ratio | 1.6Comment: Testing | 1.0 - 2.4 | EXTERNAL | | | | performed at [facility], [address] | | LAB | | | | [address], | | | | | | [place] [address] | | | | + + + + + + | Bilirubin | 0.6Comment: Testing | 0.1 - 1.5 mg/dL | EXTERNAL | | | Total | performed at [facility], [address] | | LAB | | | | [address], | | | | | | [place] [address] | | | | + + + + + + | ALP, | 36Comment: Testing | 35 - 115 U/L | EXTERNAL | | | External | performed at [facility], [address] | | LAB | | | | [address], | | | | | | [place] [address] | | | | + + + + + + | AST | 11Comment: Testing | 10 - 45 U/L | EXTERNAL | | | | performed at [facility], [address] | | LAB | | | | [address], | | | | | | [place] [address] | | | | + + + + + + | ALT | 9 (L)Comment: Testing | 10 - 65 U/L | EXTERNAL | | | | performed at [facility], [address] | | LAB | | | | [facility], | | | | | | [place] [address] | | | | + + + [...] | | | | | | at [facility], [address] | | | | | | [facility], | | | | | | [place] [address] | | | | + + + [...] EXTERNAL | | | | performed at [facility];888 | g/dL | LAB | | | | [address];[place] | | | | | | [address] | | | | + + + + + + | Hematocrit, | 29.3 (L)Comment: Testing | 34.0 - 46.0 % | EXTERNAL | | | POC | performed at [facility];[address] | | LAB | | | | [address];[place], [place] | | | | | | [address] | | | | + + + [...] EXTERNAL | | | | performed at [facility] | | LAB | | | | [facility];[place], [place] | | | | | | [address] | | | | + + + [...] | | | | | | ACUTE AR Testing | | | | | | performed at [facility];[address] | | | | | | [address];[place], [place] | | | | | | [address] | | | | + + + [...] EXTERNAL | | | | performed at [facility];[address] | | LAB | | | | [address];[place] | | | | | | [address] | | | | + + + [...] | | | Received | performed at [facility];[address] | | LAB | | | | [address];[place] | | | | | | [address] | | | | + + + + + + | 24hr Read | NEGATIVEComment: Testing | | EXTERNAL | | | | performed at [facility];[address] | | LAB | | | | [address];[place] | | | | | | [address] | | | | + + + [...] EXTERNAL LAB | | Testing performed at [facility];[address] [facility];[place] [address] | | + + + + +---------+ [...] EXTERNAL | | | | performed at [facility];888 | | LAB | | | | [address];[place] | | | | | | [address] | | | | + + + [...] | | | | | | ACUTE AR Testing | | | | | | performed at [facility];888 | | | | | | [facility];[place], [place] | | | | | | [address] | | | | + + + [...] EXTERNAL | | | | performed at [facility];888 | K/uL | LAB | | | | [address];[place] | | | | | | [address] | | | | + + + + + + | Red Blood | 3.12 (L)Comment: Testing | 3.70 - 5.10 | EXTERNAL | | | Cells | performed at [facility];888 | M/uL | LAB | | | Counted | [address];[place] | | | | | | [address] | | | | + + + + + + | Hemoglobin | 9.9 (L)Comment: Testing | 11.3 - 15.5 | EXTERNAL | | | | performed at [facility];888 | g/dL | LAB | | | | [address];[place] | | | | | | [address] | | | | + + + + + + | Hematocrit, | 29.9 (L)Comment: Testing | 34.0 - 46.0 % | EXTERNAL | | | POC | performed at [facility];[address] | | LAB | | | | [address];[place] | | | | | | [address] | | | | + + + + + + | MCV | 95.8Comment: Testing | 80.0 - 100.0 fl | EXTERNAL | | | | performed at [facility];[address] | | LAB | | | | [address];[place] | | | | | | [address] | | | | + + + + + + | MCH | 31.8Comment: Testing | 27.0 - 34.0 pg | EXTERNAL | | | | performed at [facility];[address] | | LAB | | | | [address];[place] | | | | | | [address] | | | | + + + + + + | MCHC | 33.2Comment: Testing | 32.0 - 35.5 | EXTERNAL | | | | performed at [facility];888 | g/dL | LAB | | | | [address];[place] | | | | | | [address] | | | | + + + + + + | RDW-CV | 46.8Comment: Testing | 37 - 53 fl | EXTERNAL | | | | performed at [facility];[address] | | LAB | | | | [address];[place] | | | | | | [address] | | | | + + + + + + | Platelet | 118 (L)Comment: Testing | 150 - 400 K/uL | EXTERNAL | | | Count | performed at [facility];888 | | LAB | | | Plasma | [address];[place] | | | | | | [address] | | | | + + + + + + | MPV | 9.1Comment: Testing | fl | EXTERNAL | | | | performed at [facility];[address] | | LAB | | | | [address];[place] | | | | | | [address] | | | | + + + + + + | Differentia | AUTOMATEDComment: | | EXTERNAL | | | l Type | Testing performed at | | LAB | | | | [facility];[address] | | | | | [address];[place] [address] | | | | + + + + + + | % Segmented | 85.56Comment: Testing | % | EXTERNAL | | | | performed at [facility];888 | | LAB | | | Neutrophils | [address];[place] | | | | | | [address] | | | | + + + + + + | % | 9.29Comment: Testing | % | EXTERNAL | | | Lymphocytes | performed at [facility];[address] | | LAB | | | | [address];[place] | | | | | | [address] | | | | + + + + + + | % Monocytes | 4.72Comment: Testing | % | EXTERNAL | | | | performed at [facility];[address] | | LAB | | | | [address];[place] | | | | | | [address] | | | | + + + + + + | % | 0.03Comment: Testing | % | EXTERNAL | | | Eosinophils | performed at [facility];[address] | | LAB | | | | [address];[place] | | | | | | [address] | | | | + + + + + + | % Basophils | 0.40Comment: Testing | % | EXTERNAL | | | | performed at [facility];[address] | | LAB | | | | [address];[place] | | | | | | [address] | | | | + + + + + + | Absolute | 7.09Comment: Testing | 1.90 - 7.40 | EXTERNAL | | | Segmented | performed at [facility];888 | K/uL | LAB | | | Neutrophils | [address];[place] | | | | | | [address] | | | | + + + + + + | Absolute | 0.77 (L)Comment: Testing | 1.00 - 3.90 | EXTERNAL | | | Lymphocytes | performed at [facility];888 | K/uL | LAB | | | | [address];[place] | | | | | | [address] | | | | + + + + + + | Absolute | 0.39Comment: Testing | 0.00 - 0.80 | EXTERNAL | | | Monocytes | performed at [facility];888 | K/uL | LAB | | | | [address];[place] | | | | | | [address] | | | | + + + + + + | Absolute | 0.00Comment: Testing | 0.00 - 0.50 | EXTERNAL | | | Eosinophils | performed at [facility];888 | K/uL | LAB | | | | [address];[place] | | | | | | [address] | | | | + + + + + + | Absolute | 0.03Comment: Testing | 0.00 - 0.10 | EXTERNAL | | | Basophils | performed at [facility];888 | K/uL | LAB | | | | [address];[place] | | | | | | [address] | | | | + + + + + + | RBC | RBC AND PLT MORPHOLOGY | | EXTERNAL | | | Morphology | APPEAR NORMALComment: | | LAB | | | | Testing performed at | | | | | | [facility];[address];[place] [address] | | | | + + + + + + | Platelet | ADEQUATEComment: Testing | | EXTERNAL | | | Estimate | performed at [facility];[address] | | LAB | | | | [address];[place] | | | | | | [address] | | | | + + + + + + | Differentia | SLIDE SCANNED, AGREES | | EXTERNAL | | | l Comments | WITH AUTOMATED | | LAB | | | | RESULTS.Comment: Testing | | | | | | performed at [facility];[address] | | | | | | [address];[place] | | | | | | [address] | | | | + + + [...] EXTERNAL | | | | performed at [facility];8 | | LAB | | | | [facility], [place] | | | | | | [address] | | | | + + + [...] EXTERNAL | | | | performed at [facility];888 | mmol/L | LAB | | | | [address];[place] | | | | | | [address] | | | | + + + + + + | K | 4.2Comment: Testing | 3.5 - 4.9 | EXTERNAL | | | | performed at [facility];888 | mmol/L | LAB | | | | [address];[place] | | | | | | [address] | | | | + + + + + + | Cl | 107Comment: Testing | 99 - 109 mmol/L | EXTERNAL | | | | performed at [facility];[address] | | LAB | | | | [address];[place] | | | | | | [address] | | | | + + + + + + | CO2 | 24Comment: Testing | 23 - 32 mmol/L | EXTERNAL | | | | performed at [facility];[address] | | LAB | | | | [address];[place] | | | | | | [address] | | | | + + + + + + | Anion Gap | 14Comment: Testing | 5 - 20 mmol/L | EXTERNAL | | | | performed at [facility];[address] | | LAB | | | | [address];[place] | | | | | | [address] | | | | + + + + + + | Glucose, | 234 (H)Comment: Testing | 65 - 99 mg/dL | EXTERNAL | | | Fasting | performed at [facility];[address] | | LAB | | | | [address];[place] | | | | | | [address] | | | | + + + + + + | BUN | 73 (H)Comment: Testing | 8 - 25 mg/dL | EXTERNAL | | | | performed at [facility];[address] | | LAB | | | | [address];[place] | | | | | | [address] | | | | + + + + + + | Creatinine | 1.31 (H)Comment: Testing | 0.50 - 1.00 | EXTERNAL | | | | performed at [facility];888 | mg/dL | LAB | | | | [address];[place] | | | | | | [address] | | | | + + + + + + | BUN/Creatin | 56Comment: Testing | | EXTERNAL | | | ine Ratio | performed at [facility];[address] | | LAB | | | | [address];[place] | | | | | | [address] | | | | + + + + + + | Calcium | 7.9 (L)Comment: Testing | 8.5 - 10.5 | EXTERNAL | | | | performed at [facility];888 | mg/dL | LAB | | | | [address];[place] | | | | | | [address] | | | | + + + [...] | | | | | | at [facility];[address] | | | | | [address];[place] [address] | | | | + + + [...] | | | | | HOMERO MIKE (771) on | | | | | | [...]
--- OUTSIDE RECORDS SUMMARY | ~2019-12-11 | XMS | Encounter Summary ---
Demographics + + + | Address | [address] | | | [place] [address] | + + + | Home Phone [...] Team Providers + +------+ + | Care Professor Of Special Education Name | Role | Phone | + [...] | 12/26/ | Telephone | [facility] | Will Rodriguez MD | Appointment; | | 2017 | | NEUROSURGERY [address] | [address] | Neurosurgery | | | | [address] | [place] [address] | Appointment | | | | [place] | [phone] | | | | | [address] | | | | | | [phone] | | | +--------+ + + + [...] 2020 | Visit | | [address] [facility] | | | | | | [address] [place] | | | | | | [address] | | | | | | | | +--------+---------+ + + + documented as of this encounter Visit Diagnoses Not on filedocumented in this encounter"
--- OUTSIDE RECORDS SUMMARY | ~2019-12-11 | XMS | Encounter Summary ---
Demographics + + + | Address | [address] | | | [place] [address] | + + + | Home Phone | | + + + | Preferred Language | Unknown | + + + | Marital Status | | + + + | Latter Day Affiliation | 1073 | + + + | Race | Unknown | + + + | Ethnic Group | Unknown | + + + Author + + + | Author | [facility] | | | and [place] | + + + | Organization | [facility] | | [...] Team Providers + +------+ + | Care Kick Plate Installer Name | Role | Phone | [...] + + | 03/03/ | Office | [facility] | Luigi James, | DDD (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 CRANIAL NERVES: II: Acuity is intact. [...] Intrinsics 5 5 Ulnar Intrinsics 5 5 Pressroom Supervisor Strength 5 5 Hip Flexion 4+ 4+ [...] 2019 | Visit | | [address] [facility] | | | | | | [address] [place] | | | | | | [address] | | | | | | | [...]
--- OUTSIDE RECORDS SUMMARY | ~2019-12-11 | XMS | Encounter Summary ---
Demographics + + + | Address | [address] | | | [place] [address] | + + + | Home Phone [...] Team Providers + +------+ + | Care Roll Capper Name | Role | Phone | + +------+ + | Chinmay Driscoll MD | PCP | | + +------+ + Encounter Details +--------+ + + + + | Date | Type | Department | Care Team | Description | +--------+ + + + + | 09/03/ | Hospital | [facility] | Will Rodriguez MD | S/P lumbar fusion | | 2014 | Encounter | MED CTR XRAY [address] | [address] | | | | | [place] | [place] [address] | | | | | [place] [address] | [phone] | | | | | [phone] | | | +--------+ + + + [...] 2020 | Visit | | [address] [facility] | | | | | | [address] [place], [place] | | | | | | [address] | | | | | | | [...] + | [facility] | [place] | | Department [address] [facility] | [facility] | | [ rep [address]] [ rep [facility] | | [facility]] Signed | - IMAGING | | | | | Patient Name: IGA ARCOS Physician: | | | : 1935 Age: 77 Sex: F Unit #: [id number] | | | Exam Date: 09/03/13 [place] [facility] | | | Report #: [id number] Page: | | | %(RAD)RES..mtdd.print.filter("pg") of %(RAD) | | | RES..mtdd.print.filter("tpg") | | | | | | Accession Number: [id number] | | | TWO VIEWS LUMBAR SPINE FROM 09/03/2013 CLINICAL HISTORY: | | | FOLLOWUP LUMBAR FUSION. COMPARISON: Lumbar radiographs | | | 07/29/2013 and 01/20/2013, lumbar MRI 12/20/2012. FINDINGS: | | | Five une-zbi-iopruen, lumbar-type vertebrae are suggested. There | | [...] Transcribed Date/Time: 09/03/2013 16:17 | | | Roller Skate Assembler: <<Signature on File>> | | | Eulogio Cerda MD09/03/13 2226 <Electronically signed by Eulogio Cerda | | | > Eulogio Cerda MD 09/03/13 1606 Roller Skate Assembler: | | | Webmedx Diragsawbtexj77/12/14 1617 LAVINIA Holder | | | | | + + + + + + + + | Performing | Address | City/State/Zipcode | Phone Number | | Organization | | | | + + + + + | [facility] [facility] | [address] | [place] | [phone] | | [facility] | | [address] | | | - IMAGING | | | | + + + + + documented in this encounter Visit Diagnoses + + | Diagnosis | + + | S/P lumbar fusion Arthrodesis status | + + documented in this encounter
--- OUTSIDE RECORDS SUMMARY | ~2019-12-11 | XMS | Encounter Summary ---
Demographics + + + | Address | [address] | | | [place] [address] | + + + | Home Phone [...] Team Providers + +------+ + | Care Geological Survey Field Assistant Name | Role | Phone | [...] | | [address] | [place] [address] | | | | | [place] | [phone] | | | | | [address] | | | | | | [phone] | | | +--------+---------+ + + + [...] from t he original. Will Rodriguez MD [address] [place] [address], [address] [place], [place] [address] FAX: NEUROSURGERY SURGICAL FOLLOW-UP CHIEF COMPLAINT: Chief [...] | | | | | | [address] [place], [place] | | | | | | [address] | | | | | | | [...] of the lumbar spine. 5 | | htudbd-eutmwrumjkkbl-prkn vertebral bodies. No change in spinal alignment. [...] + | MISCELLANEOUS LAB | | | [phone] | + +---------+ + + | MISCELANIOUS LAB | | | [phone] | + +---------+ + + documented in this encounter Visit Diagnoses + + | Diagnosis | + + | S/P lumbar fusion - Primary Arthrodesis status | + + documented in this encounter
--- OUTSIDE RECORDS SUMMARY | ~2019-12-11 | XMS | Encounter Summary ---
Demographics + + + | Address | [address] | | | [place] [address] | + + + | Home Phone [...] Team Providers + +------+ + | Care Calciner Feeder Name | Role | Phone | [...] | (Primary Dx) | | | | [place] [address] [address] | [address] [facility] | | | | | [facility] | [place] [address] | | | | | [place], [place] | [phone] | | | | | [address] | | | | | | [phone] | | | +--------+ + + + [...] Instructions Instructions David Herzog MD - 07/24/2017Use wwyk-vas-vnhhnse Tylenol, thousa nd milligrams every 6 hours [...] 2020 | Visit | | [address] [facility] | | | | | | [address] [place] | | | | | | [address] | | | | | | | [...] - 1.030 | [facility] | | | [place], | | | [facility] | | [...] + + + | [facility] | [address] [facility] | [place] [address] | | | [facility] | | | | | LABORATORY [...] + + | Performing | Address | City/State/[facility] Cent[facility]ode | Phone Number | | [...] + + + | [facility] | [address] | [place] [address] | | | [facility] | | [...] [facility] | [address] | [place] [address] | | | [facility] | | [...] | | | | | M/uL | [facility] | | | | [...] + + + | [facility] | [address] [facility] | [place] [address] | | | [facility] | | | | | LABORATORY [...]
--- OUTSIDE RECORDS SUMMARY | ~2019-12-11 | XMS | Encounter Summary ---
Demographics + + + | Address | [address] | | | [place] [address] | + + + | Home Phone [...] Team Providers + +------+ + | Care Wire Repairer Name | Role | Phone | [...] | RECOMMENDATIONS) | | | | [address] [facility] [address] | [place] [address] | | | | | [place] | [phone] | | | | | [address] | | | | | | [phone] | | | +--------+ + + + [...] 2020 | Visit | | [address] [facility] | | | | | | [address] [place] | | | | | | [address] | | | | | | | | +--------+---------+ + + + documented as of this encounter Visit Diagnoses Not on filedocumented in this encounter"
--- OUTSIDE RECORDS SUMMARY | ~2019-12-11 | XMS | Encounter Summary ---
Demographics + + + | Address | [address] | | | [place] [address] | + + + | Home Phone [...] Team Providers + +------+ + | Care Equipment Operator/Laborer Name | Role | Phone | + +------+ + | Chinmay Driscoll MD | PCP | | + +------+ + Encounter Details +--------+ + + + + | Date | Type | Department | Care Team | Description | +--------+ + + + + | 01/20/ | Hospital | [facility] | Luigi James, | | | 2013 | Encounter | MED CTR XRAY [address] | PA-C [address] | | | | | [place] | [place], [place] | | | | | [place] [address] | [address] | | | | | [phone] | | | +--------+ + + + [...] 2019 | Visit | | [address] [facility] | | | | | | [address] [facility] [place] | | | | | | [address] | | | | | | | [...] + | [facility] | [place] | | Department [address] [facility] [place], [place] [facility] | | [ rep [address]] [ rep [facility] | | st zip] Signed | - IMAGING | | | | | Patient Name: GIA ARCOS Physician: | | | ANTHONY. : 1935 Age: 77 Sex: F Unit #: [id number] | | | Exam Date: 01/20/13 Location: [facility] | | | Report #: [id number] Page: | | | %(RAD)RES..mtdd.print.filter("pg") of %(RAD) | | | RES..mtdd.print.filter("tpg") | | | | | | Accession Number: [id number] | | | LUMBAR SPINE, 01/20/2013 CLINICAL [...] Transcribed Date/Time: 01/20/2013 | | | 14:16 Nurse'S Companion: <<Signature | | | on File>> | | | | | | Antonio Minor MD01/20/13 1527 <Electronically signed by | | | Antonio Minor MD> Antonio Minor MD 01/20/13 | | | 1335 Nurse'S Companion: Storytree Jrpcacabmxodg48/01/13 1416 | | | Luigi James PA-C | | + + + + + + + + | Performing | Address | City/State/Zipcode | Phone Number | | Organization | | | | + + + + + | [facility] | [address] | [place] | [phone] | | [facility] | | [address] | | | - IMAGING | | | | + + + + + documented in this encounter Visit Diagnoses Not on filedocumented in this encounter
--- OUTSIDE RECORDS SUMMARY | ~2019-12-11 | XMS | Encounter Summary ---
Demographics + + + | Address | [address] | | | [place] [address] | + + + | Home Phone [...] | [facility] | | | and [place] | + [...] Team Providers + +------+ + | Care Tax Staff Accountant Name | Role | Phone | + +------+ + | Chinmay Driscoll MD | PCP | | + +------+ + Encounter Details +--------+ + + + + | Date | Type | Department | Care Team | Description | +--------+ + + + + | 02/16/ | Hospital | [facility] | Tate Barrientos | Spinal stenosis of | | 2013 | Encounter | MED CTR XRAY [address] | [address] | lumbar region with | | | | [place] | [address] | radiculopathy - | | | | [place] [address] | [place] [address] | severe at L4-L5 | | | | [phone] | [phone] | | | | | | | [...] | Visit | | [address] 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
--- OUTSIDE RECORDS SUMMARY | ~2019-12-11 | XMS | Encounter Summary ---
Demographics + + + | Address | [address] | | | [place] [address] | + + + | Home Phone [...] Team Providers + +------+ + | Care Jacquard Loom Weaver Name | Role | Phone | + [...] [place], [place] | | | | | [place], [place] | [address] | | | | | [address] | | | | | | [phone] | | | +--------+ + + + [...] [place] | | | | | | [address] | | | | | | | | +--------+---------+ + + + documented as of this encounter Visit Diagnoses Not on filedocumented in this encounter"
--- OUTSIDE RECORDS SUMMARY | ~2019-12-11 | XMS | Encounter Summary ---
Demographics + + + | Address | [address] | | | [place] [address] | + + + | Home Phone | | + + + | Preferred Language | Unknown | + + + | Marital Status | | + + + | Taoism Affiliation | 1073 | + + + | Race | Unknown | + + + | Ethnic Group | Unknown | + + + Author + + + | Author | [facility] | | | and [place] | + + + | Organization | [facility] | | | [...] Team Providers + +------+ + | Care Aerial Photographer Name | Role | Phone | + [...] | | | [address] [place] | [place] [address] | | | | | [place] [address] | | | | | | [phone] | | | +--------+ + + + [...] | | [address] [facility] | | | | | | [address] [facility] [facility] | | | | | | [address] | | | | | | | [...]
[~2019-12-11 10:57] MED LIST: ATORVASTATIN CA10 MG PO; LEVOTHYROXINE50 MCG PO; METFORMIN HCL500 M1 PO; METOPROLOL SUCC25 MG PO; POTASSIUM CHLO10 ME1 PO; TAZTIA XT360 MG PO; TELMISARTAN80 MG PO; TERAZOSIN HCL5 MG PO; TRIAMTERENE-HCTZ 37.; XARELTO20 MG PO
[2019-12-11] MEDS ORDERED: LOMOTIL TABLET1 EACH PO (12:52)
[2019-12-11] MEDS ORDERED: TORSEMIDE10 MG PO (13:57)
[2019-12-11] MEDS ORDERED: CYTOTEC200 MCG PO (13:58)
[2019-12-11] MEDS ORDERED: GLIPIZIDE XL5 MG PO (13:59)
[2019-12-11] MEDS ORDERED: COZAAR100 MG PO (13:59)
== END 2019-12-11 14:03 | disposition home or self-care (01) ==
LOC: ED 10:57
DX: K52.9 Noninfective gastroenteritis and colitis, unspecified (principal); E86.0 Dehydration; E11.9 Type 2 diabetes mellitus without complications; I10 Essential (primary) hypertension; I48.91 Unspecified atrial fibrillation; Z88.8 Allergy status to other drugs, medicaments and biological substances; Z88.5 Allergy status to narcotic agent; Z79.899 Other long term (current) drug therapy; Z79.84 Long term (current) use of oral hypoglycemic drugs
CPT/HCPCS: 80053; 84484; 85025; 96360; 99285-25; J7121

== ENCOUNTER 2020-02-18 18:25 | Inpatient (IN) | payer MEDICARE, BC, OTHER ==
[~2020-02-18] VITALS: Ht 172.7 cm; Wt 92.5 kg
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
--- OUTSIDE RECORDS SUMMARY | ~2020-02-18 | XMS | Encounter Summary ---
Demographics + + + | Address | [address] | | | [place] [address] | + + + | Home Phone | | + + + | Preferred Language | Unknown | + + + | Marital Status | | + + + | Holiness Affiliation | [id number] | + + + | Race | Unknown | + + + | Ethnic Group | Unknown | + + + Author + + + | Author | [facility] | | | and [place] | + + + | Organization | [facility] | | | and [...] Team Providers + +------+ + | Care Spudder Name | Role | Phone | + +------+ + | Tino Salmeron DO | PCP | | + +------+ + Encounter Details +--------+ + + + + | Date | Type | Department | Care Team | Description | +--------+ + + + + | 02/11/ | Telephone | [facility] | Nidhi Ray | | | 2019 | | CARDIOLOGY VERONICA Vaca, Manager Asset Management | | | | | [address] | | | | | | [place], [place] | | | | | | [address] | | | | | | [phone] | | | +--------+ + + + [...] + + documented as of this encounter Miscellaneous Notes Telephone Encounter - Nidhi Ray, Manager Asset Management - 02/12/2020 3:47 PM PDTPt [facility], ECHO not interpreted yet, and they are waiting for the results be cause patient will be getting a right hip replacement and they need cardiac clx. Message sent to Dr Askew for further evaluation. JCRIS:RN [facility]. doc umented in this encounter Plan of Treatment Not on filedocumented as of this encounter Visit Diagnoses Not on filedocumented in this encounter"
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
--- OUTSIDE RECORDS SUMMARY | ~2020-02-18 | XMS | Encounter Summary ---
Demographics + + + | Address | [address] | | | [place] [address] | + + + | Home Phone | | + + + | Preferred Language | Unknown | + + + | Marital Status | | + + + | Temple Affiliation | 1073 | + + + | Race | Unknown | + + + | Ethnic Group | Unknown | + + + Author + + + | Author | [facility] | | | and [place] | + + + | Organization | [facility] | | | [...] Team Providers + +------+ + | Care Patent Drafter Name | Role | Phone | + +------+ + | Tino Salmeron DO | PCP | | + +------+ + Encounter Details +--------+ + + + + | Date | Type | Department | Care Team | Description | +--------+ + + + + | 10/06/ | Orders Only | [facility] | Homero Soot MD | Essential | | 2020 | | NEPHROLOGY [place] | [address] [place] | hypertension | | | | [address] | [address] [place], [place] | (Primary Dx); CKD | | | | [address] [place] | [id number] | (chronic kidney | | | | [place], [place] | | disease) stage 3, | | | | [address] | | GFR 30-59 ml/min | | | | [phone] | | (HCC); Persistent | | | | | | proteinuria | +--------+ + + + + Social [...] as of this encounter Plan of Treatment + +---------+--------+ + + | Name | Type | Priori | Associated Diagnoses | Order Schedule | | | | ty | | | + +---------+--------+ + + | US Renal Complete | Imaging | Routin | Essential | Expected: | | | | e | hypertension CKD | 10/07/2019, Expires: | | | | | (chronic kidney | 10/06/2020 | | | | | disease) stage 3, | | | | | | GFR 30-59 ml/min | | | | | | ([facility]) Persistent | | | | | | proteinuria | | + +---------+--------+ + + | Protein/Creatinine | Lab | Routin | Essential | Expected: | | Ratio, Urine | | e | hypertension CKD | 02/06/2020, Expires: | | | | | (chronic kidney | 10/06/2020 | | | | | disease) stage 3, | | | | | | GFR 30-59 ml/min | | | | | | ([facility]) Persistent | | | | | | proteinuria | | + +---------+--------+ + + documented as of this encounter Results Parathyroid Hormone, Intact (02/02/2020 3:34 PM PDT) + + + + + + | Component | Value | Ref Range | Performed | Pathologist | | | | | At | Signature | + + + + + + | PTH Intact | 73 (A)Comment: 73.29 | 15 - 65 pg/mL | REFERENCE | | | | | | LAB | | | | | | [facility] | | | | | | LABORATORY | | + + + + + + + + | Specimen | + + | Blood | + + + + + + + | Performing | Address | City/State/Zipcode | Phone Number | | Organization | | | | + + + + + | REFERENCE LAB | [address] | [place], [place] | [phone] | | [facility] | [address] | [address] | | | LABORATORY | | | | + + + + + | REFERENCE LAB | [address] | [place], [place] | | | [facility] | [address] | [address] | | | LABORATORY | | | | + + + + + CBC with Differential (02/02/2020 3:34 PM PDT) + + + + + + | Component | Value | Ref Range | Performed | Pathologist | | | | | At | Signature | + + + + + + | WBC | 6.9 | 4.5 - 11.0 | REFERENCE | | | | | 10*3/uL | LAB | | | | | | [facility] | | | | | | LABORATORY | | + + + + + + | Red Blood | 3.85 | 3.80 - 5.10 | REFERENCE | | | Cells | | M/uL | LAB | | | | | | [facility] | | | | | | LABORATORY | | + + + + + + | Hemoglobin | 11.9 (A) | 12.0 - 16.0 | REFERENCE | | | | | g/dL | LAB | | | | | | [facility] | | | | | | LABORATORY | | + + + + + + | Hematocrit | 35.7 | 35.0 - 45.0 % | REFERENCE | | | | | | LAB | | | | | | [facility] | | | | | | LABORATORY | | + + + + + + | MCV | 92.5 | 81.0 - 99.0 fL | REFERENCE | | | | | | LAB | | | | | | [facility] | | | | | | LABORATORY | | + + + + + + | MCH | 31.0 | 27.0 - 33.0 pg | REFERENCE | | | | | | LAB | | | | | | [facility] | | | | | | LABORATORY | | + + + + + + | MCHC | 33.0 | 30.0 - 36.0 | REFERENCE | | | | | g/dL | LAB | | | | | | [facility] | | | | | | LABORATORY | | + + + + + + | RDW-SD | 14.7 | 10.5 - 15.0 | REFERENCE | | | | | | LAB | | | | | | [facility] | | | | | | LABORAT[facility] | | + + + + + + | Platelet | 263 | 140 - 440 K/uL | REFERENCE | | | Count | | | LAB | | | | | | [facility] | | | | | | LABORATORY | | + + + + + + | % | 78.3 | 39.0 - 80.0 % | REFERENCE | | | Neutrophils | | | LAB | | | | | | [facility] | | | | | | LABORATORY | | + + + + + + | % | 15.3 (A) | 24.0 - 44.0 % | REFERENCE | | | Lymphocytes | | | LAB | | | | | | [facility] | | | | | | LABORAT[facility] | | + + + + + + | Monocyte % | 5.3 | 0 - 12 | REFERENCE | | | | | | LAB | | | | | | [facility] | | | | | | LABORAT[facility] | | + + + + + + | Eosinophils | 0.6 | 0 - 6 | REFERENCE | | | % | | | LAB | | | | | | [facility] | | | | | | LABORATORY | | + + + + + + | Basophils % | 0.5 | 0 - 2 | REFERENCE | | | | | | LAB | | | | | | [facility] | | | | | | LABORATORY | | + + + + + + + + | Specimen | + + | Blood | + + + + + + + | Performing | Address | City/State/Zipcode | Phone Number | | Organization | | | | + + + + + | REFERENCE LAB | [address] | [place] | [phone] | | [facility] | [address] | [address] | | | LABORATORY | | | | + + + + + | REFERENCE LAB | [address] | [place] | | | [facility] | [address] | [address] | | | LABORATORY | | | | + + + + + Renal Function Panel (02/02/2020 3:34 PM PDT) + + + + + + | Component | Value | Ref Range | Performed | Pathologist | | | | | At | Signature | + + + + + + | Na | 133 | 132 - 143 | REFERENCE | | | | | mmol/L | LAB | | | | | | [facility] | | | | | | LABORAT[facility] | | + + + + + + | K | 4.2 | 3.6 - 5.1 | REFERENCE | | | | | mmol/L | LAB | | | | | | [facility] | | | | | | LABORATORY | | + + + + + + | Cl | 95 | 95 - 112 mmol/L | REFERENCE | | | | | | LAB | | | | | | [facility] | | | | | | LABORATORY | | + + + + + + | CO2 | 25 | 19 - 31 mmol/L | REFERENCE | | | | | | LAB | | | | | | [facility] | | | | | | LABORAT[facility] | | + + + + + + | Anion Gap | 17 | 7 - 21 mmol/L | REFERENCE | | | | | | LAB | | | | | | [facility] | | | | | | LABORAT[facility] | | + + + + + + | Glucose | 179 (A) | 70 - 100 mg/dL | REFERENCE | | | | | | LAB | | | | | | [facility] | | | | | | LABORATORY | | + + + + + + | BUN | 40 (A) | 6 - 23 mg/dL | REFERENCE | | | | | | LAB | | | | | | [facility] | | | | | | LABORATORY | | + + + + + + | Creatinine | 1.85 (A) | 0.70 - 1.11 | REFERENCE | | | | | mg/dL | LAB | | | | | | [facility] | | | | | | LABORATORY | | + + + + + + | Calcium | 8.7 | 8.5 - 10.3 | REFERENCE | | | | | mg/dL | LAB | | | | | | [facility] | | | | | | LABORATORY | | + + + + + + | Albumin | 3.6 | 3.5 - 5.0 g/dL | REFERENCE | | | | | | LAB | | | | | | [facility] | | | | | | LABORATORY | | + + + + + + | Phosphorus | 3.8 | 2.5 - 5.0 mg/dL | REFERENCE | | | | | | LAB | | | | | | [facility] | | | | | | LABORATORY | | + + + + + + | Estimated | 26.0 (A) | 60.0 - 140.0 | REFERENCE | | | GFR | | mL/min/1.73m2 | LAB | | | | | | [facility] | | | | | | LABORATORY | | + + + + + + | BUN/Creatin | 21.6 | 6.0 - 28.6 | REFERENCE | | | ine Ratio | | | LAB | | | | | | [facility] | | | | | | LABORATORY | | + + + + + + + + | Specimen | + + | Blood | + + + + + + + | Performing | Address | City/State/Zipcode | Phone Number | | Organization | | | | + + + + + | REFERENCE LAB | [address] | [place] | [phone] | | [facility] | [address] | [address] | | | LABORATORY | | | | + + + + + | REFERENCE LAB | [address] | [place] | | | [facility] | [address] | [address] | | | LABORATORY | | | | + + + + + documented in this encounter Visit Diagnoses + + | Diagnosis | + + | Essential hypertension - Primary Unspecified essential hypertension | + + | CKD (chronic kidney disease) stage 3, GFR 30-59 ml/min (HCC) Chronic kidney disease, | | Stage III (moderate) | + + | Persistent proteinuria Proteinuria | + + documented in this encounter"
--- OUTSIDE RECORDS SUMMARY | ~2020-02-18 | XMS | Encounter Summary ---
Demographics + + + | Address | [address] | | | [place] [address] | + + + | Home Phone | | + + + | Preferred Language | Unknown | + + + | Marital Status | | + + + | Uatsdin Affiliation | 1073 | + + + | Race | Unknown | + + + | Ethnic Group | Unknown | + + + Author + + + | Author | [facility] | | | and [place] | + + + | Organization | [facility] | | | and [...] Team Providers + +------+ + | Care Director Medical Economics Name | Role | Phone | + +------+ + | Chinmay Driscoll MD | PCP | | + +------+ + Encounter Details +--------+ + + + + | Date | Type | Department | Care Team | Description | +--------+ + + + + | 09/03/ | Hospital | [facility] | Will Rodriguez MD | S/P lumbar fusion | | 2014 | Encounter | MED CTR XRAY [address] | [address] | | | | | [place] | [place] [address] | | | | | [place] [address] | [phone] | | | | | [phone] | | | +--------+ + + + [...] + + documented as of this encounter Medications at Time of Discharge + + + +---------+--------+ + | Medication | Sig | Dispensed | Refills | Start | End Date | | | | | | Date | | + + + +---------+--------+ + | diltiazem | Take 360 mg by mouth | | 0 | | | | (CARDIZEM CD) 360 MG | Daily. | | | | | | 24 hr capsule | | | | | | + + + +---------+--------+ + | diphenhydrAMINE | Take 25 mg by mouth | | 0 | | | | (BENADRYL) 25 mg | as needed. | | | | | | tablet | | | | | | + + + +---------+--------+ + | levothyroxine | Take 50 mcg by mouth | | 0 | | | | (SYNTHROID, | every morning | | | | | | LEVOTHROID) 50 mcg | (before breakfast). | | | | | | tablet | | | | | | + + + +---------+--------+ + | loperamide | Take 2 mg by mouth | | 0 | | | | (IMODIUM) 2 mg | as needed. | | | | | | capsule | | | | | | + + + +---------+--------+ + | metoprolol | Take 25 mg by mouth | | 0 | | | | succinate | Daily. 1 tablet once | | | | | | (TOPROL-XL) 25 mg 24 | per day | | | | | | hr tablet | | | | | | + + + +---------+--------+ + | Multiple | Take by mouth | | 0 | | | | Vitamins-Minerals | Daily. | | | | | | (CENTRUM SILVER PO) | | | | | | + + + +---------+--------+ + | terazosin (HYTRIN) | Take 10 mg by mouth | | 0 | | | | 5 mg capsule | nightly. | | | | | + + + +---------+--------+ + | Ascorbic Acid | Take 1 tablet by | | 0 | | | | (VITAMIN C PO) | mouth Daily. | | | | 0 | + + + +---------+--------+ + | cromolyn | 1 spray by Nasal | | 0 | | | | (NASALCROM) 5.2 | route Daily as | | | | 0 | | MG/ACT nasal spray | needed. | | | | | + + + +---------+--------+ + | cyclobenzaprine | Take 5 mg by mouth 3 | | 0 | | | | (FLEXERIL) 10 mg | times daily as | | | | 8 | | tablet | needed. | | | | | + + + +---------+--------+ + | | Take 0.5 tablets by | | 0 | | | | HYDROcodone-acetamin | mouth every 6 hours | | | | 8 | | ophen (NORCO) 5-325 | as needed. | | | | | | mg per tablet | | | | | | + + + +---------+--------+ + | metFORMIN | Take 1,000 mg by | | 0 | | | | (GLUCOPHAGE) 500 mg | mouth 2 times daily | | | | 0 | | tablet | (with breakfast & | | | | | | | dinner). | | | | | + + + +---------+--------+ + | rivaroxaban | Take 20 mg by mouth | | 0 | | | | (XARELTO) 20 mg | Daily (with dinner). | | | | 8 | | tablet | | | | | | + + + +---------+--------+ + | telmisartan | Take 80 mg by mouth | | 0 | | | | (MICARDIS) 80 MG | Daily. | | | | 0 | | tablet | | | | | | + + + +---------+--------+ + documented as of this encounter Plan of Treatment Not on filedocumented as of this encounter Procedures + +--------+ + + + | Procedure Name | Priori | Date/Time | Associated Diagnosis | Comments | | | ty | | | | + +--------+ + + + | XR LUMBAR SPINE 2 OR | Routin | 09/03/2013 | S/P lumbar fusion | Results for this | | 3 VW | e | 4:06 PM | | procedure are in the | | | | PST | | results section. | + +--------+ + + + documented in this encounter Results XR Lumbar Spine 2 or 3 Vw (09/03/2013 4:06 PM PST) + + | Specimen | + + | | + + + + + | Narrative | Performed At | + + + | [facility] | [place] | | Department [address], [place] | [facility] | | [ [id number]] [ [address] [facility] | | zip] Signed | - IMAGING | | | | | Patient Name: DILSHAD ARCOS Physician: | | | : 1935 Age: 77 Sex: F Unit #: [id number] | | | Exam Date: 09/03/13 Location: [facility] [place] | | | Report #: [id number] Page: | | | %(RAD)RES..mtdd.print.filter("pg") of %(RAD) | | | RES..mtdd.print.filter("tpg") | | | | | | Accession Number: [id number] | | | TWO VIEWS LUMBAR SPINE FROM 09/03/2013 CLINICAL HISTORY: | | | FOLLOWUP LUMBAR FUSION. COMPARISON: Lumbar radiographs | | | 07/29/2013 and 01/20/2013, lumbar MRI 12/20/2012. FINDINGS: | | | Five vhz-[id number], lumbar-type vertebrae are suggested. There | | | is persistent leftward lumbar curvature. Interbody and posterior | | | janie and pedicle screw fusion hardware remains in similar, | | | satisfactory position and alignment at L4-5. There is stable, mild | | | compression deformity of the superior L1 vertebral end plate. | | | Lumbar vertebral height and alignment are otherwise maintained, | | | without evidence of recent fracture. Moderate disk space narrowing | | | and vertebral spondylosis are again evident asymmetrically on the | | | right at L3-4. Sacroiliac joints and imaged sacrum are | | | unremarkable. Left hip arthroplasty hardware is only minimally | | | imaged. Moderate to severe narrowing of the right hip joint is | | | suggested. There is prominent vascular calcification in the region | | | of the splenic artery. An ovoid calcification projecting anterior | | | and superior to the right sacral ala is unchanged dating back to | | | 12/17/2012, but difficult to further characterize. Moderate retained | | | stool is present in the imaged colon. IMPRESSION: 1. 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 2. | | | MODERATE COLONIC STOOL RETENTION. 3. 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 Dictated Date/Time: | | | 09/03/2013 16:06 Transcribed Date/Time: 09/03/2013 16:17 | | | Wind Turbine Erector: SharonANTOINE <<Signature on File>> | | | Eulogio | | | Constantine Cerda MD09/03/13 6786 <Electronically signed by Eulogio Cerda | | | MD> Eulogio Cerda MD 09/03/13 1606 Wind Turbine Erector: | | | [employer] [id number]/12/14 1617 LAVINIA Holder | | | | | + + + + + + + + | Performing | Address | City/State/Zipcode | Phone Number | | Organization | | | | + + + + + | [facility] | [address] | [place], [place] | [phone] | | [facility] | | [address] | | | - IMAGING | | | | + + + + + documented in this encounter Visit Diagnoses + + | Diagnosis | + + | S/P lumbar fusion Arthrodesis status | + + documented in this encounter
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
--- OUTSIDE RECORDS SUMMARY | ~2020-02-18 | XMS | Encounter Summary ---
Demographics + + + | Address | [address] | | | [place] [address] | + + + | Home Phone | | + + + | Preferred Language | Unknown | + + + | Marital Status | | + + + | Muslim Affiliation | 1073 | + + + | Race | Unknown | + + + | Ethnic Group | Unknown | + + + Author + + + | Author | [facility] | | | and [place] | + + + | Organization | [facility] | | | and [...] Team Providers + +------+ + | Care Beveller Operator Name | Role | Phone | [...] + | 04/25/ | Office | [facility] | Joni Sepulveda, | Atrial fibrillation | | 2012 | Visit | CARDIOLOGY [address] | [address] [facility] | ([facility]) (Primary Dx); | | | | [place], | [place], | Preoperative | | | | [place] [address] | [place] [address] | clearance | | | | [phone] | [phone] | | | | | | | [...] Date of Service: 04/25/2013 Patient ID: Gia Arcso is a 77 y.o. female. PCP: Chinmay [...] [facility] [place] B. Patient was first diagnosed with [...] made to ensure accuracy; however, inadvertent computerized ground surveillance systems operator errors may be pre sent. documented in this encounter Plan of Treatment Not on filedocumented as of this encounter Visit Diagnoses + + | Diagnosis | + + | Atrial fibrillation (HCC) - Primary Atrial fibrillation | + + | Preoperative clearance Preoperative examination, unspecified | + + documented in this encounter
--- OUTSIDE RECORDS SUMMARY | ~2020-02-18 | XMS | Encounter Summary ---
Demographics + + + | Address | [address] | | | [place] [address] | + + + | Home Phone | | + + + | Preferred Language | Unknown | + + + | Marital Status | | + + + | Gnosticist Affiliation | 1073 | + + + | Race | Unknown | + + + | Ethnic Group | Unknown | + + + Author + + + | Author | [facility] | | | and [place] | + + + | Organization | [facility] | | | and [place] | + + + | Address | Unknown | + + + | Phone | Unavailable | + + + Support + + +---------+ + | Name | Relationship | Address | Phone | + + +---------+ + | Indy Bee | ECON | Unknown | | + + +---------+ + | Rachel Linda | ECON | Unknown | | + + +---------+ + Care Team Providers + +------+ + | Care Talend Developer Name | Role | Phone | + +------+ + | Chinmay Driscoll MD | PCP | | + +------+ + Reason for Visit +--------+--------+ + | Reason | Onset | Comments | | | Date | | +--------+--------+ + | Other | 05/13/ | cardiac clearance | | | 2012 | | +--------+--------+ + Encounter Details +--------+ + + + + | Date | Type | Department | Care Team | Description | +--------+ + + + + | 05/13/ | Telephone | [facility] | Will Rodriguez MD | Other (cardiac | | 2012 | | NEUROSURGERY [address] | [address] | clearance) | | | | [facility] [address] | [place] [address] | | | | | [place] | [phone] | | | | | [address] | | | | | | [phone] | | | +--------+ + + + [...] this encounter Miscellaneous Notes Telephone Encounter - Desiree [place]ahn - 05/13/2013 11:00 AM PDTCarol and Rod are updat ed at this time. Scheduled Gia to see LAVINIA Leija on 06/06/13 to update medical informat ion and discuss final surgical plan-she hasn't been seen in the office since 03/18/13. Desiree Hahn elephone Encounter - Tate Barrientos PA-C - 05/13/2013 10:42 AM PDTPatient has been cleared by cardiology a nd we will plan to proceed with surgery plans at this time elephone Encounter - Desiree Hahn - 2012 10:35 AM PDTRod Bain calls to follow-up and find out if Dr. Rodriguez has reviewed Gia's cardiology notes to determine if Gia has been cleared for surgery. Please advise further. Desriee [place]ahn documented in this enc ounter Plan of Treatment Not on filedocumented as of this encounter Visit Diagnoses Not on filedocumented in this encounter"
--- OUTSIDE RECORDS SUMMARY | ~2020-02-18 | XMS | Encounter Summary ---
Demographics + + + | Address | [address] | | | [place] [address] | + + + | Home Phone | | + + + | Preferred Language | Unknown | + + + | Marital Status | | + + + | Yarsanism Affiliation | 1073 | + + + | Race | Unknown | + + + | Ethnic Group | Unknown | + + + Author + + + | Author | [facility] | | | and [place] | + + + | Organization | [facility] | | | [...] Team Providers + +------+ + | Care Litigation Legal Assistant Name | Role | Phone | + +------+ + | Chinmay Driscoll MD | PCP | | + +------+ + Encounter Details +--------+ + + + + | Date | Type | Department | Care Team | Description | +--------+ + + + + | 07/09/ | Hospital | [facility] | Will Rodriguez MD | | | 2012 | Encounter | MED CTR LAB[facility]ATORY | [address] | | | | | [address] | [place] [address] | | | | | [place] | [phone] | | | | | [address] | | | | | | [phone] | | | +--------+ + + + [...] | + + + +---------+--------+ + | Calcium | Take by mouth. | | 0 | | | | Citrate-Vitamin D | Citracal Caplets | | | | 4 | | (CITRACAL/VITAMIN D | Plus D 315 mg-200 | | | | | | PO) | intl units tablet 2 | | | | | | | tabs every day | | | | | + + [...] | + + + +---------+--------+ + | digoxin (LANOXIN) | Take 250 mcg by | | 0 | | | | 250 mcg tablet | mouth Daily. 07/24 | | | | 4 | | | tablet by mouth | | | | | | | daily | | | | | + + + +---------+--------+ + | DOCUSATE SODIUM | by Does not apply | | 0 | | | | | route as needed. | | | | 4 | + + + +---------+--------+ + | [...] | + + + +---------+--------+ + | potassium chloride | Take 10 mEq by mouth | | 0 | | | | (KLOR-CON 10) 10 | Daily. Take 1 | | | | 4 | | mEq CR tablet | tablet PO twice | | | | | | | daily | | | | | + + [...] + + +---------+--------+ + | | Take 1 tablet by | | 0 | | | | triamterene-hydrochl | mouth Daily. | | | | 4 | | orothiazide | | | | | | | (MAXZIDE-25) 37.5-25 | | | | | | | mg [...] + +--------+ + + + | XR CHEST PA AND | Routin | 07/09/2013 | | Results for this | | LATERAL | e | 1:17 PM | | procedure are in the | | | | PST | | results section. | + +--------+ + + + | PTT | Routin | 07/09/2013 | | Results for this | | | e | 11:50 AM | | procedure are in the | | | | PST | | results section. | + +--------+ + + + | PROTIME INR | Routin | 07/09/2013 | | Results for this | | | e | 11:50 AM | | procedure are in the | | | | PST | | results section. | + +--------+ + + + | CBC NO DIFFERENTIAL | Routin | 07/09/2013 | | Results for this | | | e | 11:50 AM | | procedure are in the | | | | PST | | results section. | + +--------+ + + + | COMPREHENSIVE | Routin | 07/09/2013 | | Results for this | | METABOLIC PANEL | e | 11:50 AM | | procedure are in the | | | | PST | | results section. | + +--------+ + + + documented in this encounter Results XR Chest PA and Lateral (07/09/2013 1:17 PM PST) + + | Specimen | + + | | + + + + + | Narrative | Performed At | + + + | [facility] | [facility] [place] | | Department [address] | | [ rep ct marfa1+2] [ rep [facility] | | [facility]] Signed | - IMAGING | | | | | Patient Name: DILSHAD ARCOS Physician: | | | D. : 1935 Age: 77 Sex: F Unit #: [id number] | | | Exam Date: 07/09/13 Location: LAB | | | Report #: [id number] Page: | | | %(RAD)RES..mtdd.print.filter("pg") of %(RAD) | | | RES..mtdd.print.filter("tpg") | | | | | | Accession Number: [id number] | | | CHEST X-RAY CLINICAL HISTORY: PREOPERATIVE CHEST | | | X-RAY. COMPARISON: None. FINDINGS: PA | | | and lateral views of the chest were obtained. There is | | | mild to moderate scarring of the bilateral lung bases. The heart is | | | enlarged. The aorta is tortuous with the presence of | | | atherosclerosis. Mild dextroscoliosis is visualized of the | | | thoracolumbar spine. There is mild spondylosis of the thoracic spine | | | and lumbar spine. Diffuse osteopenia is noted. | | | IMPRESSION: 1. NO ACUTE FINDINGS. 2. CARDIOMEGALY. | | | Dictated Date/Time: 07/09/2013 13:17 Transcribed | | | Date/Time: 07/09/2013 13:23 Tab Cutting Machine Operator: | | | <<Signature on File>> | | | Jair | | | MD Merrill07/09/13 2576 <Electronically signed by Jair Momin MD> | | | Jair Momin MD 07/09/13 1317 Tab Cutting Machine Operator: South | | | Dzdsalpgmuave77/18/13 1323 Will Rodriguez MD | | + + + + + + + + | Performing | Address | City/State/Zipcode | Phone Number | | Organization | | | | + + + + + | [facility] | [address] | [place] | [phone] | | [facility] | | [address] | | | - IMAGING | | | | + + + + + PTT (07/09/2013 11:50 AM PST) + + + + + + | Component | Value | Ref Range | Performed | Pathologist | | | | | At | Signature | + + + + + + | aPTT | 29.5Comment: Normal | 22.1 - 36.0 | [facility] | | | | Patient Mean Value: 29.0 | seconds | [facility] | | | | secondsIS THIS PATIENT | | MEDICAL | | | | ON HEPARIN PROTOCOL? Y | | CENTER - | | | | | | LABORATORY | | + + + + + + + + | Specimen | + + | | + + + + + + + | Performing | Address | City/State/Zipcode | Phone Number | | Organization | | | | + + + + + | [facility] | [address] | [place], [place] | [phone] | | [facility] | | [address] | | | - LABORATORY | | | | + + + + + | [facility] | [address] | [place] | | | [facility] | | [id number] | | | - LABORATORY | | | | + + + + + Protime INR (07/09/2013 11:50 AM PST) + + + + + + | Component | Value | Ref Range | Performed | Pathologist | | | | | At | Signature | + + + + + + | Prothrombin | 16.9 (H) | 11.3 - 13.9 | [facility] | | | Time | | seconds | [facility] | | | | | | MEDICAL | | | | | | CENTER - | | | | | | LABORATORY | | + + + + + + | PATIENT | 13.1 | seconds | [facility] | | | NORMAL MEAN | | | [facility] | | | | | | MEDICAL | | | | | | CENTER - | | | | | | LABORATORY | | + + + + + + | INR | 1.4 (H)Comment: INR: | 0.9 - 1.1 | [facility] | | | | USUAL ORAL | | [facility] | | | | ANTICOAGULATION RANGE | | MEDICAL | | | | 2.0-3.0 | | CENTER - | | | | HIGH LEVEL ORAL | | LABORATORY | | | | ANTICOAGULATION RANGE | | | | | | 2.5-3.5 | | | | + + + + + + + + | Specimen | + + | | + + + + + + + | Performing | Address | City/State/Zipcode | Phone Number | | Organization | | | | + + + + + | [facility] | [address] | [place] | [phone] | | [facility] | | [address] | | | - LABORATORY | | | | + + + + + | [facility] | [address] | [place], [place] | | | [facility] | | [address] | | | - LABORATORY | | | | + + + + + CBC no Differential (07/09/2013 11:50 AM PST) + +---------+ + + + | Component | Value | Ref Range | Performed | Pathologist | | | | | At | Signature | + +---------+ + + + | White Blood | 6.0 | 4.0 - 11.0 K/uL | [facility] | | | Cells | | | [facility] | | | | | | MEDICAL | | | | | | CENTER - | | | | | | LABORATORY | | + +---------+ + + + | Red Blood | 4.25 | 3.70 - 5.20 | [facility] | | | Cells | | M/uL | [facility] | | | | | | MEDICAL | | | | | | CENTER - | | | | | | LABORATORY | | + +---------+ + + + | Hemoglobin | 13.6 | 11.5 - 16.0 | [facility] | | | | | gm/dL | [facility] | | | | | | MEDICAL | | | | | | CENTER - | | | | | | LABORATORY | | + +---------+ + + + | Hematocrit | 40.7 | 34.0 - 47.0 % | [facility] | | | | | | [facility] | | | | | | MEDICAL | | | | | | CENTER - | | | | | | LABORATORY | | + +---------+ + + + | MCV | 95.8 | 83.0 - 101.0 fL | [facility] | | | | | | [facility] | | | | | | MEDICAL | | | | | | CENTER - | | | | | | LABORATORY | | + +---------+ + + + | MCH | 31.9 | 28.0 - 35.0 pg | [facility] | | | | | | [facility] | | | | | | MEDICAL | | | | | | CENTER - | | | | | | LABORATORY | | + +---------+ + + + | MCHC | 33.3 | 32.0 - 36.0 | [facility] | | | | | g/dL | [facility] | | | | | | MEDICAL | | | | | | CENTER - | | | | | | LABORATORY | | + +---------+ + + + | RDW-CV | 13.1 | <15.0 % | [facility] | | | | | | [facility] | | | | | | MEDICAL | | | | | | CENTER - | | | | | | LABORATORY | | + +---------+ + + + | Platelet | 137 (L) | 140 - 440 K/uL | [facility] | | | Count | | | [facility] | | | | | | MEDICAL | | | | | | CENTER - | | | | | | LABORATORY | | + +---------+ + + + + + | Specimen | + + | | + + + + + + + | Performing | Address | City/State/Zipcode | Phone Number | | Organization | | | | + + + + + | [facility] | [address] | [place] | [phone] | | [facility] | | [address] | | | - LABORATORY | | | | + + + + + | [facility] | [address] | [place] | | | [facility] | | [id number] | | | - LABORATORY | | | | + + + + + Comprehensive Metabolic Panel (07/09/2013 11:50 AM PST) + + + + + + | Component | Value | Ref Range | Performed | Pathologist | | | | | At | Signature | + + + + + + | Glucose | 129 (H) | 70 - 109 mg/dL | [facility] | | | | | | [facility] | | | | | | MEDICAL | | | | | | CENTER - | | | | | | LABORATORY | | + + + + + + | Calcium | 10.0 | 8.3 - 10.5 | [facility] | | | | | mg/dL | [facility] | | | | | | MEDICAL | | | | | | CENTER - | | | | | | LABORATORY | | + + + + + + | Alkaline | 87 | 40 - 110 IU/L | [facility] | | | Phosphatase | | | [facility] | | | | | | MEDICAL | | | | | | CENTER - | | | | | | LABORATORY | | + + + + + + | AST | 15 | 10 - 42 IU/L | [facility] | | | | | | [facility] | | | | | | MEDICAL | | | | | | CENTER - | | | | | | LABORATORY | | + + + + + + | ALT | 15 | 6 - 45 IU/L | [facility] | | | | | | [facility] | | | | | | MEDICAL | | | | | | CENTER - | | | | | | LABORATORY | | + + + + + + | Bilirubin | 1.0 | 0.2 - 1.0 mg/dL | [facility] | | | Total | | | [facility] | | | | | | MEDICAL | | | | | | CENTER - | | | | | | LABORATORY | | + + + + + + | Total | 6.2 | 6.0 - 7.8 gm/dL | [facility] | | | Protein | | | [facility] | | | | | | MEDICAL | | | | | | CENTER - | | | | | | LABORATORY | | + + + + + + | Albumin | 3.8 | 3.2 - 5.0 gm/dL | [facility] | | | | | | [facility] | | | | | | MEDICAL | | | | | | CENTER - | | | | | | LABORATORY | | + + + + + + | BUN | 26 (H) | 7 - 18 mg/dL | [facility] | | | | | | [facility] | | | | | | MEDICAL | | | | | | CENTER - | | | | | | LABORATORY | | + + + + + + | Creatinine | 1.31 (H) | 0.60 - 1.30 | [facility] | | | | | mg/dL | [facility] | | | | | | MEDICAL | | | | | | CENTER - | | | | | | LABORATORY | | + + + + + + | Estimated | 39 (L)Comment: For | >60 mL/min/A | [facility] | | | GFR | -Americans, | | [facility] | | | | please multiply the | | MEDICAL | | | | result by 1.210 | | CENTER - | | | | This is an estimated GFR | | LABORATORY | | | | and is based on a | | | | | | standard adult | | | | | | body mass (A=1.73m2) and | | | | | | serum creatinine | | | | + + + + + + | BUN/Creatin | 19.8 | 12 - 20 | [facility] | | | ine Ratio | | | [facility] | | | | | | MEDICAL | | | | | | CENTER - | | | | | | LABORATORY | | + + + + + + | Na | 139 | 136 - 149 mEq/L | [facility] | | | | | | [facility] | | | | | | MEDICAL | | | | | | CENTER - | | | | | | LABORATORY | | + + + + + + | K | 4.1 | 3.5 - 5.1 mEq/l | [facility] | | | | | | [facility] | | | | | | MEDICAL | | | | | | CENTER - | | | | | | LABORATORY | | + + + + + + | Cl | 100 | 98 - 109 mEq/l | [facility] | | | | | | [facility] | | | | | | MEDICAL | | | | | | CENTER - | | | | | | LABORATORY | | + + + + + + | CO2 | 32 (H) | 24 - 31 mEq/L | [facility] | | | | | | [facility] | | | | | | MEDICAL | | | | | | CENTER - | | | | | | LABORATORY | | + + + + + + | Anion Gap | 11.1 | 6.0 - 17.0 | [facility] | | | | | | [facility] | | | | | | MEDICAL | | | | | | CENTER - | | | | | | LABORATORY | | + + + + + + + + | Specimen | + + | | + + + + + + + | Performing | Address | City/State/Zipcode | Phone Number | | Organization | | | | + + + + + | [facility] | [address] | [place] | [phone] | | [facility] | | [address] | | | - LABORATORY | | | | + + + + + | [facility] | [address] | [place] | | | [facility] | | [id number] [place] [address] | | | - LABORATORY | | | | + + + + + documented in this encounter Visit Diagnoses Not on filedocumented in this encounter
--- OUTSIDE RECORDS SUMMARY | ~2020-02-18 | XMS | Encounter Summary ---
Demographics + + + | Address | [address] | | | [place] [address] | + + + | Home Phone | | + + + | Preferred Language | Unknown | + + + | Marital Status | | + + + | Faith Affiliation | 1073 | + + + [...] Team Providers + +------+ + | Care Neck Pinner Name | Role | Phone | + +------+ + | Chinmay Driscoll MD | PCP | | + +------+ + Encounter Details +--------+ + + + + | Date | Type | Department | Care Team | Description | +--------+ + + + + | 09/03/ | Hospital | [facility] | Will Rodriguez MD | S/P lumbar fusion | | 2014 | Encounter | MED CTR XRAY [address] | | | | | [address] | [place] [address] | | | | | [place] [address] | [phone] | | | | | [phone] | | | +--------+ + + + [...] Performed At | + + + | [facility] | [place] | | Department [address] [facility], [place] | [facility] | | [ rep ct [address]] [ rep ct [facility] | | zip] Signed | - IMAGING | | | | | Patient Name: DILSHAD ARCOS Physician: | | | : 1935 Age: 77 Sex: F Unit #: [id number] | | | Exam Date: 09/03/13 Location: [facility] | | | Report #: [id number] Page: | | | %(RAD)RES..mtdd.print.filter("pg") of %(RAD) | | | RES..mtdd.print.filter("tpg") | | | | | | Accession Number: [id number] | | | TWO VIEWS LUMBAR SPINE FROM 09/03/2013 CLINICAL HISTORY: | | | FOLLOWUP LUMBAR FUSION. COMPARISON: Lumbar radiographs | | | 07/29/2013 and 01/20/2013, lumbar MRI 12/20/2012. FINDINGS: | | | Five hbr-lsh-msgsrsd, lumbar-type vertebrae are suggested. There | | [...] Transcribed Date/Time: 09/03/2013 16:17 | | | Piping Supervisor: SharonANTOINE <<Signature on File>> | | | Eulogio | | | Constantine Cerda MD09/03/13 4216 <Electronically signed by Eulogio Cerda | | | MD> Eulogio Cerda MD 09/03/13 1606 Piping Supervisor: | | | NuORDERx Muzelhnolvkke33/12/14 1617 LAVINIA Holder | | | | | + + + + + + + + | Performing | Address | City/State/Zipcode | Phone Number | | Organization | | | | + + + + + | [facility] | [address] | [place], [place] | [phone] | | [facility] | | [address] | | | - IMAGING | | | | + + + + + documented in this encounter Visit Diagnoses + + | Diagnosis | + + | S/P lumbar fusion Arthrodesis status | + + documented in this encounter
--- OUTSIDE RECORDS SUMMARY | ~2020-02-18 | XMS | Encounter Summary ---
Demographics + + + | Address | [address] | | | [place] [address] | + + + | Home Phone | | + + + | Preferred Language | Unknown | + + + | Marital Status | | + + + | Jehovah'S Witness Affiliation | 1073 | + + + | Race | Unknown | + + + | Ethnic Group | Unknown | + + + Author + + + | Author | [facility] | | | and [place] | + + + | Organization | [facility] | | | [...] Team Providers + +------+ + | Care Gang Worker Name | Role | Phone | + +------+ + | Tino Salmeron DO | PCP | | + +------+ + Encounter Details +--------+ + + + + | Date | Type | Department | Care Team | Description | +--------+ + + + + | 04/25/ | Orders Only | [facility] | Joni Sepulveda, | A-fib ([facility]) | | 2012 | | CARDIOLOGY [address] | MD [address] | | | | | [place], | [place], | | | | | [place] [address] | [place] [address] | | | | | [phone] | [phone] | | | | | | | | +--------+ + + + [...] + | Diagnosis | + + | A-fib (HCC) Atrial fibrillation | + + documented in this encounter"
--- OUTSIDE RECORDS SUMMARY | ~2020-02-18 | XMS | Encounter Summary ---
Demographics + + + | Address | [address] | | | [place] [address] | + + + | Home Phone | | + + + | Preferred Language | Unknown | + + + | Marital Status | | + + + | Baptist Affiliation | 1073 | + + + [...] Team Providers + +------+ + | Care Computer Engineering Technologist Name | Role | Phone | + +------+ + | Tino Salmeron DO | PCP | | + +------+ + Encounter Details +--------+ + + + + | Date | Type | Department | Care Team | Description | +--------+ + + + + | 10/06/ | Orders Only | [facility] | Homero Soto MD | Essential | | 2020 | | NEPHROLOGY [place] | [address] [place] | hypertension | | | | [address] | [address] [place], [place] | (Primary Dx); CKD | | | | [address] [place] [address] | [address] | (chronic kidney | | | | [place], [place] | | disease) stage 3, | | | | [address] | | GFR 30-59 ml/min | | | | [phone] | | (HCC); Persistent | | | [...] ml/min | | | | | | ([facility]) Persistent | | | | | | [...] ml/min | | | | | | ([facility]) Persistent | | | | | | [...] REFERENCE LAB | [address] | [place], [place] | [phone] | | [facility] | [address] | [address] | | | LABORATORY | | | | + + + + + | REFERENCE LAB | [address] | [place], [place] | | | [facility] | [address] | [address] | | | LABORATORY | | | [...] + + | REFERENCE LAB | [address] | [place] | [phone] | | [facility] | Bl[address] | [address] | | | LABORATORY | | | | + + + + + | REFERENCE LAB | [address] | [place] | | | [facility] | [address] | [address] | | | LABORATORY | | | [...] [address] | [place] | [phone] | | [facility] | Bl[address] | [address] | | | LABORATORY | | | | + + + + + | REFERENCE LAB | [address] | [place] | | | [facility] | [address] | [address] | | | LABORATORY | | | [...]
--- OUTSIDE RECORDS SUMMARY | ~2020-02-18 | XMS | Encounter Summary ---
Demographics + + + | Address | [address] | | | [place] [address] | + + + | Home Phone | | + + + | Preferred Language | Unknown | + + + | Marital Status | | + + + | Sabianism Affiliation | 1073 | + + + | Race | Unknown | + + + | Ethnic Group | Unknown | + + + Author + + + | Author | [facility] | | | and [place] | + + + | Organization | [facility] | | | [...] Team Providers + +------+ + | Care Cutting Table Operator Name | Role | Phone | + +------+ + | Chinmay Driscoll MD | PCP | | + +------+ + Reason for Visit + + + | Reason | Comments | + + + | Follow-up | Pre-Op | + + + Encounter Details +--------+---------+ + + + | Date | Type | Department | Care Team | Description | +--------+---------+ + + + | 07/22/ | Office | [facility] | Tate Barrientos | 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 | Visit | NEUROSURGERY [address] | [address] | lumbar region with | | | | [address] [place], [place] | radiculopathy - | | | | [place], [place] | [address] | severe at L4-L5 | | | | [address] | | (Primary Dx); Lumbar | | | | [phone] | | radiculopathy - | | | [...] | | | | | | and L4-L5 | +--------+---------+ + + + Social History [...] + + + | Blood Pressure | 144/85 | 07/22/2013 11:09 AM | | | | | PST | | + + + + + | Pulse | 86 | 07/22/2013 11:09 AM | | | | | PST | | + + + + + | Temperature | - | - | | + + + + + | Respiratory Rate | 18 | 07/22/2013 11:09 AM | | | | | PST | | + + + + + | Oxygen Saturation | - | - | | + + + + + | Inhaled Oxygen | - | - | | | Concentration | | | | + + + + + | Weight | 85.7 kg (189 lb) | 07/22/2013 11:09 AM | | | | | PST | | + + + + + | Height | 167.6 cm (5' 6") | 07/22/2013 11:09 AM | | | | | PST | | + + + + + | Body Mass Index | 30.51 | 07/22/2013 11:09 AM | | | | | PST | | + + + + + documented in this encounter Patient Instructions Patient Instructions Tate Barrientos PA - 07/22/2013 11:30 AM PSTDo not eat or drink anything after midnight the night before your surgery. At this time he should be off of you r Coumadin. If you have any problems between now and that time your surgery please let us k now documented in this encounter Progress Notes Will Rodriguez MD - 08/15/2013 9:27 AM PSTI recommended for this patient that she be fitted with a brace (LSO) before surgery to improve her stability now and foa a chance for improve d compliance and familiarity with bracing after surgery. Will Rodriguez ate Barrientos PA - 07/22/2013 11:30 AM PST Arnaud Barrientos PA-C [address] [facility], [address] [place] [address] FAX: NEUROSURGERY FOLLOW-UP CHIEF COMPLAINT: Chief Complaint Patient presents with Follow-up Pre-Op HISTORY OF PRESENT ILLNESS: The patient is a 77 y.o. female with the complaint of left viral ed low back and leg pain. She is here today to discuss her upcoming next week surgery after having seen a vehicle care specialist and has obtained cardiac clearance. Patient is here to discuss her surgery. She has stopped her Coumadin at this time in anticipation of surgery next week . Patient admits that she has evidently a history of atrial fibrillation it does not soun d like she is seen a vehicle care specialist before. Her symptoms began a long time ago, but with rece nt exacerbation of symptoms about 4 months ago. Since that time the patient feel her pain h as been worsening. She rates the pain as severe. She describes the pain as a sharp, burnin g pain that starts in her left low back/buttock region and shoots down the posterior aspect of her left leg all the way down to the bottom of her foot. She recently saw Dr. Xavier brice and had an injection February 27, 2013, which has given her some relief but this has worn off . She reports that she is now able to walk, albeit very slowly. She states that she has no symptoms on her right leg. She admits that before this injection she can hardly walk and function like a normal person. She also has a little bit of numbness in her toes on both fe et, but has had this for a long time. The patient does not report any change in bowel or lisa dder function recently. She reports that the pain just comes on when it wants to and it is severe. She knows that at her age the outcome may not be as great, but she would like to kaur ve surgery because she just can't continue living this way. Her symptoms improve with heat. Her symptoms worsen with getting out of bed, walking, or sitting still. Her has tried pain medications, epidural steroid injection. PAST MEDICAL HISTORY: Past Medical History Diagnosis Date BP (high blood pressure) Diabetes mellitus Arrhythmia Hypothyroidism Arthritis Lumbar radiculopathy - primarily [...] Left hip replacement Bilateral carpal tunnel surgery CURRENT MEDICATIONS: Current Outpatient Prescriptions Medication Sig [...] tablet Take 250 mcg by mouth Daily. 1/2 tablet by mouth daily diltiazem (CARDIZEM CD) 360 MG 24 hr capsule Take 360 mg by mouth Daily. diphenhydrAMINE (BENADRYL) 25 mg tablet Take 25 mg by mouth as needed. DOCUSATE SODIUM by Does not apply route as needed. HYDROcodone-acetaminophen (NORCO) 5-325 mg per tablet Take 0.5 tablets by mouth every 6 hours as needed. HYDROcodone-acetaminophen (NORCO) 7.5-325 mg per tablet Take 1-2 tablets by mouth every 4 hours as needed for Pain. 60 tablet 1 Lactulose SOLN Take 30 mLs by mouth every 6 hours as needed (Constipation). 240 mL 1 levothyroxine (SYNTHROID, LEVOTHROID) 50 mcg tablet Take [...] PO) Take by mouth Daily. potassium chloride (KLOR-CON 10) 10 mEq CR tablet Take 10 mEq by mouth Daily. Take 1 ta blet PO twice daily rivaroxaban (XARELTO) 20 mg tablet Take 20 mg by mouth Daily (with dinner). telmisartan (MICARDIS) 80 MG tablet Take 80 mg by mouth Daily. terazosin (HYTRIN) 5 mg capsule Take 10 mg by mouth nightly. tiZANidine (ZANAFLEX) 4 mg tablet Take 1 tablet by mouth 3 times daily as needed (Muscl e Spasms). 90 tablet 3 triamterene-hydrochlorothiazide (MAXZIDE-25) 37.5-25 mg per tablet Take 1 tablet by teddy th Daily. ALLERGIES: Allergies Allergen Reactions Codeine Itching Shellfish Hives and Nausea And Vomiting Amlodipine Besylate Lisinopril Other (See Comments) cough SOCIAL HISTORY: The patient reports that she has never smoked. She has never used smokeless tobacco. She r eports that she does not drink alcohol or use illicit drugs. FAMILY HISTORY: Family History Problem Relation Age of Onset Cancer Mother Hypertension Sister REVIEW OF SYSTEMS: GENERALLY: No fever, no [...] no rheumatoid arthritis. PHYSICAL EXAMINATION: Blood pressure 144/85, pulse 86, resp. rate 18, height 1.676 m (5' 6"), weight 85.73 kg (18 9 lb). Body mass index is 30.51 kg/(m^2). GENERAL: Gia Arcos is in no acute distress with unlabored respirations. The patient do es not appear uncomfortable throughout the exam today. [...] has no apparent deficits with short or intermodal dispatcher memory. CRANIAL NERVES: II: Acuity is intact. [...] Intrinsics 5 5 Ulnar Intrinsics 5 5 Overhead Crane Operator Strength 5 5 Hip Flexion 4+ 4+ Hip Extension 4+ 4+ Knee Flexion 4+ 4+ Knee Extension 4+ 4+ Dorsiflexion 4+ 4+ Extensor Hallicus Longus 4+ 4+ Plantarflexion 5 5 SENSORY EXAM: Sensory exam [...] ASSESSMENT: NEUROSURGICAL DIAGNOSES: Encounter Diagnoses Name Primary? 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 Arcos recently had an epidural steroid injection, just a few days ago and her symptoms have improved some. Mainly, she is able to walk, but can do so very slowly, but still has severe pain. The patient has severe lumbar stenosis at the L4-5 level with a left sided radicular component. Despite her age and knowing of the risks, al ternatives and benefits, she would like to proceed with surgery. She has clearance from her PCP, but I felt cardiac evaluation would be of benefit. Patient is currently off of her Co umadin. We'll plan to start her on xarelto after her surgery We discussed the risks, alternatives, and benefits to surgical intervention with Ms. Arcos in clinic. These risks included but were not limited to , stroke, heart attack, numbne ss, weakness, paralysis, failure of fusion, failure of hardware, subsidence, adjacent segmen t degeneration, cerebrospinal fluid leak, bleeding, infection, injury to surrounding tissues and organs, injury from positioning, injury to the nerves, difficulty with breathing, diffi culty with swallowing, difficulty with voice change, and need for additional surgery. Surgical options were discussed and the technique to be employed was described in detail to her. All her questions were answered. We discussed that the goal of the surgery is to prevent progression of her disease, but it is not considered a cure. We also discussed that although some patients may obtain 100% sym ptom relief, it is realistic to anticipate that some symptoms will continue postoperatively despite a successful surgery. We also discussed that there is no guarantee that surgery will provide improvement in her c ondition, and indeed may even worsen the symptoms. We also discussed that in the course of the procedure the operative plan may be altered to include more, less, or different levels d epending upon findings in order to provide her with the best possible outcome. After long discussion today again reviewing the risks of surgery the patient would like to proceed. We will start the process of getting scheduled. She will continue to work with he r primary care provider in regards to her Coumadin management I spent 30 minutes in visit with Gia Arcos today with the majority of time spent counse lling the patient on her diagnosis, options for her care, and coordinating her care. ELECTRONICALLY SIGNED BY: Arnaud Barrientos PA-C, 07/22/2013 11:33 documented in this encounter Plan of Treatment Not on filedocumented as of this encounter Visit Diagnoses + + | Diagnosis | + + | Spinal stenosis of lumbar region with radiculopathy - severe at L4-L5 - Primary | | Spinal stenosis, lumbar region, without neurogenic claudication | + + | Lumbar radiculopathy - primarily into the left lower extremity Thoracic or | | lumbosacral neuritis or radiculitis, unspecified | + + | DDD (degenerative disc disease), lumbar - multilevel, especially at L3-L4 and L4-L5 | | Degeneration of lumbar or lumbosacral intervertebral disc | + + documented in this encounter
--- OUTSIDE RECORDS SUMMARY | ~2020-02-18 | XMS | Encounter Summary ---
Demographics + + + | Address | [address] | | | [place] [address] | + + + | Home Phone | | + + + | Preferred Language | Unknown | + + + | Marital Status | | + + + | Yazdanism Affiliation | 1073 | + + + | Race | Unknown | + + + | Ethnic Group | Unknown | + + + Author + + + | Author | [facility] | | | and [place] | + + + | Organization | [facility] | | | [...] Team Providers + +------+ + | Care Tire Room Supervisor Name | Role | Phone | + +------+ + | Chinmay Driscoll MD | PCP | | + +------+ + Encounter Details +--------+ + + + + | Date | Type | Department | Care Team | Description | +--------+ + + + + | 01/20/ | Abstract | [facility] | Cain Luigi Motley, | | | 2012 | | NEUROSURGERY [address] | PA-C [address] | | | | | [address] | [place], [place] | | | | | [place], [place] | [address] | | | | | [address] | | | | | | [phone] | | | +--------+ + + + [...]
--- OUTSIDE RECORDS SUMMARY | ~2020-02-18 | XMS | Encounter Summary ---
Demographics + + + | Address | [address] | | | [place] [address] | + + + | Home Phone | | + + + | Preferred Language | Unknown | + + + | Marital Status | | + + + | Tenriism Affiliation | 1073 | + + + [...] Team Providers + +------+ + | Care Product Line Manager Name | Role | Phone | + +------+ + | Tino Salmeron DO | PCP | | + +------+ + Encounter Details +--------+ + + + + | Date | Type | Department | Care Team | Description | +--------+ + + + + | 08/17/ | Imaging | [facility] | Provider, | | | 2018 | Exam | [facility] | MD [address] | | | | | IMAGING [address] | [address]. | | | | | [address] | [place] [address] | | | | | [place] [address] | | | | | | [phone] | | | +--------+ + + + [...] + +--------+ + + + | XR HIP LEFT 2-3 | Routin | 07/24/2017 | | Results for this | | VIEWS | e | 2:05 PM | | procedure are in the | | | | PST | | results section. | + +--------+ + + + documented in this encounter Results XR Hip Left 2-3 Views (07/24/2017 2:05 PM PST) + + | Specimen | + + | | + + + + + | Narrative | Performed At | + + + | External films for comparison only - no result from [place]. | [facility] | + + + + +---------+ + + | Performing | Address | City/State/Zipcode | Phone Number | | Organization | | | | + +---------+ + + | [facility] | | | | + +---------+ + + documented in this encounter Visit Diagnoses Not on filedocumented in this encounter"
--- OUTSIDE RECORDS SUMMARY | ~2020-02-18 | XMS | Encounter Summary ---
Demographics + + + | Address | [address] | | | [place] [address] | + + + | Home Phone | | + + + | Preferred Language | Unknown | + + + | Marital Status | | + + + | Amish Affiliation | 1073 | + + + | Race | Unknown | + + + | Ethnic Group | Unknown | + + + Author + + + | Author | [facility] | | | and [place] | + + + | Organization | [facility] | | [...] Team Providers + +------+ + | Care Rail Transit Operator Name | Role | Phone | [...] | | [address] | [place] [address] | | | | | [place] | [phone] | | | | | [address] | | | | | | [phone] | | | +--------+ + + + [...]
--- OUTSIDE RECORDS SUMMARY | ~2020-02-18 | XMS | Encounter Summary ---
Demographics + + + | Address | [address] | | | [place] [address] | + + + | Home Phone | | + + + | Preferred Language | Unknown | + + + | Marital Status | | + + + | Mandaen Affiliation | 1073 | + + + | Race | Unknown | + + + | Ethnic Group | Unknown | + + + Author + + + | Author | [facility] | | | and [place] | + + + | Organization | [facility] | | | and [...] Team Providers + +------+ + | Care Coating Mixer Name | Role | Phone | + +------+ + | Tino Salmeron DO | PCP | | + +------+ + Reason for Visit + +--------+ + | Reason | Onset | Comments | | | Date | | + +--------+ + | Appointment | 07/11/ | | | | 2019 | | + +--------+ + Encounter Details +--------+ + + + + | Date | Type | Department | Care Team | Description | +--------+ + + + + | 07/11/ | Telephone | [facility] | Joni Sepulveda, | Appointment | | 2018 | | CARDIOLOGY [address] | [address] [place] | | | | | [place], | [facility] | [facility] | [place] [address] | [place] [address] | | | | | [phone] | [phone] | | | | | | | [...] this encounter Miscellaneous Notes Telephone Encounter - Hollie Kaur Carmen - 07/11/2019 8:19 AM Iglesia BARKER, alethea Andrewsved a request from Rod wanting to get an idea of when we would be able to schedule [facility] cardi[facility] and requested that I contact Rod with this information. This patient does have a history with Dr. Lion and was last seen 04-25-13. Called Rod and left [facility] advising that both Dr. Lion and Dr. Castro are currently scheduling in September 2019 f or routine referrals. Also, advised on VM to request patient's primary care provider to se nd us a referral and gave our office fax number. If patient has any questions, please, call us back. documented in th is encounter Plan of Treatment Not on filedocumented as of this encounter Visit Diagnoses Not on filedocumented in this encounter"
--- OUTSIDE RECORDS SUMMARY | ~2020-02-18 | XMS | Encounter Summary ---
Demographics + + + | Address | [address] | | | [place] [address] | + + + | Home Phone | | + + + | Preferred Language | Unknown | + + + | Marital Status | | + + + | Faith Affiliation | 1073 | + + + | Race | Unknown | + + + | Ethnic Group | Unknown | + + + Author + + + | Author | [facility] | | | and [place] | + + + | Organization | [facility] | | | and [...] Team Providers + +------+ + | Care Seasonal Tax Preparer Name | Role | Phone | + [...] + + | 07/22/ | Office | [facility] | Tate Barrientos | 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 | Visit | NEUROSURGERY [address] | [address] | lumbar region with | | | | [address] | [address] [place], [place] | radiculopathy - | | | | [place], [place] | [address] | severe at L4-L5 | | | | [address] | | (Primary Dx); Lumbar | | | | [phone] | | radiculopathy - | | | [...] 11:30 AM PST Arnaud Barrientos PA-C [address] [facility], [address] [place] [address] FAX: NEUROSURGERY FOLLOW-UP CHIEF COMPLAINT: Chief Complaint Patient presents with Follow-up Pre-Op HISTORY OF PRESENT ILLNESS: The patient is a 77 y.o. female with the complaint of left viral ed low back and leg pain. She is here today to discuss her upcoming next week surgery after having seen a quality audit representative and has obtained cardiac clearance. Patient is here to discuss her surgery. She has stopped her Coumadin at this time in anticipation of surgery next week . Patient admits that she has evidently a history of atrial fibrillation it does not soun d like she is seen a quality audit representative before. 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 CRANIAL NERVES: II: Acuity is intact. [...] Intrinsics 5 5 Ulnar Intrinsics 5 5 Downstairs Maid Strength 5 5 Hip Flexion 4+ 4+ [...]
--- OUTSIDE RECORDS SUMMARY | ~2020-02-18 | XMS | Encounter Summary ---
Demographics + + + | Address | [address] | | | [place] [address] | + + + | Home Phone | | + + + | Preferred Language | Unknown | + + + | Marital Status | | + + + | Gnosticism Affiliation | 1073 | + + + | Race | Unknown | + + + | Ethnic Group | Unknown | + + + Author + + + | Author | [facility] | | | and [place] | + + + | Organization | [facility] | | | [...] Team Providers + +------+ + | Care Bottle Gauger Name | Role | Phone | + +------+ + | Tino Salmeron DO | PCP | | + +------+ + Reason for Visit + + + | Reason | Comments | + + + | Labs Only | External Results-Maria Luisa/Charles 02/02/20 | + + + Encounter Details +--------+ + + + + | Date | Type | Department | Care Team | Description | +--------+ + + + + | 02/02/ | Documentati | [facility] | Norma Galindo, | Labs Only (External | | 2019 | on | NE[place]OLOGY [place] | Motor 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 | + +--------+ + + + | PROTEIN/CREATININE | Routin | 02/03/2020 | | Results for this | | RATIO, URINE | e | 3:03 PM | | procedure are in the | | | | PDT | | results section. | + +--------+ + + + | CBC WITH | Routin | 02/02/2020 | Essential | Results for this | | DIFFERENTIAL | e | 3:34 PM | hypertension CKD | procedure are in the | | | | PDT | (chronic kidney | results section. | | | | | disease) stage 3, | | | | | | GFR 30-59 ml/min | | | | | | ([facility]) Persistent | | | | | | proteinuria | | + +--------+ + + + | URIC ACID | Routin | 02/02/2020 | | Results for this | | | e | 3:34 PM | | procedure are in the | | | | PDT | | results section. | + +--------+ + + + | PARATHYROID HORMONE, | Routin | 02/02/2020 | Essential | Results for this | | INTACT | e | 3:34 PM | hypertension CKD | procedure are in the | | | | PDT | (chronic kidney | results section. | | | | | disease) stage 3, | | | | | | GFR 30-59 ml/min | | | | | | ([facility]) Persistent | | | | | | proteinuria | | + +--------+ + + + | RENAL FUNCTION PANEL | Routin | 02/02/2020 | Essential | Results for this | | | e | 3:34 PM | hypertension CKD | procedure are in the | | | | PDT | (chronic kidney | results section. | | | | | disease) stage 3, | | | | | | GFR 30-59 ml/min | | | | | | ([facility]) Persistent | | | | | | proteinuria | | + +--------+ + + + documented in this encounter Results Urinalysis with Microscopic if Indicated (02/03/2020 3:03 PM PDT) + + + + + + | Component | Value | Ref Range | Performed | Pathologist | | | | | At | Signature | + + + + + + | Color, UA | Yellow | | REFERENCE | | | | | | LAB | | | | | | [facility] | | + + + + + + | Clarity, | Cloudy | | REFERENCE | | | Urine | | | LAB | | | | | | [facility] | | + + + + + + | Specific | 1.011 | 1.005 - 1.030 | REFERENCE | | | [place], | | | LAB | | | Urine | | | [facility] | | + + + + + + | Leukocyte | Large | | REFERENCE | | | esterase, | | | LAB | | | UA | | | [facility] | | + + + + + + | Nitrite, UA | Negative | | REFERENCE | | | | | | LAB | | | | | | [facility] | | + + + + + + | Urobilinoge | Normal | | REFERENCE | | | n, Ur | | | LAB | | | | | | [facility] | | + + + + + + | Protein, | 30 | mg/dL | REFERENCE | | | Urine | | | LAB | | | (mg/dL) | | | [facility] | | + + + + + + | pH, Urine | 5 | 5 - 9 | REFERENCE | | | | | | LAB | | | | | | [facility] | | + + + + + + | Blood, UA | Small | | REFERENCE | | | | | | LAB | | | | | | [facility] | | + + + + + + | Ketones, UA | Negative | | REFERENCE | | | | | | LAB | | | | | | [facility] | | + + + + + + | Bilirubin, | Negative | | REFERENCE | | | UA | | | LAB | | | | | | [facility] | | + + + + + + | Glucose, Ur | Normal | | REFERENCE | | | | | | LAB | | | | | | [facility] | | + + + + + + | WBC UA | 50.0 | /hpf | REFERENCE | | | | | | LAB | | | | | | [facility] | | + + + + + + | Red Blood | 2-5 (A) | 0 - 2 /HPF | REFERENCE | | | Cells, | | | LAB | | | Urine | | | [facility] | | + + + + + + | Squamous | 2-5 (A) | 0 - 2 /LPF | REFERENCE | | | Epithelial | | | LAB | | | Cells, | | | [facility] | | | Urine | | | | | + + + + + + | Bacteria, | 3+ (A) | Negative /HPF | REFERENCE | | | Urine | | | LAB | | | | | | [facility] | | + + + + + + + + | Specimen | + + | Urine | + + + + + + + | Performing | Address | City/State/Zipcode | Phone Number | | Organization | | | | + + + + + | REFERENCE LAB | [address] | [place] | [phone] | | [facility] | | [address] | | + + + + + Protein/Creatinine Ratio, Urine (02/03/2020 3:03 PM PDT) + + + + + + | Component | Value | Ref Range | Performed | Pathologist | | | | | At | Signature | + + + + + + | PRO/CREA | 334.60 (A) | 0.00 - 150.00 | REFERENCE | | | RATIO,URINE | | | LAB | | | | | | [facility] | | + + + + + + + + | Specimen | + + | Urine | + + + + + | Narrative | Performed At | + + + | Protein 24 Creatinine 71.72 | REFERENCE LAB | | | [facility] | + + + + + + + + | Performing | Address | City/State/Zipcode | Phone Number | | Organization | | | | + + + + + | REFERENCE LAB | [address] | [place], [place] | [phone] | | [facility] | | [address] | | + + + + + Uric Acid (02/02/2020 3:34 PM PDT) + +-------+ + + + | Component | Value | Ref Range | Performed | Pathologist | | | | | At | Signature | + +-------+ + + + | Uric Acid | 6.4 | 2.3 - 6.6 mg/dL | | | + +-------+ + + + + + | Specimen | + + | Blood | + + Renal Function Panel (02/02/2020 3:34 [...] + | REFERENCE LAB | [address] | [place] | [phone] | | [facility] | Bl[address]. | [address] | | | LABORATORY | | | | + + + + + | REFERENCE LAB | [address] [facility] [facility] [address] | [place] | | | [facility] | Blvd. | [address] | | | LABORATORY | | | [...] + + + | REFERENCE LAB | [facility] | [place] | [phone] | | [facility] | Blvd. | [address] | | | LABORATORY | | | | + + + + + | REFERENCE LAB | [facility] | [place] | | | [facility] | Bl[address]. | [address] | | | LABORATORY | | | | + + + + + Parathyroid Hormone, Intact (02/02/2020 3:34 PM PDT) [...] + + + | REFERENCE LAB | [address] | [place] | [phone] | | [facility] | Blvd. | [address] | | | LABORATORY | | | | + + + + + | REFERENCE LAB | [address] [facility] | [place], [place] | | | [facility] | Blvd. | [address] | | | LABORATORY | | | | + + + + + documented in this encounter Visit Diagnoses + + | Diagnosis | + + | Essential hypertension Unspecified essential hypertension | + + | CKD (chronic kidney disease) stage 3, GFR 30-59 ml/min (HCC) Chronic kidney disease, | | Stage III (moderate) | + + | Persistent proteinuria Proteinuria | + + documented in this encounter"
--- OUTSIDE RECORDS SUMMARY | ~2020-02-18 | XMS | Encounter Summary ---
Demographics + + + | Address | [address] | | | [place] [address] | + + + | Home Phone | | + + + | Preferred Language | Unknown | + + + | Marital Status | | + + + | Scientology Affiliation | 1073 | + + + [...] Team Providers + +------+ + | Care Senior Chemist Name | Role | Phone | + +------+ + | Tino Salmeron DO | PCP | | + +------+ + Reason for Visit + +--------+ + | Reason | Onset | Comments | | | Date | | + +--------+ + | Appointment | 12/26/ | | | | 2017 | | + +--------+ + | Neurosurgery | 05/23/ | | | Appointment | 2017 | | + +--------+ + Encounter Details +--------+ + + + + | Date | Type | Department | Care Team | Description | +--------+ + + + + | 12/26/ | Telephone | [facility] | Will Rodriguez MD | Appointment; | | 2017 | | NEUROSURGERY [address] | [address] | Neurosurgery | | | | [address] | [place] [address] | Appointment | | | | [place] | [phone] | | | | | [address] | | | | | | [phone] | | | +--------+ + + + [...] this encounter Miscellaneous Notes Telephone Encounter - Margy Castellanos - 05/23/2018 2:52 PM PDTReschedule: Outcome: Left Voicemail If Someone Else, Who: Jai From: 05/30 Jai To: 05/30 @ 10:30 Jai Reason: New Template Jai Number: 1 Communication: MyChart Message Note: No imaging needed. elephone Encounter - Pamela Moura - 12/26/2017 11:24 AM PDTPatient's called back and confirmed appoi ntment. elephone Encount Ponce Herrera - 12/26/2017 9:49 AM PDTLM and mailed letter with new appt infoElectroni julissa signed by Ponce Arcos at 12/26/2017 9:51 AM PDTdocumented in this encounter Plan of Treatment Not on filedocumented as of this encounter Visit Diagnoses Not on filedocumented in this encounter"
--- OUTSIDE RECORDS SUMMARY | ~2020-02-18 | XMS | Encounter Summary ---
Demographics + + + | Address | [address] | | | [place] [address] | + + + | Home Phone | | + + + | Preferred Language | Unknown | + + + | Marital Status | | + + + | Scientology Affiliation | 1073 | + + + | Race | Unknown | + + + | Ethnic Group | Unknown | + + + Author + + + | Author | [facility] | | | and [place] | + + + | Organization | [facility] | | | [...] Team Providers + +------+ + | Care Tender Labor Name | Role | Phone | + [...] + + | 09/01/ | Office | [facility] | Tate Barrientos | Spinal stenosis of | | 2015 | Visit | NEUROSURGERY [address] | [address] | lumbar region with | | | | [address] | [address] [place], [place] | radiculopathy - | | | | [place], [place] | [address] | severe at L4-L5 | | | | [address] | | (Primary Dx); S/P | | | | [phone] | | lumbar spinal fusion | +--------+---------+ [...] - 09/01/2014 2:17 PM PSTContinue to follow jayjay p with your primary care provider as directed. Continue to progress your activities. Try t o get in more walking throughout the day. documented in this encounter Progress Notes Tate Barrientos PA - 09/01/2014 2:19 PM PSTFormatting of this note might be differen t from the original. LAVINIA Rosenthal [address] [facility], [address] [place], [place] [address] FAX: NEUROSURGERY FOLLOW-UP CHIEF COMPLAINT: Chief Complaint [...]
--- OUTSIDE RECORDS SUMMARY | ~2020-02-18 | XMS | Encounter Summary ---
Demographics + + + | Address | [address] | | | [place] [address] | + + + | Home Phone [...] Team Providers + +------+ + | Care Digital Photographic Printer Name | Role | Phone | + +------+ + | Tino Salmeron DO | PCP | | + +------+ + Encounter Details +--------+ + + + + | Date | Type | Department | Care Team | Description | +--------+ + + + + | 09/23/ | Orders Only | [facility] | Homero Soto MD | Hypertension, | | 2019 | | NEPHROLOGY [place] | [address] [place] | unspecified type | | | | [address] [place] | [address] [place], [place] | (Primary Dx); | | | | [address] [place], [place] | [address] | Chronic kidney | | | | [address] | | disease, stage III | | | | [phone] | | (moderate) (HCC) | +--------+ + + + + Social [...] + | Diagnosis | + + | Hypertension, unspecified type - Primary | + + | Chronic kidney disease, stage III (moderate) (HCC) Chronic kidney disease, Stage III | | (moderate) | + + documented in this encounter"
--- OUTSIDE RECORDS SUMMARY | ~2020-02-18 | XMS | Encounter Summary ---
Demographics + + + | Address | [address] | | | [place] [address] | + + + | Home Phone | | + + + | Preferred Language | Unknown | + + + | Marital Status | | + + + | Oriental Orthodox Affiliation | 1073 | + + + [...] Team Providers + +------+ + | Care Managed Care Director Name | Role | Phone | + +------+ + | Chinmay Driscoll MD | PCP | | + +------+ + Encounter Details +--------+ + + + + | Date | Type | Department | Care Team | Description | +--------+ + + + + | 04/17/ | Abstract | [facility] [place] | Joni Sepulveda, | HTN (hypertension) | | 2012 | | CARDIOLOGY [address] | MD [address] | (Primary Dx); | | | | [place], | [place], | Paroxysmal a-fib | | | | [place] [address] | [place] [address] | (HCC) | | | | [phone] | [phone] | | | | | | | [...] + + + | Blood Pressure | 121/62 | 03/18/2013 4:01 PM | | | | | PDT | | + + + + + | Pulse | 71 | 03/18/2013 4:01 PM | | | | | PDT [...] + + + + | Weight | 71.7 kg (158 lb) | 03/18/2013 4:01 PM | | | | | PDT | | + + + + + | Height | 172.7 cm (5' 8") | 03/18/2013 4:01 PM | | | | | PDT | | + + + + + | Body Mass Index | 24.02 | 03/18/2013 4:01 PM | | | | | PDT | | + + + + + documented in this encounter Plan of Treatment Not on filedocumented as of this encounter Visit Diagnoses + + | Diagnosis | + + | HTN (hypertension) - Primary Unspecified essential hypertension | + + | Paroxysmal A-fib (HCC) Atrial fibrillation | + + documented in this encounter
--- OUTSIDE RECORDS SUMMARY | ~2020-02-18 | XMS | Encounter Summary ---
Demographics + + + | Address | [address] | | | [place] [address] | + + + | Home Phone [...] Team Providers + +------+ + | Care Mainstreaming Facilitator Name | Role | Phone | + +------+ + | Chinmay Driscoll MD | PCP | | + +------+ + Reason for Visit + +--------+ + | Reason | Onset | Comments | | | Date | | + +--------+ + | Appointment | 08/20/ | | | | 2014 | | + +--------+ + Encounter Details +--------+ + + + + | Date | Type | Department | Care Team | Description | +--------+ + + + + | 08/20/ | Telephone | [facility] [place] | Will Rodriguez MD | Appointment | | 2014 | | NEUROSURGERY [address] | [address] | | | | | [address] | [place] [address] | | | | | [place] | [phone] | | | | | [address] | | | | | | [phone] | | | +--------+ + + + [...] Notes Telephone Encounter - Desiree Hahn - 08/21/2014 9:32 AM PSTScheduled 09/01/14 with LAVINIA Quiles. elephone Encounter - Julianne Serrano - 08/20/2014 2:27 PM Lelo Bain called on behalf of this gonzales ent today. He states that they were under the impression that she was scheduled for a follow up visit with Arnaud Barrientos on 08/21/14. I informed him that no such appointment was scheduled. Per last office visit notes Gia was supposed to be scheduled for a follow up in 6 months, which would be about this time. Is this visit still needed? If so, it will need to be schedu led. Please advise. Rod verified on verbal release. documented in this encounter Plan of Treatment Not on filedocumented as of this encounter Visit Diagnoses Not on filedocumented in this encounter"
--- OUTSIDE RECORDS SUMMARY | ~2020-02-18 | XMS | Encounter Summary ---
Demographics + + + | Address | [address] | | | [place] [address] | + + + | Home Phone | | + + + | Preferred Language | Unknown | + + + | Marital Status | | + + + | Sikhism Affiliation | 1073 | + + + | Race | Unknown | + + + | Ethnic Group | Unknown | + + + Author + + + | Author | [facility] | | | and [place] | + + + | Organization | [facility] | | | [...] Team Providers + +------+ + | Care Chairman Ceo Name | Role | Phone | + [...] | | | [place], | [address] | | | | | | [place] [address] | [address] [place] | | | | | | Phone: | [place] | | | | | | [phone] | [address] Phone: | | | | | | Fax: | [phone] | | | | | | [phone] | Fax: | | | | | | | [phone] | +--------+ + + + + + Reason for Visit + + + | Reason | Comments | + + + | Follow-up | Back pain and discuss surgery | + + + Encounter Details +--------+---------+ + + + | Date | Type | Department | Care Team | Description | +--------+---------+ + + + | 03/18/ | Office | [facility] [place] | Will Michael MD | 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 Arnaud Barrientos PA-C and Will Michael M.D. [address] [facility] [facility], [address] [place] [address] FAX: NEUROSURGERY FOLLOW-UP CHIEF COMPLAINT: Chief Complaint [...] sound like she i s seen a green belt before. Her symptoms began a long time [...] has no apparent deficits with short or medical terminologist memory. CRANIAL NERVES: II: Acuity is intact. [...] Intrinsics 5 5 Ulnar Intrinsics 5 5 Appliance Fixer Strength 5 5 Hip Flexion 4+ 4+ [...] PDTdocumented in this encounter Plan of Treatment + + +--------+ + + | Name [...]
--- OUTSIDE RECORDS SUMMARY | ~2020-02-18 | XMS | Encounter Summary ---
Demographics + + + | Address | [address] | | | [place] [address] | + + + | Home Phone | | + + + | Preferred Language | Unknown | + + + | Marital Status | | + + + | Pentecostalism Affiliation | 1073 | + + + | Race | Unknown | + + + | Ethnic Group | Unknown | + + + Author + + + | Author | [facility] | | | and [place] | + + + | Organization | [facility] | | | and [place] | + + + | Address | Unknown | + + + | Phone | Unavailable | + + + Support + + +---------+ + | Name | Relationship | Address | Phone | + + +---------+ + | Indycash Bee | ECON | Unknown | | + + +---------+ + | Rachel Mckeon | ECON | Unknown | | + + +---------+ + Care Team Providers + +------+ + | Care Shirt Ironer Supervisor Name | Role | Phone | + +------+ + | Tino Salmeron DO | PCP | | + +------+ + Reason for Visit Diagnostic/Screening (Routine) +--------+--------+ + + + + | Status | Reason | Specialty | Diagnoses / | Referred By | Referred To | | | | | Procedures | Contact | Contact | +--------+--------+ + + + + | Closed | | Radiology | Procedures | Provider, | | | | | | MRI | Historical, | | | | | | Cervical | [address] | | | | | [address]ine [address] | [address] | | | | | | Contrast | [place] | | | | | | | [address] | | +--------+--------+ + + + + Encounter Details +--------+ + + + + | Date | Type | Department | Care Team | Description | +--------+ + + + + | 09/06/ | Imaging | [facility] | Provider, | | | 2017 | Exam | [facility] | [place] | | | | | IM[address]ING [address] | [address] | | | | | [address] | [place] [address] | | | | | [place] [address] | | | | | | [phone] | | | +--------+ + + + [...] for comparison only - no result from [facility]. | [facility] | + + + + +---------+ + + | Performing | Address | City/State/Zipcode | Phone Number | | Organization | | | | + +---------+ + + | [facility] | | | | + +---------+ + + documented in this encounter Visit Diagnoses Not on filedocumented in this encounter"
--- OUTSIDE RECORDS SUMMARY | ~2020-02-18 | XMS | Encounter Summary ---
Demographics + + + | Address | [address] | | | [place] [address] | + + + | Home Phone | | + + + | Preferred Language | Unknown | + + + | Marital Status | | + + + | Buddhism Affiliation | 1073 | + + + | Race | Unknown | + + + | Ethnic Group | Unknown | + + + Author + + + | Author | [facility] | | | and [place] | + + + | Organization | [facility] | | | and [...] Team Providers + +------+ + | Care Telephone Directory Deliverer Name | Role | Phone | + +------+ + | Tino Salmeron DO | PCP | | + +------+ + Encounter Details +--------+ + + + + | Date | Type | Department | Care Team | Description | +--------+ + + + + | 08/28/ | Abstract | [facility] [place] | Tate Barrientos | | | 2017 | | NEUROSURGERY [address] | [address] | | | | | [address] | [address] [place] | | | | | [place] | [address] | | | | | [address] | | | | | | [phone] | | | +--------+ + + + [...]
--- OUTSIDE RECORDS SUMMARY | ~2020-02-18 | XMS | Encounter Summary ---
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 femur pain. ; Non traumatic left hip and | | femur pain. | | | | COMPARISON: | | No comparisons | | | | FINDINGS: | | Left hip: Left total hip prosthesis is in anatomic alignment, without | | evidence of hardware failure or loosening. No periprosthetic fracture. | | | | Left femur: Distally the femur is normal. No fracture. No | | radiographically evident soft tissue swelling. Knee joint arthrosis is | | incompletely evaluated. | | | | IMPRESSION: | | 1. Anatomic left total hip prosthesis. | | 2. Intact and normal distal femur. | | | | | | | | Signed by: Cal Arzola | + + + +---------+ + + | Performing | Address | City/State/Zipcode | Phone Number | | Organization | | | | + +---------+ + + | [facility] | | | | + +---------+ + + XR Hip Left 2-3 Views (07/24/2017 2:22 PM PST) + + | Specimen | + + | | + + + + + | Narrative | Performed At | + + + | LEFT FEMUR FOUR VIEWS; LEFT HIP TWO VIEWS CLINICAL | [facility] | | INFORMATION: Nontraumatic left hip and femur pain. ; Non traumatic | | | left hip and femur pain. COMPARISON: No comparisons | | | FINDINGS: Left hip: Left total hip prosthesis is in anatomic | | | alignment, without evidence of hardware failure or loosening. No | | | periprosthetic fracture. Left femur: Distally the femur is normal. | | | No fracture. No radiographically evident soft tissue swelling. | | | Knee joint arthrosis is incompletely evaluated. IMPRESSION: 1. | | | Anatomic left total hip prosthesis. 2. Intact and normal distal | | | femur. Signed by: Cal Arzola | | + + + + + | Procedure Note | + + | Km Samuels Results In 07/24/2017 2:35 PM PST | | LEFT FEMUR FOUR VIEWS; LEFT HIP TWO VIEWS | | | | CLINICAL INFORMATION: | | Nontraumatic left hip and femur pain. ; Non traumatic left hip and | | femur pain. | | | | COMPARISON: | | No comparisons | | | | FINDINGS: | | Left hip: Left total hip prosthesis is in anatomic alignment, without | | evidence of hardware failure or loosening. No periprosthetic fracture. | | | | Left femur: Distally the femur is normal. No fracture. No | | radiographically evident soft tissue swelling. Knee joint arthrosis is | | incompletely evaluated. | | | | IMPRESSION: | | 1. Anatomic left total hip prosthesis. | | 2. Intact and normal distal femur. | | | | | | | | Signed by: Cal Arzola | + + + +---------+ + + | Performing | Address | City/State/Zipcode | Phone Number | | Organization | | | | + +---------+ + + | [facility] | | | | + +---------+ + + Extra Hold Tube(s) (07/24/2017 1:05 PM PST) + +-------+ + + + | Component | Value | Ref Range | Performed | Pathologist | | | | | At | Signature | + +-------+ + + + | Extra Tube | B | | [facility] | | | [facility] | [facility] | | | [facility] | | + +-------+ + + + + + | Specimen | + + | | + + + + + + + | Performing | Address | City/State/Zipcode | Phone Number | | Organization | | | | + + + + + | [facility] | [phone] [facility] | [place] [address] | | | [facility] | | | | | [facility] | | | | + + + + + Comprehensive Metabolic Panel (07/24/2017 1:05 PM PST) + + + + + + | Component | Value | Ref Range | Performed | Pathologist | | | | | At | Signature | + + + + + + | Na | 137 | 135 - 146 | [facility] | | | | | mmol/L | [facility] | [facility] | | | | | [facility] | | + + + + + + | K | 4.1 | 3.6 - 5.2 | [facility] | | | | | mmol/L | [facility] | [facility] | | + + + + + + | Cl | 102 | 98 - 109 mmol/L | [facility] | | + + + + + + | CO2 | 26 | 21 - 32 mmol/L | [facility] | | + + + + + + | Glucose | 183 (H) | 65 - 99 mg/dL | [facility] | [facility] | [facility] | | + + + + + + | BUN | 26 (H) | 7 - 23 mg/dL | [facility] | [facility] | [facility] | [facility] | [facility] | | + + + + + + | Creatinine | 1.16 (H) | 0.40 - 1.00 | [facility] | | | | | mg/dL | [facility] | [facility] | | [facility] | | + + + + + + | Calcium | 9.3 | 8.5 - 10.2 | [facility] | | | | | mg/dL | [facility] | | [facility] | | + + + + + + | Total | 6.6 | 6.3 - 8.0 g/dL | [facility] | | | Protein | | | [facility] | [facility] | | | [facility] | | + + + + + + | Albumin | 3.4 (L) | 3.5 - 5.0 g/dL | [facility] | | | [facility] | | + + + + + + | Bilirubin | 0.7 | 0.1 - 1.5 mg/dL | [facility] | | | Total | | | [facility] | [facility] | | + + + + + + | Alkaline | 100 | 35 - 115 U/L | [facility] | | | Phosphatase | | | [facility] | [facility] | | | [facility] | | + + + + + + | AST | 12 | 5 - 40 U/L | [facility] | [facility] | | + + + + + + | ALT | 16 | 10 - 65 U/L | [facility] | [facility] | | + + + + + + | Anion Gap | 9 | 5 - 16 mmol/L | [facility] | | | [facility] | [facility] | | [facility] | | | [facility] | | + + + + + + | Estimated | 45 (L)Comment: GFR <60: | >60 | [facility] | | | GFR | Chronic kidney disease, | ml/min/1.73m2 | [facility] | | | | if found over a 3 month | | [facility]OSPITAL | | | | period.GFR <15: Kidney | | LABORATORY | | | | failure.For | | | | | | Americans, multiply the | | | | | | calculated GFR by 1.210 | | | | + + + + + + + + | Specimen | + + | Blood | + + + + + + + | Performing | Address | City/State/Zipcode | Phone Number | | Organization | | | | + + + + + | [facility] | [address] | [place] [address] | | | [facility] | | | | | [facility] | | | | + + + + + CBC with Differential (07/24/2017 1:05 PM PST) + + + + + + | Component | Value | Ref Range | Performed | Pathologist | | | | | At | Signature | + + + + + + | White Blood | 5.1 | 4.0 - 11.0 K/uL | [facility] | | | Cells | | | [facility] | | | | | | [facility] | | + + + + + + | Red Blood | 4.18 | 3.80 - 5.20 | [facility] | | | Cells | | M/uL | [facility] | | | | | | [facility] | | + + + + + + | Hemoglobin | 13.5 | 11.6 - 15.5 | [facility] | | | | | g/dL | [facility] | | | | | [facility] | | + + + + + + | Hematocrit | 39.0 | 35.0 - 46.0 % | [facility] | | | | | | [facility] | | + + + + + + | MCV | 93.2 | 80.0 - 100.0 fL | [facility] | | | | [facility] | | + + + + + + | MCH | 32.4 | 27.0 - 34.0 pg | [facility] | | | | | [facility] | | [facility] | [facility] | | + + + + + + | MCHC | 34.7 | 32.0 - 35.5 | [facility] | | | | | g/dL | [facility] | | | [facility] | | + + + + + + | RDW-CV | 13.8 | 11.0 - 15.0 % | [facility] | | | | [facility] | | [facility] | | | [facility] | | + + + + + + | Platelet | 149 (L) | 150 - 400 K/uL | [facility] | | | Count | | | [facility] | [facility] | | [facility] | | | [facility] | | + + + + + + | Differentia | Automated | | [facility] | | | l Type | | | [facility] | | | | | [facility] | | + + + + + + | % | 76.7 | 40.0 - 80.0 % | [facility] | | | Neutrophils | | | [facility] | | | | | | [facility] | | + + + + + + | % | 16.4 | 15.0 - 45.0 % | [facility] | | | Lymphocytes | | | [facility] | | | | | | [facility] | | + + + + + + | % Monocytes | 5.9 | 0.0 - 12.0 % | [facility] | | | | | | [facility] | | [facility] | | [facility] | | + + + + + + | % | 0.6 | 0 - 7 % | [facility] | | | Eosinophils | | | [facility] | | | | | [facility] | | + + + + + + | % Basophils | 0.4 | 0 - 2 % | [facility] | | | | | [facility] | | [facility] | | [facility] | | + + + + + + | Absolute | 3.90 | 2.0 - 7.3 K/uL | [facility] | | | Neutrophils | | | [facility] | | | | | [facility] | | + + + + + + | Absolute | 0.80 (L) | 1.0 - 3.4 K/uL | [facility] | | | Lymphocytes | | | [facility] | [facility] | | | [facility] | | + + + + + + | Absolute | 0.30 | 0.0 - 0.8 K/uL | [facility] | | | Monocytes | | | [facility] | | | | | | [facility] | | + + + + + + | Absolute | 0.00 | 0.0 - 0.5 K/uL | [facility] | | | Eosinophils | | | [facility] | | | | | | [facility] | | + + + + + + | Absolute | 0.00 | 0.0 - 0.1 K/uL | [facility] | | | Basophils | | | [facility] | | | | | | [facility] | | + + + + + + + + | Specimen | + + | Blood | + + + + + + + | Performing | Address | City/State/Zipcode | Phone Number | | Organization | | | | + + + + + | [facility] | [address] | [place] [address] | | | [facility] | | | | | [facility] | | | | + + + + + documented in this encounter Visit Diagnoses + + | Diagnosis | + + | Lumbar radiculopathy - Primary Thoracic or lumbosacral neuritis or radiculitis, | | unspecified | + + documented in this encounter Administered Medications + +--------+ + +------+------+ | Medication Order | MAR | Action | Dose | Rate | Site | | | Action | Date | | | | + +--------+ + +------+------+ | acetaminophen (TYLENOL) tablet | Given | 07/24/19 | 1,000 mg | | | | 1,000 mg 1,000 mg, Oral, ONCE, | | 18 3:25 | | | | | 07/24/17 at 1505, For 1 dose | | PM PST | | | | + +--------+ + +------+------+ +---+---+ | | | +---+---+ + +-------+ +--------+---+---+ | gadobenate (MULTIHANCE) | Given | 07/24/19 | 20 mLs | | | | injection 20 mL 20 mL, | | 18 4:28 | | | | | Intravenous, ONCE PRN, Other, | | PM PST | | | | | Starting 07/24/17 at 1628, For | | | | | | | 1 dose, MRI | | | | | | + +-------+ +--------+---+---+ +---+---+ | | | +---+---+ + +-------+ +------+---+---+ | morphine injection 2 mg 2 mg, | Given | 07/24/19 | 2 mg | | | | Intravenous, PRN, Pain, Starting | | 18 1:13 | | | | | 07/24/17 at 1300, For 3 doses, | | PM PST | | | | | Morphine 2 mg IV x3 when | | | | | | | necessary air hunger or pain, | | | | | | + +-------+ +------+---+---+ +---+---+ | | | +---+---+ + +-------+ +------+---+---+ | ondansetron (ZOFRAN) injection | Given | 07/24/19 | 4 mg | | | | 4 mg 4 mg, Intravenous, ONCE, | | 18 1:13 | | | | | 07/24/17 at 1305, For 1 dose | | PM PST | | | | + +-------+ +------+---+---+ +---+---+ | | | +---+---+ documented in this encounter
--- OUTSIDE RECORDS SUMMARY | ~2020-02-18 | XMS | Encounter Summary ---
Demographics + + + | Address | [address] | | | [place] [address] | + + + | Home Phone | | + + + | Preferred Language | Unknown | + + + | Marital Status | | + + + | Buddhism Affiliation | 1073 | + + + | Race | Unknown | + + + | Ethnic Group | Unknown | + + + Author + + + | Author | [facility] | | | and [place] | + + + | Organization | [facility] | | [...] Team Providers + +------+ + | Care Retail Event And Sales Assistant Name | Role | Phone | + +------+ + | Chinmay Driscoll MD | PCP | | + +------+ + Reason for Visit + +--------+ + | Reason | Onset | Comments | | | Date | | + +--------+ + | ED Follow-up | 07/25/ | | | | 2018 | | + +--------+ + Encounter Details +--------+ + + + + | Date | Type | Department | Care Team | Description | +--------+ + + + + | 07/25/ | Telephone | [facility] | Nidhi Vázquez | ED Follow-up | | 2017 | | [facility] | L, Technologist | | | | | [address] | | | | | | [facility] | | | | | | [place] | | | | | | [address] | | | | | | [phone] | | | +--------+ + + + [...] encounter Miscellaneous Notes Telephone Encounter - Nidhi Vázquez Technologist - 07/25/2017 10:51 AM PSTRejames claire Call: ED FOLLOW-UP documented in this encounter Plan of Treatment Not on filedocumented as of this encounter Visit Diagnoses Not on filedocumented in this encounter"
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
--- OUTSIDE RECORDS SUMMARY | ~2020-02-18 | XMS | Encounter Summary ---
Demographics + + + | Address | [address] | | | [place] [address] | + + + | Home Phone [...] + | Author | [facility] | | | and [place] | + + + | Organization | [facility] | | | and [...] Team Providers + +------+ + | Care Rn Radiation Name | Role | Phone | + +------+ + | Chinmay Driscoll MD | PCP | | + +------+ + Encounter Details +--------+ + + + + | Date | Type | Department | Care Team | Description | +--------+ + + + + | 07/28/ | Hospital | [facility] | Will Rodriguez MD | | | 2014 - | Encounter | MED CTR SUR[facility] | [address] | | | | | [address] | [place] [address] | | | 07/30/ | | [place] [address] | [phone] | | | 2013 | | [phone] | | | +--------+ + + + [...] + + + +---------+ + + | Calcium | Take by mouth. [...] + + + +---------+ + + | digoxin (LANOXIN) | Take 250 mcg by | | 0 | | | | 250 mcg tablet | mouth Daily. 07/24 | | | | 4 | | | tablet by mouth | | | | | | | daily | | | | | + + + +---------+ + + | DOCUSATE SODIUM | by Does not apply | | 0 | | | | | route as needed. | | | | 4 | + + + +---------+ + + | | Take 0.5 tablets by | | 0 | | | | HYDROcodone-acetamin | mouth every 6 hours | | | | 8 | | ophen (NORCO) 5-325 | as needed. | | | | | | mg per tablet | | | | | | + + + +---------+ + + | | Take 1-2 tablets by | 60 | 1 | 07/28/19 | | | HYDROcodone-acetamin | mouth every 4 hours | tablet | | 14 | 4 | | ophen (NORCO) | as needed for Pain. | | | | | | 7.5-325 mg per | | | | | | | tabletIndications: | | | | | | | S/P lumbar fusion | | | | | | + + + +---------+ + + | Lactulose | Take 30 mLs by mouth | 240 mL | 1 | 07/28/19 | | | SOLNIndications: S/P | every 6 hours as | | | 14 | 4 | | lumbar fusion | needed | | | | | | | (Constipation). | | | | | + + [...] +---------+ + + | potassium chloride | Take 10 [...] + + + +---------+ + + | tiZANidine | Take 1 tablet by | 90 | 3 | 07/28/19 | | | (ZANAFLEX) 4 mg | mouth 3 times daily | tablet | | 14 | 4 | | tabletIndications: | as needed (Muscle | | | | | | S/P lumbar fusion | Spasms). | | | | | + + + +---------+ + + | | Take 1 tablet by [...] documented as of this encounter Miscellaneous Notes Op Note - Will Rodriguez MD - 07/28/2013 10:41 AM [place], [place] [address] Patient Name: DILSHAD ARCOS Provider: Will Rodriguez MD Unit #: [id number] Location: [facility] Acc #: [id number] : 1935 DATE: 07/28/2013 PREOPERATIVE DIAGNOSES 1. Lumbar spinal stenosis with claudication. 2. Lumbar degenerative disk disease. 3. Lumbar facet arthropathy. 4. Lumbar radiculopathy. 5. Lumbar disk herniation. POSTOPERATIVE DIAGNOSES 1. LUMBAR SPINAL STENOSIS WITH CLAUDICATION. 2. LUMBAR DEGENERATIVE DISK DISEASE. 3. LUMBAR FACET ARTHROPATHY. 4. LUMBAR RADICULOPATHY. 5. LUMBAR DISK HERNIATION. PROCEDURES 1. Minimally invasive lumbar spinal fusion. 2. Combined posterolateral and posterior interbody arthrodesis, L4-5. 3. L4, L5 posteri or spinal instrumentation. 4. Placement of PEEK interbody spacer, L4-5. 5. L4 laminectomy, L5 laminectomy, L4-5 facetectomy for decompression of spinal nerves. 6. Microsurgical technique with use of operating microscope. ATTENDING: Will Rodriguez MD AUTISM TEACHER: LAVINIA Leija ANESTHESIA: General, performed by Dr. Pruitt. ESTIMATED BLOOD LOSS: 204 mL COMPLICATIONS: There were no intraoperative complications. INTRAOPERATIVE FINDINGS: The patient had severe stenosis caused by facet hypertrophy, liga mentum hypertrophy and also disk herniation. Bone quality was poor. DRAINS: One drain was left in the subfascial space/epidural space on the patient's left si de. OPERATIVE DETAILS: After obtaining consent, the patient was taken to the operating room an d placed under general anesthesia. She was then positioned in the prone position on the Jonathan ks axis table with her face, neck, chest, and extremities positioned and padded appropria tely. Her back was prepped and draped in standard fashion, and a timeout was performed. All members of the surgical team agreed with the time-out. The patient's skin was then marked in a paramedian fashion, 3.75 cm off the midline, and f luoroscopy was used to localize the level of L4 and L5. Two skin incisions were then opened approximately 3.5 cm in length bilaterally on the paramedian lines over the L4-5 segment w ith a #10 blade knife. Subcutaneous tissues were made hemostatic with Bovie cautery. DENVER ne edles were then guided into the pedicles at L4 and L5 using AP fluoroscopic guidance and la teral confirmation. There were no breaches and the pedicles successfully accessed the verte bral bodies. Bone marrow was aspirated from the vertebral bodies and placed on the bone gra ft for later planned arthrodesis. Wires were then inserted down the DENVER needles, and the PA K needles were removed. The wires were secured to the drape. On the patient's right side, a posterolateral arthrodesis was performed by dilating down to the tissues with the METRx tu be, and then Bovie and exposing the L4, L5 facet and the L4 and L5 lamina. High-speed drill was then used to decorticate this region and cancellous chips with bone marrow aspirate wer e packed in the posterolateral aspect of the spine from L4 to L5, completing the posterolat eral arthrodesis. The tubular retractor was then positioned on the patient's left side at L 5-S1 for the planned decompression and interbody arthrodesis. A 26 mm x 7 cm tube was docke d on the lamina of L4-5, and then the microscope was brought into the field for microsurgic al dissection. Bovie cautery was used to expose the lamina and facet, and then a high-speed drill was used to drill through the L4 lamina and across the L4 pars. This allowed for an en bloc removal of the L4 lamina and the L4 inferior facet. The L5 facet was removed by dri lling across its base and removing the remaining fragment from the foramen. The medial port ions of the facet were removed with a Kerrison rongeur as was the superior aspect of the la keith, decompressing down the canal until the ligament was no longer present here. The micro hook was then used to mobilize the ligamentum using the microscope for microsurgical techn ique. The ligamentum was worked through down to the dura and decompressed. A Kerrison ronge ur was used to complete the decompression, now revealing the dura centrally and the lateral recess on both sides. The lateral recess was explored on the L4 and L5 nerve roots, identi fying both of them on the left side and identifying a large disk herniation underneath the thecal sac and out the L4 foramen. The disk was incised and then removed in a piecemeal fash ion with pituitary rongeurs, curettes, Kerrison rongeurs, and endplate hasmukh. This proces s continued until the canal had been adequately decompressed, and the endplates were prepar ed for arthrodesis. Trials were then inserted, and a 13 mm was determined to be the appropr iate size. The interspace was packed with morselized local bone autograft and cancellous ch ips with bone marrow aspirate. The PEEK spacer was then inserted after filling it with 0.7 mg of BMP and morselized local bone autograft. FloSeal was then used for hemostasis through out, and additional bony materials were packed lateral to the PEEK spacer. The tubular retr actor was then removed here, obtaining hemostasis with bipolar cautery along the tract. The previously placed wires were then used for placement of screws. The pedicles were under ta pped followed by insertion of 7.5 x 55 mm Medtronic Solera screws with Longitude II towers a t L4 and a 7.5 x 50 was inserted on the right side, and a 7.5 x 55 mm screw was inserted on the left at L5 using the same screw type. The towers were aligned, and through the same in cisions, a 45 mm leslee was passed through both sides and successfully reduced. Set screws wer e then inserted and tightened down with counter torque forces. The towers were then removed , leaving behind the rods and screws and interbody spacer in appropriate position. The woun d was then copiously irrigated. A drain was tunneled down and placed in the epidural space on the left side and tunneled out the skin. The fascia was then closed bilaterally with 0 V icryl sutures, followed by closure of skin with a layer of 2-0 and 3-0 Vicryl sutures; 20 m L of 0.5% Marcaine with epinephrine was infiltrated in the back, followed by closure of the skin with skin glue. The drain was secured with a Band-Aid and Tegaderm, and the wounds we re dressed with Band-Aids. All counts were reported as correct. The patient tolerated the pr ocedure and was transferred to the recovery room in stable condition. DICTATED BY: Will Rodriguez MD Neurological Surgery JOB #: [id number] EXT JOB #:[id number] cc: LAVINIA Caraballo <<Signature on File>> Will Rodriguez MD01/815 <Electronically signed by Will Rodriguez MD> documented in this enc ounter Plan of Treatment Not on filedocumented as of this encounter Procedures + +--------+ + + + | Procedure Name | Priori | Date/Time | Associated Diagnosis | Comments | | | ty | | | | + +--------+ + + + | POC GLUCOSE | Routin | 07/30/2013 | | Results for this | | | e | 12:15 PM | | procedure are in the | | | | PST | | results section. | + +--------+ + + + | POC GLUCOSE | Routin | 07/30/2013 | | Results for this | | | e | 7:30 AM | | procedure are in the | | | | PST | | results section. | + +--------+ + + + | POC GLUCOSE | Routin | 07/29/2013 | | Results for this | | | e | 9:12 PM | | procedure are in the | | | | PST | | results section. | + +--------+ + + + | POC GLUCOSE | Routin | 07/29/2013 | | Results for this | | | e | 7:19 PM | | procedure are in the | | | | PST | | results section. | + +--------+ + + + | XR LUMBAR SPINE 2 OR | Routin | 07/29/2013 | | Results for this | | 3 VW | e | 5:55 PM | | procedure are in the | | | | PST | | results section. | + +--------+ + + + | POC GLUCOSE | Routin | 07/29/2013 | | Results for this | | | e | 11:50 AM | | procedure are in the | | | | PST | | results section. | + +--------+ + + + | POC GLUCOSE | Routin | 07/29/2013 | | Results for this | | | e | 7:15 AM | | procedure are in the | | | | PST | | results section. | + +--------+ + + + | POC GLUCOSE | Routin | 07/29/2013 | | Results for this | | | e | 1:52 AM | | procedure are in the | | | | PST | | results section. | + +--------+ + + + | POC GLUCOSE | Routin | 07/28/2013 | | Results for this | | | e | 5:04 PM | | procedure are in the | | | | PST | | results section. | + +--------+ + + + | XR SPINE 1 VW | Routin | 07/28/2013 | | Results for this | | | e | 11:09 AM | | procedure are in the | | | | PST | | results section. | + +--------+ + + + | POC GLUCOSE | Routin | 07/28/2013 | | Results for this | | | e | 10:29 AM | | procedure are in the | | | | PST | | results section. | + +--------+ + + + | PROTIME INR | Routin | 07/28/2013 | | Results for this | | (FINGERSTICK) | e | 7:26 AM | | procedure are in the | | | | PST | | results section. | + +--------+ + + + | POC GLUCOSE | Routin | 07/28/2013 | | Results for this | | | e | 6:57 AM | | procedure are in the | | | | PST | | results section. | + +--------+ + + + documented in this encounter Results POC Glucose (07/30/2013 12:15 PM PST) + +-------+ + + + | Component | Value | Ref Range | Performed | Pathologist | | | | | At | Signature | + +-------+ + + + | Glucose, | 122 | 79 - 150 md/dL | [facility] | [facility] | | | | | [facility] | | | | | | C[facility] - | | | | | | LABORATORY | | + +-------+ + + + + + | Specimen | + + | | + + + + + + + | Performing | Address | City/[facility]/Zipcode | Phone Number | | Organization | | | | + + + + + | [facility] | [address] | [place], [place] | [phone] | | [facility] | | [address] | | | - LABORATORY | | | | + + + + + | [facility] | [address] | [place], [place] | | | [facility] | | [address], [facility] | | | - LABORATORY | | | | + + + + + POC Glucose (07/30/2013 7:30 AM PST) + +-------+ + + + | Component | Value | Ref Range | Performed | Pathologist | | | | | At | Signature | + +-------+ + + + | Glucose, | 144 | 79 - 150 md/dL | [facility] | | [facility] | | [facility] | | [...] + | [facility] | [address] | [place] | [phone] | | [facility] | | [address] | | | - LABORATORY | | | | + + + + + | [facility] | [address] | [place] | | | [facility] | | [address], [facility] | | | - LABORATORY | | | | + + + + + POC Glucose (07/29/2013 9:12 PM PST) + +---------+ + + + | Component | Value | Ref Range | Performed | Pathologist | | | | | At | Signature | + +---------+ + + + | Glucose, | 171 (H) | 79 - 150 md/dL | [facility] | | | P[facility] | | | [facility] | | | | | | MEDICAL | | | | | | CENTER - | | | | | | LABORATORY | | + +---------+ + + + + + | Specimen | + + | | + + + + + + + | Performing | Address | [facility] | Phone Number | | Organization | | | | + + + + + | [facility] | [address] | [place] | [phone] | | [facility] | | [address] | | | - LABORATORY | | | | + + + + + | [facility] | [address] | [place] | | | [facility] | | [address] | | | - LABORATORY | | | | + + + + + POC Glucose (07/29/2013 7:19 PM PST) + +---------+ + + + | Component | Value | Ref Range | Performed | Pathologist | | | | | At | Signature | + +---------+ + + + | Glucose, | 164 (H) | 79 - 150 md/dL | [facility] | | | P[facility] | | | [facility] | | [...] + | [facility] | [address] | [place], [place] | [phone] | | [facility] | | [address] | | | - LABORATORY | | | | + + + + + | [facility] | [address] | [place], [place] | | | [facility] | | [address], [facility] | | | - LABORATORY | | | | + + + + + XR Lumbar Spine 2 or 3 Vw (07/29/2013 5:55 PM PST) + + | Specimen | + + | | + + + + + | Narrative | Performed At | + + + | [facility] | [place] | | Department [address] [facility] | [facility] | | [ rep ct street[address]] [ rep [facility] | | st zip] Signed | - IMAGING | | | | | Patient Name: DILSHAD ARCOS Physician: | | | YAMLio. : 1935 Age: 77 Sex: F Unit #: [id number] | | | Exam Date: 07/29/13 Location: [address] [place] [address] | | | Report #: [id number] Page: | | | %(RAD)RES..mtdd.print.filter("pg") of %(RAD) | | | RES..mtdd.print.filter("tpg") | | | | | | Accession Number: [id number] | | | LUMBAR SPINE LIMITED X-RAY CLINICAL HISTORY: LUMBAR | | | INTERBODY FUSION. COMPARISON: 01/20/2013 | | | FINDINGS: Five lumbar-type vertebral bodies are present. There is | | | persistent levoconvex lumbar curvature. A back brace is seen | | | overlying the patient. Paired pedicle screws with vertical fusion | | | rods are seen at the levels of L4 and L5. Image quality is degraded | | | on the lateral view secondary to motion. There is a disk spacer at | | | the L4-5 level, without evidence of subsidence. Vertebral body | | | alignment other than scoliotic curvature appears well maintained. | | | Loss of vertebral body height is again seen anteriorly at the L1 | | | level. IMPRESSION: POSTERIOR SPINAL FUSION | | | HARDWARE DESCRIBED ABOVE, WITHOUT EVIDENCE OF HARDWARE | | | COMPLICATION. Dictated Date/Time: 07/29/2013 17:55 | | | Transcribed Date/Time: 07/29/2013 18:32 Electrical Project Engineer: | | | MS1 <<Signature on File>> | | | Will | | | Matt Lagos MD07/30/13 0913 <Electronically signed by Will Gutierrez | | | Yolis ARAUJO> Will Lagos MD 07/29/13 9322 | | | Electrical Project Engineer: [id number]/07/14 0693 | | | Will Rodriguez MD | | + + + + + + + + | Performing | Address | City/State/Zipcode | Phone Number | | Organization | | | | + + + + + | [facility] | [address] | [place] | [phone] | | [facility] | | [address] | | | - IMAGING | | | | + + + + + POC Glucose (07/29/2013 11:50 AM PST) + +---------+ + + + | Component | Value | Ref Range | Performed | Pathologist | | | | | At | Signature | + +---------+ + + + | Glucose, | 171 (H) | 79 - 150 md/dL | [facility] | | | P[facility] | | | [facility] | | [...] + | [facility] | [address] | [place] | [phone] | | [facility] | | [address] | | | - LABORATORY | | | | + + + + + | [facility] | [address] | [place] | | | [facility] | | [address] | | | - LABORATORY | | | | + + + + + POC Glucose (07/29/2013 7:15 AM PST) + +---------+ + + + | Component | Value | Ref Range | Performed | Pathologist | | | | | At | Signature | + +---------+ + + + | Glucose, | 172 (H) | 79 - 150 md/dL | [facility] | | | POC | | | [facility] | | [...] + | [facility] | [address] | [place], [place] | [phone] | | [facility] | | [address] | | | - LABORATORY | | | | + + + + + | [facility] | [address] | [place], [place] | | | [facility] | | [address] | | | - LABORATORY | | | | + + + + + POC Glucose (07/29/2013 1:52 AM PST) + +---------+ + + + | Component | Value | Ref Range | Performed | Pathologist | | | | | At | Signature | + +---------+ + + + | Glucose, | 280 (H) | 79 - 150 md/dL | [facility] | | | POC | | | [facility] | | [...] + + | [facility] | [address] | [place] | [phone] | | [facility] | | [address] | | | - LABORATORY | | | | + + + + + | [facility] | [address] | [place] | | | [facility] | | [address] | | | - LABORATORY | | | | + + + + + POC Glucose (07/28/2013 5:04 PM PST) + +---------+ + + + | Component | Value | Ref Range | Performed | Pathologist | | | | | At | Signature | + +---------+ + + + | Glucose, | 231 (H) | 79 - 150 md/dL | [facility] | | | POC | | | [facility] | | | | | | [...] + | [facility] | [address] | [place], [place] | [phone] | | [facility] | | [address] | | | - LABORATORY | | | | + + + + + | [facility] | [address] | [place], [place] | | | [facility] | | [address], [facility] | | | - LABORATORY | | | | + + + + + XR Spine 1 Vw (07/28/2013 11:09 AM PST) + + | Specimen | + + | | + + + + + | Narrative | Performed At | + + + | [facility] | [place] | | Department [address] [place] [address] | [facility] | | [ rep ct street1+2] [ rep [facility] | | st [facility]] Signed | - IMAGING | | | | | Patient Name: DILSHAD ARCOS Physician: | | | YAMLio. : 1935 Age: 77 Sex: F Unit #: [id number] | | | Exam Date: 07/28/13 Location: [address] [place] [address] | | | Report #: [id number] Page: | | | %(RAD)RES..mtdd.print.filter("pg") of %(RAD) | | | RES..mtdd.print.filter("tpg") | | | | | | Accession Number: [id number] | | | SPINE, ONE VIEW CLINICAL HISTORY: INTRAOPERATIVE FILMS. | | | COMPARISON: Lumbar spine 01/20/2013. | | | FINDINGS/IMPRESSION: TWO INTRAOPERATIVE FLUOROSCOPIC IMAGES ARE | | | ACQUIRED DURING SPINE FUSION. THERE ARE TRANSPEDICULAR SCREWS AND | | | VERTICAL RODS IN PLACE. THESE APPEAR TO BE FUSING L4 AND L5. INTERBODY | | | GRAFT MARKERS ARE IN PLACE AT THE INTERVENING DISK SPACES. BONE | | | GRAFT MATERIAL IS SEEN BILATERALLY. PLEASE SEE THE PROCEDURAL REPORT | | | FOR ADDITIONAL DETAILS. <<Signature on File>> | | | Ant | | | Eldon Jackson MD07/28/132041 <Electronically signed by Ant Colón | | | Manuel ARAUJO> Ant Jackson MD 07/28/13 1109 | | | Electrical Project Engineer: Christina Palm07/28/13 1536 | | | Will Rodriguez MD | | + + + + + + + + | Performing | Address | City/State[facility] | Phone Number | | Organization | | | | + + + + + | [facility] | [address] | [place] | [phone] | | [facility] | | [address] | | | - IMAGING | | | | + + + + + POC Glucose (07/28/2013 10:29 AM PST) + +---------+ + + + | Component | Value | Ref Range | Performed | Pathologist | | | | | At | Signature | + +---------+ + + + | Glucose, | 211 (H) | 79 - 150 md/dL | [facility] | | | POC | | | [facility] | | [...] + | [facility] | [address] | [place], [place] | [phone] | | [facility] | | [address] | | | - LABORATORY | | | | + + + + + | [facility] | [address] | [place], [place] | | | [facility] | | [id number] [place] [address] | | | - LABORATORY | | | | + + + + + Protime INR (Fingerstick) (07/28/2013 7:26 AM PST) + +-------+ + + + | Component | Value | Ref Range | Performed | Pathologist | | | | | At | Signature | + +-------+ + + + | PT, POC | 12.2 | | [facility] | | | | | [facility] | | | | | MEDICAL | | | | | | CENTER - | | | | | | LABORATORY | | + +-------+ + + + | INR, POC | 1.0 | | [facility] | | | | [...] + | [facility] | [address] | [place], [place] | [phone] | | [facility] | | [address] | | | - LABORATORY | | | | + + + + + | [facility] | [address] | [place], [place] | | | [facility] | | [address], [facility] | | | - LABORATORY | | | | + + + + + POC Glucose (07/28/2013 6:57 AM PST) + +-------+ + + + | Component | Value | Ref Range | Performed | Pathologist | | | | | At | Signature | + +-------+ + + + | Glucose, | 140 | 79 - 150 md/dL | [facility] | | | POC | | | [facility] | | [...] + | [facility] | [address] | [place] | [phone] | | [facility] | | [address] | | | - LABORATORY | | | | + + + + + | [facility] | [address] | [place] | | | [facility] | | [address] | | | - LABORATORY | | | | + + + + + documented in this encounter Visit Diagnoses Not on filedocumented in this encounter
--- OUTSIDE RECORDS SUMMARY | ~2020-02-18 | XMS | Encounter Summary ---
Demographics + + + | Address | [address] | | | [place] [address] | + + + | Home Phone | | + + + | Preferred Language | Unknown | + + + | Marital Status | | + + + | Pentecostalism Affiliation | 1073 | + + + | Race | Unknown | + + + | Ethnic Group | Unknown | + + + Author + + + | Author | [facility] | | | and [place] | + + + | Organization | [facility] | | [...] Team Providers + +------+ + | Care Stereoptician Name | Role | Phone | + +------+ + | Chinmay Driscoll MD | PCP | | + +------+ + Encounter Details +--------+ + + + + | Date | Type | Department | Care Team | Description | +--------+ + + + + | 07/28/ | Hospital | [facility] | Will Rodriguez MD | | | 2014 - | Encounter | MED CTR SURGICAL | [address] | | | | | [address] | [place] [address] | | | 07/30/ | | [place] [address] | [phone] | | | 2013 | | [phone] | | | +--------+ + + + [...] Will Rodriguez MD - 07/28/2013 10:41 AM [place], [place] [address] Patient Name: DILSHAD ARCOS Provider: Will Rodriguez MD Unit #: [id number] Location: [facility] Acc #: [id number] : 1935 DATE: 07/28/2013 PREOPERATIVE DIAGNOSES 1. [...] of operating microscope. ATTENDING: Will Rodriguez MD DRIVER GUIDE: LAVINIA Leija ANESTHESIA: General, performed by Dr. [...] Will Rodriguez MD Neurological Surgery JOB #: [id number] EXT JOB #:[id number] cc: LAVINIA Caraballo <<Signature on File>> Will [...] + + | Performing | Address | City/[facility]/Zipcode | Phone Number | | Organization | | | | + + + + + | [facility] | [address] | [place], [place] | [phone] | | [facility] | | [address] | | | - LABORATORY | | | | + + + + + | [facility] | [address] | [place], [place] | | | [facility] | | [address], [facility] | | | - LABORATORY [...] + | [facility] | [address] | [place] | [phone] | | [facility] | | [address] | | | - LABORATORY | | | | + + + + + | [facility] | [address] | [place] | | | [facility] | | [address], [facility] | | | - LABORATORY [...] + + | Performing | Address | [facility] | Phone Number | | Organization | | | | + + + + + | [facility] | [address] | [place] | [phone] | | [facility] | | [address] | | | - LABORATORY | | | | + + + + + | [facility] | [address] | [place] | | | [facility] | | [address] | | | - LABORATORY | [...] + | [facility] | [address] | [place], [place] | [phone] | | [facility] | | [address] | | | - LABORATORY | | | | + + + + + | [facility] | [address] | [place], [place] | | | [facility] | | [address], [facility] | | | - LABORATORY | | | | + + + + + XR Lumbar Spine 2 or 3 Vw (07/29/2013 5:55 PM PST) + + | Specimen | + + | | + + + + + | Narrative | Performed At | + + + | [facility] | [place] | | Department [address] [facility] | [facility] | | [ rep ct street1+2] [ rep [facility] | | st zip] Signed | - IMAGING | | | | | Patient Name: DILSHAD ARCOS Physician: | | | YAMLio. : 1935 Age: 77 Sex: F Unit #: [id number] | | | Exam Date: 07/29/13 Location: [address] [place] [address] | | | Report #: [id number] Page: | | | %(RAD)RES..mtdd.print.filter("pg") of %(RAD) | | | RES..mtdd.print.filter("tpg") | | | | | | Accession Number: [id number] | | | LUMBAR SPINE LIMITED X-RAY [...] | | | Transcribed Date/Time: 07/29/2013 18:32 Hydroelectric Production Technician: | | | MS1 <<Signature on File>> | | | Will | | | Matt Lagos MD07/30/13 0913 <Electronically signed by Will Gutierrez | | | Yolis ARAUJO> Will Lagos MD 07/29/13 0912 | | | Hydroelectric Production Technician: [place] Iezhsristxtqw64/07/14 0018 | | | Will Rodriguez MD | | + + + + + + + + | Performing | Address | City/State/Zipcode | Phone Number | | Organization | | | | + + + + + | [facility] | [address] | [place] | [phone] | | [facility] | | [address] | | | - IMAGING | | [...] + | [facility] | [address] | [place] | [phone] | | [facility] | | [address] | | | - LABORATORY | | | | + + + + + | [facility] | [address] | [place] | | | [facility] | | [address] | | | - LABORATORY | [...] + | [facility] | [address] | [place], [place] | [phone] | | [facility] | | [address] | | | - LABORATORY | | | | + + + + + | [facility] | [address] | [place], [place] | | | [facility] | | [address] | | | - LABORATORY | [address] | [place] | [phone] | | [facility] | | [address] | | | - LABORATORY | | | | + + + + + | [facility] | [address] | [place] | | | [facility] | | [address] | | | - LABORATORY | [...] + | [facility] | [address] | [place], [place] | [phone] | | [facility] | | [address] | | | - LABORATORY | | | | + + + + + | [facility] | [address] | [place], [place] | | | [facility] | | [address], [facility] | | | - LABORATORY | | | | + + + + + XR Spine 1 Vw (07/28/2013 11:09 AM PST) + + | Specimen | + + | | + + + + + | Narrative | Performed At | + + + | [facility] | [place] | | Department [address] [place] [address] | [facility] | | [ rep ct street1+2] [ rep [facility] | | [facility]] Signed | - IMAGING | | | | | Patient Name: DILSHAD ARCOS Physician: | | | YAMLio. : 1935 Age: 77 Sex: F Unit #: [id number] | | | Exam Date: 07/28/13 Location: [address] [place] [address] | | | Report #: [id number] Page: | | | %(RAD)RES..mtdd.print.filter("pg") of %(RAD) | | | RES..mtdd.print.filter("tpg") | | | | | | Accession Number: [id number] | | | SPINE, ONE VIEW CLINICAL [...] Jackson MD 07/28/13 1109 | | | Hydroelectric Production Technician: Christina Palm07/28/13 1536 | | | Will Rodriguez MD | | + + + + + + + + | Performing | Address | City/State/[facility] | Phone Number | | Organization | | | | + + + + + | [facility] | [address] | [place] | [phone] | | [facility] | | [address] | | | - IMAGING | | [...] + | [facility] | [address] | [place], [place] | [phone] | | [facility] | | [address] | | | - LABORATORY | | | | + + + + + | [facility] | [address] | [place], [place] | | | [facility] | | [id number] [place] [address] | | | - LABORATORY | | [...] + | [facility] | [address] | [place], [place] | [phone] | | [facility] | | [address] | | | - LABORATORY | | | | + + + + + | [facility] | [address] | [place], [place] | | | [facility] | | [address], [facility] | | | - LABORATORY [...] [address] | [place] | [phone] | | [facility] | | [address] | | | - LABORATORY | | | | + + + + + | [facility] | [address] | [place] | | | [facility] | | [address] | | | - LABORATORY | | | | + + + + + documented in this encounter Visit Diagnoses Not on filedocumented in this encounter
--- OUTSIDE RECORDS SUMMARY | ~2020-02-18 | XMS | Encounter Summary ---
Demographics + + + | Address | [address] | | | [place] [address] | + + + | Home Phone | | + + + | Preferred Language | Unknown | + + + | Marital Status | | + + + | Baptism Affiliation | 1073 | + + + | Race | Unknown | + + + | Ethnic Group | Unknown | + + + Author + + + | Author | [facility] | | | and [place] | + + + | Organization | [facility] | | | [...] Team Providers + +------+ + | Care Service Girl Name | Role | Phone | + +------+ + | Chinmay Driscoll MD | PCP | | + +------+ + Encounter Details +--------+ + + + + | Date | Type | Department | Care Team | Description | +--------+ + + + + | 01/20/ | Hospital | [facility] | Luigi James, | | | 2013 | Encounter | MED CTR XRAY [address] | PA-C [address] | | | | | [place] | [place], [place] | | | | | [place] [address] | [address] | | | | | [phone] | | | +--------+ + + + [...] Performed At | + + + | [facility] | [place] | | Department [address] [place] [address] | [facility] | | [ rep ct street[address]2] [ rep [facility] | | st zip] Signed | - IMAGING | | | | | Patient Name: GIA ARCOS Physician: | | | ANTHONY. : 1935 Age: 77 Sex: F Unit #: [id number] | | | Exam Date: 01/20/13 [place] [facility] | | | Report #: [id number] Page: | | | %(RAD)RES..mtdd.print.filter("pg") of %(RAD) | | | RES..mtdd.print.filter("tpg") | | | | | | Accession Number: [id number] | | | LUMBAR SPINE, 01/20/2013 CLINICAL [...] Transcribed Date/Time: 01/20/2013 | | | 14:16 Architectural Technician: <<Signature | | | on File>> | | | | | | Antonio Minor MD01/20/13 1527 <Electronically signed by | | | Antonio Minor MD> Antonio Minor MD 01/20/13 | | | 1335 Architectural Technician: South Eevdohhsvqdfh27/01/13 1416 | | | Luigi James PA-C | | + + + + + + + + | Performing | Address | City/State/Zipcode | Phone Number | | Organization | | | | + + + + + | [facility] | [address] | [place] | [phone] | | [facility] | | [address] | | | - IMAGING | | | | + + + + + documented in this encounter Visit Diagnoses Not on filedocumented in this encounter
--- OUTSIDE RECORDS SUMMARY | ~2020-02-18 | XMS | Encounter Summary ---
Demographics + + + | Address | [address] | | | [place] [address] | + + + | Home Phone | | + + + | Preferred Language | Unknown | + + + | Marital Status | | + + + | Judaism Affiliation | 1073 | + + + [...] Team Providers + +------+ + | Care Tractor Sweeper Driver Name | Role | Phone | + [...] | | | [address] [place] | [place] [address] | | | | | [place] [address] | | | | | | [phone] | | | +--------+ + + + [...] + +--------+ + + + | XR CERVICAL SPINE 4 | Routin | 09/04/2017 | | Results for this | | OR 5 VWS | e | 2:25 PM | | procedure are in the | | | | PST | | results section. | + +--------+ + + + documented in this encounter Results XR Cervical Spine 4 or 5 Vws (09/04/2017 2:25 PM PST) + + | Specimen | + + | | + + + + + | Narrative | Performed At | + + + | External films for comparison only - no result from [place]. | [facility] | + + + + +---------+ + + | Performing | Address | City/State/Zipcode | Phone Number | | Organization | | | | + +---------+ + + | [facility] | | | | + +---------+ + + documented in this encounter Visit Diagnoses Not on filedocumented in this encounter"
--- OUTSIDE RECORDS SUMMARY | ~2020-02-18 | XMS | Encounter Summary ---
Demographics + + + | Address | [address] | | | [place] [address] | + + + | Home Phone | | + + + | Preferred Language | Unknown | + + + | Marital Status | | + + + | Congregation Affiliation | 1073 | + + + | Race | Unknown | + + + | Ethnic Group | Unknown | + + + Author + + + | Author | [facility] | | | and [place] | + + + | Organization | [facility] | | [...] Team Providers + +------+ + | Care Automatic Toe Laster Name | Role | Phone | + +------+ + | Chinmay Driscoll MD | PCP | | + +------+ + Reason for Visit + + + | Reason | Comments | + + + | Follow-up | Discuss Surgery | + + + Encounter Details +--------+---------+ + + + | Date | Type | Department | Care Team | Description | +--------+---------+ + + + | 06/06/ | Office | [facility] | Tate Barrientos | 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 | Visit | NEUROSURGERY [address] | [address] | lumbar region with | | | | [address] [place] [address] | radiculopathy - | | | | [place] | [address] | severe at L4-L5 | | | | [address] | | (Primary Dx); Lumbar | | | | [phone] | | radiculopathy - | | | [...] + + + | Blood Pressure | 139/89 | 06/06/2013 12:14 PM | | | | | PST | | + + + + + | Pulse | 78 | 06/06/2013 12:14 PM | | | | | PST | | + + + + + | Temperature | - | - | | + + + + + | Respiratory Rate | 18 | 06/06/2013 12:14 PM | | | | | PST | | + + + + + | Oxygen Saturation | - | - | | + + + + + | Inhaled Oxygen | - | - | | | Concentration | | | | + + + + + | Weight | - | - | | + + + + + | Height | 167.6 cm (5' 6") | 06/06/2013 12:14 PM | | | | | PST | | + + + + + | Body Mass Index | - | - | | + + + + + documented in this encounter Patient Instructions Patient Instructions Tate Barrientos PA-C - 06/06/2013 12:46 PM PSTToday we talked ab out your upcoming surgery. We'll work on getting this scheduled in the near future. You wi ll continue to work with your primary care provider in controlling your Coumadin levels. We discussed the option for a lumbar fusion to treat your spinal condition. I favored an p osterior fusion with posterior instrumentation in the form of a TLIF or Transforaminal Lumba r Interbody Fusion. You can research this procedure more by going to: http://www.esurgeon.com/luis Click the Treatment Options link on the left column. Then, look for Transforaminal Lumbar Interbody Fusion (TLIF) under Surgical Options. documented in this encounter Progress Notes Tate Barrientos PA-C - 06/06/2013 12:43 PM PSTFormatting of this note might be differ ent from the original. Arnaud Barrientos PA-C [address] [facility] [place], [place] [address] FAX: NEUROSURGERY FOLLOW-UP CHIEF COMPLAINT: Chief Complaint Patient presents with Follow-up Discuss Surgery HISTORY OF PRESENT ILLNESS: The patient is a 77 y.o. female with the complaint of left viral ed low back and leg pain. She is here today to discuss potential surgery after having seen a repair cameraman and has obtained cardiac clearance She has not yet followed up with her primary care provider to have surgical clearance. Ernesto araujo admits that she has evidently a history of atrial fibrillation it does not sound like she is seen a repair cameraman before. Her symptoms began a long time ago, but with recent exa cerbation of symptoms about 4 months ago. Since that time the patient feel her pain has bee n worsening. She rates the pain as severe. [...] relief but this has worn off. She reports that she is now able to walk, albeit very slowly. She states that she has no sympt oms on her right leg. She admits that before this injection she can hardly walk and functi on like a normal person. She also has a little bit of numbness in her toes on both feet, bu t has had this for a long time. The patient does not report any change in bowel or bladder f unction recently. She reports that the pain just comes on when it wants to and it is severe . She knows that at her age the outcome may not be as great, but she would like to have rodriguez madiha because she just can't continue living this [...] Take 10 mg by mouth nightly. triamterene-hydrochlorothiazide (MAXZIDE-25) 37.5-25 mg per tablet Take [...] no rheumatoid arthritis. PHYSICAL EXAMINATION: Blood pressure 139/89, pulse 78, resp. rate 18, height 1.676 m (5' 6"). There is no weight on file to calculate BMI. GENERAL: Gia Arcos is in no acute [...] has no apparent deficits with short or intermediate frame tender memory. CRANIAL NERVES: II: Acuity is intact. [...] Intrinsics 5 5 Ulnar Intrinsics 5 5 Market Development Trainer Strength 5 5 Hip Flexion 4+ [...] - primarily into the left lower extremity 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 disc herniation at L4-L5 th at significantly narrows the central canal and appears to impinge on the L5 nerve roots DDD (degenerative disc disease), lumbar - multilevel, [...] would be of benefit. Patient is currently on Coumadin t hey are working to get her INR titrated up We discussed the risks, alternatives, and benefits [...] care. ELECTRONICALLY SIGNED BY: Arnaud Barrientos PA-C, 06/06/2013 12:43 documented in this encounter Plan of Treatment [...]
--- OUTSIDE RECORDS SUMMARY | ~2020-02-18 | XMS | Encounter Summary ---
Demographics + + + | Address | [address] | | | [place] [address] | + + + | Home Phone | | + + + | Preferred Language | Unknown | + + + | Marital Status | | + + + | Hindu Affiliation | 1073 | + + + [...] Team Providers + +------+ + | Care Piano Builder Name | Role | Phone | + [...] + + | 02/02/ | Documentati | [facility] | Norma Galindo, | Labs Only (External | | 2019 | on | [facility] [place] | Trekking Guide | Results-[facility]/Ak | | | | [address] | | oum 02/02/20) | | | | [address] [place], [place] | | | | | | [address] | | | | | | [phone] | | | +--------+ + + + [...] | | | | | ([facility]) Persistent | | | | | [...] | | | | | ([facility]) Persistent | | | | | [...] | | | | | ([facility]) Persistent | | | | | [...] - 1.030 | REFERENCE | | | [place], | | | LAB | | | [...] + + | REFERENCE LAB | [address] | [place] | [phone] | | [facility] | | [address] | | + + + + + [...] + + | REFERENCE LAB | [address] | [place], [place] | [phone] | | [facility] | | [address] | | + + + + + [...] [address] | [place] | [phone] | | [facility] | Blvd. | [address] | | | LABORATORY | | | | + + + + + | REFERENCE LAB | [address] [facility] | [place] | | | [facility] | Blvd. | [address] | | | LABORATORY | | | [...] + + + | REFERENCE LAB | [facility] | [place] | [phone] | | [facility] | Blvd. | [address] | | | LABORATORY | | | | + + + + + | REFERENCE LAB | [facility] | [place] | | | [facility] | Blvd. | [address] | | | LABORATORY | | | [...] + + + | REFERENCE LAB | [address] | [place] | [phone] | | [facility] | Blvd. | [address] | | | LABORATORY | | | | + + + + + | REFERENCE LAB | [address] [facility] | [place], [place] | | | [facility] | Blvd. | [address] | | | LABORATORY | | | [...]
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
--- OUTSIDE RECORDS SUMMARY | ~2020-02-18 | XMS | Encounter Summary ---
Demographics + + + | Address | [address] | | | [place] [address] | + + + | Home Phone | | + + + | Preferred Language | Unknown | + + + | Marital Status | | + + + | Yarsanism Affiliation | [id number] | + + + | Race | Unknown | + + + | Ethnic Group | Unknown | + + + Author + + + | Author | [facility] | | | and [place] | + + + | Organization | [facility] | | | and [...] Team Providers + +------+ + | Care Real Estate Investor Name | Role | Phone | + [...] | | | [address] | [place] [address] | | | | | [place] [address] | | | | | | [phone] | | | +--------+ + + + [...] for comparison only - no result from [place]. | [facility] | + + + + +---------+ + + | Performing | Address | City/State/Zipcode | Phone Number | | Organization | | | | + +---------+ + + | [facility] | | | | + +---------+ + + documented in this encounter Visit Diagnoses Not on filedocumented in this encounter"
--- OUTSIDE RECORDS SUMMARY | ~2020-02-18 | XMS | Encounter Summary ---
Demographics + + + | Address | [address] | | | [place] [address] | + + + | Home Phone [...] Team Providers + +------+ + | Care Head Piece Assembler Name | Role | Phone | + [...] | | | | | | MRI Lumbar | Historical, | | | | | | Spine w wo | [address] | | | | | | Contrast | [address] | | | | | | | [place] | | | | | | | [address] | | +--------+--------+ + + + + Encounter Details +--------+ + + + + | Date | Type | Department | Care Team | Description | +--------+ + + + + | 08/17/ | Imaging | [facility] | Provider, | | | 2017 | Exam | [facility] | MD [address] | | | | | IMAGING [address] | [address] | | | | | [address] | [place] [address] | | | | | [place] [address] | | | | | | [phone] | | | +--------+ + + + [...] + | MRI LUMBAR SPINE W | Routin | 07/24/2017 | | Results for this | | WO CONTRAST | e | 4:10 PM | | procedure are in the | | | | PST | | results section. | + +--------+ + + + documented in this encounter Results MRI Lumbar Spine w wo Contrast (07/24/2017 4:10 PM PST) + + | Specimen | + + | | + + + + + | Narrative | Performed At | + + + | External films for comparison only - no result from [place]. | [facility] | + + + + +---------+ + + | Performing | Address | City/State/Zipcode | Phone Number | | Organization | | | | + +---------+ + + | [facility] | | | | + +---------+ + + documented in this encounter Visit Diagnoses Not on filedocumented in this encounter"
--- OUTSIDE RECORDS SUMMARY | ~2020-02-18 | XMS | Encounter Summary ---
Demographics + + + | Address | [address] | | | [place] [address] | + + + | Home Phone | | + + + | Preferred Language | Unknown | + + + | Marital Status | | + + + | Scientologist Affiliation | [id number] | + + + | Race | Unknown | + + + | Ethnic Group | Unknown | + + + Author + + + | Author | [facility] | | | and [place] | + + + | Organization | [facility] | | | [...] Team Providers + +------+ + | Care Sprinkling Truck Driver Name | Role | Phone | + +------+ + | Chinmay Driscoll MD | PCP | | + +------+ + Encounter Details +--------+ + + + + | Date | Type | Department | Care Team | Description | +--------+ + + + + | 07/09/ | Hospital | [facility] | Will Rodriguez MD | | | 2012 | Encounter | [facility] LAB[facility] | [address] | | | | | [address] | [place] [address] | | | | | [place] | [phone] | | | | | [address] | | | | | | [phone] | | | +--------+ + + + [...] Performed At | + + + | [facility] | [place] | | Department [address] [facility] | | [ rep ct [id number]] [ rep [facility] | | [facility]] Signed | - IMAGING | | | | | Patient Name: DILSHAD ARCOS Physician: | | | D. : 1935 Age: 77 Sex: F Unit #: [id number] | | | Exam Date: 07/09/13 Location: LAB | | | Report #: [id number] Page: | | | %(RAD)RES..mtdd.print.filter("pg") of %(RAD) | | | RES..mtdd.print.filter("tpg") | | | | | | Accession Number: [id number] | | | CHEST X-RAY CLINICAL HISTORY: [...] Transcribed | | | Date/Time: 07/09/2013 13:23 Garage Laborer: | | | <<Signature on File>> | | | Jair | | | MD Merrill07/09/13 [id number] <Electronically signed by Jair Momin MD> | | | Jair Momin MD 07/09/13 1317 Garage Laborer: South | | | [email or web address]/18/13 1323 Will Rodriguez MD | | + + + + + + + + | Performing | Address | City/State/Zipcode | Phone Number | | Organization | | | | + + + + + | [facility] | [address] | [place] | [phone] | | [facility] | | [address] | | | - IMAGING | | [...] ST. | [address] | [place], [place] | [phone] | | [facility] | | [address] | | | - LABORATORY | | | | + + + + + | [facility] | [address] | [place] | | | [facility] | | [address] [[email or web address] | | | - LABORATORY | | [...] + | [facility] | [address] | [place] | [phone] | | [facility] | | [address] | | | - LABORATORY | | | | + + + + + | [facility] | [address] | [place], [place] | | | [facility] | | [address] [[email or web address]] | | | - LABORATORY | | [...] + | [facility] | [address] | [place] | [phone] | | [facility] | | [address] | | | - LABORATORY | | | | + + + + + | [facility] | [address] | [place] | | | [facility] | | [id number] [[email or web address]] | | | - LABORATORY | | [...] + | [facility] | [address] | [place] | [phone] | | [facility] | | [address] | | | - LABORATORY | | | | + + + + + | [facility] | [address] | [place] | | | [facility] | | [id number] [place] [address] | | | - LABORATORY | | | | + + + + + documented in this encounter Visit Diagnoses Not on filedocumented in this encounter
--- OUTSIDE RECORDS SUMMARY | ~2020-02-18 | XMS | Encounter Summary ---
Demographics + + + | Address | [address] | | | [place] [address] | + + + | Home Phone | | + + + | Preferred Language | Unknown | + + + | Marital Status | | + + + | Buddhist Affiliation | 1073 | + + + | Race | Unknown | + + + | Ethnic Group | Unknown | + + + Author + + + | Author | [facility] | | | and [place] | + + + | Organization | [facility] | | | and [place] | + + + | Address | Unknown | + + + | Phone | Unavailable | + + + Support + + +---------+ + | Name | Relationship | Address | Phone | + + +---------+ + | Indy Cristal | ECON | Unknown | | + + +---------+ + | Rachelvaelria Mckeon | ECON | Unknown | | + + +---------+ + Care Team Providers + +------+ + | Care Auto Crane Driver Name | Role | Phone | + +------+ + | Chinmay Driscoll MD | PCP | | + +------+ + Encounter Details +--------+ + + + + | Date | Type | Department | Care Team | Description | +--------+ + + + + | 10/15/ | Hospital | [facility] | Abraham Lindsey, | STEVEN deras | | 2015 - | Encounter | [facility] | MD [address] | | | | | CARE FLOOR [address] | [place] [address] | | | 10/17/ | | [address] | [phone] | | | 2014 | | [place], [place] | | | | | | [address] | | | | | | [phone] | | | +--------+ + + + [...] Discharge Summaries by Solis Blake MD at 10/17/141209 Author: Solis Blake MD Service: Hospitalist Author Type: Physician Filed: 10/17/141213 Date of Service: 10/17/141209 Status: Signed Personnel Analyst: Solis Blake MD (Physician) [facility] Service: Hospitalist Physician Discharge Summary Pt: Gia Arcos AGE/SEX: 78 y.o. female ROOM: [facility]9/4459-1 PCP: CHINMAY DRISCOLL : 1935 Admit date: [...] HTN, who presents as a transfer from [facility] with GI bleed and found to be [...] CP, SOB, N/V, Diarrhea, Abdominal pain or KAUR. No constipation or change in bowel habits. [...] Judgment normal. LABS: Recent Labs Lab 10/17/14 0510/16/14 2200 10/16/14 0750 10/16/14 0601 10/15/14 1721 [...] interval not displayed. Recent Labs Lab 10/17/14 0510/16/14 0601 10/15/14 1721 NA 138 139 140 [...] hours. No results for input(s): PHART, PO2ART, UHW9CAE, C7AADGAV, BEART in the last 168 hours. Recent Labs Lab 10/16/14 0601 APTT 26 [...] are the prescriptions that you need to fruit or nut picker. You may get the following medications from [...] Blake MD 10/17/2014 12:10 PM Dictation software, [employer], used which may contain error for similar [...] documented as of this encounter Progress Notes La Transaction, Provider Unknown - 10/17/2014 5:44 PM PDTFormatting of this note m ight be different from the original. Nurse Progress Note by Anne Santa RN at 10/17/141743 Author: Anne Santa RN Service: (none) Author Type: Registered Nurse Filed: 10/17/141745 Date of Service: 10/17/141743 Status: Signed Personnel Analyst: Anne Santa RN (Registered Nurse) Family And caregiver present for discharge teaching pt alert and oriented X4 . pts new RX' s given to caregiver. Pt discharged via private car to home with caregiver. onver shola Transaction, Provider Unknown - 10/17/2014 3:12 PM PDT Case Management by SOURAV Bradley at 10/17/14 1512 Author: SOURAV Bradley Service: (none) Author Type: Store Director Filed: 10/17/14 1513 Date of Service: 10/17/14 1512 Status: Signed Personnel Analyst: SOURAV Bradley (Store Director) 10/17/14 1500 Discharge Planning Evaluation Admitting Diagnosis Acute Blood Loss Anticipated Disposition Facility Type Home Weekend Discharge planning: CHURN OPERATOR spoke with Anne LEWIS Nurse regarding discharge needs, marc diehl Pt does not need to be seen by CM at this time and has no discharge needs or concerns. I encouraged them to enter a CM consult as needs arise. Jermaine Ross, V Belt Inspector [phone] cell onver shola Transaction, Provider Unknown - 10/16/2014 6:20 PM PDT Nurse Progress Note by Anne Santa RN at 10/16/141819 Author: Anne Santa RN Service: (none) Author Type: Registered Nurse Filed: 10/16/141824 Date of Service: 10/16/141819 Status: Signed Personnel Analyst: Anne Santa RN (Registered Nurse) Pts first unit of blood is completed iv lasix is being given and second unit to be hung. Pt tolerated first infusion without complications. Solis Ortiz MD - 10/16/2014 1:07 PM PDT Progress Notes by Solis Blake MD at 10/16/14 1307 Author: Solis Blake MD Service: Hospitalist Author Type: Physician Filed: 10/16/14 6647 Date of Service: 10/16/14 1307 Status: Addendum Personnel Analyst: Solis Blake MD (Physician) Related Notes: Original Note by Solis Blake MD (Physician) filed at 10/16/14 3836 [facility] Service: Hospitalist Progress Note Pt: Gia Arcos AGE/SEX: 78 y.o. female ROOM: [facility]9/445-1 : 1935 PCP: CHINMAY DRISCOLL ADMIT DATE: 10/15/2014 TODAY'S DATE: 10/16/2014 Hospital Day/Hospital Course: LOS: 1 day The patient is a 78 y.o. female with significant past medical history of afib on xarelto, D M type 2, HTN, who presents as a transfer from [facility] ER from Dr Sarah for GI bleed. SP EGD 1. Normal esophagus and duodenum. 2. Antral ulceration, most likely cause of upper gastrointestinal bleeding, biopsied for CL Otest. SUBJECTIVE: Patient seen and examine. She still having a black colored stool. She is still feeling we ak and tired.. No chest pain, SOB, KAUR. No cough on recumbency. Had no orthopnea [...] Oral 108 - 95 % - - 10/15/142111 92/51 mmHg 99.2 F (37.3 C) Temporal 108 18 98 % - - 10/15/141922 141/67 mmHg 98.8 F (37.1 C) Oral [...] 102 kg (224 lb 13.9 oz) 10/15/14 192 101.4 kg (223 lb 8.7 oz) 10/15/14 [...] HTN, who presents as a transfer from [facility] ER from for GI bleed. Principal Problem: [...] MD, FACP 10/16/2014 1:07 PM Dictation software, [employer], used which may contain error for similar sounding words even af ter review. Personal communication requested for any clarification. onversion Transac tion, Provider Unknown - 10/16/2014 7:59 AM PDTFormatting of this note might be different f rom the original. Nurse Progress Note by Anne Santa RN at 10/16/14758 Author: Anne Santa RN Service: (none) Author Type: Registered Nurse Filed: 10/16/14800 Date of Service: 10/16/14758 Status: Signed Personnel Analyst: Anne Santa RN (Registered Nurse) Spoke with Dr. Blake , pt Potassium is 3.1. And to [...] 10/16/14433 Date of Service: 10/15/142200 Status: Addendum Personnel Analyst: Ngozi Liu RN (Registered Nurse) Related Notes: Original Note by Nogzi Liu RN (Registered Nurse) filed at 2243 Dr Tobar made aware all of medications on SEP hold and needs to be released and he can only release them and the nurse or pharmacy does not have the authority. He replied "okay" , will wait until orders reviewed and released per physician to give any medication. Kacie 2215: [facility] paged regarding releasing orders or placing new ones, will await call. 2245: Orders from [facility] received for few orders that Dr. Tobar continues to have on SEP hold . Replaced for mag citrate, cytotec and protnix drip and NS at 110/hr. Will continue to monitor. kacie 0430: Patient able to drink all of Mag Citrate per orders last evening. Patient had two lar ge incontinent dark black loose stools. All bedding changed and patient changed and cleaned. ayelin Oconnell RP - 10/15/2014 5:02 PM PDTFormatting of this note might be different from t he original. Progress Notes by Mayelin Minor RPH at 10/15/141701 Author: Mayelin Minor RPH Service: (none) Author Type: Pharmacist Filed: 10/15/141701 Date of Service: 10/15/141701 Status: Signed Personnel Analyst: Mayelin Minor RPH (Pharmacist) Clinical Pharmacy Note [...] 5:02 PM documente d in this encounter H&P Notes Abraham Lindsey MD - 10/15/2014 4:53 PM PDTFormatting of this note might be different f rom the original. H&P by Abraham Lindsey MD at 10/15/141652 Author: Abraham Lindsey MD Service: (none) Author Type: Physician Filed: 10/15/141804 Date of Service: 10/15/141652 Status: Addendum Personnel Analyst: Abraham Lindsey MD (Physician) Related Notes: Original Note by Abraham Lindsey MD (Physician) filed at 10/15/141800 [facility] Service: Hospitalist Admission History & Physical Pt: Gia Arcos AGE/SEX: 78 y.o. female ROOM: [address] [place] [address] PCP: CHINMAY DRISCOLL DOB: 1935 TODAY'S DATE: 10/15/2014 Date of Admission: 10/15/2014 Chief Complaint: Vomiting dark material and Having dark stool History of Present Illness: The patient is a 78 y.o. female with significant past medical history of afib on xarelto, D M type 2, HTN, who presents as a transfer from [facility] ER from Dr Sarah for GI bleed. Case was discussed with Dr Allison by Dr Sarah and it was decided that patient did not kaur ve to go thru the ER and that patient was stable to go to floors. A week ago patient had wha t she thought was flu with chills, myalgias, cough for a few days for which she took she amilcar d a total of 3 OTC aleve pills. Then yesterday she started not to feel well. Today she had a queasy feeling in stomach and had 2 episodes of dark emesis, as well as loose dark tarry st ools associated with generalized weakness and dizziness. Labs at [facility] revealed H/h there was 8. with last hgb available at 2011 was 13. Pltls 116 and WBC 8.6 INR w as 1.8 UA negative Glucose 317 BUN 80 Creat 1.25 K 4.3 HCO 20 Trop negative LFts WNL Received 2 L IV fluids and 2 u PRBCs And started on protonix drip over there at [facility] Currently still feels dizzy if she would get up. Denies CP or SOB. ROS: Complete ROS done, all 12 systems negative unless otherwise stated + fatigue, generalized weakness, poor appetite, nausea, dizziness, vomiting, chills a week ago now resolved, SOB a week ago now resolved No fevers, weight loss, headache, focal weakness. No cough, colds, chest pain, palpitations. No abdominal pain, , constipation, dysuria, frequency, hematuria PMHx: As above PSHx: Past Surgical History Procedure Laterality Date Hip surgery Hysterectomy Prior To admission Meds: Prior to Admission medications Not on File Medications scheduled: pantoprazole 80 mg Intravenous Once Allergies: Not on File Family Hx: Family History Problem Relation Age of Onset Cancer Mother Social Hx: History Substance Use Topics Smoking status: Never Smoker Smokeless tobacco: Not on file Alcohol Use: No Objective: Vital Signs: BP 134/68 | Pulse 111 | Temp(Src) 98.4 F (36.9 C) (Oral) | Resp 14 | Wt 101.4 kg (223 l b 8.7 oz) Physical Exam: Constitutional: Alert and oriented to person, place and time. Appears well developed and w ell nourished. No acute respiratory distress. HEENT: atraumatic, moist mucous membranes, pink conjunctivae and anicteric sclerae. No J VD, neck supple Cardiovascular Mild tachycardia , irregular rhythm . Normal heart sounds with S1 and S2. No appreciable mumrurs. Pulmonary: Non labored breathing. Breath sounds are clear bilaterally. No wheezing or rale s. Abdominal: Soft and non-tender. Bowel sounds are present. No rebound or guarding. Extremities: No edema or cyanosis. Neurological: AAO x3. No CN deficit. Grossly non focal. Skin: Warm and dry. No rashes or open wounds.No diaphoresis Psychiatric: Normal mood and affect. Normal judgment and behavior. Data: No results for input(s): WBC, HGB, HCT, PLT, NEUTOPHILPCT, MONOPCT in the last 168 hours. Invalid input(s): EOSPCT No results for input(s): NA, K, CL, CO2, BUN, CREATININE, CALCIUM, PROT, BILITOT, ALKPHOS, ALT, AST, GLUCOSE in the last 168 hours. Invalid input(s): LABALBU Phosphorus: No results found for this basename: PHOS Invalid input(s): LABALBU No results for input(s): MG in the last 168 hours. No results for input(s): AMYLASE in the last 168 hours. No results for input(s): PHART, PO2ART, HXC3QKT, U2LGXBAH, BEART in the last 168 hours. No results for input(s): APTT, INR, PTT in the last 168 hours. No results for input(s): TSH, T3FREE, FREET4 in the last 168 hours. No results for input(s): CKTOTAL, TROPONINI, TROPONINT, CKMBINDEX in the last 168 hours. EKG: afib Problem List: Principal Problem: GI bleed Active Problems: A-fib DM type 2 (diabetes mellitus, type 2) HTN (hypertension) Assessment and Plan: Principal Problem: GI bleed - likely related to xarelto + NSAID use in the last week. Keep NPO. Dr Tobar will see her f or EGD. H/H q 6 h,. continue with protonix drip. She is s/p 2 u pRBC. She is off xarelto. N o NSAIDs. She is aware of the risk of stroke of xarelto being stopped . Her PCP of note had been thinking of switching to coumadin before due to the cost of xarelto. She was on coumad in before but her INR took a long time before it became therapeutic and that is the reason f or the switch to xarelto. Active Problems: A-fib - mild tachycardia. Non toxic appearing. Maintain on telemetry. IV labetalol will be orde red DM type 2 (diabetes mellitus, type 2) - hold oral medication, ISS low dose while NPO and adjust as needed HTN (hypertension) - hold oral medications and switch to IV labetalol for now DVT prophylaxis - mechanical devices only More than 70 mins were spent on the review of H/P, imaging and labs, formulation of assessm ent and plan, discussion with the patient/family, staff and providers. Anticipate at least 2 midnight stay for monitoring and IV medications Code Status: Full Code Primary Care Physician: CHINMAY Lindsey MD 10/15/2014 5:25 PM documented in this encounter Procedure Notes Anthony Tobar - 10/15/2014 9:09 PM PDTFormatting of this note might be different from the o riginal. Procedures by Anthony Tobar MD at 10/15/142108 Author: Anthony Tobar MD Service: Gastroenterology Author Type: Physician Filed: 10/16/141943 Date of Service: 10/15/142108 Status: Signed Personnel Analyst: Anthony Tobar MD (Physician) Related Notes: Original Note by Anthony Tobar MD (Physician) filed at 10/15/142113 Procedure Orders: 1. Case Request Operating Room: ESOPHAGOGASTRODUODENOSCOPY [[id number]] ordered by Anthony cohen MD at 10/15/14 181 Pre-procedure Diagnoses: 1. Acute upper GI bleeding [578.9] Post-procedure Diagnoses: 1. Gastric ulcer, acute [531.30] Procedures: 1. UPPER STOMACH-INTESTINE SCOPE FOR BIOPSY [88624 (CPT)] DATE OF SERVICE October 15, 2014 PROCEDURE Esophagogastroduodenoscopy with a biopsy. ENDOSCOPIST Anthony Tobar MD INSTRUMENT Olympus GIF scope. MEDICATIONS Propofol by anesthesiologist. HISTORY AND INDICATIONS This EGD was performed for further evaluation of upper GI bleeding. DESCRIPTION OF PROCEDURE Informed consent was obtained from patient after explaining the indications and possible co mplications, including but not excluding bleeding, perforation, infection, and reaction to m edication. As the patient was brought to the endoscopy room, the patient was placed in the l eft lateral decubitus position. Following IV sedation, GI upper scope was inserted in the or al cavity and under direct visualization advanced to the distal duodenum. FINDINGS In the esophagus there was no erosion, ulceration, stricture, or varicosity. No hiatal mele ia was seen. In the stomach there were antral ulcerations anteriorly without any visible vessel. Size wa s about 6 mm, and there was surrounding mucosal erythema. Posterior wall of the antrum was a lso inflamed but no obvious ulcerations were seen. No visible vessels were seen. No active b leeding was seen. Retroflexed view of the lesser curvature, fundus, and cardia appeared unre markable. Pylorus appeared normal and patent. In the duodenum, bulb through the third portion to fourth portion appeared completely sam l, without any erosion or ulceration. Biopsy was obtained from antrum for CLOtest to rule out Helicobacter pylori infection. IMPRESSION 1. Normal esophagus and duodenum. 2. Antral ulceration, most likely cause of upper gastrointestinal bleeding, biopsied for CL Otest. RECOMMENDATIONS 1. Start full liquid diet. 2. Double-dose of proton pump inhibitor along with misoprostol 200 mcg p.o. b.i.d. 3. May start anticoagulation therapy in 3 days. 4. Monitor any sign of GI bleeding before starting the anticoagulation therapy. She will re ceive magnesium citrate 1 bottle tonight for that purpose. documented in this encounte r Consult Notes Anthony Tobar - 10/15/2014 7:16 PM PDTFormatting of this note might be different from the o riginal. Consults by Anthony Tobar MD at 10/15/141915 Author: Anthony Tobar MD Service: Gastroenterology Author Type: Physician Filed: 10/16/141940 Date of Service: 10/15/141915 Status: Signed Personnel Analyst: Anthony Tobar MD (Physician) Related Notes: Original Note by Anthony Tobar MD (Physician) filed at 10/15/141928 Consult Orders: 1. Inpatient consult to GI [[id number]] ordered by Abraham Lindsey MD at 10/15/14 1805 [facility] Service: Gastroenterology Initial Consult Note Date of Admission: 10/15/2014 Reason for Consultation: GI bleeding Requesting Physician: Dr. Lindsey History Obtained From: patient, chart review HISTORY OF PRESENT ILLNESS The patient is a 78 y.o. female with a history of hypertension, type 2 diabetes, and atrial fibrillation. For atrial fibrillation, initially Coumadin was tried but they were not able to achieve the good therapeutic range so that Xarelto was started. She was doing fine up unt il yesterday when she started feeling a little nauseated and then earlier today she vomited coffee-ground material 2 times, and then started having dark black tarry stools rectally. Sh e denied generalized weakness and dizziness, and subsequently seen at [facility] emergency room. Initial hemoglobin 8.1, hematocrit 25, platelet count 116. PT IN R was 1.8. Subsequently she was transferred to [facility] for further ma nagement of GI bleeding. She has received 2 packed rbc's transfusion. She denies any prior h istory of GI bleeding, dysphagia, indigestion, or any abdominal pain. She denies any bowel p roblems before this. REVIEW OF SYSTEMS CONSTITUTIONAL: There have been no fever, chills, weight loss, or anorexia. RESPIRATORY: negative for hemoptysis or coughing CARDIOVASCULAR: negative for chest pain or palpitation GASTROINTESTINAL: positive for vomiting, hematemesis and hemtochezia GENITOURINARY: negative for dysuria. Has urinary incontinence HEMATOLOGIC/LYMPHATIC: negative for easy bruising and bleeding MUSCULOSKELETAL: negative for myalgias and arthralgias Past medical history. Hypertension DM, type 2 Atrial fibrillation Past Surgical History Procedure Laterality Date Hip surgery Hysterectomy Not on File No prescriptions prior to admission Scheduled Medications pantoprazole 80 mg Intravenous Once Continuous Infusions pantoprazole sodium chloride (IV) 110 mL/hr at 10/15/14 1730 PRN Medications acetaminophen OR acetaminophen, labetalol, ondansetron OR ondansetron, polyethylene glycol, zolpidem Family History Problem Relation Age of Onset Cancer Mother History Smoking status Never Smoker Smokeless tobacco Not on file History Alcohol Use No History Drug Use No PHYSICAL EXAM Vital Signs: BP 134/68 | Pulse 111 | Temp(Src) 98.4 F (36.9 C) (Oral) | Resp 14 | Wt 101.4 kg (223 l b 8.7 oz) | ? No PHYSICAL EXAMINATION GENERAL: Well-built, well-nourished, pleasant female sitting in the bed, does not appear to be in any acute distress, answering all the questions appropriately. HEENT: Atraumatic, normocephalic. Slightly anemic. Anicteric. No nose or gum bleeding noted . No oral thrush. NECK: Supple. LUNGS: Clear, without rales, rhonchi, or wheeze. HEART: Irregular S1, S2, with tachycardia. No murmur or gallop heard. ABDOMEN: Obese. No tenderness. Bowel tones are normoactive. No palpable mass or organomegal y noted. RECTAL: Exam deferred. EXTREMITIES: No cyanosis, clubbing, or edema noted. NEUROLOGIC: No obvious focal deficit noted. DATA Results Procedure Component Value Units Date/Time Occult blood screen [[id number]] (Abnormal) Collected: 10/15/14 180 Specimen Information: Stool Updated: 10/15/14 1821 Fecal Occult Blood POSITIVE (A) Basic metabolic panel [[id number]] (Abnormal) Collected: 10/15/14 172 Specimen Information: Blood Updated: 10/15/141802 SODIUM 140 mmol/L POTASSIUM 4.2 mmol/L CHLORIDE 107 mmol/L CO2 24 mmol/L ANION GAP AGAP 14 mmol/L GLUCOSE 234 (H) mg/dL BUN 73 (H) mg/dL CREATININE 1.31 (H) mg/dL BUN/CREAT 56 CALCIUM 7.9 (L) mg/dL EGFR 42 (L) mL/min/1.73m2 Troponin I [[id number]] Collected: 10/15/14 172 Specimen Information: Blood Updated: 10/15/141802 TROPONIN I 0.028 ng/mL CPK [[id number]] (Abnormal) Collected: 10/15/141720 Specimen Information: Blood Updated: 10/15/141802 CPK 27 (L) U/L CK MB [[id number]] Collected: 10/15/141720 MMB 1.5 ng/mL Updated: 10/15/141802 CK-MB Index 5.6 CBC W/Auto Diff (Reflex to Manual) [[id number]] (Abnormal) Collected: 10/15/141720 Specimen Information: Blood Updated: 10/15/141753 WBC 8.28 K/uL RBC 3.12 (L) M/uL HGB 9.9 (L) g/dL HCT 29.9 (L) % MCV 95.8 fl MCH 31.8 pg MCHC 33.2 g/dL RDW SD 46.8 fl PLT 118 (L) K/uL Medical Record Review: done Patient Active Problem List Diagnosis GI bleed A-fib DM type 2 (diabetes mellitus, type 2) HTN (hypertension) ASSESSMENT & PLAN This is a 78-year-old female with a history of diabetes, hypertension, atrial fib rillation, who has been on anticoagulation therapy. She had some flu like symptoms a week ag o and took Aleve, 1 a day for 3 days, but did not have any problem until yesterday when she started feeling queasy. Now she presents with hematemesis and melenic stool, highly indicati ng she had upper GI bleeding, possibly associated with underlying peptic ulcer disease witho ut association with Aleve use. Considering her age, a GI neoplasm should be also considered. Dieulafoy lesion and Sandra-Jaquez tear are other possibilities. It will be unusual to see angiodysplasia causing this degree of bleeding acutely. Discussed with the patient regarding upper endoscopic examination which will give most of the information. She understands there is a small risk of bleeding, perforation, infection, and reaction to medications. The patie nt will be sedated by anesthesiologist. Code Status: Full Code Primary Care Physician: CHINMAY DRISCOLL Thank you for allowing me to participate in the care of this patient. Anthony Tobar MD 10/15/2014 documented in this encounte r Plan of Treatment Not on filedocumented as [...] EXTERNAL | | | | performed at [facility], [address] | K/uL | LAB | | | | [address], | | | | | | [place] [address] | | | | + + + + + + | Non- | 3.28 (L)Comment: Testing | 3.70 - 5.10 | EXTERNAL | | | Red Blood | performed at [facility], [address] | M/uL | LAB | | | Cells | [address], | | | | | Counted | [place] [address] | | | | + + + + + + | Hemoglobin | 10.6 (L)Comment: Testing | 11.3 - 15.5 | EXTERNAL | | | | performed at [facility], [address] | g/dL | LAB | | | | [address], | | | | | | [place] [address] | | | | + + + + + + | Hematocrit, | 30.9 (L)Comment: Testing | 34.0 - 46.0 % | EXTERNAL | | | POC | performed at [facility], [address] | | LAB | | | | [address], | | | | | | [place] [address] | | | | + + + + + + | MCV | 94.3Comment: Testing | 80.0 - 100.0 fl | EXTERNAL | | | | performed at [facility], [address] | | LAB | | | | [address], | | | | | | [place] [address] | | | | + + + + + + | MCH | 32.4Comment: Testing | 27.0 - 34.0 pg | EXTERNAL | | | | performed at [facility], [address] | | LAB | | | | [address], | | | | | | [place] [address] | | | | + + + + + + | MCHC | 34.4Comment: Testing | 32.0 - 35.5 | EXTERNAL | | | | performed at [facility], [address] | g/dL | LAB | | | | [address], | | | | | | [place] [address] | | | | + + + + + + | RDW-CV | 48.1Comment: Testing | 37 - 53 fl | EXTERNAL | | | | performed at [facility], [address] | | LAB | | | | [address], | | | | | | [place] [address] | | | | + + + + + + | Platelet | 91 (L)Comment: Testing | 150 - 400 K/uL | EXTERNAL | | | Count | performed at [facility], [address] | | LAB | | | Plasma | [address], | | | | | | [place] [address] | | | | + + + + + + | MPV | 8.6Comment: Testing | fl | EXTERNAL | | | | performed at [facility], [address] | | LAB | | | | [address], | | | | | | [place] [address] | | | | + + + + + + | Differentia | AUTOMATEDComment: | | EXTERNAL | | | l Type | Testing performed at | | LAB | | | | [facility], [address] | | | | | | [place] | | | | | | [address] | | | | + + + + + + | % Segmented | 74.29Comment: Testing | % | EXTERNAL | | | | performed at [facility], [address] | | LAB | | | Neutrophils | [address], | | | | | | [place] [address] | | | | + + + + + + | % | 15.03Comment: Testing | % | EXTERNAL | | | Lymphocytes | performed at [facility], [address] | | LAB | | | | [address], | | | | | | [place] [address] | | | | + + + + + + | % Monocytes | 6.10Comment: Testing | % | EXTERNAL | | | | performed at [facility], [address] | | LAB | | | | [address], | | | | | | [place] [address] | | | | + + + + + + | % | 4.04Comment: Testing | % | EXTERNAL | | | Eosinophils | performed at [facility], [address] | | LAB | | | | [address], | | | | | | [place] [address] | | | | + + + + + + | % Basophils | 0.54Comment: Testing | % | EXTERNAL | | | | performed at [facility], [address] | | LAB | | | | [address], | | | | | | [place] [address] | | | | + + + + + + | Absolute | 5.09Comment: Testing | 1.90 - 7.40 | EXTERNAL | | | Segmented | performed at [facility], [address] | K/uL | LAB | | | Neutrophils | [address], | | | | | | [place] [address] | | | | + + + + + + | Absolute | 1.03Comment: Testing | 1.00 - 3.90 | EXTERNAL | | | Lymphocytes | performed at [facility], [address] | K/uL | LAB | | | | [address], | | | | | | [place] [address] | | | | + + + + + + | Absolute | 0.42Comment: Testing | 0.00 - 0.80 | EXTERNAL | | | Monocytes | performed at [facility], [address] | K/uL | LAB | | | | [address], | | | | | | [place] [address] | | | | + + + + + + | Absolute | 0.28Comment: Testing | 0.00 - 0.50 | EXTERNAL | | | Eosinophils | performed at [facility], [address] | K/uL | LAB | | | | [address], | | | | | | [place] [address] | | | | + + + + + + | Absolute | 0.04Comment: Testing | 0.00 - 0.10 | EXTERNAL | | | Basophils | performed at [facility], [address] | K/uL | LAB | | | | [address], | | | | | | [place] [address] | | | | + + + [...] EXTERNAL | | | | performed at [facility], [address] | | LAB | | | | [address], | | | | | | [place] [address] | | | | + + + [...] | | | | | [place] [address] | | | | + + + + + + | K | 3.0 (L)Comment: Testing | 3.5 - 4.9 | EXTERNAL | | | | performed at [facility], [address] | mmol/L | LAB | | | | [address], | | | | | | [place] [address] | | | | + + + + + + | Cl | 107Comment: Testing | 99 - 109 mmol/L | EXTERNAL | | | | performed at [facility], [address] | | LAB | | | | [address], | | | | | | [place] [address] | | | | + + + + + + | CO2 | 27Comment: Testing | 23 - 32 mmol/L | EXTERNAL | | | | performed at [facility], [address] | | LAB | | | | [address], | | | | | | [place] [address] | | | | + + + + + + | Anion Gap | 7Comment: Testing | 5 - 20 mmol/L | EXTERNAL | | | | performed at [facility], [address] | | LAB | | | | [address], | | | | | | [place] [address] | | | | + + + + + + | Glucose, | 142 (H)Comment: Testing | 65 - 99 mg/dL | EXTERNAL | | | Fasting | performed at [facility], [address] | | LAB | | | | [address], | | | | | | [place] [address] | | | | + + + + + + | BUN | 28 (H)Comment: Testing | 8 - 25 mg/dL | EXTERNAL | | | | performed at [facility], [address] | | LAB | | | | [address], | | | | | | [place] [address] | | | | + + + + + + | Creatinine | 1.12 (H)Comment: Testing | 0.50 - 1.00 | EXTERNAL | | | | performed at [facility], [address] | mg/dL | LAB | | | | [address], | | | | | | [place] [address] | | | | + + + + + + | BUN/Creatin | 25Comment: Testing | | EXTERNAL | | | ine Ratio | performed at [facility], [address] | | LAB | | | | [address], | | | | | | [place] [address] | | | | + + + + + + | Calcium | 8.0 (L)Comment: Testing | 8.5 - 10.5 | EXTERNAL | | | | performed at [facility], [address] | mg/dL | LAB | | | | [address], | | | | | | [place] [address] | | | | + + + + + + | Protein, | 4.8 (L)Comment: Testing | 6.3 - 8.2 g/dL | EXTERNAL | | | Total | performed at [facility], [address] | | LAB | | | [address], | | | | | | [place] [address] | | | | + + + + + + | Albumin | 2.9 (L)Comment: Testing | 3.3 - 4.8 g/dL | EXTERNAL | | | | performed at [facility], [address] | | LAB | | | | [address], | | | | | | [place] [address] | | | | + + + + + + | Globulin | 1.9Comment: Testing | 1.3 - 4.9 g/dL | EXTERNAL | | | | performed at [facility], [address] | | LAB | | | | [address], | | | | | | [place] [address] | | | | + + + + + + | A/G Ratio | 1.5Comment: Testing | 1.0 - 2.4 | EXTERNAL | | | | performed at [facility], [address] | | LAB | | | | [address], | | | | | | [place] [address] | | | | + + + + + + | Bilirubin | 0.9Comment: Testing | 0.1 - 1.5 mg/dL | EXTERNAL | | | Total | performed at [facility], [address] | | LAB | | | | [address], | | | | | | [place] [address] | | | | + + + + + + | ALP, | 43Comment: Testing | 35 - 115 U/L | EXTERNAL | | | External | performed at [facility], [address] | | LAB | | | | [address], | | | | | | [place] [address] | | | | + + + + + + | AST | 14Comment: Testing | 10 - 45 U/L | EXTERNAL | | | | performed at [facility], [address] | | LAB | | | | [address], | | | | | | [place] [address] | | | | + + + + + + | ALT | 11Comment: Testing | 10 - 65 U/L | EXTERNAL | | | | performed at [facility], [address] | | LAB | | | | [address], | | | | | | [place] [address] | | | | + + + [...] | | | | | | at [facility], [address] | | | | | | [facility], | | | | | | [place] [address] | | | | + + + [...] EXTERNAL | | | | performed at [facility] | g/dL | LAB | | | | [address];[place], [place] | | | | | | [address] | | | | + + + + + + | Hematocrit, | 30.7 (L)Comment: Testing | 34.0 - 46.0 % | EXTERNAL | | | POC | performed at [facility];[address] | | LAB | | | | [address];[place], [place] | | | | | | [address] | | | | + + + [...] EXTERNAL | | | | performed at [facility];888 | g/dL | LAB | | | | [address];[place] | | | | | | [address] | | | | + + + + + + | Hematocrit, | 24.1 (L)Comment: Testing | 34.0 - 46.0 % | EXTERNAL | | | POC | performed at [facility];[address] | | LAB | | | | [address];[place] | | | | | | [address] | | | | + + + [...] EXTERNAL | | | | performed at [facility];[address] | | LAB | | | | [address];[place] | | | | | | [address] | | | | + + + [...] | | | | | | ACUTE ND Testing | | | | | | performed at [facility];[address] | | | | | | [address];[place], [place] | | | | | | [address] | | | | + + + [...] | | | Patient | performed at [facility];[address] | | LAB | | | | [address];[place] | | | | | | [address] | | | | + + + [...] | | | | | performed at [facility] | | | | | | [facility];[place], [place] | | | | | | [address] | | | | + + + [...] | | | | | [place] [address] | | | | + + + + + + | Non- | 2.62 (L)Comment: Testing | 3.70 - 5.10 | EXTERNAL | | | Red Blood | performed at [facility], [address] | M/uL | LAB | | | Cells | [address], | | | | | Counted | [place] [address] | | | | + + + + + + | Hemoglobin | 8.3 (L)Comment: Testing | 11.3 - 15.5 | EXTERNAL | | | | performed at [facility], [address] | g/dL | LAB | | | | [address], | | | | | | [place] [address] | | | | + + + + + + | Hematocrit, | 24.9 (L)Comment: Testing | 34.0 - 46.0 % | EXTERNAL | | | POC | performed at [facility], [address] | | LAB | | | | [address], | | | | | | [place] [address] | | | | + + + + + + | MCV | 95.1Comment: Testing | 80.0 - 100.0 fl | EXTERNAL | | | | performed at [facility], [address] | | LAB | | | | [address], | | | | | | [place] [address] | | | | + + + + + + | MCH | 31.7Comment: Testing | 27.0 - 34.0 pg | EXTERNAL | | | | performed at [facility], [address] | | LAB | | | | [address], | | | | | | [place] [address] | | | | + + + + + + | MCHC | 33.4Comment: Testing | 32.0 - 35.5 | EXTERNAL | | | | performed at [facility], [address] | g/dL | LAB | | | | [address], | | | | | | [place] [address] | | | | + + + + + + | RDW-CV | 46.8Comment: Testing | 37 - 53 fl | EXTERNAL | | | | performed at [facility], [address] | | LAB | | | | [address], | | | | | | [place] [address] | | | | + + + + + + | Platelet | 107 (L)Comment: Testing | 150 - 400 K/uL | EXTERNAL | | | Count | performed at [facility], [address] | | LAB | | | Plasma | [address], | | | | | | [place] [address] | | | | + + + + + + | MPV | 9.2Comment: Testing | fl | EXTERNAL | | | | performed at [facility], [address] | | LAB | | | | [address], | | | | | | [place] [address] | | | | + + + + + + | Differentia | AUTOMATEDComment: | | EXTERNAL | | | l Type | Testing performed at | | LAB | | | | [facility], [address] | | | | | | [place] | | | | | | [address] | | | | + + + + + + | % Segmented | 81.03Comment: Testing | % | EXTERNAL | | | | performed at [facility], [address] | | LAB | | | Neutrophils | [address], | | | | | | [place] [address] | | | | + + + + + + | % | 12.64Comment: Testing | % | EXTERNAL | | | Lymphocytes | performed at [facility], [address] | | LAB | | | | [address], | | | | | | [place] [address] | | | | + + + + + + | % Monocytes | 5.15Comment: Testing | % | EXTERNAL | | | | performed at [facility], [address] | | LAB | | | | [address], | | | | | | [place] [address] | | | | + + + + + + | % | 0.85Comment: Testing | % | EXTERNAL | | | Eosinophils | performed at [facility], [address] | | LAB | | | | [address], | | | | | | [place] [address] | | | | + + + + + + | % Basophils | 0.33Comment: Testing | % | EXTERNAL | | | | performed at [facility], [address] | | LAB | | | | [address], | | | | | | [place] [address] | | | | + + + + + + | Absolute | 6.58Comment: Testing | 1.90 - 7.40 | EXTERNAL | | | Segmented | performed at [facility], [address] | K/uL | LAB | | | Neutrophils | [address], | | | | | | [place] [address] | | | | + + + + + + | Absolute | 1.03Comment: Testing | 1.00 - 3.90 | EXTERNAL | | | Lymphocytes | performed at [facility], [address] | K/uL | LAB | | | | [address], | | | | | | [place] [address] | | | | + + + + + + | Absolute | 0.42Comment: Testing | 0.00 - 0.80 | EXTERNAL | | | Monocytes | performed at [facility], [address] | K[address]L | LAB | | | | [address], | | | | | | [place] [address] | | | | + + + + + + | Absolute | 0.07Comment: Testing | 0.00 - 0.50 | EXTERNAL | | | Eosinophils | performed at [facility], [address] | [address]L | LAB | | | | [address], | | | | | | [place] [address] | | | | + + + + + + | Absolute | 0.03Comment: Testing | 0.00 - 0.10 | EXTERNAL | | | Basophils | performed at [facility], [address] | K/[address]L | LAB | | | | [address], | | | | | | [place] [address] | | | | + + + [...] EXTERNAL | | | | performed at [facility], [address] | | LAB | | | | [address], | | | | | | [place] [address] | | | | + + + [...] EXTERNAL | | | | performed at [facility], [address] | | LAB | | | | [address], | | | | | | [place] [address] | | | | + + + [...] EXTERNAL | | | | performed at [facility];[address] | | LAB | | | | [address];[place], [place] | | | | | | [address] | | | | + + + [...] | | | | | [place] [address] | | | | + + + + + + | K | 3.1 (L)Comment: Testing | 3.5 - 4.9 | EXTERNAL | | | | performed at [facility], [address] | mmol/L | LAB | | | | [address], | | | | | | [place] [address] | | | | + + + + + + | Cl | 109Comment: Testing | 99 - 109 mmol/L | EXTERNAL | | | | performed at [facility], [address] | | LAB | | | | [address], | | | | | | [place] [address] | | | | + + + + + + | CO2 | 24Comment: Testing | 23 - 32 mmol/L | EXTERNAL | | | | performed at [facility], [address] | | LAB | | | | [address], | | | | | | [place] [address] | | | | + + + + + + | Anion Gap | 9Comment: Testing | 5 - 20 mmol/L | EXTERNAL | | | | performed at [facility], [address] | | LAB | | | | [address], | | | | | | [place] [address] | | | | + + + + + + | Glucose, | 182 (H)Comment: Testing | 65 - 99 mg/dL | EXTERNAL | | | Fasting | performed at [facility], [address] | | LAB | | | | [address], | | | | | | [place] [address] | | | | + + + + + + | BUN | 54 (H)Comment: Testing | 8 - 25 mg/dL | EXTERNAL | | | | performed at [facility], [address] | | LAB | | | | [address], | | | | | | [place] [address] | | | | + + + + + + | Creatinine | 1.17 (H)Comment: Testing | 0.50 - 1.00 | EXTERNAL | | | | performed at [facility], [address] | mg/dL | LAB | | | | [address], | | | | | | [place] [address] | | | | + + + + + + | BUN/Creatin | 46Comment: Testing | | EXTERNAL | | | ine Ratio | performed at [facility], [address] | | LAB | | | | [address], | | | | | | [place] [address] | | | | + + + + + + | Calcium | 7.7 (L)Comment: Testing | 8.5 - 10.5 | EXTERNAL | | | | performed at [facility], [address] | mg/dL | LAB | | | | [address], | | | | | | [place] [address] | | | | + + + + + + | Protein, | 4.2 (L)Comment: Testing | 6.3 - 8.2 g/dL | EXTERNAL | | | Total | performed at [facility], [address] | | LAB | | | | [address], | | | | | | [place] [address] | | | | + + + + + + | Albumin | 2.6 (L)Comment: Testing | 3.3 - 4.8 g/dL | EXTERNAL | | | | performed at [facility], [address] | | LAB | | | | [address], | | | | | | [place] [address] | | | | + + + + + + | Globulin | 1.6Comment: Testing | 1.3 - 4.9 g/dL | EXTERNAL | | | | performed at [facility], [address] | | LAB | | | | [address], | | | | | | [place] [address] | | | | + + + + + + | A/G Ratio | 1.6Comment: Testing | 1.0 - 2.4 | EXTERNAL | | | | performed at [facility], [address] | | LAB | | | | [address], | | | | | | [place] [address] | | | | + + + + + + | Bilirubin | 0.6Comment: Testing | 0.1 - 1.5 mg/dL | EXTERNAL | | | Total | performed at [facility], [address] | | LAB | | | | [address], | | | | | | [place] [address] | | | | + + + + + + | ALP, | 36Comment: Testing | 35 - 115 U/L | EXTERNAL | | | External | performed at [facility], [address] | | LAB | | | | [address], | | | | | | [place] [address] | | | | + + + + + + | AST | 11Comment: Testing | 10 - 45 U/L | EXTERNAL | | | | performed at [facility], [address] | | LAB | | | | [address], | | | | | | [place] [address] | | | | + + + + + + | ALT | 9 (L)Comment: Testing | 10 - 65 U/L | EXTERNAL | | | | performed at [facility], [address] | | LAB | | | | [address] [facility], | | | | | | [place] [address] | | | | + + + [...] | | | | | | at [facility], [address] | | | | | | [facility], | | | | | | [place] [address] | | | | + + + [...] EXTERNAL | | | | performed at [facility];888 | g/dL | LAB | | | | [address];[place], [place] | | | | | | [address] | | | | + + + + + + | Hematocrit, | 29.3 (L)Comment: Testing | 34.0 - 46.0 % | EXTERNAL | | | POC | performed at [facility];[address] | | LAB | | | | [address];[place], [place] | | | | | | [address] | | | | + + + [...] EXTERNAL | | | | performed at [facility];[address] | | LAB | | | | [address];[place], [place] | | | | | | [address] | | | | + + + [...] | | | | | | ACUTE ND Testing | | | | | | performed at [facility];[address] | | | | | | [address];[place], [place] | | | | | | [address] | | | | + + + [...] EXTERNAL | | | | performed at [facility];[address] | | LAB | | | | [address];[place] | | | | | | [address] | | | | + + + [...] | | | Received | performed at [facility];[address] | | LAB | | | | [address];[place] | | | | | | [address] | | | | + + + + + + | 24hr Read | NEGATIVEComment: Testing | | EXTERNAL | | | | performed at [facility];[address] | | LAB | | | | [address];[place], [place] | | | | | | [address] | | | | + + + [...] EXTERNAL LAB | | Testing performed at [facility];[address] [place] [address];[place] [address] | | + + + + +---------+ + + | Performing | Address | City/State/Zipcode | Phone Number | | Organization | | | | + +---------+ + + | EXTERNAL LAB | | | | + +---------+ + + [facility] (10/15/2014 5:21 PM PDT) + + + + + -+ | Component | Value | Ref Range | Performed | Pathologist | | | | | At | Signature | + + + + + -+ | [facility] | 1.5Comment: Testing | 0.5 - 3.6 ng/mL | EXTERNAL | | | | performed at [facility];[address] | | LAB | | | | [address];[place], [place] | | | | | | [address] | | | | + + + [...] | | | | | | ACUTE ND Testing | | | | | | performed at [facility];[address] | | | | | | [facility];[place], [place] | | | | | | [address] | | | | + + + [...] EXTERNAL | | | | performed at [facility];[address] | K/uL | LAB | | | | [address];[place] | | | | | | [address] | | | | + + + + + + | Non- | 3.12 (L)Comment: Testing | 3.70 - 5.10 | EXTERNAL | | | Red Blood | performed at [facility];888 | M/uL | LAB | | | Cells | [address];[place] | | | | | Counted | [address] | | | | + + + + + + | Hemoglobin | 9.9 (L)Comment: Testing | 11.3 - 15.5 | EXTERNAL | | | | performed at [facility];888 | g/dL | LAB | | | | [address];[place] | | | | | | [address] | | | | + + + + + + | Hematocrit, | 29.9 (L)Comment: Testing | 34.0 - 46.0 % | EXTERNAL | | | POC | performed at [facility];[address] | | LAB | | | | [address];[place] | | | | | | [address] | | | | + + + + + + | MCV | 95.8Comment: Testing | 80.0 - 100.0 fl | EXTERNAL | | | | performed at [facility];[address] | | LAB | | | | [address];[place] | | | | | | [address] | | | | + + + + + + | MCH | 31.8Comment: Testing | 27.0 - 34.0 pg | EXTERNAL | | | | performed at [facility];[address] | | LAB | | | | [address];[place] | | | | | | [address] | | | | + + + + + + | MCHC | 33.2Comment: Testing | 32.0 - 35.5 | EXTERNAL | | | | performed at [facility];888 | g/dL | LAB | | | | [address];[place] | | | | | | [address] | | | | + + + + + + | RDW-CV | 46.8Comment: Testing | 37 - 53 fl | EXTERNAL | | | | performed at [facility];[address] | | LAB | | | | [address];[place] | | | | | | [address] | | | | + + + + + + | Platelet | 118 (L)Comment: Testing | 150 - 400 K/uL | EXTERNAL | | | Count | performed at [facility];[address] | | LAB | | | Plasma | [address];[place] | | | | | | [address] | | | | + + + + + + | MPV | 9.1Comment: Testing | fl | EXTERNAL | | | | performed at [facility];[address] | | LAB | | | | [address];[place] | | | | | | [address] | | | | + + + + + + | Differentia | AUTOMATEDComment: | | EXTERNAL | | | l Type | Testing performed at | | LAB | | | | [facility];[address];[place] [address] | | | | + + + + + + | % Segmented | 85.56Comment: Testing | % | EXTERNAL | | | | performed at [facility];[address] | | LAB | | | Neutrophils | [address];[place] | | | | | | [address] | | | | + + + + + + | % | 9.29Comment: Testing | % | EXTERNAL | | | Lymphocytes | performed at [facility];[address] | | LAB | | | | [address];[place] | | | | | | [address] | | | | + + + + + + | % Monocytes | 4.72Comment: Testing | % | EXTERNAL | | | | performed at [facility];[address] | | LAB | | | | [address];[place] | | | | | | [address] | | | | + + + + + + | % | 0.03Comment: Testing | % | EXTERNAL | | | Eosinophils | performed at [facility];[address] | | LAB | | | | [address];[place] | | | | | | [address] | | | | + + + + + + | % Basophils | 0.40Comment: Testing | % | EXTERNAL | | | | performed at [facility];[address] | | LAB | | | | [address];[place] | | | | | | [address] | | | | + + + + + + | Absolute | 7.09Comment: Testing | 1.90 - 7.40 | EXTERNAL | | | Segmented | performed at [facility];888 | K/uL | LAB | | | Neutrophils | [address];[place] | | | | | | [address] | | | | + + + + + + | Absolute | 0.77 (L)Comment: Testing | 1.00 - 3.90 | EXTERNAL | | | Lymphocytes | performed at [facility];[address] | K/uL | LAB | | | | [address];[place] | | | | | | [address] | | | | + + + + + + | Absolute | 0.39Comment: Testing | 0.00 - 0.80 | EXTERNAL | | | Monocytes | performed at [facility];[address] | K/uL | LAB | | | | [address];[place] | | | | | | [address] | | | | + + + + + + | Absolute | 0.00Comment: Testing | 0.00 - 0.50 | EXTERNAL | | | Eosinophils | [place] [facility] [place] | K/uL | LAB | | | | [address];[place] | | | | | | [address] | | | | + + + + + + | Absolute | 0.03Comment: Testing | 0.00 - 0.10 | EXTERNAL | | | Basophils | performed at [facility] [place] | K/uL | LAB | | | | [address];[place] | | | | | | [address] | | | | + + + + + + | RBC | RBC AND PLT MORPHOLOGY | | EXTERNAL | | | Morphology | APPEAR NORMALComment: | | LAB | | | | Testing performed at | | | | | | [facility] [place];[place] [address] | | | | + + + + + + | Platelet | ADEQUATEComment: Testing | | EXTERNAL | | | Estimate | performed at [facility] [place] | | LAB | | | | [address];[place] | | | | | | [address] | | | | + + + + + + | Differentia | SLIDE SCANNED, AGREES | | EXTERNAL | | | l Comments | WITH AUTOMATED | | LAB | | | | RESULTS.Comment: Testing | | | | | | performed at [facility] [place] | | | | | | [address];[place] | | | | | | [address] | | | | + + + [...] EXTERNAL | | | | performed at [facility] [place] | | LAB | | | | [address];[place] | | | | | | [address] | | | | + + + [...] EXTERNAL | | | | performed at [facility] [place] | mmol/L | LAB | | | | [address];[place] | | | | | | [address] | | | | + + + + + + | K | 4.2Comment: Testing | 3.5 - 4.9 | EXTERNAL | | | | performed at [facility] [place] | mmol/L | LAB | | | | [address];[place] | | | | | | [address] | | | | + + + + + + | Cl | 107Comment: Testing | 99 - 109 mmol/L | EXTERNAL | | | | performed at [facility] [place] | | LAB | | | | [address];[place] | | | | | | [address] | | | | + + + + + + | CO2 | 24Comment: Testing | 23 - 32 mmol/L | EXTERNAL | | | | performed at [facility] [place] | | LAB | | | | [address];[place] | | | | | | [address] | | | | + + + + + + | Anion Gap | 14Comment: Testing | 5 - 20 mmol/L | EXTERNAL | | | | performed at [facility] [place] | | LAB | | | | [address];[place] | | | | | | [address] | | | | + + + + + + | Glucose, | 234 (H)Comment: Testing | 65 - 99 mg/dL | EXTERNAL | | | Fasting | performed at [facility] [place] | | LAB | | | | [address];[place] | | | | | | [address] | | | | + + + + + + | BUN | 73 (H)Comment: Testing | 8 - 25 mg/dL | EXTERNAL | | | | performed at [facility] [place] | | LAB | | | | [address];[place] | | | | | | [address] | | | | + + + + + + | Creatinine | 1.31 (H)Comment: Testing | 0.50 - 1.00 | EXTERNAL | | | | [facility] [place] | mg/dL | LAB | | | | [address];[place] | | | | | | [address] | | | | + + + + + + | BUN/Creatin | 56Comment: Testing | | EXTERNAL | | | ine Ratio | performed at [facility] [place] | | LAB | | | | [address];[place] | | | | | | [address] | | | | + + + + + + | Calcium | 7.9 (L)Comment: Testing | 8.5 - 10.5 | EXTERNAL | | | | performed at [facility] [place] [place] | mg/dL | LAB | | | | [address];[place] | | | | | | [address] | | | | + + + [...] | | | | | | at [facility] [place] [place] [place] [address] | | | | | | Blvd;[place] [address] | | | | + + + [...] by | | | | | | SUSHIL MIKE ([id number]) on | | | | | | 10/18/2014 4:04:41 PM | | | | + + + + + + + + | Specimen | + + | | + + + + + | Narrative | Performed At | + + + | Historically converted procedure from [facility] [employer] environment | EXTERNAL LAB | + [...]
--- OUTSIDE RECORDS SUMMARY | ~2020-02-18 | XMS | Encounter Summary ---
Demographics + + + | Address | [address] | | | [place] [address] | + + + | Home Phone | | + + + | Preferred Language | Unknown | + + + | Marital Status | | + + + | Protestant Affiliation | 1073 | + + + [...] Team Providers + +------+ + | Care Laundry Aide Name | Role | Phone | [...] | | | | | | | [address] | | +--------+--------+ + + + + [...] | [address] [place] | [place] [address] | | | | | [place] [address] | | | | | | [phone] | | | +--------+ + + + [...]
--- OUTSIDE RECORDS SUMMARY | ~2020-02-18 | XMS | Encounter Summary ---
Demographics + + + | Address | [address] | | | [place] [address] | + + + | Home Phone | | + + + | Preferred Language | Unknown | + + + | Marital Status | | + + + | Rastafarian Affiliation | 1073 | + + + | Race | Unknown | + + + | Ethnic Group | Unknown | + + + Author + + + | Author | [facility] | | | and [place] | + + + | Organization | [facility] | | [...] + +------+ + | Care Director Of Sales Support Name | Role | Phone | + [...] | | | | | | | [address] | | +--------+--------+ + + + + [...] | [address] [place] | [place] [address] | | | | | [place] [address] | | | | | | [phone] | | | +--------+ + + + [...] for comparison only - no result from [facility]. | [facility] | + + + + +---------+ + + | Performing | Address | City/State/Zipcode | Phone Number | | Organization | | | | + +---------+ + + | [facility] | | | | + +---------+ + + documented in this encounter Visit Diagnoses Not on filedocumented in this encounter"
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
--- OUTSIDE RECORDS SUMMARY | ~2020-02-18 | XMS | Encounter Summary ---
Demographics + + + | Address | [address] | | | [place] [address] | + + + | Home Phone [...] Team Providers + +------+ + | Care Sternman Name | Role | Phone | + [...] | | | [place], | [address] | | | | | | [place] [address] | [address] | | | | | | Phone: | [place] | | | | | | [phone] | [address] Phone: | | | | | | Fax: | [phone] | | | | | | [phone] | Fax: | | | | | | | [phone] | +--------+ + + + + + Reason for Visit + + + | Reason | Comments | + + + | Follow-up | Back pain and discuss surgery | + + + Encounter Details +--------+---------+ + + + | Date | Type | Department | Care Team | Description | +--------+---------+ + + + | 03/18/ | Office | [facility] [place] | Will Michael MD | Lumbar stenosis with | | 2012 | Visit | NEUROSURGERY [address] | [address] | neurogenic | | | | [address] | [place] [address] | claudication | | | | [place] | [phone] | (Primary Dx); | | | | [address] | | Spondylolisthesis of | | | | [phone] | | lumbar region; | | | [...] Barrientos PA-C and Will Michael M.D. [address] [place] [address] FAX: NEUROSURGERY FOLLOW-UP CHIEF COMPLAINT: Chief Complaint [...] sound like she i s seen a pediatric acute care unit nurse before. Her symptoms began a long time [...] has no apparent deficits with short or exterminator memory. CRANIAL NERVES: II: Acuity is intact. [...] Intrinsics 5 5 Ulnar Intrinsics 5 5 Floor Space Allocator Strength 5 5 Hip Flexion 4+ 4+ [...]
--- OUTSIDE RECORDS SUMMARY | ~2020-02-18 | XMS | Encounter Summary ---
Demographics + + + | Address | [address] | | | [place] [address] | + + + | Home Phone | | + + + | Preferred Language | Unknown | + + + | Marital Status | | + + + | Jew Affiliation | 1073 | + + + [...] Team Providers + +------+ + | Care Unit Aid Name | Role | Phone | + +------+ + | Chinmay Driscoll MD | PCP | | + +------+ + Reason for Visit +--------+--------+ + | Reason | Onset | Comments | | | Date | | +--------+--------+ + | Other | 07/24/ | presurgical check-in | | | 2013 | | +--------+--------+ + Encounter Details +--------+ + + + + | Date | Type | Department | Care Team | Description | +--------+ + + + + | 07/24/ | Telephone | [facility] [place] | Will Rodriguez MD | Other (presurgical | | 2014 | | NEUROSURGERY [address] | [address] | check-in) | | | | [address] [facility] [address] | [place] [address] | | | | | [place] | [phone] | | | | | [address] | | | | | | [phone] | | | +--------+ + + + [...] Miscellaneous Notes Telephone Encounter - Desiree Hahn S - 07/24/2013 8:24 AM PSTPre-surgical check-in ins tructions given. Check-in 6.am. For 07/28/13 surgery. Spoke to Rod. He verbalized understa nding. documented in t his encounter Plan of Treatment Not on filedocumented as of this encounter Visit Diagnoses Not on filedocumented in this encounter"
--- OUTSIDE RECORDS SUMMARY | ~2020-02-18 | XMS | Encounter Summary ---
Demographics + + + | Address | [address] | | | [place] [address] | + + + | Home Phone | | + + + | Preferred Language | Unknown | + + + | Marital Status | | + + + | Oriental Orthodox Affiliation | 1073 | + + + | Race | Unknown | + + + | Ethnic Group | Unknown | + + + Author + + + | Author | [facility] | | | and [place] | + + + | Organization | [facility] | | [...] Team Providers + +------+ + | Care Social Work Specialist Name | Role | Phone | + +------+ + | Chinmay Driscoll MD | PCP | | + +------+ + Encounter Details +--------+ + + + + | Date | Type | Department | Care Team | Description | +--------+ + + + + | 04/25/ | Hospital | [facility] | Joni Sepulveda, | | | 2012 | Encounter | MED CTR XRAY [address] | MD [address] [place] | | | | | [place] | [facility], | | | | | [place] [address] | [place] [address] | | | | | [phone] | [phone] | | | | | | | [...] Performed At | + + + | [facility] | [place] | | Department [address] [facility] | [facility] | | [ [address]] [ rep [facility] | | st zip] Signed | - IMAGING | | | | | Patient Name: DILSHAD ARCOS Physician: | | | : 1935 Age: 77 Sex: F Unit #: [id number] | | | Exam Date: 04/25/13 Location: [facility] [place] | | | Report #: [id number] Page: | | | %(RAD)RES..mtdd.print.filter("pg") of %(RAD) | | | RES..mtdd.print.filter("tpg") | | | | | | Accession Number: [id number] | | | E C H O C A R D I O G R A P H Y R E P O R T | | | HEIGHT: 67" WEIGHT: 158# | | | EXTENSION ASSOCIATE: THALIA REFERRING DR: JOHN GARCIA DR: | [...] Transcribed Date/Time: | | | 04/25/2013 11:21 Seam Steamer: | | | <<Signature on File>> | | | Suwong | | | MD Coco [facility] FAS 0723 <Electronically signed by | | | Joni Sepulveda MD, [facility], FACP, FASMatt, FASYOSEF> Faridawong | | | MD Coco [facility] FASE 04/25/13 0955 Seam Steamer: South | | | [id number]/[id number]/13 1121 | | + + + + + + + + | Performing | Address | City/State/Zipcode | Phone Number | | Organization | | | | + + + + + | [address] | [address] | [place] | [phone] | | [facility] | | [address] | | | - IMAGING | | | | + + + + + documented in this encounter Visit Diagnoses Not on filedocumented in this encounter
--- OUTSIDE RECORDS SUMMARY | ~2020-02-18 | XMS | Encounter Summary ---
Demographics + + + | Address | [address] | | | [place] [address] | + + + | Home Phone [...] Team Providers + +------+ + | Care Cementer Machine Applicator Name | Role | Phone | + [...] + | Closed | | Radiology | Diagnoses | Coco, | [facility] | | | | | Melva ([facility]) | MD Joni | [address] | | | | | Procedures | [address] | [place], | | | | | ECHO | [address] | [place] | | | | | Complete | [place], | [address] | | | | | | [place] [address] | Phone: | | | | | | Phone: | [phone] | | | | | | [phone] | Fax: | | | | | | Fax: | [phone] | | | | | | [phone] | | +--------+--------+ + + + + Reason for Visit + + + | Reason | Comments | + + + | Establish Care | Initial office visit with EKG and ROS for Back surgery clearance | + + + | Pre-op Exam | | + + + | Atrial Fibrillation | | + + + | Hypertension | | + + + Encounter Details +--------+---------+ + + + | Date | Type | Department | Care Team | Description | +--------+---------+ + + + | 04/18/ | Office | [facility] | Joni Sepulveda, | Establishing care | | 2012 | Visit | CARDIOLOGY [address] | with new doctor, | | | | Jazmin Khan, | [place], | encounter for | | | | [place] [address] | [place] [address] | (Primary Dx); Pre-op | | | | [phone] | [phone] | exam; HTN | | | | | | (hypertension); | | | | | | A-fib (HCC) | +--------+---------+ + + + Social History [...] + + + | Blood Pressure | 130/80 | 04/18/2013 10:43 AM | Right arm | | | | PDT | | + + + + + | Pulse | 62 | 04/18/2013 10:39 AM | Regular | | | | PDT | | + + + + + | Temperature | - | - | | + + + + + | Respiratory Rate | 16 | 04/18/2013 10:39 AM | | | | | PDT | | + + + + + | Oxygen Saturation | - | - | | + + + + + | Inhaled Oxygen | - | - | | | Concentration | | | | + + + + + | Weight | 73.5 kg (162 lb) | 04/18/2013 10:39 AM | | | | | PDT | | + + + + + | Height | 167.6 cm (5' 6") | 04/18/2013 10:39 AM | | | | | PDT | | + + + + + | Body Mass Index | 26.15 | 04/18/2013 10:39 AM | | | | | PDT | | + + + + + documented in this encounter Progress Notes Joni Sepulveda MD - 04/18/2013 11:02 AM PDTFormatting of this note might be different f rom the original. Subjective: Cardiology Office Visit Date of Service: 04/18/2013 Patient ID: Gia Arcos is a 77 y.o. female. PCP: Chinmay ESPINOZA Gia Arcos is a 77 y.o. female with a history of permanent atrial fibrillation, severe s yomaira stenosis with chronic back pain, diabetes, and hypertension. She is being seen today for preop clearance prior to the back surgery. Patient states that she was first diagnosed with atrial fibrillation approximately [address] Ruiz, her PCP. She was put on combination of digoxin and diltiazem. Rivaroxaba n was recently added, approximately a month ago. She never had any symptoms with atrial fib rillation. She denies any symptoms of palpitations, dizziness or lightheadedness. She never had any chest pressure discomfort. She has no trouble breathing both at rest and on exerti on. There is no ankle leg swelling. She has been on one pillow without trouble breathing. Patient has been having a progressive, chronic low back pain from spinal stenosis that limi ts her activities. She saw Dr. Rodriguez and discussed spinal decompression surgery. A month ago, she got a steroid that injection which temporally help her back pain. Now, she can walk ac ross the [place] at home with less back pain. Patient Active Problem List Diagnosis Lumbar radiculopathy [...] Other (See Comments) cough Review of Systems Constitutional: Positive for fatigue. Negative for fever, chills, diaphoresis, activity joe nge, appetite change and unexpected weight change. HENT: Positive for hearing loss (does not wear aids) and congestion. Negative for nosebleed s, dental problem and tinnitus. Eyes: Negative for visual disturbance. Respiratory: Positive for wheezing. Negative for apnea, cough, choking, chest tightness, sh ortness of breath and stridor. Cardiovascular: Negative for chest pain, palpitations and leg swelling. Gastrointestinal: Positive for constipation. Negative for nausea, vomiting, abdominal pain, diarrhea, blood in stool, abdominal distention, anal bleeding and rectal pain. Genitourinary: Positive for urgency. Negative for frequency, hematuria, decreased urine vol ume and difficulty urinating. Musculoskeletal: Positive for back pain, arthralgias (Shoulders, left leg and knee) and gai t problem (Uses a walker). Negative for myalgias and joint swelling. Skin: Positive for color change. Negative for rash. Neurological: Positive for tremors (her right hand if she is fatigued) and weakness. Negati ve for dizziness, seizures, syncope, speech difficulty, light-headedness, numbness and heada ches. Hematological: Negative for adenopathy. Does not bruise/bleed easily. Psychiatric/Behavioral: Positive for confusion and decreased concentration. Negative for sl eep disturbance. The patient is not nervous/anxious. Objective: Physical Exam Constitutional: She is oriented to person, place, and time. She appears well-developed and well-nourished. No distress. Female, frail, elderly individual, arrived in the wheelchair. HENT: Head: Normocephalic. Nose: Nose normal. Neck: [...] affect. Her mood appears not anxious. BP 130/80 | Pulse 62 | Resp 16 | Ht 1.676 m (5' 6") | Wt 73.483 kg (162 lb) | BMI 26.15 kg/ m2 ECG: Atrial fibrillation, complete left bundle branch block. No results found for this basename: WBC, [...] normal angiogram approximately in 2004 at the [place], [place]. B. Patient was first diagnosed with atrial fibrillation approximately [address] Ruiz, her PCP. She was put on combination of digoxin and diltiazem. Rivaroxaban was recen tly added, approximately a month ago. She never had any symptoms with atrial fibrillation. She denies any symptoms of palpitations, dizziness or lightheadedness. She never had any ch est pressure discomfort. She is in a class II of the [place] [employer] functional class. There is no fluid retention on physical examination. Tony 2 score is at least 3 for hypertension, diabetes and advanced age. Risk of stroke is at least moderate. Long-term anticoagulant he is indicated. 2. His severe chronic back pain from [...] pain. 3. Diabetes 4. Hypertension Plan: 1. I spend time at length talking about natural course, treatment and prognosis of perman ent atrial fibrillation. 2. Digoxin will be discontinued as he has no long-term benefit. Besides, he has a very narr ow therapeutic margin and can interfere with diastolic function. 3. She will continue with Metroprolol succinate 25 mg once a day to lower blood pressure, l ower the heart rate and provide cardio protective during back surgery. 4. Check blood pressure x 2 weeks. Check [place] in 1 week. 5. Echocardiogram is warranted to assess cardiac structure. 6. followup in 2 weeks. Portions of this report were transcribed using voice recognition software. Every effort wa s made to ensure accuracy; however, inadvertent computerized bowling ball finisher errors may be pre sent. documented in this encounter Procedure Notes JACKLYN NINO - 04/18/2013 12:00 AM PDTAssociated Order(s): ECG - EXTERNAL SCANRondai julissa signed by Amira Belcher at 04/22/2013 9:57 AM PDTdocumented in this encounter Plan of Treatment + + +--------+ + + | Name | Type | Priori | Associated Diagnoses | Order Schedule | | | | ty | | | + + +--------+ + + | ECG 12 lead | ECG | Routin | Establishing care | Ordered: 04/18/2013 | | | | e | with new doctor, | | | | | | encounter for | | | | | | Pre-op exam HTN | | | | | | (hypertension) | | | | | | A-fib (HCC) | | + + +--------+ + + | ECHO Complete | Echocardiog | Routin | A-fib ([facility]) | Expected: | | | luiz | e | | 04/18/2013, Expires: | | | | | | 04/18/2014 | + + +--------+ + + documented as of this encounter Procedures + +--------+ + + + | Procedure Name | Priori | Date/Time | Associated Diagnosis | Comments | | | ty | | | | + +--------+ + + + | ECG - EXTERNAL SCAN | | 04/18/2013 | | Results for this | | | | 12:00 AM | | procedure are in the | | | | PDT | | results section. | + +--------+ + + + documented in this encounter Results ECG - EXTERNAL SCAN (04/18/2013 12:00 AM PDT) + + + | Narrative | Performed At | + + + | Ordered by an | | | unspecified provider. | | + + + + + | Transcriptions | + + | Amira Belcher - 04/18/2013 12:00 AM PDT | + + documented in this encounter Visit Diagnoses + + | Diagnosis | + + | Establishing care with new doctor, encounter for - Primary | + + | Pre-op exam Preoperative examination, unspecified | + + | HTN (hypertension) Unspecified essential hypertension | + + | A-fib (HCC) Atrial fibrillation | + + documented in this encounter
--- OUTSIDE RECORDS SUMMARY | ~2020-02-18 | XMS | Encounter Summary ---
Demographics + + + | Address | [address] | | | [place] [address] | + + + | Home Phone [...] Team Providers + +------+ + | Care Food And Nutrition Services Supervisor Name | Role | Phone | + +------+ + | Chinmay Driscoll MD | PCP | | + +------+ + Reason for Visit + + + | Reason | Comments | + + + | Follow-up | 4 week PO s/p lumbar fusion | + + + Encounter Details +--------+---------+ + + + | Date | Type | Department | Care Team | Description | +--------+---------+ + + + | 09/03/ | Office | [facility] | Will Rodriguez MD | S/P lumbar fusion | | 2013 | Visit | NEUROSURGERY [address] | (Primary Dx) | | | | [address] | [place] [address] | | | | | [place] | [phone] | | | | | [address] | | | | | | [phone] | | | +--------+---------+ + + + [...] + + + | Blood Pressure | 135/61 | 09/03/2013 12:58 PM | | | | | PST | | + + + + + | Pulse | 71 | 09/03/2013 12:58 PM | | | | | PST | | + + + + + | Temperature | - | - | | + + + + + | Respiratory Rate | 16 | 09/03/2013 12:58 PM | | | | | PST | | + + + + + | Oxygen Saturation | - | - | | + + + + + | Inhaled Oxygen | - | - | | | Concentration | | | | + + + + + | Weight | 80.7 kg (178 lb) | 09/03/2013 12:58 PM | | | | | PST | | + + + + + | Height | 170.2 cm (5' 7") | 09/03/2013 12:58 PM | | | | | PST | | + + + + + | Body Mass Index | 27.88 | 09/03/2013 12:58 PM | | | | | PST | | + + + + + documented in this encounter Progress Notes iWll Rodriguez MD - 09/03/2013 1:24 PM PSTFormatting of this note might be different from t he original. Will Rodriguez MD [address] [place] [address] FAX: NEUROSURGERY SURGICAL FOLLOW-UP CHIEF COMPLAINT: Chief Complaint Patient presents with Follow-up 4 week PO s/p lumbar fusion HISTORY OF PRESENT ILLNESS: The patient is a 77 y.o. female that had a lumbar fusion by me for stenosis around 4 weeks ago. She returns and overall is doing fairly well. The patien t complains of back pain with lifting but is otherwise doing well. The patient has been wal henry as much as possible. She is still taking pain medications at this point but is weaning . The patient has had no issues with her surgical site. CURRENT MEDICATIONS: Current Outpatient Prescriptions Medication Sig [...] not drink alcohol or use illicit drugs. INTERIM PHYSICAL EXAMINATION: Blood pressure 135/61, pulse 71, resp. rate 16, height 1.702 m (5' 7"), weight 80.74 kg (17 8 lb). Body mass index is 27.88 kg/(m^2). GENERAL: Gia Arcos is in no acute distress with unlabored respirations. SPINE: The patient s incisions are healing well without drainage, significant erythema, o r discharge EXTREMITIES: No lower extremity edema. NEUROLOGICAL EXAMINATION: MENTAL STATUS: The patient is awake, alert, and oriented. She follows simple and complex commands MOTOR EXAM: Motor strength is 5/5. RADIOGRAPHIC REVIEW: The patient s postoperative x-rays show stable instrumentation and alignment and were rev iewed with the patient today. There have been no interval changes since the immediate posto perative films. Complete fusion has not yet occurred, but this is normal and would not be e xpected at this time. ASSESSMENT: Encounter Diagnosis Name Primary? S/P lumbar fusion Yes Past Medical History Diagnosis Date BP [...] the patient is doing fairly well. I increased the patient s activities slowly n ow allowing 15 pound lifting. I would like her to continue the bracing due to her softer timothy ne. I would like the patient to advance slowly with this process and discussed this at length iman jenkins today's visit. I am hoping to see improvement over the coming weeks to months and plan to continue to foll ow this patient. We will start PT and bracing weaning after the next visit. I spent 20 minutes in visit with Gia Arcos today with the majority of time spent counse lling the patient on her recovery and coordinating her future care. The patient will follow -up with me in around 8 weeks for re-evaluation. ELECTRONICALLY SIGNED BY: Will Rodriguez MD, 09/03/2013 13:28 documented in this encou nter Plan of Treatment Not on filedocumented as of this encounter Results XR Lumbar Spine 2 or 3 Vw (11/04/2013 2:41 PM PDT) + + | Specimen | + + | | + + + + + | Narrative | Performed At | + + + | EXAM: XR LUMBAR SPINE 2 OR 3 VW dated 11/04/2013 2:05 PM | [facility] | | HISTORY:Postop COMPARISON: September 03, 2013 and July 29, 2013. | LAB | | FINDINGS: Frontal and lateral views of the lumbar spine. 5 | | | nonrib-bearing lumbar-type vertebral bodies. No change in spinal | | | alignment. Posterior fusion hardware at L4-L5. Hardware appears | | | to be intact. There is no change in orientation of the interbody | | | graft markers. There is a stable compression deformity of L1. | | | Extensive vascular calcifications are present. Moderate amount of | | | stool retention is visible. IMPRESSION - Fusion of L4-L5 | | | without evidence for interval complication. Dictated and Signed | | | by: Ant Jackson MD Electronically signed: 11/04/2013 3:03 PM | | + + + + + | Procedure Note | + + | Arvind, Rad Results In - 11/04/2013 3:06 PM PDT EXAM: XR LUMBAR SPINE 2 OR 3 VW dated | | 11/04/2013 2:05 PMHISTORY:PostopCOMPARISON: September 03, 2013 and July 29, | | 2013.FINDINGS: Frontal and lateral views of the lumbar spine. 5 | | dmqzrz-wlxcxetpknhkm-oyzj vertebral bodies. No change in spinal alignment. Posterior | | fusionhardware at L4-L5. Hardware appears to be intact. There is no change | | inorientation of the interbody graft markers. There is a stable compressiondeformity of | | L1. Extensive vascular calcifications are present. Moderateamount of stool retention | | is visible.IMPRESSION -Fusion of L4-L5 without evidence for interval | | complication.Dictated and Signed by: Ant Jackson MD Electronically signed: | | 11/04/2013 3:03 PM | |deformity of L1. Extensive vascular calcifications are present. Moderate | |amount of stool retention is visible. | | | |IMPRESSION - | | | |Fusion of L4-L5 without evidence for interval complication. | | | |Dictated and Signed by: Ant Jackson MD | | Electronically signed: 11/04/2013 3:03 PM | + + + +---------+ + + | Performing | Address | City/State/Zipcode | Phone Number | | Organization | | | | + +---------+ + + | [facility] | | | [phone] | + +---------+ + + | [facility] | | | [phone] | + +---------+ + + documented in this encounter Visit Diagnoses + + | Diagnosis | + + | S/P lumbar fusion - Primary Arthrodesis status | + + documented in this encounter
--- OUTSIDE RECORDS SUMMARY | ~2020-02-18 | XMS | Encounter Summary ---
Demographics + + + | Address | [address] | | | [place] [address] | + + + | Home Phone | | + + + | Preferred Language | Unknown | + + + | Marital Status | | + + + | Spiritism Affiliation | [id number] | + + + [...] Team Providers + +------+ + | Care Collar Fuser Name | Role | Phone | + +------+ + | Chinmay Driscoll MD | PCP | | + +------+ + Reason for Visit + +--------+ + | Reason | Onset | Comments | | | Date | | + +--------+ + | Appointment | 12/09/ | | | | 2013 | | + +--------+ + Encounter Details +--------+ + + + + | Date | Type | Department | Care Team | Description | +--------+ + + + + | 12/09/ | Telephone | [facility] | Shakeel, | Anneliese | | 2013 | | CARDIOLOGY [address] | KAYLIE Mccoy [address] | | | | | [place], | [place], | | | | | [place] [address] | [place] [address] | | | | | [phone] | [phone] | | | | | | | [...] this encounter Miscellaneous Notes Telephone Encounter - Jeanette Zheng - 12/09/2013 10:11 AM PDTPatient called to [facility]. [address] Driscoll does not feel she needs to be seen by a ca rdiologist at this time d ocumented in this encounter Plan of Treatment Not on filedocumented as of this encounter Visit Diagnoses Not on filedocumented in this encounter"
--- OUTSIDE RECORDS SUMMARY | ~2020-02-18 | XMS | Encounter Summary ---
Demographics + + + | Address | [address] | | | [place] [address] | + + + | Home Phone | | + + + | Preferred Language | Unknown | + + + | Marital Status | | + + + | Scientologist Affiliation | [id number] | + + + | Race | Unknown | + + + | Ethnic Group | Unknown | + + + Author + + + | Author | [facility] | | | and [place] | + + + | Organization | [facility] | | | [...] Providers + +------+ + | Care Computer Operations Technician Name | Role | Phone | [...] | | | [address] | [place] [address] | | | | | [place] [address] | | | | | | [phone] | | | +--------+ + + + [...] for comparison only - no result from [place]. | [facility] | + + + + +---------+ + + | Performing | Address | City/State/Zipcode | Phone Number | | Organization | | | | + +---------+ + + | [facility] | | | | + +---------+ + + documented in this encounter Visit Diagnoses Not on filedocumented in this encounter"
--- OUTSIDE RECORDS SUMMARY | ~2020-02-18 | XMS | Encounter Summary ---
Demographics + + + | Address | [address] | | | [place] [address] | + + + | Home Phone | | + + + | Preferred Language | Unknown | + + + | Marital Status | | + + + | Mandaeism Affiliation | [id number] | + + + | Race | Unknown | + + + | Ethnic Group | Unknown | + + + Author + + + | Author | [facility] | | | and [place] | + + + | Organization | [facility] | | [...] Team Providers + +------+ + | Care Research Assistant Member Name | Role | Phone | + [...] clearance) | | | | [address] [facility] | [place] [address] | | | | | [place] | [phone] | | | | | [address] | | | | | | [phone] | | | +--------+ + + + [...] been cleared for surgery. Please advise further. Desiree Hahn documented in this enc ounter Plan of Treatment Not on filedocumented as of this encounter Visit Diagnoses Not on filedocumented in this encounter"
--- OUTSIDE RECORDS SUMMARY | ~2020-02-18 | XMS | Encounter Summary ---
Demographics + + + | Address | [address] | | | [place] [address] | + + + | Home Phone [...] + | Author | [facility] | | | and [place] | + + + | Organization | [facility] | | | and [...] Team Providers + +------+ + | Care Funding Analyst Name | Role | Phone | + +------+ + | Tino Salmeron DO | PCP | | + +------+ + Encounter Details +--------+ + + + + | Date | Type | Department | Care Team | Description | +--------+ + + + + | 02/11/ | Telephone | [facility] | Nidhi Ray | | | 2019 | | CARDIOLOGY VERONICA Vaca, Manager Audio | | | | | [address] | | | | | | [place], [place] | | | | | | [address] | | | | | | [phone] | | | +--------+ + + + [...] Notes Telephone Encounter - Nidhi Ray, Manager Audio - 02/12/2020 3:47 PM PDTPt got ECHO on 02-11-20 at [facility], ECHO not interpreted yet, and they are waiting for the results be cause patient will be getting a right hip replacement and they need cardiac clx. Message sent to Dr Askew for further evaluation. JCRIS:MATERIAL EXPEDITOR-AAMA. doc umented in this encounter Plan of Treatment Not on filedocumented as of this encounter Visit Diagnoses Not on filedocumented in this encounter"
--- OUTSIDE RECORDS SUMMARY | ~2020-02-18 | XMS | Clinical Summary ---
Demographics + + + | Address | [address] | | | [place] [address] | + + + | Home Phone [...] Team Providers + +------+ + | Care Intake Manager Name | Role | Phone | [...] | | + + + +---------+------+------+-------+ | traMADol (ULTRAM) | 500 mg. | | 0 | 3 | | Activ | | 50 mg tablet | | | | 0/20 | | e | | | | | | 20 | | | + + + +---------+------+------+-------+ [...] + + | 02/11/ | Telephone | Cardiology | Nidhi Ray | | | 2019 | | | D, Hospital Unit Clerk | | +--------+ + + + + | 02/09/ | Orders Only | Nephrology | Homero Soto MD | Essential | | 2019 | | | | hypertension | | | | | | (Primary Dx); CKD | | | | | | (chronic kidney | | | | | | disease) stage 3, | | | | | | GFR 30-59 ml/min | | | | | | ([facility]); Persistent | | | | | | proteinuria | +--------+ + + + + | 02/08/ | Office | Nephrology | Homero Soto MD | CKD (chronic kidney | | 2019 | Visit | | | disease) stage 3, | | | | | | GFR 30-59 ml/min | | | | | | (HCC) (Primary Dx); | | | | | | Persistent | | | | | | proteinuria; | | | | | | Essential | | | | | | hypertension; 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, without | | | | | | long-term current | | | | | | use of insulin ([facility]) | +--------+ + + + + | 02/02/ | Documentati | Nephrology | Norma Galindo, | Labs Only (External | | 2019 | on | | Hospital Unit Clerk | Results-[facility] | | | | | | oum 02/02/20) | +--------+ + + + + from Last 3 Months Family History + + + + + | Medical History | Relation | Name | Comments | + + + + + | Parkinsonism | Brother | Willy | | + + + + + | No known problems | Brother | Roc | | | | | [...] + | Blood Pressure | 112/60 | 02/09/2020 2:11 PM | | | | | PDT | | + + + + + | Pulse | 76 | 02/09/2020 2:11 PM | | | | | [...] + + + + | Weight | 87.1 kg (192 lb) | 02/09/2020 2:11 PM | | | | | PDT | | + + + + + | Height | 170.2 cm (5' 7") | 02/09/2020 2:11 PM | | | | | PDT | | + + + + + | Body Mass Index | 30.07 | 02/09/2020 2:11 PM | | | | | PDT | | + + + + + Plan of Treatment + + + + + | Health Maintenance | Due Date | Last | Comments | | | | Done | | + + + + + | Med Mgmt: HBA1C | | | | | | 6 | | | + + + + + | Medication | 05/17/193 | | | | Management | 6 | | | + + [...] | 1 | | | | of 1 - PPSV23) | | | | + + + + + | Adult Annual | | | | | Wellness Visit | 5 | | | + + + + + | Med Mgmt: TSH | | 02/28/20 | | | | 0 | 19, | | | | | 08/29/19 | | | | | 19 | | + + + + + | Vaccine: Influenza | | | | | (#1) | 0 | | | + + + + + | Med Mgmt: Cr | | 02/02/20 | | | | 1 | 20, | | | | | 10/02/19 | | | | | 20, | | | | | 06/20/20 | | | | | 19, | | | | | Addition | | | | | al | | | | | history | | | | | exists | | + + + + + | Med Mgmt: HCT | | 02/02/20 | | | | 1 | 20, | | | | | 10/02/19 | | | | | 20, | | | | | 02/28/20 | | | | | 19, | | | | | Addition | | | | | al | | | | | history | | | | | exists | | + + + + + | Med Mgmt: HGB | | 02/02/20 | | | | 1 | 20, | | | | | 10/02/19 | | | | | 20, | | | | | 02/28/20 | | | | | 19, | | | | | Addition | | | | | al | | | | | history | | | | | exists | | + + + + + | Med Mgmt: K | | 02/02/20 | | | | 1 | 20, | | | | | 10/02/19 | | | | | 20, | | | | | 06/20/20 | | | | | 19, | | | | | Addition | | | | | al | | | | | history | | | | | exists | | + + + + + | Med Mgmt: Na | | 02/02/20 | | | | 1 | 20, | | | | | 10/02/19 | | | | | 20, | | | | | 06/20/20 | | | | | 19, | | | | | Addition | | | | | al | | | | | history | | | | | exists | | + + + + + [...] | | | | | ([facility]) Persistent | | | | | | proteinuria | | + +--------+ + + + | IMAGING REPORT - | | 01/16/2020 | | Results for this | | EXTERNAL SCAN | | 12:00 AM | | procedure are in the | | | | PDT | | results section. | + +--------+ + + + from Last 3 Months Results Urinalysis with Microscopic if Indicated (02/03/2020 [...] - 1.030 | REFERENCE | | | Likely, | | | LAB | | | [...] + + | REFERENCE LAB | [address] | [place] | [phone] | | [facility] | | [address] | | + + + + + [...] + + | REFERENCE LAB | [address] | [place] | [phone] | | [facility] | | [address] | | + + + + + [...] + + | REFERENCE LAB | [address] | [place] | [phone] | | [facility] | Bl[address] | [address] | | | LABORATORY | | | | + + + + + | REFERENCE LAB | [address] | [place] | | | [facility] | Blvd. | [address] | | | LABORATORY | | | [...] + + | Blood | + + Parathyroid Hormone, Intact (02/02/2020 3:34 [...] + + | REFERENCE LAB | [address] | [place] | [phone] | | [facility] | Blvd. | [address] | | | LABORATORY | | | | + + + + + | REFERENCE LAB | [address] | [place] | | | [facility] | Blvd. | [address] | | | LABORATORY | | | [...] + + | REFERENCE LAB | [address] | [place], [place] | [phone] | | [facility] | Blvd. | [address] | | | LABORATORY | | | | + + + + + | REFERENCE LAB | [address] [facility] | [place], [place] | | | [facility] | Blvd. | [address] | | | LABORATORY | | | | + + + + + IMAGING REPORT - EXTERNAL SCAN (01/16/2020 12:00 AM PDT) + + + | Narrative | Performed At | + + + | Ordered by an | | | unspecified provider. | | + + + from Last 3 Months Insurance [...] +--------+ +---------+--------+ | MEDICARE | MEDICA | [id number] | 11/21/19 | [phone] | | Medica | | | RE | | 01-Pre | 5 | | re | | | PART A | | sent | | | | | | AND B | | | | | | + +--------+ +--------+ +---------+--------+ | MEDICARE | MEDICA | [id number] | 11/21/19 | [phone] | | Medica | | | RE | | 01-Pre | 5 | | re | | | PART A | | sent | | | | | | AND B | | | | | | + +--------+ +--------+ +---------+--------+ | [place] | [id number] | 07/23/19 | [phone] | | [place] | | | [place] | 3 | 11-Pre | 9 | | ity | | | MDCR | | sent | | | | | | SUPPL | | | | | | + +--------+ +--------+ +---------+--------+ | BCBS | BCBS | [id number] | 07/23/19 | | | Indemn | [...] | | al/Fam | | 1936 | [id number] | [place], [place] | | | gee | | | 8 (Home) | [address] | + +--------+ +--------+ + + | Gia Arcos | Person | Self | [birth year] | [address] | | | al/Fam | | 1936 | [id number] | [place], [place] | | | gee | | | 8 (Home) | [address] | + +--------+ +--------+ + + Advance Directives + + + + + | Type | Date Recorded | Patient | Explanation | | | | Sheet Pile Driver Operator | | + + + + + | Power of | | | | | Truck Greaser | | | | + + + + + | Advance | 02/16/2014 1:11 | | | | Directive | PM | | | + + + + +
--- OUTSIDE RECORDS SUMMARY | ~2020-02-18 | XMS | Encounter Summary ---
Demographics + + + | Address | [address] | | | [place] [address] | + + + | Home Phone | | + + + | Preferred Language | Unknown | + + + | Marital Status | | + + + | Roman Catholic Affiliation | 1073 | + + + | Race | Unknown | + + + | Ethnic Group | Unknown | + + + Author + + + | Author | [facility] | | | and [place] | + + + | Organization | [facility] | | | and [...] Team Providers + +------+ + | Care Tree Surgeon Name | Role | Phone | + +------+ + | Tino Salmeron DO | PCP | | + +------+ + Reason for Visit +---------+ + | Reason | Comments | +---------+ + | Results | 10/02/19 | +---------+ + Encounter Details +--------+ + + + + | Date | Type | Department | Care Team | Description | +--------+ + + + + | 10/02/ | Documentati | [facility] | Jaylon, | Results (10/02/19) | | 2020 | on | NEPHROLOGY [place] | Ngozi Terrell | | | | | [address] | [address] | | | | | [place] | | | | | | [place] | | | | | | [address] | | | | | | [phone] | | | +--------+ + + + [...] + documented in this encounter Results Urinalysis (10/02/2019) + + + + + + | Component | Value | Ref Range | Performed | Pathologist | | | | | At | Signature | + + + + + + | Color | yellow | | | | + + + + + + | Clarity, | Clear | | | | | Urine | | | | | + + + + + + | Specific | 1.012 | 1.001 - 1.030 | | | | [place], | | | | | | Urine [...] + + | Urine | + + CBC with Manual Differential (10/02/2019) + + + + + + | Component | Value | Ref Range | Performed | Pathologist | | | | | At | Signature | + + + + + + | WBC | 5.2 | 4.5 - 11.0 | | | + + + + + + | Red Blood | 3.96 | 3.80 - 5.10 | | | | Cells | | M/uL | | | + [...] + + + + | % | 1 | 0 - 2 % | | | | Basophils, | | | | | | Body Fluid | | | | | + + [...] + + | Blood | + + documented in this encounter Visit Diagnoses Not on filedocumented in this encounter"
--- OUTSIDE RECORDS SUMMARY | ~2020-02-18 | XMS | Encounter Summary ---
Demographics + + + | Address | [address] | | | [place] [address] | + + + | Home Phone [...] Team Providers + +------+ + | Care Buckle Attaching Machine Operator Name | Role | Phone [...] | | [address] | [place] [address] | | | | | [place] | [phone] | | | | | [address] | | | | | | [phone] | | | +--------+ + + + [...]
--- OUTSIDE RECORDS SUMMARY | ~2020-02-18 | XMS | Encounter Summary ---
Demographics + + + | Address | [address] | | | [place] [address] | + + + | Home Phone [...] | Author | [facility] | | | and [place] | + + + | Organization | [facility] [...] Team Providers + +------+ + | Care Copy Center Specialist Name | Role | Phone | [...] L, Technologist | | | | | [address] | | | | | | [facility] | | | | | | [place] | | | | | | [address] | | | | | | [phone] | | | +--------+ + + + [...]
--- OUTSIDE RECORDS SUMMARY | ~2020-02-18 | XMS | Encounter Summary ---
Demographics + + + | Address | [address] | | | [place] [address] | + + + | Home Phone | | + + + | Preferred Language | Unknown | + + + | Marital Status | | + + + | Anabaptist Affiliation | 1073 | + + + | Race | Unknown | + + + | Ethnic Group | Unknown | + + + Author + + + | Author | [facility] | | | and [place] | + + + | Organization | [facility] | | [...] Team Providers + +------+ + | Care Cigarette Tipper Name | Role | Phone | + [...] Echo | | | | | Melva ([facility]) | MD Joni | [address] | | | | | Procedures | [address] | [place], | | | | | ECHO | [address] | [place] | | | | | Complete | [place], | [address] | | | | | | [place] [address] | Phone: | | | | | | Phone: | [phone] | | | | | | [phone] | Fax: | | | | | | Fax: | [phone] | | | | | | [phone] | | +--------+--------+ + + + + [...] + + | 04/18/ | Office | [facility] | Joni Sepulveda, | Establishing care | | 2012 | Visit | CARDIOLOGY [address] | with new doctor, | | | | Jazmin Khan, | [place], | encounter for | | | | [place] [address] | [place] [address] | (Primary Dx); Pre-op | | | | [phone] | [phone] | exam; HTN | | | | [...] normal angiogram approximately in 2004 at the [place], [place]. B. Patient was first diagnosed with atrial fibrillation approximately [address] Ruzi, her PCP. She was put on combination of digoxin and diltiazem. Rivaroxaban was recen tly added, approximately a month ago. She never had any symptoms with atrial fibrillation. She denies any symptoms of palpitations, dizziness or lightheadedness. She never had any ch est pressure discomfort. She is in a class II of the [place] [employer] functional class. There is no [...] made to ensure accuracy; however, inadvertent computerized tape sewer errors may be pre sent. documented in [...] Complete | Echocardiog | Routin | A-fib ([facility]) | Expected: | | | luiz | [...]
--- OUTSIDE RECORDS SUMMARY | ~2020-02-18 | XMS | Encounter Summary ---
Demographics + + + | Address | [address] | | | [place] [address] | + + + | Home Phone [...] Providers + +------+ + | Care Field Radio Technician Name | Role | Phone | [...] [address] | | | | | [place], [place] | [address] | | | | | [address] | | | | | | [phone] | | | +--------+ + + + [...]
--- OUTSIDE RECORDS SUMMARY | ~2020-02-18 | XMS | Encounter Summary ---
Demographics + + + | Address | [address] | | | [place] [address] | + + + | Home Phone | | + + + | Preferred Language | Unknown | + + + | Marital Status | | + + + | Taoism Affiliation | 1073 | + + + | Race | Unknown | + + + | Ethnic Group | Unknown | + + + Author + + + | Author | [facility] | | | and [place] | + + + | Organization | [facility] | | | and [...] Team Providers + +------+ + | Care Marketing Proposal Specialist Name | Role | Phone | + +------+ + | Chinmay Driscoll MD | PCP | | + +------+ + Encounter Details +--------+ + + + + | Date | Type | Department | Care Team | Description | +--------+ + + + + | 02/16/ | Hospital | [facility] | Tate Barrientos | Spinal stenosis of | | 2013 | Encounter | MED CTR XRAY [address] | [address] | lumbar region with | | | | [place] | [address] [place] | radiculopathy - | | | | [place] [address] | [address] | severe at L4-L5 | | | | [phone] | | | +--------+ + + + [...] + | MISCELLANEOUS LAB | | | [phone] | + +---------+ + + | MISCELANIOUS LAB | | | [phone] | + +---------+ + + documented in this encounter Visit Diagnoses + + | Diagnosis | + + | 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
--- OUTSIDE RECORDS SUMMARY | ~2020-02-18 | XMS | Encounter Summary ---
Demographics + + + | Address | [address] | | | [place] [address] | + + + | Home Phone | | + + + | Preferred Language | Unknown | + + + | Marital Status | | + + + | Mormon Affiliation | 1073 | + + + [...] Team Providers + +------+ + | Care Solar Electric/Photovoltaic Installer Name | Role | Phone | + [...] [address] | [address] | (Primary Dx) | | | | [address] | [address] | | | | | [place] | [address] | | | | | [address] | | | | | | [phone] | | | +--------+ + + + [...] Performed At | + + + | [facility] | [place] | | Department [address] [facility] [place] | [facility] | | [ rep [address]] [ rep [facility] | | st zip] Signed | - IMAGING | | | | | Patient Name: DILSHAD ARCOS Matt Physician: | | | : 1935 Age: 77 Sex: F Unit #: [id number] | | | Exam Date: 09/03/13 Location: [facility] | | | Report #: [id number] Page: | | | %(RAD)RES..mtdd.print.filter("pg") of %(RAD) | | | RES..mtdd.print.filter("tpg") | | | | | | Accession Number: [id number] | | | TWO VIEWS LUMBAR SPINE FROM 09/03/2013 CLINICAL HISTORY: | | | FOLLOWUP LUMBAR FUSION. COMPARISON: Lumbar radiographs | | | 07/29/2013 and 01/20/2013, lumbar MRI 12/20/2012. FINDINGS: | | | Five wps-xhz-oxxdaeo, lumbar-type vertebrae are suggested. There | | [...] Transcribed Date/Time: 09/03/2013 16:17 | | | Silo Man: SharonANTOINE <<Signature on File>> | | | Eulogio | | | Constantine Cerda MD09/03/13 [id number] <Electronically signed by Eulogio Cerda | | | MD> Eulogio Cerda MD 09/03/13 1606 Silo Man: | | | Vovici Kcuidldbvmbul80/12/14 1617 [address] Holder | | | | | + + + + + + + + | Performing | Address | City/State/Zipcode | Phone Number | | Organization | | | | + + + + + | [facility] | [address] | [place] | [phone] | | [facility] | | [address] | | | - IMAGING | | | | + + + + + documented in this encounter Visit Diagnoses + + | Diagnosis | + + | S/P lumbar fusion - Primary Arthrodesis status | + + documented in this encounter
--- OUTSIDE RECORDS SUMMARY | ~2020-02-18 | XMS | Encounter Summary ---
Demographics + + + | Address | [address] | | | [place] [address] | + + + | Home Phone | | + + + | Preferred Language | Unknown | + + + | Marital Status | | + + + | Buddhist Affiliation | 1073 | + + + | Race | Unknown | + + + | Ethnic Group | Unknown | + + + Author + + + | Author | [facility] | | | and [place] | + + + | Organization | [facility] | | [...] Team Providers + +------+ + | Care Triage Register Nurse Name | Role | Phone | [...] [address] | [address] [place] | | | | | [place], [place] | [address] | | | | | [address] | | | | | | [phone] | | | +--------+ + + + [...]
--- OUTSIDE RECORDS SUMMARY | ~2020-02-18 | XMS | Encounter Summary ---
Demographics + + + | Address | [address] | | | [place] [address] | + + + | Home Phone | | + + + | Preferred Language | Unknown | + + + | Marital Status | | + + + | Buddhism Affiliation | 1073 | + + + | Race | Unknown | + + + | Ethnic Group | Unknown | + + + Author + + + | Author | [facility] | | | and [place] | + + + | Organization | [facility] | | | [...] Team Providers + +------+ + | Care Project Manager/Design Manager Name | Role | Phone | [...] check-in) | | | | [address] [facility] [address] | [place] [address] | | | | | [place] | [phone] | | | | | [address] | | | | | | [phone] | | | +--------+ + + + [...]
--- OUTSIDE RECORDS SUMMARY | ~2020-02-18 | XMS | Encounter Summary ---
Demographics + + + | Address | [address] | | | [place] [address] | + + + | Home Phone [...] Providers + +------+ + | Care Freight Manager Name | Role | Phone | + +------+ + | Chinmay Driscoll MD | PCP | | + +------+ + Encounter Details +--------+ + + + + | Date | Type | Department | Care Team | Description | +--------+ + + + + | 09/01/ | Hospital | [facility] | Tate Barrientos | S/P lumbar spinal | | 2015 | Encounter | MED CTR XRAY [address] | [address] | fusion; Lumbar | | | | [place] | [address] [place] | radiculopathy - | | | | [place] [address] | [address] | primarily into the | | | | [phone] | | left lower | | | [...] mg by | | 0 | | 03/16/202 | | (GLUCOPHAGE) 500 mg | mouth [...] fusion extending from L4 through L5 | [facility]ENTER | | with interbody hardware at [...] ST. | [address] | [place], [place] | [phone] | | [facility] | | [address] | | | - IMAGING | | [...]
--- OUTSIDE RECORDS SUMMARY | ~2020-02-18 | XMS | Encounter Summary ---
Demographics + + + | Address | [address] | | | [place] [address] | + + + | Home Phone | | + + + | Preferred Language | Unknown | + + + | Marital Status | | + + + | Mu-Ism Affiliation | 1073 | + + + | Race | Unknown | + + + | Ethnic Group | Unknown | + + + Author + + + | Author | [facility] | | | and [place] | + + + | Organization | [facility] | | [...] Team Providers + +------+ + | Care Lieutenant Ballistics Name | Role | Phone | + +------+ + | Tino Salmeron DO | PCP | | + +------+ + Encounter Details +--------+---------+ + + + | Date | Type | Department | Care Team | Description | +--------+---------+ + + + | 02/08/ | Office | [facility] | Homero Soto MD | CKD (chronic kidney | | 2020 | Visit | NEPHROLOGY [place] | [address] [place] | disease) stage 3, | | | | [address] | [address] [place], [place] | GFR 30-59 ml/min | | | | [address] | [id number] | (HCC) (Primary Dx); | | | | [place], [place] | | Persistent | | | | [address] | | proteinuria; | | | | [phone] | | Essential | | | | | | hypertension; 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, without | | | | | | long-term current | | | | | | use of insulin (HCC) | +--------+---------+ + + + Social [...] Instructions Patient Instructions Homero Soto MD - 02/09/2020 1:20 PM PDTDiscussions/Recommendations : I discussed today [...] abide by a low salt diet. She is not to skip meals. She will avoid all kinds of NSAIDs for analgesia. Also: I sent her for a repeat BMP in 1 week. I will not change any of her vasoactive meds today. She will report back to me her home BP readings in 1 week. At that time, I will decide w hether any change to his vasoactive regimen is warranted. She will F/U with your office regularly. She will have a RFP, CBC, intact PTH, Urine total ablnppn-az-ovcgrqrckg ratio before she comes back in 6 months. 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 Arcos in consult today. As you are familiar with her case, I will n ot state her past history in detail. Briefly, she is a 84 y.o. female patient with past his tory as delineated above. She is here to F/U on her CKD & its associated complications. On 06/20/19, her sCr & eGFR [...] incontinence symptoms. No symptoms of UTI. Sh e has 3-4 times nightly nocturia. No history of passing kidney stones. She has no foamy uri ne either. Her baseline Creatinine is 1.35 from 08/2018. [...] hist ory, family history and problem list. As in History of Present Illness & in Assessment. All the twelve systems were reviewed and were otherwise negative. Active comorbid conditions include: - dysrhythmias; atrial fibrillation; paroxysmal - hypertension; essential; with renal disease; with CKD stage 1-4 - renal disease; CKD; Stage 3 - GERD - PUD; duodenal, past history of; peptic, past history of - arthritis Current Outpatient Medications: acetaminophen (TYLENOL) 500 mg tablet, Take 500 mg by mouth as needed for Pain., Disp: , Rfl: apixaban (ELIQUIS) 2.5 mg tablet, Take 2.5 mg by mouth 2 times daily., Disp: , Rfl: atorvaSTATin (LIPITOR) 10 mg tablet, Take 10 mg by mouth Daily., Disp: , Rfl: 0 diltiazem (CARDIZEM CD) [...] , Rfl: losartan (COZAAR) 100 MG tablet, Take 100 mg by mouth Daily., Disp: , Rfl: metoprolol succinate (TOPROL-XL) 25 mg 24 hr tablet, Take 25 mg by mouth Daily. 1 tabl et once per day, Disp: , Rfl: miSOPROStol (CYTOTEC) 200 MCG tablet, Take 200 mcg by mouth 2 times daily., Disp: , Rf l: Multiple [...] mg by mouth Daily., Disp: , Rfl: traMADol (ULTRAM) 50 mg tablet, 500 mg., Disp: , Rfl: Physical Exam: BP 112/60 | Pulse 76 | Ht 1.702 m (5' 7") | Wt 87.1 kg (192 lb) | BMI 30.07 kg/m General appearance: Pleasant, not in acute [...] normal. Lab Results Component Value Date HGB 11.9 (A) 02/02/2020 HCT 35.7 02/02/2020 NA 133 02/02/2020 K 4.2 02/02/2020 CL 95 02/02/2020 CO2 25 02/02/2020 BUN 40 (A) 02/02/2020 CREA 1.85 (A) 02/02/2020 CALCIUM 8.7 02/02/2020 ALBUMIN 3.6 02/02/2020 PHOS 3.8 02/02/2020 EGFR 26.0 (A) 02/02/2020 LABPROT 111.7 10/02/2019 No results for input(s): BUN, CREA, EGFR, NA, K, CL, CO2, CALCIUM, PHOS, MG, ALBUMIN, HGB, HCT, IRON in the last 72 hours. No components found for: MALBRX No components found for: MICROALBUR I also reviewed with her the report of her U/S from 12/2019, showing no evidence of any sig nificant renal anatomic abnormalities, other than age-related cortical thinning. Assessment: Ms. Arcos is a 84 y.o. female patient with stage III CKD on a background of long standing d iabetes & hypertension. 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 RENAL FUNCTION: Lower GFR now: secondary to diarrhea she had in early 01/2020 BLOOD PRESSURE: On the low side BLOOD SUGAR: Reports it controlled ELECTROLYTES: ok ANEMIA: None now VITAMIN D: To be checked thru your office PARATHYROID HORMONE: ok URIC ACID: ok PROTEINURIA: Very mild URINALYSIS: No significant hematuria; no UTI. VOLUME [...] abide by a low salt diet. She is not to skip meals. She will avoid all kinds of NSAIDs for analgesia. Also: I sent her for a repeat BMP in 1 week. I will not change any of her vasoactive meds today. She will report back to me her home BP readings in 1 week. At that time, I will decide w hether any change to his vasoactive regimen is warranted. She will F/U with your office regularly. She will have a RFP, CBC, intact PTH, Urine total mgyjvbd-lb-qagkefpnco ratio before she comes back in 6 months. 15 minutes of this 25-minute visit was spent in education and counseling. Thank you Dr Salmeron for the opportunity to see this patient in F/U today. Please do not hes itate to call me at any time with questions or concerns. Truly yours, Homero Soto MD FACP FAHA documented in this enco unter Plan of Treatment Not on filedocumented as of this encounter Visit Diagnoses + + | Diagnosis | + + | CKD (chronic kidney disease) stage 3, GFR 30-59 ml/min ([facility]) - Primary Chronic kidney | | disease, Stage III (moderate) | + + | Persistent proteinuria Proteinuria | + + | Essential hypertension Unspecified essential hypertension | + + | Type 2 diabetes mellitus with diabetic nephropathy, without long-term current use of | | insulin ([facility]) | + + documented in this encounter
--- OUTSIDE RECORDS SUMMARY | ~2020-02-18 | XMS | Encounter Summary ---
Demographics + + + | Address | [address] | | | [place] [address] | + + + | Home Phone | | + + + | Preferred Language | Unknown | + + + | Marital Status | | + + + | Jainism Affiliation | 1073 | + + + | Race | Unknown | + + + | Ethnic Group | Unknown | + + + Author + + + | Author | [facility] | | | and [place] | + + + | Organization | [facility] | | | [...] Team Providers + +------+ + | Care Internal Controls Consultant Name | Role | Phone | + +------+ + | Tino Salmeron DO | PCP | | + +------+ + Encounter Details +--------+ + + + + | Date | Type | Department | Care Team | Description | +--------+ + + + + | 04/25/ | Orders Only | [facility] [place] | Joni Sepulveda, | A-fib ([facility]) | | 2012 | | CARDIOLOGY [address] | MD [address] | | | | | [place], | [place], | | | | | [place] [address] | [place] [address] | | | | | [phone] | [phone] | | | | | | | [...]
--- OUTSIDE RECORDS SUMMARY | ~2020-02-18 | XMS | Encounter Summary ---
Demographics + + + | Address | [address] | | | [place] [address] | + + + | Home Phone | | + + + | Preferred Language | Unknown | + + + | Marital Status | | + + + | Anabaptism Affiliation | 1073 | + + + | Race | Unknown | + + + | Ethnic Group | Unknown | + + + Author + + + | Author | [facility] | | | and [place] | + + + | Organization | [facility] | | [...] Team Providers + +------+ + | Care Actuarial Assistant Name | Role | Phone | [...] + | 12/26/ | Telephone | [facility] | Will Rodriguez MD | Appointment; | | 2017 | | NEUROSURGERY [address] | [address] | Neurosurgery | | | | [address] | [place] [address] | Appointment | | | | [place] | [phone] | | | | | [address] | | | | | | [phone] | | | +--------+ + + + [...]
--- OUTSIDE RECORDS SUMMARY | ~2020-02-18 | XMS | Encounter Summary ---
Demographics + + + | Address | [address] | | | [place] [address] | + + + | Home Phone [...] Team Providers + +------+ + | Care Pharmaceutical Laboratory Technician Name | Role | Phone | [...] + | 12/09/ | Telephone | [facility] | Shakeel, | Anneliese | | 2013 | | CARDIOLOGY [address] | KAYLIE Mccoy [address] | | | | | [place], | [place], | | | | | [place] [address] | [place] [address] | | | | | [phone] | [phone] | | | | | | | [...] - 12/09/2013 10:11 AM PDTPatient [facility] to [facility]. Per patient Dr Driscoll does not feel she needs to be seen by a ca rdiologist at this time d ocumented in this encounter Plan of Treatment Not on filedocumented as of this encounter Visit Diagnoses Not on filedocumented in this encounter"
--- OUTSIDE RECORDS SUMMARY | ~2020-02-18 | XMS | Encounter Summary ---
Demographics + + + | Address | [address] | | | [place] [address] | + + + | Home Phone [...] Team Providers + +------+ + | Care Life Science Research Assistant Name | Role | Phone | + +------+ + | Chinmay Driscoll MD | PCP | | + +------+ + Reason for Visit +--------+--------+ + | Reason | Onset | Comments | | | Date | | +--------+--------+ + | Other | 01/27/ | injections | | | 2013 | | +--------+--------+ + Encounter Details +--------+ + + + + | Date | Type | Department | Care Team | Description | +--------+ + + + + | 01/27/ | Telephone | [facility] | Luigi James, | Other (injections ) | | 2012 | | NEUROSURGERY [address] | PA-C [address] | | | | [address] | [place] | | | | | [place] | [address] | | | | | [address] | | | | | | [phone] | | | +--------+ + + + [...] this encounter Miscellaneous Notes Telephone Encounter - Luigi James PA-C - 01/28/2013 8:36 AM PDTThis is supposed to be a referral for an evaluation, however the site is L4-5, left side. elephone Encounter - Ludy Grant - 02/2013 4:[address] Jaime's office to schedule an injection. The refe rral appears to have been processed as an evaluation and it looks like injections were discu ssed with the patient as an option for her. I don't see specific sides/levels or the type o f injection which was requested. Can you clarify if this referral was for an eval or for a specific injection? Ludy Chapman documented in this enc ounter Plan of Treatment Not on filedocumented as of this encounter Visit Diagnoses Not on filedocumented in this encounter"
--- OUTSIDE RECORDS SUMMARY | ~2020-02-18 | XMS | Encounter Summary ---
Demographics + + + | Address | [address] | | | [place] [address] | + + + | Home Phone [...] Team Providers + +------+ + | Care Helium Arc Welder Name | Role | Phone | + +------+ + | Chinmay Driscoll MD | PCP | | + +------+ + Encounter Details +--------+ + + + + | Date | Type | Department | Care Team | Description | +--------+ + + + + | 02/28/ | Hospital | [facility] | Thaddeus Jaime | | | 2013 | Encounter | MED CTR XRAY [address] | T, [address] | | | | [place] | [place], [place] | | | | | [place] [address] | [address] | | | | | [phone] | | | +--------+ + + + [...] | + +--------+ + + + | FL EPIDURAL STEROID | Routin | 02/28/2013 | | Results for this | | INJECTION LUMBAR | e | 6:43 PM | | procedure are in the | | TRANSFORAMINAL | | PDT | | results section. | + +--------+ + + + documented in this encounter Results FL AMARA Lumbar Transforaminal (02/28/2013 6:43 PM PDT) + + | Specimen | + + | | + + + + + | Narrative | Performed At | + + + | [facility] | [place] | | Department [address] | [facility] | | [ rep [address]] [ rep [facility] | | st zip] Signed | - IMAGING | | | | | Patient Name: GIA ARCOS Physician: | | | ELIZABETH. : 1935 Age: 77 Sex: F Unit #: [id number] | | | Exam Date: 02/28/13 Location: [facility] | | | Report #: [id number] Page: | | | %(RAD)RES..mtdd.print.filter("pg") of %(RAD) | | | RES..mtdd.print.filter("tpg") | | | | | | Accession Number: [id number] | | | PROCEDURE NOTE EPIDURAL STEROID INJECTION, 02/28/2013 | | | CLINICAL HISTORY: ICD-9 CODE 724.4, LUMBAR RADICULOPATHY. | | | Ms. Gia Arcos presents to the fluoroscopy suite for | | | a fluoroscopically-guided left L5-S1 transforaminal epidural steroid | | | injection as part of conservative management for chronic pain with | | | lumbar radiculopathy and degenerative disk disease. After informed | | | consent was obtained, the patient lay in the prone position on the | | | fluoroscopy table. The area was identified under fluoroscopic | | | guidance. The area was prepped and draped in sterile fashion. A | | | 25-gauge, 1.5-inch needle was inserted into this region and | | | approximately 3 mL of buffered 1% lidocaine was infused. Then, a 22- | | | gauge spinal needle was inserted into the posterior superior | | | transforaminal space and advanced into the epidural space under | | | fluoroscopic guidance. Confirmation into the epidural space was | | | obtained with infusion of approximately 1 mL of Isovue contrast | | | which showed epidural flow as well as nerve sheath flow. Then, a | | | combination of 1.5 mL of 1% lidocaine and 1.5 mL of 6 mg/mL Celestone | | | was infused. The patient tolerated the procedure well without | | | complications. Pre- and post-procedure blood pressures were | | | stable. The patient was given verbal as well as written followup | | | instructions. Prior to the start of the procedure, the | | | following were performed and verified, including correct patient | | | identity, correct site/side marked and visible, agreement on the | | | procedure to be done, correct patient positioning and an accurate | | | procedure consent form. Any safety precautions based on clinical | | | history and/or medication use have been addressed. I | | | personally performed the procedure above. Dictated | | | Date/Time: 02/28/2013 18:43 Transcribed Date/Time: 02/28/2013 | | | 20:36 Direct Of Real Estate: SharonLANG | | | <<Signature on File>> | | | Thaddeus Colón | | | MD Addison03/12/13 7561 <Electronically signed by Thaddeus Colón | | | [place] ARAUJO> Thaddeus Jiame MD 02/28/13 2115 | | | Direct Of Real Estate: [place] [id number] | | | | | + + + + + + + + | Performing | Address | City/State/Zipcode | Phone Number | | Organization | | | | + + + + + | [facility] | [address] | [place] | [phone] | | [facility] | | [address] | | | - IMAGING | | | | + + + + + documented in this encounter Visit Diagnoses Not on filedocumented in this encounter
--- OUTSIDE RECORDS SUMMARY | ~2020-02-18 | XMS | Encounter Summary ---
Demographics + + + | Address | [address] | | | [place] [address] | + + + | Home Phone | | + + + | Preferred Language | Unknown | + + + | Marital Status | | + + + | Adventism Affiliation | 1073 | + + + [...] Team Providers + +------+ + | Care Ice Skating Instructor Name | Role | Phone | + [...] [address] [place] | | | | | [place] | [address] | | | | | [address] | | | | | | [phone] | | | +--------+ + + + [...] Performed At | + + + | [facility] | [place] | | Department [address] [facility] [place] | [place] | | [ [address]] [ rep [facility] | | st zip] Signed | - IMAGING | | | | | Patient Name: DILHSAD ARCOS Matt Physician: | | | : 1935 Age: 77 Sex: F Unit #: [id number] | | | Exam Date: 09/03/13 Location: [facility] | | | Report #: [id number] Page: | | | %(RAD)RES..mtdd.print.filter("pg") of %(RAD) | | | RES..mtdd.print.filter("tpg") | | | | | | Accession Number: [id number] | | | TWO VIEWS LUMBAR SPINE FROM 09/03/2013 CLINICAL HISTORY: | | | FOLLOWUP LUMBAR FUSION. COMPARISON: Lumbar radiographs | | | 07/29/2013 and 01/20/2013, lumbar MRI 12/20/2012. FINDINGS: | | | Five swr-mxf-dqoaxnt, lumbar-type vertebrae are suggested. There | | [...] Transcribed Date/Time: 09/03/2013 16:17 | | | Investigations Chief: SharonANTOINE <<Signature on File>> | | | Eulogio | | | Constantine Cerda MD09/03/13 1536 <Electronically signed by Eulogio Cerda | | | MD> Eulogio Cerda MD 09/03/13 1606 Investigations Chief: | | | [employer] Xcpouwdhviymq64/12/14 1617 LAVINIA Holder | | | | | + + + + + + + + | Performing | Address | City/State/Zipcode | Phone Number | | Organization | | | | + + + + + | [facility] | [address] | [place] | [phone] | | [facility] | | [address] | | | - IMAGING | | | | + + + + + documented in this encounter Visit Diagnoses + + | Diagnosis | + + | S/P lumbar fusion - Primary Arthrodesis status | + + documented in this encounter
--- OUTSIDE RECORDS SUMMARY | ~2020-02-18 | XMS | Encounter Summary ---
Demographics + + + | Address | [address] | | | [place] [address] | + + + | Home Phone | | + + + | Preferred Language | Unknown | + + + | Marital Status | | + + + | Bahai Affiliation | 1073 | + + + [...] Team Providers + +------+ + | Care Bleach Liquor Maker Name | Role | Phone | + [...] | | | e disc | [place] [address] | [address] Phone: | | | | | disease), | Phone: | [phone] | | | | | lumbar | [phone] | Fax: | | | | | Lumbar | Fax: | [phone] | | | | | radicular | [phone] | | | | | | pain Low | | | | | | | back pain | | | +--------+ + + + + + Encounter Details +--------+---------+ + + + | Date | Type | Department | Care Team | Description | +--------+---------+ + + + | 02/20/ | Office | [facility] | Thaddeus Jaime | Lumbar radiculopathy | | 2012 | Visit | PHYSIATRY [address] | TMD [address] | - primarily into | | | | [address] | [address] [place] | the left lower | | | | [place] | [address] | extremity (Primary | | | | [address] | | Dx); DDD | | | | [phone] | | (degenerative disc | | | [...] does have some health problems that make [facility] a less ideal surgical candidate but [...]
--- OUTSIDE RECORDS SUMMARY | ~2020-02-18 | XMS | Encounter Summary ---
Demographics + + + | Address | [address] | | | [place] [address] | + + + | Home Phone [...] Team Providers + +------+ + | Care Diesel Instructor Name | Role | Phone | [...] + + | 10/02/ | Documentati | [facility] | Jaylon, | Results (10/02/19) | | 2020 | on | NEPHROLOGY [place] | Ngozi Terrell | | | | | [address] | [place] | | | | | [place] [facility] | | | | | | [place] | | | | | | [address] | | | | | | [phone] | | | +--------+ + + + [...] 1.001 - 1.030 | | | | [place], | | | | | | Urine [...]
--- OUTSIDE RECORDS SUMMARY | ~2020-02-18 | XMS | Encounter Summary ---
Demographics + + + | Address | [address] | | | [place] [address] | + + + | Home Phone | | + + + | Preferred Language | Unknown | + + + | Marital Status | | + + + | Moravian Affiliation | 1073 | + + + | Race | Unknown | + + + | Ethnic Group | Unknown | + + + Author + + + | Author | [facility] | | | and [place] | + + + | Organization | [facility] | | | [...] Team Providers + +------+ + | Care Modeling Instructor Name | Role | Phone | + +------+ + | Chinmay Driscoll MD | PCP | | + +------+ + Reason for Visit +--------+--------+ + | Reason | Onset | Comments | | | Date | | +--------+--------+ + | Other | 03/06/ | | | | 2012 | | +--------+--------+ + Encounter Details +--------+ + + + + | Date | Type | Department | Care Team | Description | +--------+ + + + + | 03/06/ | Telephone | [facility] [place] | Thaddeus Jaime | Other | | 2012 | | PHYSIATRY [address] | [address] | | | | | [address] | [place], [place] | | | | | [place], [place] | [address] | | | | | [address] | | | | | | [phone] | | | +--------+ + + + [...] this encounter Miscellaneous Notes Telephone Encounter - Conchis William - 03/12/2013 9:23 AM PDTReturned Rod's phone olivre l who informed me that she has an upcoming appointment with Dr. Rodriguez and he was curious that if Dr. Rodriguez recommends surgery but it is a month or so out if she could get another injection . I informed him that when they see Dr. Rodriguez he would recommend further treatment plan and if another injection were felt appropriate he could order that directly. elephone Encounter - Yamilka Bailey - 013 1:05 PM PDTCall from Rod requesting a return call from Conchis wanting to touch basis and go over some questions they had. documented in this encounter Plan of Treatment Not on filedocumented as of this encounter Visit Diagnoses Not on filedocumented in this encounter"
--- OUTSIDE RECORDS SUMMARY | ~2020-02-18 | XMS | Encounter Summary ---
Demographics + + + | Address | [address] | | | [place] [address] | + + + | Home Phone | | + + + | Preferred Language | Unknown | + + + | Marital Status | | + + + | Catholic Affiliation | 1073 | + + [...] Team Providers + +------+ + | Care Peoplesoft Fscm Developer Name | Role | Phone | + +------+ + | Chinmay Driscoll MD | PCP | | + +------+ + Reason for Visit +--------+--------+ + | Reason | Onset | Comments | | | Date | | +--------+--------+ + | Other | 07/10/ | COUMADIN RECOMMENDATIONS | | | 2012 | | +--------+--------+ + Encounter Details +--------+ + + + + | Date | Type | Department | Care Team | Description | +--------+ + + + + | 07/10/ | Telephone | [facility] | Will Rodriguez MD | Other (COUMADIN | | 2012 | | NEUROSURGERY [address] | [address] | RECOMMENDATIONS) | | | | [address] [facility] [address] | [place] [address] | | | | | [place] | [phone] | | | | | [address] | | | | | | [phone] | | | +--------+ + + + [...] this encounter Miscellaneous Notes Telephone Encounter - Annalise Hahn - 07/22/2013 12:52 PM PSTCarol was seen in the off ice today by LAVINIA Leija. Instructions given at that time. elephone Encounter - Annalise Hahn - 07/21/2013 4:44 PM PSTLeft message for Gia. Request callback. elephone Encounter - Annalise Hahn - 07/11/2013 3:03 PM PSTMessage left for Gia to see if she has had an update from Dr. Driscoll's office yet. Also, called 's office but they are out of [facility] office at this time. ANNALISE HAHN elephone Encounter - Annalise Hahn - 07/10/2013 1:47 PM PSTLeft message & requested callback. Gia is on Warfarin and Dr. Rodriguez would like her to stop that 7 days before her 07/28/13 surgery. She will need to have this managed by Dr. Driscoll. ANNALISE HAHN documented in this enc ounter Plan of Treatment Not on filedocumented as of this encounter Visit Diagnoses Not on filedocumented in this encounter"
--- OUTSIDE RECORDS SUMMARY | ~2020-02-18 | XMS | Encounter Summary ---
Demographics + + + | Address | [address] | | | [place] [address] | + + + | Home Phone [...] Team Providers + +------+ + | Care Avionics Shop Supervisor Name | Role | Phone | [...] Provider, | | | | | | CT Lumbar | Historical, | | | | | | Spine wo | [address] | | | | | | Contrast | [address] | | | | | | | [place] | | | | | | | [address] | | +--------+--------+ + + + + [...] | [address] | [place] [address] | | | | | [place] [address] | | | | | | [phone] | | | +--------+ + + + [...] for comparison only - no result from [place]. | [facility] | + + + + +---------+ + + | Performing | Address | City/State/Zipcode | Phone Number | | Organization | | | | + +---------+ + + | [facility] | | | | + +---------+ + + documented in this encounter Visit Diagnoses Not on filedocumented in this encounter"
--- OUTSIDE RECORDS SUMMARY | ~2020-02-18 | XMS | Encounter Summary ---
Demographics + + + | Address | [address] | | | [place] [address] | + + + | Home Phone | | + + + | Preferred Language | Unknown | + + + | Marital Status | | + + + | Religion Affiliation | 1073 | + + + | Race | Unknown | + + + | Ethnic Group | Unknown | + + + Author + + + | Author | [facility] | | | and [place] | + + + | Organization | [facility] | | [...] Team Providers + +------+ + | Care Can Stacker Name | Role | Phone | + [...] + + | 02/16/ | Office | [facility] | Tate Barrientos | S/P lumbar spinal | | 2013 | Visit | NEUROSURGERY [address] | [address] | fusion (Primary Dx); | | | | [address] [place], [place] | Lumbar | | | | [place], [place] | [id number] | radiculopathy - | | | | [address] | | primarily into the | | | | [phone] | | left lower | | | [...] t from the original. LAVINIA Rosenthal [address] [facility], [address] [place], [place] [address] FAX: NEUROSURGERY FOLLOW-UP CHIEF COMPLAINT: Chief Complaint [...] lumbar spine x-rays. FINDINGS: There | [facility] | | is stable hardware for posterior fusion extending from L4 through L5 | [facility] | | with interbody hardware at [...] + | Performing | Address | City/State/Unm Cancer Centercode | Phone Number | | Organization | | | | + + + + + | [address] | [address] | [place] | [phone] | | [facility] | | [address] | | | - IMAGING | | [...]
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
--- OUTSIDE RECORDS SUMMARY | ~2020-02-18 | XMS | Encounter Summary ---
Demographics + + + | Address | [address] | | | [place] [address] | + + + | Home Phone [...] Team Providers + +------+ + | Care Personal Lines Advisor Name | Role | Phone | + +------+ + | Chinmay Driscoll MD | PCP | | + +------+ + Encounter Details +--------+ + + + + | Date | Type | Department | Care Team | Description | +--------+ + + + + | 11/04/ | Hospital | [facility] | Will Rodriguez MD | S/P lumbar fusion | | 2014 | Encounter | MED CTR XRAY [address] | [address] | | | | | [place] | [place] [address] | | | | | [place] [address] | [phone] | | | | | [phone] | | | +--------+ + + + [...] LUMBAR SPINE 2 OR | Routin | 11/04/2013 | S/P lumbar fusion | Results for this | | 3 VW | e | 2:41 PM | | procedure are in the [...] of the lumbar spine. 5 | | geexzg-dnfgaiyxrpirp-yvcm vertebral bodies. No change in spinal alignment. [...] + | MISCELLANEOUS LAB | | | [phone] | + +---------+ + + | MISCELANIOUS LAB | | | [phone] | + +---------+ + + documented in this encounter Visit Diagnoses + + | Diagnosis | + + | S/P lumbar fusion Arthrodesis status | + + documented in this encounter"
--- OUTSIDE RECORDS SUMMARY | ~2020-02-18 | XMS | Encounter Summary ---
Demographics + + + | Address | [address] | | | [place] [address] | + + + | Home Phone | | + + + | Preferred Language | Unknown | + + + | Marital Status | | + + + | Confucianist Affiliation | 1073 | + + + [...] Team Providers + +------+ + | Care Advanced Practice Registered Nurse Name | Role | Phone | + +------+ + | Chinmay Driscoll MD | PCP | | + +------+ + Reason for Visit +---------+--------+ + | Reason | Onset | Comments | | | Date | | +---------+--------+ + | Post Op | 08/05/ | post op update | | | 2013 | | +---------+--------+ + Encounter Details +--------+ + + + + | Date | Type | Department | Care Team | Description | +--------+ + + + + | 08/05/ | [facility] | [facility] | Will Rodriguez MD | Post Op (post op | | 2013 | | NEUROSURGERY [address] | [address] | update) | | | | [address] [facility] | [place] [address] | | | | | [place] | [phone] | | | | | [address] | | | | | | [phone] | | | +--------+ + + + [...] Miscellaneous Notes Telephone Encounter - Annalise Hahn S - 08/05/2013 4:12 PM PSTProcedure: L4-5 TLIF Date of Surgery: 07/28/13 1. How are you feeling (pain type/often)? Intermittent. 2. If pain, where (Legs/surgical site)? Pain primarily in her legs when she stands up from a sitting position. The pain is only during the initial standing period and is subsiding wi th time. 3. Weakness/Numbness (New onset)? No. 4.Taking pain meds (Name/Dosage)? Hydrocodone 7.5/325 mg 1/3 tab po every 6 hours prn pain. 5.Loss of Bowel or Bladder (When/Chronic)? No new onset of bladder control. This has impro donte since having surgery. 6.Ambulating (How often)? She has been walking at least every 45 minutes; walking around th e house daily SURGICAL ISSUES 1.What does the dressing look like? Clean/dry. She is getting help from her neighbor, Tima kent, to care for these incisions. 2.Is there drainage from the site? No. 3.Do you have a fever? No. 4.Follow up appointments? 09/03/13 @ 1:00 No refills requested at this time. ANNALISE HAHN documented in this enc ounter Plan of Treatment Not on filedocumented as of this encounter Visit Diagnoses Not on filedocumented in this encounter"
--- OUTSIDE RECORDS SUMMARY | ~2020-02-18 | XMS | Encounter Summary ---
Demographics + + + | Address | [address] | | | [place] [address] | + + + | Home Phone [...] Team Providers + +------+ + | Care Group Home Worker Name | Role | Phone | + +------+ + | Chinmay Driscoll MD | PCP | | + +------+ + Encounter Details +--------+ + + + + | Date | Type | Department | Care Team | Description | +--------+ + + + + | 10/15/ | Hospital | [facility] | Abraham Lindsey, | STEVEN deras | | 2015 - | Encounter | [facility] | MD [address] | | | | | CARE FLOOR [address] | [place] [address] | | | 10/17/ | | [address] | [phone] | | | 2014 | | [place], [place] | | | | | | [address] | | | | | | [phone] | | | +--------+ + + + [...] 10/17/141213 Date of Service: 10/17/141209 Status: Signed Associate Professor Of Automation: Solis Blake MD (Physician) [facility] Service: Hospitalist Physician Discharge Summary Pt: Gia Arcos AGE/SEX: 78 y.o. female ROOM: [facility]9/4459-1 PCP: CHINMAY DRISCOLL : 1935 Admit date: [...] HTN, who presents as a transfer from [facility] with GI bleed and found [...] hours. No results for input(s): PHART, PO2ART, RHG8TOW, K6TIKYIC, BEART in the last 168 hours. 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 You may get the following medications [...] Blake MD 10/17/2014 12:10 PM Dictation software, MojoPages, used which may contain error for similar [...] 10/17/141745 Date of Service: 10/17/141743 Status: Signed Associate Professor Of Automation: Anne Santa RN (Registered Nurse) Family And caregiver present for discharge teaching pt alert and oriented X4 . pts new RX' s given to caregiver. Pt discharged via private car to home with caregiver. onver shola Transaction, Provider Unknown - 10/17/2014 3:12 PM PDT Case Management by SOURAV Bradley at 10/17/14 1512 Author: SOURAV Bradley Service: (none) Author Type: Advertising Manager Filed: 10/17/14 1513 Date of Service: 10/17/14 1512 Status: Signed Associate Professor Of Automation: SOURAV Bradley (Advertising Manager) 10/17/14 1500 Discharge Planning Evaluation Admitting Diagnosis Acute Blood Loss Anticipated Disposition Facility Type Home Weekend Discharge planning: [facility] spoke with Anne LEWIS Nurse regarding discharge needs, marc diehl Pt does not need to be seen by CM at this time and has no discharge needs or concerns. I encouraged them to enter a CM consult as needs arise. Jermaine Ross, Resident Care Assistant [phone] cell onver shola Transaction, Provider Unknown - 10/16/2014 6:20 PM PDT Nurse Progress Note by Anne Santa RN at 10/16/141819 Author: Anne Santa RN Service: (none) Author Type: Registered Nurse Filed: 10/16/141824 Date of Service: 10/16/141819 Status: Signed Associate Professor Of Automation: Anne Santa RN (Registered Nurse) Pts first unit of blood is completed iv lasix is being given and second unit to be hung. Pt tolerated first infusion without complications. Solis Ortiz MD - 10/16/2014 1:07 PM PDT Progress Notes by Solis Blake MD at 10/16/14 1307 Author: Solis Blake MD Service: Hospitalist Author Type: Physician Filed: 10/16/14 1017 Date of Service: 10/16/14 1307 Status: Addendum Associate Professor Of Automation: Solis Blake MD (Physician) Related Notes: Original Note by Solis Blake MD (Physician) filed at 10/16/14 7856 [facility] Service: Hospitalist Progress Note Pt: Gia Arcos AGE/SEX: 78 y.o. female ROOM: [facility]9/445-1 : 1935 PCP: CHINMAY DRISCOLL ADMIT DATE: 10/15/2014 TODAY'S DATE: 10/16/2014 Hospital Day/Hospital Course: LOS: 1 day The patient is a 78 y.o. female with significant past medical history of afib on xarelto, D M type 2, HTN, who presents as a transfer from [facility] ER from Dr Sarah for [...] HTN, who presents as a transfer from [facility] ER from for GI bleed. [...] MD, FACP 10/16/2014 1:07 PM Dictation software, MojoPages, used which may contain error for similar [...] 10/16/14800 Date of Service: 10/16/14758 Status: Signed Associate Professor Of Automation: Anne Santa RN (Registered Nurse) Spoke with [...] 10/16/14433 Date of Service: 10/15/142200 Status: Addendum Associate Professor Of Automation: Ngozi Liu RN (Registered Nurse) Related Notes: [...] physician to give any medication. Kacie 2215: [facility] paged regarding releasing orders or placing new ones, will await call. 2245: Orders from [facility] received for few orders that Dr. Tobar [...] 10/15/141701 Date of Service: 10/15/141701 Status: Signed Associate Professor Of Automation: Mayelin Minor RPH (Pharmacist) Clinical Pharmacy Note [...] 10/15/141804 Date of Service: 10/15/141652 Status: Addendum Associate Professor Of Automation: Abraham Lindsey MD (Physician) Related Notes: Original Note by Abraham Lindsey MD (Physician) filed at 10/15/141800 [facility] Service: Hospitalist Admission History & Physical Pt: Gia Arcos AGE/SEX: 78 y.o. female ROOM: [address] [place] [address] PCP: CHINMAY DRISCOLL DOB: 1935 TODAY'S DATE: 10/15/2014 Date of Admission: 10/15/2014 Chief Complaint: Vomiting dark material and Having dark stool History of Present Illness: The patient is a 78 y.o. female with significant past medical history of afib on xarelto, D M type 2, HTN, who presents as a transfer from [facility] ER from Dr Sarah for [...] with generalized weakness and dizziness. Labs at [facility] revealed H/h there was 8. with last hgb available at 2011 was 13. Pltls 116 and WBC 8.6 INR w as 1.8 UA negative Glucose 317 BUN 80 Creat 1.25 K 4.3 HCO 20 Trop negative LFts WNL Received 2 L IV fluids and 2 u PRBCs And started on protonix drip over there at [facility] Currently still feels dizzy if she would [...] hours. No results for input(s): PHART, PO2ART, LWI0XBW, L6SCZFEC, BEART in the last 168 hours. No [...] 10/16/141943 Date of Service: 10/15/142108 Status: Signed Associate Professor Of Automation: Anthony Tobar MD (Physician) Related Notes: Original Note by Anthony Tobar MD (Physician) filed at 10/15/142113 Procedure Orders: 1. Case Request Operating Room: ESOPHAGOGASTRODUODENOSCOPY [[id number]] ordered by Anthony cohen MD at 10/15/14 181 Pre-procedure Diagnoses: 1. Acute upper GI bleeding [578.9] Post-procedure Diagnoses: 1. Gastric ulcer, acute [531.30] Procedures: 1. UPPER STOMACH-INTESTINE SCOPE FOR BIOPSY [61897 (CPT)] DATE OF SERVICE October 15, 2014 [...] 10/16/141940 Date of Service: 10/15/141915 Status: Signed Associate Professor Of Automation: Anthony Tobar MD (Physician) Related Notes: Original Note by Anthony Tobar MD (Physician) filed at 10/15/141928 Consult Orders: 1. Inpatient consult to GI [[id number]] ordered by Abraham Lindsey MD at 10/15/14 1805 [facility] Service: Gastroenterology Initial Consult Note Date of [...] weakness and dizziness, and subsequently seen at [facility] emergency room. Initial hemoglobin 8.1, hematocrit 25, platelet count 116. PT IN R was 1.8. Subsequently she was transferred to [facility] for further ma nagement of GI bleeding. [...] Component Value Units Date/Time Occult blood screen [[id number]] (Abnormal) Collected: 10/15/14 180 Specimen Information: Stool Updated: 10/15/14 1821 Fecal Occult Blood POSITIVE (A) Basic metabolic panel [[id number]] (Abnormal) Collected: 10/15/14 172 Specimen Information: Blood Updated: 10/15/141802 SODIUM 140 mmol/L POTASSIUM 4.2 mmol/L CHLORIDE 107 mmol/L CO2 24 mmol/L ANION GAP AGAP 14 mmol/L GLUCOSE 234 (H) mg/dL BUN 73 (H) mg/dL CREATININE 1.31 (H) mg/dL BUN/CREAT 56 CALCIUM 7.9 (L) mg/dL EGFR 42 (L) mL/min/1.73m2 Troponin I [[id number]] Collected: 10/15/14 172 Specimen Information: Blood Updated: 10/15/141802 TROPONIN I 0.028 ng/mL CPK [[id number]] (Abnormal) Collected: 10/15/141720 Specimen Information: Blood Updated: 10/15/141802 CPK 27 (L) U/L CK MB [[id number]] Collected: 10/15/141720 MMB 1.5 ng/mL Updated: 10/15/141802 CK-MB Index 5.6 CBC W/Auto Diff (Reflex to Manual) [[id number]] (Abnormal) Collected: 10/15/141720 Specimen Information: Blood Updated: [...] | | performed at [facility], [address] | K/uL | LAB | | | | [address], | | | | | | [place] [address] | | | | + + + + + + | Non- | 3.28 (L)Comment: Testing | 3.70 - 5.10 | EXTERNAL | | | Red Blood | performed at [facility], [address] | M/uL | LAB | | | Cells | [address], | | | | | Counted | [place] [address] | | | | + + + + + + | Hemoglobin | 10.6 (L)Comment: Testing | 11.3 - 15.5 | EXTERNAL | | | | performed at [facility], [address] | g/dL | LAB | | | | [address], | | | | | | [place] [address] | | | | + + + + + + | Hematocrit, | 30.9 (L)Comment: Testing | 34.0 - 46.0 % | EXTERNAL | | | POC | performed at [facility], [address] | | LAB | | | | [address], | | | | | | [place] [address] | | | | + + + + + + | MCV | 94.3Comment: Testing | 80.0 - 100.0 fl | EXTERNAL | | | | performed at [facility], [address] | | LAB | | | | [address], | | | | | | [place] [address] | | | | + + + + + + | MCH | 32.4Comment: Testing | 27.0 - 34.0 pg | EXTERNAL | | | | performed at [facility], [address] | | LAB | | | | [address], | | | | | | [place] [address] | | | | + + + + + + | MCHC | 34.4Comment: Testing | 32.0 - 35.5 | EXTERNAL | | | | performed at [facility], [address] | g/dL | LAB | | | | [address], | | | | | | [place] [address] | | | | + + + + + + | RDW-CV | 48.1Comment: Testing | 37 - 53 fl | EXTERNAL | | | | performed at [facility], [address] | | LAB | | | | [address], | | | | | | [place] [address] | | | | + + + + + + | Platelet | 91 (L)Comment: Testing | 150 - 400 K/uL | EXTERNAL | | | Count | performed at [facility], [address] | | LAB | | | Plasma | [address], | | | | | | [place] [address] | | | | + + + + + + | MPV | 8.6Comment: Testing | fl | EXTERNAL | | | | performed at [facility], [address] | | LAB | | | | [address], | | | | | | [place] [address] | | | | + + + + + + | Differentia | AUTOMATEDComment: | | EXTERNAL | | | l Type | Testing performed at | | LAB | | | | [facility], [address] | | | | | | [place] | | | | | | [address] | | | | + + + + + + | % Segmented | 74.29Comment: Testing | % | EXTERNAL | | | | performed at [facility], [address] | | LAB | | | Neutrophils | [address], | | | | | | [place] [address] | | | | + + + + + + | % | 15.03Comment: Testing | % | EXTERNAL | | | Lymphocytes | performed at [facility], [address] | | LAB | | | | [address], | | | | | | [place] [address] | | | | + + + + + + | % Monocytes | 6.10Comment: Testing | % | EXTERNAL | | | | performed at [facility], [address] | | LAB | | | | [address], | | | | | | [place] [address] | | | | + + + + + + | % | 4.04Comment: Testing | % | EXTERNAL | | | Eosinophils | performed at [facility], [address] | | LAB | | | | [address], | | | | | | [place] [address] | | | | + + + + + + | % Basophils | 0.54Comment: Testing | % | EXTERNAL | | | | performed at [facility], [address] | | LAB | | | | [address], | | | | | | [place] [address] | | | | + + + + + + | Absolute | 5.09Comment: Testing | 1.90 - 7.40 | EXTERNAL | | | Segmented | performed at [facility], [address] | K/uL | LAB | | | Neutrophils | [address], | | | | | | [place] [address] | | | | + + + + + + | Absolute | 1.03Comment: Testing | 1.00 - 3.90 | EXTERNAL | | | Lymphocytes | performed at [facility], [address] | K/uL | LAB | | | | [address], | | | | | | [place] [address] | | | | + + + + + + | Absolute | 0.42Comment: Testing | 0.00 - 0.80 | EXTERNAL | | | Monocytes | performed at [facility], [address] | K/uL | LAB | | | | [address], | | | | | | [place] [address] | | | | + + + + + + | Absolute | 0.28Comment: Testing | 0.00 - 0.50 | EXTERNAL | | | Eosinophils | performed at [facility], [address] | K/uL | LAB | | | | [address], | | | | | | [place] [address] | | | | + + + + + + | Absolute | 0.04Comment: Testing | 0.00 - 0.10 | EXTERNAL | | | Basophils | performed at [facility], [address] | K/uL | LAB | | | | [address], | | | | | | [place] [address] | | | | + + + [...] | | performed at [facility], [address] | | LAB | | | | [address], | | | | | | [place] [address] | | | | + + + [...] | | | | | [place] [address] | | | | + + + + + + | K | 3.0 (L)Comment: Testing | 3.5 - 4.9 | EXTERNAL | | | | performed at [facility], [address] | mmol/L | LAB | | | | [address], | | | | | | [place] [address] | | | | + + + + + + | Cl | 107Comment: Testing | 99 - 109 mmol/L | EXTERNAL | | | | performed at [facility], [address] | | LAB | | | | [address], | | | | | | [place] [address] | | | | + + + + + + | CO2 | 27Comment: Testing | 23 - 32 mmol/L | EXTERNAL | | | | performed at [facility], [address] | | LAB | | | | [address], | | | | | | [place] [address] | | | | + + + + + + | Anion Gap | 7Comment: Testing | 5 - 20 mmol/L | EXTERNAL | | | | performed at [facility], [address] | | LAB | | | | [address], | | | | | | [place] [address] | | | | + + + + + + | Glucose, | 142 (H)Comment: Testing | 65 - 99 mg/dL | EXTERNAL | | | Fasting | performed at [facility], [address] | | LAB | | | | [address], | | | | | | [place] [address] | | | | + + + + + + | BUN | 28 (H)Comment: Testing | 8 - 25 mg/dL | EXTERNAL | | | | performed at [facility], [address] | | LAB | | | | [address], | | | | | | [place] [address] | | | | + + + + + + | Creatinine | 1.12 (H)Comment: Testing | 0.50 - 1.00 | EXTERNAL | | | | performed at [facility], [address] | mg/dL | LAB | | | | [address], | | | | | | [place] [address] | | | | + + + + + + | BUN/Creatin | 25Comment: Testing | | EXTERNAL | | | ine Ratio | performed at [facility], [address] | | LAB | | | | [address], | | | | | | [place] [address] | | | | + + + + + + | Calcium | 8.0 (L)Comment: Testing | 8.5 - 10.5 | EXTERNAL | | | | performed at [facility], [address] | mg/dL | LAB | | | | [address], | | | | | | [place] [address] | | | | + + + + + + | Protein, | 4.8 (L)Comment: Testing | 6.3 - 8.2 g/dL | EXTERNAL | | | Total | performed at [facility], [address] | | LAB | | | | [address], | | | | | | [place] [address] | | | | + + + + + + | Albumin | 2.9 (L)Comment: Testing | 3.3 - 4.8 g/dL | EXTERNAL | | | | performed at [facility], [address] | | LAB | | | | [address], | | | | | | [place] [address] | | | | + + + + + + | Globulin | 1.9Comment: Testing | 1.3 - 4.9 g/dL | EXTERNAL | | | | performed at [facility], [address] | | LAB | | | | [address], | | | | | | [place] [address] | | | | + + + + + + | A/G Ratio | 1.5Comment: Testing | 1.0 - 2.4 | EXTERNAL | | | | performed at [facility], [address] | | LAB | | | | [address], | | | | | | [place] [address] | | | | + + + + + + | Bilirubin | 0.9Comment: Testing | 0.1 - 1.5 mg/dL | EXTERNAL | | | Total | performed at [facility], [address] | | LAB | | | | [address], | | | | | | [place] [address] | | | | + + + + + + | ALP, | 43Comment: Testing | 35 - 115 U/L | EXTERNAL | | | External | performed at [facility], [address] | | LAB | | | | [address], | | | | | | [place] [address] | | | | + + + + + + | AST | 14Comment: Testing | 10 - 45 U/L | EXTERNAL | | | | performed at [facility], [address] | | LAB | | | | [address], | | | | | | [place] [address] | | | | + + + + + + | ALT | 11Comment: Testing | 10 - 65 U/L | EXTERNAL | | | | performed at [facility], [address] | | LAB | | | | [address], | | | | | | [place] [address] | | | | + + + [...] W | | | | | [facility] | | | | | | [place] [address] | | | | + + + [...] EXTERNAL | | | | performed at [facility];[address] | g/dL | LAB | | | | [address];[place], [place] | | | | | | [address] | | | | + + + + + + | Hematocrit, | 30.7 (L)Comment: Testing | 34.0 - 46.0 % | EXTERNAL | | | POC | performed at [facility];[address] | | LAB | | | | [address];[place], [place] | | | | | | [address] | | | | + + + [...] EXTERNAL | | | | performed at [facility];888 | g/dL | LAB | | | | [address];[place] | | | | | | [address] | | | | + + + + + + | Hematocrit, | 24.1 (L)Comment: Testing | 34.0 - 46.0 % | EXTERNAL | | | POC | performed at [facility];[address] | | LAB | | | | [address];[place] | | | | | | [address] | | | | + + + [...] EXTERNAL | | | | performed at [facility];[address] | | LAB | | | | [address];[place] | | | | | | [address] | | | | + + + [...] | | | | | | ACUTE IA Testing | | | | | | performed at [facility];[address] | | | | | | [address];[place], [place] | | | | | | [address] | | | | + + + [...] | | | Patient | performed at [facility];[address] | | LAB | | | | [address];[place] | | | | | | [address] | | | | + + + [...] | | | | | performed at [facility] | | | | | | [facility];[place], [place] | | | | | | [address] | | | | + + + [...] | | | | | [place] [address] | | | | + + + + + + | Non- | 2.62 (L)Comment: Testing | 3.70 - 5.10 | EXTERNAL | | | Red Blood | performed at [facility], [address] | M/uL | LAB | | | Cells | [address], | | | | | Counted | [place] [address] | | | | + + + + + + | Hemoglobin | 8.3 (L)Comment: Testing | 11.3 - 15.5 | EXTERNAL | | | | performed at [facility], [address] | g/dL | LAB | | | | [address], | | | | | | [place] [address] | | | | + + + + + + | Hematocrit, | 24.9 (L)Comment: Testing | 34.0 - 46.0 % | EXTERNAL | | | POC | performed at [facility], [address] | | LAB | | | | [address], | | | | | | [place] [address] | | | | + + + + + + | MCV | 95.1Comment: Testing | 80.0 - 100.0 fl | EXTERNAL | | | | performed at [facility], [address] | | LAB | | | | [address], | | | | | | [place] [address] | | | | + + + + + + | MCH | 31.7Comment: Testing | 27.0 - 34.0 pg | EXTERNAL | | | | performed at [facility], [address] | | LAB | | | | [address], | | | | | | [place] [address] | | | | + + + + + + | MCHC | 33.4Comment: Testing | 32.0 - 35.5 | EXTERNAL | | | | performed at [facility], [address] | g/dL | LAB | | | | [address], | | | | | | [place] [address] | | | | + + + + + + | RDW-CV | 46.8Comment: Testing | 37 - 53 fl | EXTERNAL | | | | performed at [facility], [address] | | LAB | | | | [address], | | | | | | [place] [address] | | | | + + + + + + | Platelet | 107 (L)Comment: Testing | 150 - 400 K/uL | EXTERNAL | | | Count | performed at [facility], [address] | | LAB | | | Plasma | [address], | | | | | | [place] [address] | | | | + + + + + + | MPV | 9.2Comment: Testing | fl | EXTERNAL | | | | performed at [facility], [address] | | LAB | | | | [address], | | | | | | [place] [address] | | | | + + + + + + | Differentia | AUTOMATEDComment: | | EXTERNAL | | | l Type | Testing performed at | | LAB | | | | [facility], [address] | | | | | | [place] | | | | | | [address] | | | | + + + + + + | % Segmented | 81.03Comment: Testing | % | EXTERNAL | | | | performed at [facility], [address] | | LAB | | | Neutrophils | [address], | | | | | | [place] [address] | | | | + + + + + + | % | 12.64Comment: Testing | % | EXTERNAL | | | Lymphocytes | performed at [facility], [address] | | LAB | | | | [address], | | | | | | [place] [address] | | | | + + + + + + | % Monocytes | 5.15Comment: Testing | % | EXTERNAL | | | | performed at [facility], [address] | | LAB | | | | [address], | | | | | | [place] [address] | | | | + + + + + + | % | 0.85Comment: Testing | % | EXTERNAL | | | Eosinophils | performed at [facility], [address] | | LAB | | | | [address], | | | | | | [place] [address] | | | | + + + + + + | % Basophils | 0.33Comment: Testing | % | EXTERNAL | | | | performed at [facility], [address] | | LAB | | | | [address], | | | | | | [place] [address] | | | | + + + + + + | Absolute | 6.58Comment: Testing | 1.90 - 7.40 | EXTERNAL | | | Segmented | performed at [facility], [address] | K/uL | LAB | | | Neutrophils | [address], | | | | | | [place] [address] | | | | + + + + + + | Absolute | 1.03Comment: Testing | 1.00 - 3.90 | EXTERNAL | | | Lymphocytes | performed at [facility], [address] | K/uL | LAB | | | | [address], | | | | | | [place] [address] | | | | + + + + + + | Absolute | 0.42Comment: Testing | 0.00 - 0.80 | EXTERNAL | | | Monocytes | performed at [facility], [address] | K/uL | LAB | | | | [address], | | | | | | [place] [address] | | | | + + + + + + | Absolute | 0.07Comment: Testing | 0.00 - 0.50 | EXTERNAL | | | Eosinophils | performed at [facility], [address] | K/uL | LAB | | | | [address], | | | | | | [place] [address] | | | | + + + + + + | Absolute | 0.03Comment: Testing | 0.00 - 0.10 | EXTERNAL | | | Basophils | performed at [facility], [address] | K/uL | LAB | | | | [address], | | | | | | [place] [address] | | | | + + + [...] | | performed at [facility], [address] | | LAB | | | | [address], | | | | | | [place] [address] | | | | + + + [...] | | performed at [facility], [address] | | LAB | | | | [address], | | | | | | [place] [address] | | | | + + + [...] EXTERNAL | | | | performed at [facility];[address] | | LAB | | | | [address];[place], [place] | | | | | | [address] | | | | + + + [...] | | | | | [place] [address] | | | | + + + + + + | K | 3.1 (L)Comment: Testing | 3.5 - 4.9 | EXTERNAL | | | | performed at [facility], [address] | mmol/L | LAB | | | | [address], | | | | | | [place] [address] | | | | + + + + + + | Cl | 109Comment: Testing | 99 - 109 mmol/L | EXTERNAL | | | | performed at [facility], [address] | | LAB | | | | [address], | | | | | | [place] [address] | | | | + + + + + + | CO2 | 24Comment: Testing | 23 - 32 mmol/L | EXTERNAL | | | | performed at [facility], [address] | | LAB | | | | [address], | | | | | | [place] [address] | | | | + + + + + + | Anion Gap | 9Comment: Testing | 5 - 20 mmol/L | EXTERNAL | | | | performed at [facility], [address] | | LAB | | | | [address], | | | | | | [place] [address] | | | | + + + + + + | Glucose, | 182 (H)Comment: Testing | 65 - 99 mg/dL | EXTERNAL | | | Fasting | performed at [facility], [address] | | LAB | | | | [address], | | | | | | [place] [address] | | | | + + + + + + | BUN | 54 (H)Comment: Testing | 8 - 25 mg/dL | EXTERNAL | | | | performed at [facility], [address] | | LAB | | | | [address], | | | | | | [place] [address] | | | | + + + + + + | Creatinine | 1.17 (H)Comment: Testing | 0.50 - 1.00 | EXTERNAL | | | | performed at [facility], [address] | mg/dL | LAB | | | | [address], | | | | | | [place] [address] | | | | + + + + + + | BUN/Creatin | 46Comment: Testing | | EXTERNAL | | | ine Ratio | performed at [facility], [address] | | LAB | | | | [address], | | | | | | [place] [address] | | | | + + + + + + | Calcium | 7.7 (L)Comment: Testing | 8.5 - 10.5 | EXTERNAL | | | | performed at [facility], [address] | mg/dL | LAB | | | | [address], | | | | | | [place] [address] | | | | + + + + + + | Protein, | 4.2 (L)Comment: Testing | 6.3 - 8.2 g/dL | EXTERNAL | | | Total | performed at [facility], [address] | | LAB | | | | [address], | | | | | | [place] [address] | | | | + + + + + + | Albumin | 2.6 (L)Comment: Testing | 3.3 - 4.8 g/dL | EXTERNAL | | | | performed at [facility], [address] | | LAB | | | | [address], | | | | | | [place] [address] | | | | + + + + + + | Globulin | 1.6Comment: Testing | 1.3 - 4.9 g/dL | EXTERNAL | | | | performed at [facility], [address] | | LAB | | | | [address], | | | | | | [place] [address] | | | | + + + + + + | A/G Ratio | 1.6Comment: Testing | 1.0 - 2.4 | EXTERNAL | | | | performed at [facility], [address] | | LAB | | | | [address], | | | | | | [place] [address] | | | | + + + + + + | Bilirubin | 0.6Comment: Testing | 0.1 - 1.5 mg/dL | EXTERNAL | | | Total | performed at [facility], [address] | | LAB | | | | [address], | | | | | | [place] [address] | | | | + + + + + + | ALP, | 36Comment: Testing | 35 - 115 U/L | EXTERNAL | | | External | performed at [facility], [address] | | LAB | | | | [address], | | | | | | [place] [address] | | | | + + + + + + | AST | 11Comment: Testing | 10 - 45 U/L | EXTERNAL | | | | performed at [facility], [address] | | LAB | | | | [address], | | | | | | [place] [address] | | | | + + + + + + | ALT | 9 (L)Comment: Testing | 10 - 65 U/L | EXTERNAL | | | | performed at [facility], [address] | | LAB | | | | [facility], | | | | | | [place] [address] | | | | + + + [...] W | | | | | | [facility], | | | | | | [place] [address] | | | | + + + [...] EXTERNAL | | | | performed at [facility];888 | g/dL | LAB | | | | Renata Francis;[place], [place] | | | | | | [address] | | | | + + + + + + | Hematocrit, | 29.3 (L)Comment: Testing | 34.0 - 46.0 % | EXTERNAL | | | POC | performed at [facility];888 | | LAB | | | | Renata Francis;[place], [place] | | | | | | [address] | | | | + + + [...] EXTERNAL | | | | performed at [facility];888 | | LAB | | | | Renata Villanueva;[place], [place] | | | | | | [address] | | | | + + + [...] | | | | | | ACUTE IA Testing | | | | | | performed at [facility];[address] | | | | | | [address];[place], [place] | | | | | | [address] | | | | + + + [...] EXTERNAL | | | | performed at [facility];[address] | | LAB | | | | [address];[place] | | | | | | [address] | | | | + + + [...] | | | Received | performed at [facility];888 | | LAB | | | | Renata Francis;[place] | | | | | | [address] | | | | + + + + + + | 24hr Read | NEGATIVEComment: Testing | | EXTERNAL | | | | performed at [facility];888 | | LAB | | | | Renata Francis;[place], [place] | | | | | | [address] | | | | + + + [...] EXTERNAL LAB | | Testing performed at [facility];[address] [place] [address];[place] [address] | | + + + + +---------+ [...] EXTERNAL | | | | performed at [facility];888 | | LAB | | | | Renata Francis;[place], [place] | | | | | | [address] | | | | + + + [...] | | | | | | ACUTE IA Testing | | | | | | performed at [facility];888 | | | | | | [facility];[place], [place] | | | | | | [address] | | | | + + + [...] EXTERNAL | | | | performed at [facility];888 | K/uL | LAB | | | | [address];[place] | | | | | | [address] | | | | + + + + + + | Non- | 3.12 (L)Comment: Testing | 3.70 - 5.10 | EXTERNAL | | | Red Blood | performed at [facility];888 | M/uL | LAB | | | Cells | [address];[place] | | | | | Counted | [address] | | | | + + + + + + | Hemoglobin | 9.9 (L)Comment: Testing | 11.3 - 15.5 | EXTERNAL | | | | performed at [facility];888 | g/dL | LAB | | | | [address];[place] | | | | | | [address] | | | | + + + + + + | Hematocrit, | 29.9 (L)Comment: Testing | 34.0 - 46.0 % | EXTERNAL | | | POC | performed at [facility];888 | | LAB | | | | [address];[place] | | | | | | [address] | | | | + + + + + + | MCV | 95.8Comment: Testing | 80.0 - 100.0 fl | EXTERNAL | | | | performed at [facility];888 | | LAB | | | | [address];[place] | | | | | | [address] | | | | + + + + + + | MCH | 31.8Comment: Testing | 27.0 - 34.0 pg | EXTERNAL | | | | performed at [facility];888 | | LAB | | | | [address];[place] | | | | | | [address] | | | | + + + + + + | MCHC | 33.2Comment: Testing | 32.0 - 35.5 | EXTERNAL | | | | performed at [facility];888 | g/dL | LAB | | | | [address];[place] | | | | | | [address] | | | | + + + + + + | RDW-CV | 46.8Comment: Testing | 37 - 53 fl | EXTERNAL | | | | performed at [facility];888 | | LAB | | | | [address];[place] | | | | | | [address] | | | | + + + + + + | Platelet | 118 (L)Comment: Testing | 150 - 400 K/uL | EXTERNAL | | | Count | performed at [facility];888 | | LAB | | | Plasma | [address];[place] | | | | | | [address] | | | | + + + + + + | MPV | 9.1Comment: Testing | fl | EXTERNAL | | | | performed at [facility];888 | | LAB | | | | [address];[place] | | | | | | [address] | | | | + + + + + + | Differentia | AUTOMATEDComment: | | EXTERNAL | | | l Type | Testing performed at | | LAB | | | | [facility];[address];[place] [address] | | | | + + + + + + | % Segmented | 85.56Comment: Testing | % | EXTERNAL | | | | performed at [facility];888 | | LAB | | | Neutrophils | [address];[place] | | | | | | [address] | | | | + + + + + + | % | 9.29Comment: Testing | % | EXTERNAL | | | Lymphocytes | performed at [facility];888 | | LAB | | | | [address];[place] | | | | | | [address] | | | | + + + + + + | % Monocytes | 4.72Comment: Testing | % | EXTERNAL | | | | performed at [facility];888 | | LAB | | | | [address];[place] | | | | | | [address] | | | | + + + + + + | % | 0.03Comment: Testing | % | EXTERNAL | | | Eosinophils | performed at [facility];888 | | LAB | | | | [address];[place] | | | | | | [address] | | | | + + + + + + | % Basophils | 0.40Comment: Testing | % | EXTERNAL | | | | performed at [facility];888 | | LAB | | | | [address];[place] | | | | | | [address] | | | | + + + + + + | Absolute | 7.09Comment: Testing | 1.90 - 7.40 | EXTERNAL | | | Segmented | performed at [facility];888 | K/uL | LAB | | | Neutrophils | [address];[place] | | | | | | [address] | | | | + + + + + + | Absolute | 0.77 (L)Comment: Testing | 1.00 - 3.90 | EXTERNAL | | | Lymphocytes | performed at [facility];888 | K/uL | LAB | | | | [address];[place] | | | | | | [address] | | | | + + + + + + | Absolute | 0.39Comment: Testing | 0.00 - 0.80 | EXTERNAL | | | Monocytes | performed at [facility];888 | K/uL | LAB | | | | [address];[place] | | | | | | [address] | | | | + + + + + + | Absolute | 0.00Comment: Testing | 0.00 - 0.50 | EXTERNAL | | | Eosinophils | performed at [facility];888 | K/uL | LAB | | | | [address];[place] | | | | | | [address] | | | | + + + + + + | Absolute | 0.03Comment: Testing | 0.00 - 0.10 | EXTERNAL | | | Basophils | performed at [facility];888 | K/uL | LAB | | | | [address];[place] | | | | | | [address] | | | | + + + + + + | RBC | RBC AND PLT MORPHOLOGY | | EXTERNAL | | | Morphology | APPEAR NORMALComment: | | LAB | | | | Testing performed at | | | | | | [facility];[address];[place] [address] | | | | + + + + + + | Platelet | ADEQUATEComment: Testing | | EXTERNAL | | | Estimate | performed at [facility];888 | | LAB | | | | [address]ata Francis;[place] | | | | | | [address] | | | | + + + + + + | Differentia | SLIDE SCANNED, AGREES | | EXTERNAL | | | l Comments | WITH AUTOMATED | | LAB | | | | RESULTS.Comment: Testing | | | | | | performed at [facility];888 | | | | | | [address];[place] | | | | | | [address] | | | | + + + [...] EXTERNAL | | | | performed at [facility];888 | | LAB | | | | Renata Francis;[place] | | | | | | [address] | | | | + + + [...] EXTERNAL | | | | performed at [facility];888 | mmol/L | LAB | | | | [address];[place] | | | | | | [address] | | | | + + + + + + | K | 4.2Comment: Testing | 3.5 - 4.9 | EXTERNAL | | | | performed at [facility];888 | mmol/L | LAB | | | | [address];[place] | | | | | | [address] | | | | + + + + + + | Cl | 107Comment: Testing | 99 - 109 mmol/L | EXTERNAL | | | | performed at [facility];888 | | LAB | | | | [address];[place] | | | | | | [address] | | | | + + + + + + | CO2 | 24Comment: Testing | 23 - 32 mmol/L | EXTERNAL | | | | performed at [facility];888 | | LAB | | | | [address];[place] | | | | | | [address] | | | | + + + + + + | Anion Gap | 14Comment: Testing | 5 - 20 mmol/L | EXTERNAL | | | | performed at [facility];[address] | | LAB | | | | [address];[place] | | | | | | [address] | | | | + + + + + + | Glucose, | 234 (H)Comment: Testing | 65 - 99 mg/dL | EXTERNAL | | | Fasting | performed at [facility];888 | | LAB | | | | [address];[place] | | | | | | [address] | | | | + + + + + + | BUN | 73 (H)Comment: Testing | 8 - 25 mg/dL | EXTERNAL | | | | performed at [facility];[address] | | LAB | | | | [address];[place] | | | | | | [address] | | | | + + + + + + | Creatinine | 1.31 (H)Comment: Testing | 0.50 - 1.00 | EXTERNAL | | | | performed at [facility];888 | mg/dL | LAB | | | | [address];[place] | | | | | | [address] | | | | + + + + + + | BUN/Creatin | 56Comment: Testing | | EXTERNAL | | | ine Ratio | performed at [facility];888 | | LAB | | | | [address];[place] | | | | | | [address] | | | | + + + + + + | Calcium | 7.9 (L)Comment: Testing | 8.5 - 10.5 | EXTERNAL | | | | performed at [facility];888 | mg/dL | LAB | | | | [address];[place] | | | | | | [address] | | | | + + + [...] | | | | | | at [facility];[address] [place] [address] | | | | | | Blvd;[place] [address] | | | | + + + [...] | | | | | SUSHIL MIKE (637) on | | | | | | [...]
--- OUTSIDE RECORDS SUMMARY | ~2020-02-18 | XMS | Encounter Summary ---
Demographics + + + | Address | [address] | | | [place] [address] | + + + | Home Phone [...] Team Providers + +------+ + | Care Recreation Teacher Name | Role | Phone | + [...] | | | | lumbar | [address] | | | | | | region with | AVE | | | | | | radiculopath | [place] | | | | | | y | [address] | | | | | | | Phone: | | | | | | | [phone] | | | | | | | Fax: | | | | | | | [phone] | | +--------+ + + + + + Reason for Visit + + + | Reason | Comments | + + + | Follow-up | 12 week PO s/p lumbar fusion | + + + Encounter Details +--------+---------+ + + + | Date | Type | Department | Care Team | Description | +--------+---------+ + + + | 11/04/ | Office | [facility] | Tate Barrientos | Spinal stenosis of | | 2013 | Visit | NEUROSURGERY [address] | [address] | lumbar region with | | | | [address] [place], [place] | radiculopathy - | | | | [place], [place] | [address] | severe at L4-L5 | | | | [address] | | (Primary Dx) | | | | [phone] | | | +--------+---------+ + + + [...] you out of the brace slowly over e next several weeks. WEEK 1 If [...] your back and use good technique when pick up operator 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 Electronic[employer] lly signed by LAVINIA Baker at 11/04/2013 3:23 PM PDT documented in this encounter Progress Notes Tate Barrientos PA - 11/04/2013 3:24 PM PDTFormatting of this note might be differen t from the original. LAVINIA Rosenthal [address] [facility] [place], [address] [place], [place] [id number] FAX: NEUROSURGERY FOLLOW-UP CHIEF COMPLAINT: Chief Complaint [...] spent 15 minutes in visit with Gia Garciades Arcos today with the majority of time [...] + | MISCELLANEOUS LAB | | | [phone] | + +---------+ + + | MISCELANIOUS LAB | | | [phone] | + +---------+ + + documented in this encounter Visit Diagnoses + + | Diagnosis | + + | 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
--- OUTSIDE RECORDS SUMMARY | ~2020-02-18 | XMS | Encounter Summary ---
Demographics + + + | Address | [address] | | | [place] [address] | + + + | Home Phone [...] Team Providers + +------+ + | Care Machine Operator Hop Worker Name | Role | Phone | + +------+ + | Chinmay Driscoll MD | PCP | | + +------+ + Encounter Details +--------+ + + + + | Date | Type | Department | Care Team | Description | +--------+ + + + + | 04/25/ | Hospital | [facility] | Joni Sepulveda, | | | 2012 | Encounter | MED CTR XRAY [address] | MD [address] [place] | | | | | [place] | [place], | | | | | [place] [address] | [place] [address] | | | | | [phone] | [phone] | | | | | | | [...] Performed At | + + + | [facility] | [place] | | Department [address] [facility] | [facility] | | [ rep [address]] [ rep [facility] | | st zip] Signed | - IMAGING | | | | | Patient Name: DILSHAD ARCOS Physician: | | | : 1935 Age: 77 Sex: F Unit #: [id number] | | | Exam Date: 04/25/13 [place] [facility] | | | Report #: [id number] Page: | | | %(RAD)RES..mtdd.print.filter("pg") of %(RAD) | | | RES..mtdd.print.filter("tpg") | | | | | | Accession Number: [id number] | | | E C H O C A R D I O G R A P H Y R E P O R T | | | HEIGHT: 67" WEIGHT: 158# | | | HAZMAT TRUCK DRIVER: THALIA REFERRING DR: JOHN GARCIA DR: | [...] Transcribed Date/Time: | | | 04/25/2013 11:21 Internal Medicine Nurse: | | | <<Signature on File>> | | | Suwong | | | MD Ccoo [facility] 0723 <Electronically signed by | | | Joni Sepulveda MD, [facility], FACP, FASMatt, FASYOSEF> Faridawong | | | MD Coco [facility] 04/25/13 0955 Internal Medicine Nurse: South | | | Rvydzvugyxagu59/04/13 1121 | | + + + + + + + + | Performing | Address | City/State/Zipcode | Phone Number | | Organization | | | | + + + + + | [facility] | [address] | [place] | [phone] | | [facility] | | [address] | | | - IMAGING | | | | + + + + + documented in this encounter Visit Diagnoses Not on filedocumented in this encounter
--- OUTSIDE RECORDS SUMMARY | ~2020-02-18 | XMS | Clinical Summary ---
Demographics + + + | Address | [address] | | | [place] [address] | + + + | Home Phone [...] Team Providers + +------+ + | Care Welder Name | Role | Phone | [...] | | 2019 | | | D, Maintenance Engineer Oil Field | | +--------+ + + + + [...] | | | | | ([facility]); Persistent | | | | [...] | | use of insulin ([facility]) | +--------+ + + + + | 02/02/ | Documentati | Nephrology | Norma Galindo, | Labs Only (External | | 2019 | on | | Maintenance Engineer Oil Field | Results-[facility]as | | | | | [...] | | | | | ([facility]) Persistent | | | | [...] - 1.030 | REFERENCE | | | [place], | | | LAB | | | [...] [address] | [place] | [phone] | | [facility] | | [address] | | + + + + + [...] + + | REFERENCE LAB | [address] [facility] | [place] | [phone] | | [facility] | | [address] | | + + + + + [...] + + | REFERENCE LAB | [address] | [place] | [phone] | | [facility] | Blvd. | [address] | | | LABORATORY | | | | + + + + + | REFERENCE LAB | [address] | [place] | | | [facility] | Blvd. | [address] | | | LABORATORY | | | [...] + + | REFERENCE LAB | [address] | [place] | [phone] | | [facility] | Blvd. | [address] | | | LABORATORY | | | | + + + + + | REFERENCE LAB | [address] | [place] | | | [facility] | Blvd. | [address] | | | LABORATORY | | | [...] + + | REFERENCE LAB | [address] | [place], [place] | [phone] | | [facility] | Blvd. | [address] | | | LABORATORY | | | | + + + + + | REFERENCE LAB | [address] [facility] | [place], [place] | | | [facility] | Blvd. | [address] | | | LABORATORY | | | [...] +--------+ +---------+--------+ | MEDICARE | MEDICA | [id number] | 11/21/19 | [phone] | | Medica | | | RE | | 01-Pre | 5 | | re | | | PART A | | sent | | | | | | AND B | | | | | | + +--------+ +--------+ +---------+--------+ | MEDICARE | MEDICA | [id number] | 11/21/19 | [phone] | | Medica | | | RE | | 01-Pre | 5 | | re | | | PART A | | sent | | | | | | AND B | | | | | | + +--------+ +--------+ +---------+--------+ | [place] | [place] | [id number] | 07/23/19 | [phone] | | [place] | | | [place] | 3 | 11-Pre | 9 | | ity | | | MDCR | | sent | | | | | | SUPPL | | | | | | + +--------+ +--------+ +---------+--------+ | BCBS | BCBS | [id number] | 07/23/19 | | | Indemn | [...] | | al/Fam | | 1936 | [id number] | [place], [place] | | | gee | | | 8 (Home) | [address] | + +--------+ +--------+ + + | Gia Arcos | Person | Self | [birth year] | [address] | | | al/Fam | | 1936 | [id number] | [place], [place] | | | gee | | | 8 (Home) | [address] | + +--------+ +--------+ + + Advance Directives + + + + + | Type | Date Recorded | Patient | Explanation | | | | Inbound Customer Service Agent | | + + + + + | Power of | | | | | Sliver Lap Tender | | | | + + + + + | Advance | 02/16/2014 1:11 | | | | Directive | PM | | | + + + + +
--- OUTSIDE RECORDS SUMMARY | ~2020-02-18 | XMS | Encounter Summary ---
Demographics + + + | Address | [address] | | | [place] [address] | + + + | Home Phone | | + + + | Preferred Language | Unknown | + + + | Marital Status | | + + + | Religion Affiliation | 1073 | + + + | Race | Unknown | + + + | Ethnic Group | Unknown | + + + Author + + + | Author | [facility] | | | and [place] | + + + | Organization | [facility] | | | [...] Team Providers + +------+ + | Care Racebook Writer Name | Role | Phone | + +------+ + | Chinmay Driscoll MD | PCP | | + +------+ + Encounter Details +--------+ + + + + | Date | Type | Department | Care Team | Description | +--------+ + + + + | 09/01/ | Hospital | [facility] | Tate Barrientos | S/P lumbar spinal | | 2015 | Encounter | MED CTR XRAY [address] | [address] | fusion; Lumbar | | | | [place] | [address] [place] | radiculopathy - | | | | [place] [address] | [address] | primarily into the | | | | [phone] | | left lower | | | [...] ST. | [address] | [place], [place] | [phone] | | [facility] | | [address] | | | - IMAGING | | [...]
--- OUTSIDE RECORDS SUMMARY | ~2020-02-18 | XMS | Encounter Summary ---
Demographics + + + | Address | [address] | | | [place] [address] | + + + | Home Phone [...] Team Providers + +------+ + | Care Security Rep Name | Role | Phone | + [...] MICHELLE MD | | | | | [place] | [address] | | | | | [address] | | | | | | [phone] | | | +--------+ + + + [...]
--- OUTSIDE RECORDS SUMMARY | ~2020-02-18 | XMS | Encounter Summary ---
Demographics + + + | Address | [address] | | | [place] [address] | + + + | Home Phone [...] Team Providers + +------+ + | Care Information Lead Name | Role | Phone | + [...] | | | e disc | [place] [address] | [address] Phone: | | | | | disease), | Phone: | [phone] | | | | | lumbar | [phone] | Fax: | | | | | Lumbar | Fax: | [phone] | | | | | radicular | [phone] | | | | | | pain [...] | | | | e disc | [place] [address] | | | | | | disease), | Phone: | | | | | | lumbar | [phone] | | | | | | Lumbar | Fax: | | | | | | radicular | [phone] | | | | | | pain [...] | | | | | Procedures | [address] | [address] [place] | | | | | SC OFFICE | [address] | [place], [place] | | | | | CONSULTATION | [place], | [address] Phone: | | | | | NEW/ESTAB | [place] | [phone] | | | | | PATIENT 60 | [address] | Fax: | | | | | MIN | Phone: | [phone] | | | | | | [phone] | | | | | | | Fax: | | | | | | | [phone] | | +--------+--------+ + + + + Encounter Details +--------+---------+ + + + | Date | Type | Department | Care Team | Description | +--------+---------+ + + + | 01/20/ | Office | [facility] | Luigi James, | Lumbar stenosis | | 2013 | Visit | NEUROSURGERY [address] | PA-C [address] | (Primary Dx); 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 Jaime for an epidural steroid injectionRondai julissa signed by Luigi James PA-C at 01/20/2013 11:45 AM PDT documented in this encounter Progress Notes Luigi James PA-C - 01/20/2013 11:45 AM PDT Luigi James PA-C [address] [facility], [address] [place], [place] [address] FAX: NEUROSURGERY HISTORY AND PHYSICAL EXAMINATION CHIEF [...] has no apparent deficits with short or ad terminal makeup operator memory. CRANIAL NERVES: II: Acuity is [...] Intrinsics 5 5 Ulnar Intrinsics 5 5 Punchboard Filling Machine Operator Strength 5 5 Hip Flexion 4+ [...] today, and I greatly appreciate the r eferral. The patient has severe lumbar stenosis at [...] coordinating her care. ELECTRONICALLY SIGNED BY: Luigi Jamse PA-C, 01/20/2013 11:45 documented in this encounter Miscellaneous Notes Miscellaneous - [facility] - 01/20/2013 12:00 AM PDT iscellaneous - [facility]BASE SCAN [facility] - 01/20/2013 12:00 AM PDTEle ctronically signed by Amira Belcher at 02/12/2013 1:33 PM PDTdocumented in this encounter Plan of [...]
--- OUTSIDE RECORDS SUMMARY | ~2020-02-18 | XMS | Encounter Summary ---
Demographics + + + | Address | [address] | | | [place] [address] | + + + | Home Phone [...] Providers + +------+ + | Care Survey Analyst Name | Role | Phone | [...] + | 01/27/ | Telephone | [facility] | Luigi James, | Other (injections ) | | 2012 | | NEUROSURGERY [address] | PA-C [address] | | | | | [address] | [place] | | | | | [place] | [address] | | | | | [address] | | | | | | [phone] | | | +--------+ + + + [...]
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
--- OUTSIDE RECORDS SUMMARY | ~2020-02-18 | XMS | Encounter Summary ---
Demographics + + + | Address | [address] | | | [place] [address] | + + + | Home Phone [...] Team Providers + +------+ + | Care Chain Splitter Name | Role | Phone | + +------+ + | Tino Salmeron DO | PCP | | + +------+ + Encounter Details +--------+ + + + + | Date | Type | Department | Care Team | Description | +--------+ + + + + | 08/28/ | Hospital | [facility] | Will Rodriguez MD | Spinal stenosis of | | 2018 | Encounter | MED CTR XRAY [address] | [address] | lumbar region with | | | | [place] | [place] [address] | neurogenic | | | | [place] [address] | [phone] | claudication; Lumbar | | | | [phone] | | radiculopathy - | | | [...]
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
--- OUTSIDE RECORDS SUMMARY | ~2020-02-18 | XMS | Encounter Summary ---
Demographics + + + | Address | [address] | | | [place] [address] | + + + | Home Phone | | + + + | Preferred Language | Unknown | + + + | Marital Status | | + + + | Jewish Affiliation | 1073 | + + + | Race | Unknown | + + + | Ethnic Group | Unknown | + + + Author + + + | Author | [facility] | | | and [place] | + + + | Organization | [facility] | | | [...] Team Providers + +------+ + | Care Cold Working Supervisor Name | Role | Phone | [...] | (Primary Dx) | | | | [place] [address] | [address] [facility] | | | | | [facility] | [place] [address] | | | | | [place], [place] | [phone] | | | | | [address] | | | | | | [phone] | | | +--------+ + + + [...] Instructions Instructions David Herzog MD - 07/24/2017Use gdee-ghp-gmzvrca Tylenol, thousa nd milligrams every 6 hours [...] radiculopathy This note has been dictated using [employer] voice recognition software. It will be revi [...] to go home. David Herzog MD 07/24/17 1109 David Herzog MD 07/24/17 5847 Kristin Carranza RN - 07/24/2017 12:03 PM [...] - 1.030 | [facility] | | | [place], | | | [facility] | | [...] + + | [facility] | [address] [facility] [facility] [address] | [place] [address] | | | [facility] | | [...] + | Performing | Address | City/State/[facility] | Phone Number | | [...] + | [facility] | [address] | [place] [address] | | | [facility] | | [...] + + + | [facility] | [address] | [place] [address] | | | [facility] | | [...] + + + | [facility] | [address] | [place] [address] | | | [facility] | | [...]
--- OUTSIDE RECORDS SUMMARY | ~2020-02-18 | XMS | Encounter Summary ---
Demographics + + + | Address | [address] | | | [place] [address] | + + + | Home Phone | | + + + | Preferred Language | Unknown | + + + | Marital Status | | + + + | Voodoo Affiliation | 1073 | + + + [...] Providers + +------+ + | Care Sales Support Coordinator Name | Role | Phone | + [...] | | | [address] [place] | [place] [address] | | | | | [place] [address] | | | | | | [phone] | | | +--------+ + + + [...] for comparison only - no result from [place]. | [facility] | + + + + +---------+ + + | Performing | Address | City/State/Zipcode | Phone Number | | Organization | | | | + +---------+ + + | [facility] | | | | + +---------+ + + documented in this encounter Visit Diagnoses Not on filedocumented in this encounter"
--- OUTSIDE RECORDS SUMMARY | ~2020-02-18 | XMS | Encounter Summary ---
Demographics + + + | Address | [address] | | | [place] [address] | + + + | Home Phone [...] Team Providers + +------+ + | Care Enrollment Services Vice President Name | Role | Phone | + +------+ + | Chinmay Driscoll MD | PCP | | + +------+ + Reason for Visit + + + | Reason | Comments | + + + | Follow-up | 6 Week for back pain | + + + Encounter Details +--------+---------+ + + + | Date | Type | Department | Care Team | Description | +--------+---------+ + + + | 03/03/ | Office | [facility] | Luigi James, | DDD (degenerative | | 2012 | Visit | NEUROSURGERY [address] | PA-C [address] | disc disease), | | | | [address] | [place], [place] | lumbar (Primary Dx); | | | | [place], [place] | [address] | Lumbar stenosis; | | | | [address] | | Lumbar radicular | | | | [phone] | | pain | +--------+---------+ + + + Social History [...] + + + | Blood Pressure | 134/75 | 03/03/2013 9:44 AM | | | | | PDT | | + + + + + | Pulse | 79 | 03/03/2013 9:44 AM | | | | | PDT | | + + + + + | Temperature | - | - | | + + + + + | Respiratory Rate | 18 | 03/03/2013 9:44 AM | | | | | PDT | | + + + + + | Oxygen Saturation | - | - | | + + + + + | Inhaled Oxygen | - | - | | | Concentration | | | | + + + + + | Weight | 70.8 kg (156 lb) | 03/03/2013 9:44 AM | | | | | PDT | | + + + + + | Height | 172.7 cm (5' 8") | 03/03/2013 9:44 AM | | | | | PDT | | + + + + + | Body Mass Index | 23.72 | 03/03/2013 9:44 AM | | | | | PDT | | + + + + + documented in this encounter Patient Instructions Patient Instructions Luigi James PA-C - 03/03/2013 10:17 AM PDTYou need to make an a ppointment with your Primary care doctor to let him know that you are preparing for low back surgery. We will have you come back to visit with Dr. Rodriguez to discuss surgical options.Elec tronically signed by Luigi James PA-C at 03/03/2013 10:18 AM PDT documented in this encounter Progress Notes Luigi James PA-C - 03/03/2013 10:21 AM PDT Luigi James PA-C [address] [facility], [address] [place] [address] FAX: NEUROSURGERY HISTORY AND PHYSICAL EXAMINATION CHIEF COMPLAINT: Chief Complaint Patient presents with Follow-up 6 Week for back pain HISTORY OF PRESENT ILLNESS: The patient is a 77 y.o. female with the complaint of left viral ed low back and leg pain that began a long time ago, but with recent exacerbation of symptom s about 4 months ago. Since that time [...] saw Dr. Jaime and had an injection Aug 2012, which has given her some relief. She reports that she is now able to walk, alb eit very slowly. She states that she has no symptoms on her right leg. She admits that be fore this injection she can hardly walk and function like a normal person. She also has a l ittle bit of numbness in her toes on both feet, but has had this for a long time. The patien t does not report any change in bowel or bladder function recently. She reports that the pa in just comes on when it wants to and it is severe. She knows that at her age the outcome m ay not be as great, but she would like to have surgery because she just can't continue livin g this way. Her symptoms improve with heat. [...] Daily. metFORMIN (GLUCOPHAGE) 500 mg tablet Take 500 mg by mouth 2 [...] no rheumatoid arthritis. PHYSICAL EXAMINATION: Blood pressure 134/75, pulse 79, resp. rate 18, height 1.727 m (5' 8"), weight 70.761 kg (1 56 lb). Body mass index is 23.72 kg/(m^2). GENERAL: Gia Arcos is in no [...] Intrinsics 5 5 Ulnar Intrinsics 5 5 Supervisor Tank House Strength 5 5 Hip Flexion 4+ 4+ [...] ASSESSMENT: NEUROSURGICAL DIAGNOSES: Encounter Diagnoses Name Primary? DDD (degenerative disc disease), lumbar Yes Lumbar stenosis Lumbar radicular pain GENERAL DIAGNOSES: Past Medical History Diagnosis [...] the L4-5 level with a left sided rad icular component. Despite her age and knowing of the risks, alternatives and benefits, she would like to proceed with surgery. She is going to visit with her PCP to get clearance an d will follow up with Dr. Rodriguez to discuss the specifics of surgery. She has a caregiver you is with her all the time, his name is Taya and she would like him to join her at her next ap pointment. I had a lengthy discussion with the patient about her options for care including surgical a nd non-surgical options. I spent 30 minutes in visit with Gia Arcos today with the majority of time spent counse lling the patient on her diagnosis, options for her care, and coordinating her care. ELECTRONICALLY SIGNED BY: Luigi James PA-C, 03/03/2013 10:22 documented in this encounter Plan of Treatment Not on filedocumented as of this encounter Visit Diagnoses + + | Diagnosis | + + | DDD (degenerative disc disease), lumbar - Primary Degeneration of lumbar or | | lumbosacral intervertebral disc | + + | Lumbar stenosis Spinal stenosis, lumbar region, without neurogenic claudication | + + | Lumbar radicular pain Thoracic or lumbosacral neuritis or radiculitis, unspecified | + + documented in this encounter
--- OUTSIDE RECORDS SUMMARY | ~2020-02-18 | XMS | Encounter Summary ---
Demographics + + + | Address | [address] | | | [place] [address] | + + + | Home Phone | | + + + | Preferred Language | Unknown | + + + | Marital Status | | + + + | Latter Day Affiliation | 1073 | + + + | Race | Unknown | + + + | Ethnic Group | Unknown | + + + Author + + + | Author | [facility] | | | and [place] | + + + | Organization | [facility] | | [...] Team Providers + +------+ + | Care Pipefitter Welder Name | Role | Phone | + +------+ + | Chinmay Driscoll MD | PCP | | + +------+ + Reason for Visit +--------+--------+ + | Reason | Onset | Comments | | | Date | | +--------+--------+ + | Other | 04/21/ | PO information | | | 2012 | | +--------+--------+ [...] AVE | information) | | | | [address] [facility] [address] | [place] [address] | | | | | [place] | [phone] | | | | | [address] | | | | | | [phone] | | | +--------+ + + + [...] Notes Telephone Encounter - Desiree Hahn - 04/22/2013 2:41 PM PDTCarol is advised per Dr. Rodriguez. elephone Encount er - Will Rodriguez MD - 04/21/2013 6:53 PM PDTUsually 1-2 days. Some patients require inpa tient rehab which would add 4-8 days if needed. Will Rodriguez elephone Encounter - [facility] Desiree Tran - 04/21/2013 1:35 PM PDTCarol would like to know how long she can expect t o be in the hospital after having a L4-5 TLIF? She is scheduled to see her crimping press operator kirsty tran Sunday04/25/13 to obtain final cardiac clearance for surgery. documented in this encounter Plan of Treatment Not on filedocumented as of this encounter Visit Diagnoses Not on filedocumented in this encounter"
--- OUTSIDE RECORDS SUMMARY | ~2020-02-18 | XMS | Encounter Summary ---
Demographics + + + | Address | [address] | | | [place] [address] | + + + | Home Phone [...] Team Providers + +------+ + | Care Load Test Mechanic Name | Role | Phone | [...] | | [address] | [place] [address] | | | | | [place] | [phone] | | | | | [address] | | | | | | [phone] | | | +--------+ + + + [...]
--- OUTSIDE RECORDS SUMMARY | ~2020-02-18 | XMS | Encounter Summary ---
Demographics + + + | Address | [address] | | | [place] [address] | + + + | Home Phone [...] Team Providers + +------+ + | Care Core Driller Name | Role | Phone | + [...] | | [address] | [place] [address] | | | | | [place] | [phone] | | | | | [address] | | | | | | [phone] | | | +--------+---------+ + + + [...] t he original. Will Rodriguez MD [address] [facility] [place] [address] FAX: NEUROSURGERY SURGICAL FOLLOW-UP CHIEF COMPLAINT: Chief [...] of the lumbar spine. 5 | | irctae-zsxgmwdjkpbsf-spjn vertebral bodies. No change in spinal alignment. [...] + | MISCELLANEOUS LAB | | | [phone] | + +---------+ + + | MISCELANIOUS LAB | | | [phone] | + +---------+ + + documented in this encounter Visit Diagnoses + + | Diagnosis | + + | S/P lumbar fusion - Primary Arthrodesis status | + + documented in this encounter
--- OUTSIDE RECORDS SUMMARY | ~2020-02-18 | XMS | Encounter Summary ---
Demographics + + + | Address | [address] | | | [place] [address] | + + + | Home Phone [...] Team Providers + +------+ + | Care Technical Spec Name | Role | Phone | + [...] | | [address] | [place] [address] | Spinal stenosis of | | | | [place], [place] | [phone] | lumbar region with | | | | [address] | | neurogenic | | | | [phone] | | claudication; Lumbar | | | [...]
--- OUTSIDE RECORDS SUMMARY | ~2020-02-18 | XMS | Encounter Summary ---
Demographics + + + | Address | [address] | | | [place] [address] | + + + | Home Phone [...] Team Providers + +------+ + | Care Car Repossessor Name | Role | Phone | + +------+ + | Tnio Salmeron DO | PCP | | + +------+ + Encounter Details +--------+---------+ + + + | Date | Type | Department | Care Team | Description | +--------+---------+ + + + | 02/08/ | Office | [facility] | Homero S[place] MD | CKD (chronic kidney | | 2020 | Visit | NEPHROLOGY [place] | [address] | disease) stage 3, | | | | [address] | [address] [place], [place] | GFR 30-59 ml/min | | | | [address] | [address] | (HCC) (Primary Dx); | | | | [place], [place] | | Persistent | | | | [address] | | proteinuria; | | | | [phone] | | Essential | | | | [...] a RFP, CBC, intact PTH, Urine total nmrxmix-rt-kxotlpxkig ratio before she comes back in 6 months. documented in this encounter Progress Notes Homero [place] MD - 02/09/2020 1:20 PM PDT [...] a RFP, CBC, intact PTH, Urine total gaukwml-qy-gupjollruv ratio before she comes back in 6 [...] kidney disease) stage 3, GFR 30-59 ml/min ([facility]) - Primary Chronic kidney | | disease, Stage III (moderate) | + + | Persistent proteinuria Proteinuria | + + | Essential hypertension Unspecified essential hypertension | + + | Type 2 diabetes mellitus with diabetic nephropathy, without long-term current use of | | insulin ([facility]) | + + documented in this encounter
--- OUTSIDE RECORDS SUMMARY | ~2020-02-18 | XMS | Encounter Summary ---
Demographics + + + | Address | [address] | | | [place] [address] | + + + | Home Phone [...] Team Providers + +------+ + | Care Waste And Batting Waste Chopper Name | Role | Phone | + [...] + + | 09/01/ | Office | [facility] | Tate Barrientos | Spinal stenosis of | | 2015 | Visit | NEUROSURGERY [address] | [address] | lumbar region with | | | | [address] | [address] [place], [place] | radiculopathy - | | | | [place], [place] | [address] | severe at L4-L5 | | | | [address] | | (Primary Dx); S/P | | | | [phone] | | lumbar spinal fusion | +--------+---------+ [...] t from the original. LAVINIA Rosenthal [address] [facility], [address] [place], [place] [address] FAX: NEUROSURGERY FOLLOW-UP CHIEF COMPLAINT: Chief Complaint [...]
--- OUTSIDE RECORDS SUMMARY | ~2020-02-18 | XMS | Encounter Summary ---
Demographics + + + | Address | [address] | | | [place] [address] | + + + | Home Phone [...] Providers + +------+ + | Care Technical Service Representative Name | Role | Phone | + [...] + + | 07/11/ | Telephone | [facility] | Joni Sepulveda, | Appointment | | 2018 | | CARDIOLOGY [address] | [address] [place] | | | | | [place], | [facility] | | | | | [place] [address] | [place] [address] | | | | | [phone] | [phone] | | | | | | | [...] we would be able to schedule [facility] for a cardiology evaluation and requested that I contact Rod with this information. This patient does have a history with Dr. Lion and was last seen 04-25-13. Called Rod and left [facility] advising that both Dr. Lion and Dr. [...]
--- OUTSIDE RECORDS SUMMARY | ~2020-02-18 | XMS | Encounter Summary ---
Demographics + + + | Address | [address] | | | [place] [address] | + + + | Home Phone [...] Team Providers + +------+ + | Care Frame Maker Name | Role | Phone | [...] [place], [place] | | | | | [place], [place] | [address] | | | | | [address] | | | | | | [phone] | | | +--------+ + + + [...]
--- OUTSIDE RECORDS SUMMARY | ~2020-02-18 | XMS | Encounter Summary ---
Demographics + + + | Address | [address] | | | [place] [address] | + + + | Home Phone [...] Team Providers + +------+ + | Care Carbon Grinder Name | Role | Phone | [...] + + | 08/05/ | Telephone | [facility] | Will Rodriguez MD | Post Op (post op | | 2013 | | NEUROSURGERY [address] | [address] | update) | | | | [address] [facility] [address] | [place] [address] | | | | | [place] | [phone] | | | | | [address] | | | | | | [phone] | | | +--------+ + + + [...]
--- OUTSIDE RECORDS SUMMARY | ~2020-02-18 | XMS | Encounter Summary ---
Demographics + + + | Address | [address] | | | [place] [address] | + + + | Home Phone | | + + + | Preferred Language | Unknown | + + + | Marital Status | | + + + | Cheondoism Affiliation | 1073 | + + + | Race | Unknown | + + + | Ethnic Group | Unknown | + + + Author + + + | Author | [facility] | | | and [place] | + + + | Organization | [facility] | | | [...] Team Providers + +------+ + | Care Engineering Technician Parking Name | Role | Phone | + +------+ + | Tino Salmeron DO | PCP | | + +------+ + Encounter Details +--------+ + + + + | Date | Type | Department | Care Team | Description | +--------+ + + + + | 09/23/ | Orders Only | [facility] | Jaylon, | | | 2019 | | NEPHROLOGY [place] | Ngozi Terrell | | | | | [address] | Carpet Cleaner | | | | | [address] [place], [place] | | | | | | [address] | | | | | | [phone] | | | +--------+ + + + [...] + + + | Red Blood | 4.26 | 3.80 - 5.10 | [...] + + + + | % | 0 | 0 - 2 [...] + + + | Red Blood | 4.36 | 3.80 - 5.10 | [...] + + + + | % | 0 | 0 - 2 [...]
--- OUTSIDE RECORDS SUMMARY | ~2020-02-18 | XMS | Encounter Summary ---
Demographics + + + | Address | [address] | | | [place] [address] | + + + | Home Phone [...] Team Providers + +------+ + | Care Huc Ob Name | Role | Phone | + [...] + + | 03/06/ | Telephone | [facility] [place] | Thaddeus Jaime | Other | | 2012 | | PHYSIATRY [address] | [address], [address] | | | | [address] | [place], [place] | | | | | [place], [place] | [address] | | | | | [address] | | | | | | [phone] | | | +--------+ + + + [...] - 03/12/2013 9:23 AM PDTReturned Rod's phone oliver l who informed me that she has [...]
--- OUTSIDE RECORDS SUMMARY | ~2020-02-18 | XMS | Encounter Summary ---
Demographics + + + | Address | [address] | | | [place] [address] | + + + | Home Phone [...] Team Providers + +------+ + | Care Compensation Supervisor Name | Role | Phone | + +------+ + | Tino Salmeron DO | PCP | | + +------+ + Encounter Details +--------+ + + + + | Date | Type | Department | Care Team | Description | +--------+ + + + + | 09/23/ | Orders Only | [facility] | Jaylon, | | | 2019 | | NEPHROLOGY [place] | Ngozi Terrell | | | | | [address] | Reconciliation Specialist | | | | | [address] [place], [place] | | | | | | [address] | | | | | | [phone] | | | +--------+ + + + [...]
--- OUTSIDE RECORDS SUMMARY | ~2020-02-18 | XMS | Encounter Summary ---
Demographics + + + | Address | [address] | | | [place] [address] | + + + | Home Phone [...] Team Providers + +------+ + | Care Cut Tobacco Bulker Name | Role | Phone | + [...] | | | e disc | [place] [address] | [address] Phone: | | | | | disease), | Phone: | [phone] | | | | | lumbar | [phone] | Fax: | | | | | Lumbar | Fax: | [phone] | | | | | radicular | [phone] | | | | | | pain [...] | | | e disc | [place] [address] | | | | | | disease), | Phone: | | | | | | lumbar | [phone] | | | | | | Lumbar | Fax: | | | | | | radicular | [phone] | | | | | | pain [...] | | | | | Procedures | [place] | [address] [place] | | | | | [place] OFFICE | [address] | [place], [place] | | | | | CONSULTATION | [place], | [address] Phone: | | | | | NEW/ESTAB | [place] | [phone] | | | | | PATIENT 60 | [address] | Fax: | | | | | MIN | Phone: | [phone] | | | | | | [phone] | | | | | | | Fax: | | | | | | | [phone] | | +--------+--------+ + + + + Encounter Details +--------+---------+ + + + | Date | Type | Department | Care Team | Description | +--------+---------+ + + + | 01/20/ | Office | [facility] | Luigi James, | Lumbar stenosis | | 2013 | Visit | NEUROSURGERY [address] | PA-C [address] | (Primary Dx); DDD | | | | [address] | [place] [facility], [place] | (degenerative disc | | | | [place] | [address] | disease), lumbar; | | | | [address] | | Lumbar radicular | | | | [phone] | | pain; Low back pain; | [...] documented in this encounter Progress Notes Luigi aJmes PA-C - 01/20/2013 11:45 AM PDT Luigi James PA-C [address] [facility] [facility] [address], [address] [place], [place] [address] FAX: NEUROSURGERY HISTORY AND PHYSICAL EXAMINATION CHIEF [...] has no apparent deficits with short or roasterman memory. CRANIAL NERVES: II: Acuity is intact. [...] Intrinsics 5 5 Ulnar Intrinsics 5 5 Certified Breastfeeding Educator Strength 5 5 Hip Flexion 4+ 4+ [...] encounter Miscellaneous Notes Miscellaneous - ONBASE SCAN [facility] - 01/20/2013 12:00 AM PDT iscellaneous - ONBASE SCAN [facility] - 01/20/2013 12:00 AM PDTEle ctronically [...]
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
--- OUTSIDE RECORDS SUMMARY | ~2020-02-18 | XMS | Encounter Summary ---
Demographics + + + | Address | [address] | | | [place] [address] | + + + | Home Phone [...] Team Providers + +------+ + | Care Set Up Technician Name | Role | Phone | + +------+ + | Tino Salmeron DO | PCP | | + +------+ + Encounter Details +--------+ + + + + | Date | Type | Department | Care Team | Description | +--------+ + + + + | 08/28/ | Hospital | [facility] | Will Rodriguez MD | Spinal stenosis of | | 2018 | Encounter | MED CTR XRAY [address] | [address] | lumbar region with | | | | [place] | [place] [address] | neurogenic | | | | [place] [address] | [phone] | claudication; Lumbar | | | | [phone] | | radiculopathy - | | | [...]
--- OUTSIDE RECORDS SUMMARY | ~2020-02-18 | XMS | Encounter Summary ---
Demographics + + + | Address | [address] | | | [place] [address] | + + + | Home Phone | | + + + | Preferred Language | Unknown | + + + | Marital Status | | + + + | Quaker Affiliation | 1073 | + + + | Race | Unknown | + + + | Ethnic Group | Unknown | + + + Author + + + | Author | [facility] | | | and [place] | + + + | Organization | [facility] | | | [...] Providers + +------+ + | Care Dialysis Social Worker Name | Role | Phone | + +------+ + | Chinmay Driscoll MD | PCP | | + +------+ + Encounter Details +--------+ + + + + | Date | Type | Department | Care Team | Description | +--------+ + + + + | 02/16/ | Hospital | [facility] | Tate Barrientos | Spinal stenosis of | | 2013 | Encounter | MED CTR XRAY [address] | [address] | lumbar region with | | | | [place] | [address] [place] | radiculopathy - | | | | [place] [address] | [address] | severe at L4-L5 | | | | [phone] | | | +--------+ + + + [...] + | MISCELLANEOUS LAB | | | [phone] | + +---------+ + + | MISCELANIOUS LAB | | | [phone] | + +---------+ + + documented in this encounter Visit Diagnoses + + | Diagnosis | + + | 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
--- OUTSIDE RECORDS SUMMARY | ~2020-02-18 | XMS | Encounter Summary ---
Demographics + + + | Address | [address] | | | [place] [address] | + + + | Home Phone [...] Team Providers + +------+ + | Care Lining Baster Name | Role | Phone | + +------+ + | Tino Salmeron DO | PCP | | + +------+ + Encounter Details +--------+ + + + + | Date | Type | Department | Care Team | Description | +--------+ + + + + | 02/09/ | Orders Only | [facility] | Homero Soto MD | Essential | | 2020 | | NEPHROLOGY [place] | [address] [place] | hypertension | | | | [address] [place] | [address] [place], [place] | (Primary Dx); CKD | | | | [address] [place], [place] | [address] | (chronic kidney | | | | [address] | | disease) stage 3, | | | | [phone] | | GFR 30-59 ml/min | | | | | | (HCC); Persistent | | | [...] of this encounter Plan of Treatment + +------+--------+ + + | Name | Type | Priori | Associated Diagnoses | Order Schedule | | | | ty | | | + +------+--------+ + + | Basic Metabolic | Lab | Routin | Essential | Expected: | | Panel | | e | hypertension CKD | 02/17/2020, Expires: | | | | | (chronic kidney | 02/09/2021 | | | | | disease) stage 3, | | | | | | GFR 30-59 ml/min | | | | | | (HCC) Persistent | | | | | | proteinuria | | + +------+--------+ + + | Renal Function Panel | Lab | Routin | Essential | Expected: | | | | e | hypertension CKD | 08/12/2020, Expires: | | | | | (chronic kidney | 02/09/2021 | | | | | disease) stage 3, | | | | | | GFR 30-59 ml/min | | | | | | (HCC) Persistent | | | | | | proteinuria | | + +------+--------+ + + | CBC with | Lab | Routin | Essential | Expected: | | Differential | | e | hypertension CKD | 08/12/2020, Expires: | | | | | (chronic kidney | 02/09/2021 | | | | | disease) stage 3, | | | | | | GFR 30-59 ml/min | | | | | | (HCC) Persistent | | | | | | proteinuria | | + +------+--------+ + + | Parathyroid Hormone, | Lab | Routin | Essential | Expected: | | Intact | | e | hypertension CKD | 08/12/2020, Expires: | | | | | (chronic kidney | 02/09/2021 | | | | | disease) stage 3, | | | | | | GFR 30-59 ml/min | | | | | | (HCC) Persistent | | | | | | proteinuria | | + +------+--------+ + + | Protein/Creatinine | Lab | Routin | Essential | Expected: | | Ratio, Urine | | e | hypertension CKD | 08/12/2020, Expires: | | | | | (chronic kidney | 02/09/2021 | | | | | disease) stage 3, | | | | | | GFR 30-59 ml/min | | | | | | (HCC) Persistent | | | | | | proteinuria | | + +------+--------+ + + documented [...]
--- OUTSIDE RECORDS SUMMARY | ~2020-02-18 | XMS | Encounter Summary ---
Demographics + + + | Address | [address] | | | [place] [address] | + + + | Home Phone | | + + + | Preferred Language | Unknown | + + + | Marital Status | | + + + | Religion Affiliation | 1073 | + + + | Race | Unknown | + + + | Ethnic Group | Unknown | + + + Author + + + | Author | [facility] | | | and [place] | + + + | Organization | [facility] | | | [...] Team Providers + +------+ + | Care What Job Titles Mean Name | Role | Phone | + +------+ + | Chinmay Driscoll MD | PCP | | + +------+ + Encounter Details +--------+ + + + + | Date | Type | Department | Care Team | Description | +--------+ + + + + | 01/20/ | Hospital | [facility] | Luigi James, | | | 2013 | Encounter | MED CTR XRAY [address] | PA-C [address] | | | | | [place] | [place], [place] | | | | | [place] [address] | [address] | | | | | [phone] | | | +--------+ + + + [...] Performed At | + + + | [facility] Diagnostic Imaging | [place] | | Department [address] [place] [address] | [facility] | | [ rep [address]] [ rep [facility] | | st zip] Signed | - IMAGING | | | | | Patient Name: GIA ARCOS Physician: | | | ANTHONY. : 1935 Age: 77 Sex: F Unit #: [id number] | | | Exam Date: 01/20/13 Location: [facility] | | | Report #: [id number] Page: | | | %(RAD)RES..mtdd.print.filter("pg") of %(RAD) | | | RES..mtdd.print.filter("tpg") | | | | | | Accession Number: [id number] | | | LUMBAR SPINE, 01/20/2013 CLINICAL [...] Transcribed Date/Time: 01/20/2013 | | | 14:16 Fire Behavior Analyst: <<Signature | | | on File>> | | | | | | Antonio Minor MD01/20/13 1527 <Electronically signed by | | | Antonio Minor MD> Antonio Minor MD 01/20/13 | | | 1335 Fire Behavior Analyst: [place] Jmfymwjzmfyll55/01/13 1416 | | | Luigi James PA-C | | + + + + + + + + | Performing | Address | City/State/Zipcode | Phone Number | | Organization | | | | + + + + + | [address] | [address] | [place] | [phone] | | [facility] | | [address] | | | - IMAGING | | | | + + + + + documented in this encounter Visit Diagnoses Not on filedocumented in this encounter
--- OUTSIDE RECORDS SUMMARY | ~2020-02-18 | XMS | Encounter Summary ---
Demographics + + + | Address | [address] | | | [place] [address] | + + + | Home Phone [...] Team Providers + +------+ + | Care Import Dispatcher Name | Role | Phone | [...] | | | [address] [place] | [place] [address] | | | | | [place] [address] | | | | | | [phone] | | | +--------+ + + + [...] for comparison only - no result from [facility]. | [facility] | + + + + +---------+ + + | Performing | Address | City/State/Zipcode | Phone Number | | Organization | | | | + +---------+ + + | [facility] | | | | + +---------+ + + documented in this encounter Visit Diagnoses Not on filedocumented in this encounter"
--- OUTSIDE RECORDS SUMMARY | ~2020-02-18 | XMS | Encounter Summary ---
Demographics + + + | Address | [address] | | | [place] [address] | + + + | Home Phone [...] Team Providers + +------+ + | Care Glaze Carrier Name | Role | Phone | + +------+ + | Tino Salmeron DO | PCP | | + +------+ + Encounter Details +--------+ + + + + | Date | Type | Department | Care Team | Description | +--------+ + + + + | 02/09/ | Orders Only | [facility] | Homero Soto MD | Essential | | 2020 | | NEPHROLOGY [place] | [address] [place] | hypertension | | | | [address] [place] | [address] [place], [place] | (Primary Dx); CKD | | | | [address] [place], [place] | [address] | (chronic kidney | | | | [address] | | disease) stage 3, | | | | [phone] | | GFR 30-59 ml/min | | [...]
--- OUTSIDE RECORDS SUMMARY | ~2020-02-18 | XMS | Encounter Summary ---
Demographics + + + | Address | [address] | | | [place] [address] | + + + | Home Phone [...] Team Providers + +------+ + | Care Medical Device Sales Consultant Name | Role | Phone | + +------+ + | Chinmay Driscoll MD | PCP | | + +------+ + Encounter Details +--------+ + + + + | Date | Type | Department | Care Team | Description | +--------+ + + + + | 11/04/ | Hospital | [facility] | Will Rodriguez MD | S/P lumbar fusion | | 2014 | Encounter | MED CTR XRAY [address] | [address] | | | | | [place] | [place] [address] | | | | | [place] [address] | [phone] | | | | | [phone] | | | +--------+ + + + [...] of the lumbar spine. 5 | | fkchij-tdqxosnzpjoms-aenx vertebral bodies. No change in spinal alignment. [...] + | MISCELLANEOUS LAB | | | [phone] | + +---------+ + + | MISCELANIOUS LAB | | | [phone] | + +---------+ + + documented in this encounter Visit Diagnoses + + | Diagnosis | + + | S/P lumbar fusion Arthrodesis status | + + documented in this encounter"
--- OUTSIDE RECORDS SUMMARY | ~2020-02-18 | XMS | Encounter Summary ---
Demographics + + + | Address | [address] | | | [place] [address] | + + + | Home Phone [...] Team Providers + +------+ + | Care Javascript Programmer Name | Role | Phone | + +------+ + | Chinmay Drisclol MD | PCP | | + +------+ + Encounter Details +--------+ + + + + | Date | Type | Department | Care Team | Description | +--------+ + + + + | 02/28/ | Hospital | [facility] | Thaddeus Jaime | | | 2013 | Encounter | MED CTR XRAY [address] | T, [address] | | | | | [place] | [place], [place] | | | | | [place] [address] | [address] | | | | | [phone] | | | +--------+ + + + [...] Performed At | + + + | [facility] Diagnostic [facility] | [place] | | Department [address] [facility] | [facility] | | [ rep ct street[address]] [ rep [facility] | | st zip] Signed | - IMAGING | | | | | Patient Name: GIA ARCOS Physician: | | | ELIZABETH. : 1935 Age: 77 Sex: F Unit #: [id number] | | | Exam Date: 02/28/13 Location: [facility] | | | Report #: [id number] Page: | | | %(RAD)RES..mtdd.print.filter("pg") of %(RAD) | | | RES..mtdd.print.filter("tpg") | | | | | | Accession Number: [id number] | | | PROCEDURE NOTE EPIDURAL STEROID [...] Transcribed Date/Time: 02/28/2013 | | | 20:36 Neonatal Specialist: SharonLANG | | | <<Signature on File>> | | | Thaddeus Colón | | | MD Addison03/12/13 4558 <Electronically signed by Thaddeus Colón | | | [place]> Thaddeus Jaime MD 02/28/13 5951 | | | Neonatal Specialist: [id number] | | | | | + + + + + + + + | Performing | Address | City/State/Zipcode | Phone Number | | Organization | | | | + + + + + | [facility] | [address] | [place] | [phone] | | [facility] | | [address] | | | - IMAGING | | | | + + + + + documented in this encounter Visit Diagnoses Not on filedocumented in this encounter
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
--- OUTSIDE RECORDS SUMMARY | ~2020-02-18 | XMS | Encounter Summary ---
Demographics + + + | Address | [address] | | | [place] [address] | + + + | Home Phone [...] Team Providers + +------+ + | Care Insurance Verification Rep Name | Role | Phone | [...] + + | 06/06/ | Office | [facility] | Tate Barrientos | 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 | Visit | NEUROSURGERY [address] | [address] | lumbar region with | | | | [address] [place] [address] [place] | radiculopathy - | | | | [place] | [address] | severe at L4-L5 | | | | [address] | | (Primary Dx); Lumbar | | | | [phone] | | radiculopathy - | | | [...] from the original. Arnaud Barrientos PA-C [address], [address] [place], [place] [address] FAX: NEUROSURGERY FOLLOW-UP CHIEF COMPLAINT: Chief Complaint Patient presents with Follow-up Discuss Surgery HISTORY OF PRESENT ILLNESS: The patient is a 77 y.o. female with the complaint of left viral ed low back and leg pain. She is here today to discuss potential surgery after having seen a edge inker heels and has obtained cardiac clearance She has not yet followed up with her primary care provider to have surgical clearance. Ernesto araujo admits that she has evidently a history of atrial fibrillation it does not sound like she is seen a edge inker heels before. Her symptoms began a long time [...] no apparent deficits with short or long term care pharmacist memory. CRANIAL NERVES: II: Acuity is intact. [...] Intrinsics 5 5 Ulnar Intrinsics 5 5 Cane Feeder Strength 5 5 Hip Flexion 4+ 4+ [...]
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
--- OUTSIDE RECORDS SUMMARY | ~2020-02-18 | XMS | Encounter Summary ---
Demographics + + + | Address | [address] | | | [place] [address] | + + + | Home Phone [...] Providers + +------+ + | Care Pharmacy Informaticist Name | Role | Phone | + [...] RECOMMENDATIONS) | | | | [address] [facility] [address] | [place] [address] | | | | | [place] | [phone] | | | | | [address] | | | | | | [phone] | | | +--------+ + + + [...] given at that time. elephone Encounter - Ananlise Hahn - 07/21/2013 4:44 PM PSTLeft message for Gia. Request callback. elephone Encounter - Annalise Hahn - 07/11/2013 3:03 PM PSTMessage left for Gia to see if she has had an update from Dr. Driscoll's office yet. Also, called 's office but they are out of [facility] office at this time. ANNALISE HAHN [...]
--- OUTSIDE RECORDS SUMMARY | ~2020-02-18 | XMS | Encounter Summary ---
Demographics + + + | Address | [address] | | | [place] [address] | + + + | Home Phone | | + + + | Preferred Language | Unknown | + + + | Marital Status | | + + + | Episcopal Affiliation | 1073 | + + + | Race | Unknown | + + + | Ethnic Group | Unknown | + + + Author + + + | Author | [facility] | | | and [place] | + + + | Organization | [facility] | | | [...] Team Providers + +------+ + | Care Barge Engineer Name | Role | Phone | [...] | | [address] | [place] [address] | Spinal stenosis of | | | | [place], [place] | [phone] | lumbar region with | | | | [address] | | neurogenic | | | | [phone] | | claudication; Lumbar | | | [...]
--- OUTSIDE RECORDS SUMMARY | ~2020-02-18 | XMS | Encounter Summary ---
Demographics + + + | Address | [address] | | | [place] [address] | + + + | Home Phone [...] Team Providers + +------+ + | Care Casey Saw Operator Name | Role | Phone | + +------+ + | Chinmay Driscoll MD | PCP | | + +------+ + Encounter Details +--------+ + + + + | Date | Type | Department | Care Team | Description | +--------+ + + + + | 04/17/ | Abstract | [facility] | Joni Sepulveda, | HTN (hypertension) | | 2012 | | CARDIOLOGY [address] | MD [address] | (Primary Dx); | | | | [place], | [place], | Paroxysmal a-fib | | | | [place] [address] | [place] [address] | (HCC) | | | | [phone] | [phone] | | | | | | | [...]
--- OUTSIDE RECORDS SUMMARY | ~2020-02-18 | XMS | Encounter Summary ---
Demographics + + + | Address | [address] | | | [place] [address] | + + + | Home Phone | | + + + | Preferred Language | Unknown | + + + | Marital Status | | + + + | Mu-Ism Affiliation | 1073 | + + + | Race | Unknown | + + + | Ethnic Group | Unknown | + + + Author + + + | Author | [facility] | | | and [place] | + + + | Organization | [facility] | | | [...] Team Providers + +------+ + | Care Online Marketing Analyst Name | Role | Phone | [...] | information) | | | | [address] [facility] [facility] [address] | [place] [address] | | | | | [place] | [phone] | | | | | [address] | | | | | | [phone] | | | +--------+ + + + [...] TLIF? She is scheduled to see her plateman kirsty tran Sunday04/25/13 to obtain final cardiac clearance for surgery. documented in this encounter Plan of Treatment Not on filedocumented as of this encounter Visit Diagnoses Not on filedocumented in this encounter"
--- OUTSIDE RECORDS SUMMARY | ~2020-02-18 | XMS | Encounter Summary ---
Demographics + + + | Address | [address] | | | [place] [address] | + + + | Home Phone | | + + + | Preferred Language | Unknown | + + + | Marital Status | | + + + | Alevism Affiliation | 1073 | + + + [...] + +------+ + | Care Social Work Manager Name | Role | Phone | [...] | | | | | y | [address] | | | | | | | Phone: | | | | | | | [phone] | | | | | | | Fax: | | | | | | | [phone] | | +--------+ + + + + + Reason for Visit + + + | Reason | Comments | + + + | Follow-up | 12 week PO s/p lumbar fusion | + + + Encounter Details +--------+---------+ + + + | Date | Type | Department | Care Team | Description | +--------+---------+ + + + | 11/04/ | Office | [facility] | Tate Barrientos | Spinal stenosis of | | 2013 | Visit | NEUROSURGERY [address] | [address] | lumbar region with | | | | [address] | [address] [place], [place] | radiculopathy - | | | | [place], [place] | [address] | severe at L4-L5 | | | | [address] | | (Primary Dx) | | | | [phone] | | | +--------+---------+ + + + [...] your back and use good technique when car pick up driver 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 Electronica lly signed by LAVINIA Baker at 11/04/2013 3:23 PM PDT documented in this encounter Progress Notes Tate Barrientos PA - 11/04/2013 3:24 PM PDTFormatting of this note might be differen t from the original. 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
--- OUTSIDE RECORDS SUMMARY | ~2020-02-18 | XMS | Encounter Summary ---
Demographics + + + | Address | [address] | | | [place] [address] | + + + | Home Phone [...] Team Providers + +------+ + | Care Apprentice Embalmer Name | Role | Phone | + [...] | | | | | | | [address] | | +--------+--------+ + + + + [...] | [address] | [place] [address] | | | | | [place] [address] | | | | | | [phone] | | | +--------+ + + + [...] for comparison only - no result from [facility]. | [facility] | + + + + +---------+ + + | Performing | Address | City/State/Zipcode | Phone Number | | Organization | | | | + +---------+ + + | [facility] | | | | + +---------+ + + documented in this encounter Visit Diagnoses Not on filedocumented in this encounter"
--- OUTSIDE RECORDS SUMMARY | ~2020-02-18 | XMS | Encounter Summary ---
Demographics + + + | Address | [address] | | | [place] [address] | + + + | Home Phone [...] Team Providers + +------+ + | Care Operational Communication Chief Name | Role | Phone | + [...] + + | 03/03/ | Office | [facility] | Luigi James, | DDD (degenerative | | 2012 | Visit | NEUROSURGERY [address] | PA-C [address] | disc disease), | | | | [address] | [place], [place] | lumbar (Primary Dx); | | | | [place], [place] | [address] | Lumbar stenosis; | | | | [address] | | Lumbar radicular | | | | [phone] | | pain | +--------+---------+ + + [...] AM PDT Luigi James PA-C [address], [address] [place] [address] FAX: NEUROSURGERY HISTORY AND PHYSICAL EXAMINATION CHIEF [...] Intrinsics 5 5 Ulnar Intrinsics 5 5 Cryptologic Linguist Strength 5 5 Hip Flexion 4+ 4+ [...]
--- OUTSIDE RECORDS SUMMARY | ~2020-02-18 | XMS | Encounter Summary ---
Demographics + + + | Address | [address] | | | [place] [address] | + + + | Home Phone [...] Team Providers + +------+ + | Care Contracting Engineer Name | Role | Phone | + +------+ + | Tino Salmeron DO | PCP | | + +------+ + Encounter Details +--------+ + + + + | Date | Type | Department | Care Team | Description | +--------+ + + + + | 09/23/ | Orders Only | [facility] | Homero Soto MD | Hypertension, | | 2019 | | NEPHROLOGY [place] | [address] [place] | unspecified type | | | | [address] [place] | [address] [place], [place] | (Primary Dx); | | | | [address] [place], [place] | [address] | Chronic kidney | | | | [address] | | disease, stage III | | | | [phone] | | (moderate) (HCC) | +--------+ + [...]
[~2020-02-18 18:25] MED LIST changes: +COZAAR100 MG PO; +CYTOTEC200 MCG PO; +GLIPIZIDE XL5 MG PO; +LOMOTIL TABLET1 EACH PO; +TORSEMIDE10 MG PO
[2020-02-19] MEDS ORDERED: TRAMADOL HCL50 MG PO (08:22)
[2020-02-19] MEDS ORDERED: ELIQUIS2.5 MG PO (08:22)
[2020-02-19] MEDS ORDERED: LIPITOR10 MG PO (09:35)
[2020-02-19] MEDS ORDERED: PANTOPRAZOLE SO40 MG PO (14:24)
--- NOTE | 2020-02-19 17:24 | PATH ---
[facility] [address] [place], [place] [address] Signed ORDERING PHYSICIAN: Bill Yeh MD PATIENT NAME: DILSHAD COCHRAN GENDER: Cyrus : 1935 SPECIMEN(S): No Source Given MOLECULAR PATHOLOGY RESULTS: SARS-CoV-2 Not Detected ADDITIONAL NOTES.: The [place] Fusion SARS-CoV-2 Assay is a multiplex real-time PCR (RT-PCR) in vitro diagnostic test intended for the qualitative detection of RNA from SARS-CoV-2 from individuals who meet COVID-19 clinical and/or epidemiological criteria. In general, SARS-CoV-2 RNA can be detected during the acute phase of infection. Positive results indicate the presence of SARS-CoV-2 RNA. Clinical correlation with patient history and other diagnostic information is necessary to determine patient infection status. Positive results do not rule out bacterial infection or co-infection with other viruses. Negative results do not preclude SARS-CoV-2 infection and should not be used as the sole basis for patient management decisions. Negative results must be combined with other clinical observations, patient history, and epidemiological information. The [place] Fusion SARS-CoV-2 Assay is not yet approved or cleared by the [place] FDA. When there are no FDA-approved or cleared tests available, and other criteria are met, FDA can make tests available under an emergency access mechanism called an Emergency Use Authorization (EUA). The EUA for this test is supported by the [place] of Health and Human Service's (HHS's) declaration that circumstances exist to justify the emergency use of in vitro diagnostics for the detection and/or diagnosis of the virus that causes COVID-19. This EUA will remain in effect for the duration of the COVID-19 declaration justifying emergency of IVDs, unless it is terminated or revoked by FDA, after which the test may no longer be used. The [place] Fusion SARS-CoV-2 Assay is for use only under EUA in US laboratories certified under the Clinical Laboratory Improvement Amendments of 1988 (CLIA) to perform high complexity tests. [employer] is certified under CLIA to perform high complexity PATIENT NAME: DILSHAD COCHRAN PATHOLOGY DATE OF : 35 REPORT #: [id number] PHYSICIAN: GIBRAN SOLOMON PCP: LAY SILVEIRA DO REPORT IS CONFIDENTIAL AND NOT TO BE RELEASED WITHOUT AUTHORIZATION [facility] [address] [place] [id number] Signed clinical laboratory testing. PERFORMING LABORATORY.: Molecular testing was performed by [employer] [facility] [place] [address] (Dam Operator: Rey Galvan D.O.; CLIA#: [id number]) Diagnostician: System Interface Pathologist Electronically Signed 02/19/2020 Copies: ~ PATIENT NAME: DILSHAD COCHRAN PATHOLOGY DATE OF : 35 REPORT #: [id number] PHYSICIAN: GIBRAN PATHOLOGY PCP: LAY SILVEIRA DO REPORT IS CONFIDENTIAL AND NOT TO BE RELEASED WITHOUT AUTHORIZATION
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
--- NOTE | 2020-02-21 14:01 | CONS ---
[facility] [address] [place], [place] [address] Signed DATE OF CONSULTATION: 02/19/2020 REASON FOR CONSULTATION: Sepsis likely urologic related with need for central venous access. HISTORY OF PRESENT ILLNESS: This 84-year-old white woman was admitted with abdominal pain and seen in the emergency room and found to have findings consistent with sepsis. She was admitted to the Intensive Care Unit, where evaluation shows her to have prominence of the right renal collecting system consistent with obstruction. She does have some findings of congestive heart failure as well. Antibiotics have been initiated; however, pressor agents are now necessary, and on that basis a central venous catheterization has been recommended by her garment folder, Dr. Domingo. Further medical issues include chronic anticoagulation with Eliquis, related to atrial fibrillation. She is noted to have hyponatremia with a sodium of 121, severe right-sided hydronephrosis and creatinine elevated to 2.57 from a baseline of 1.5. She is known to have hepatic splenomegaly as well. REVIEW OF SYSTEMS: The patient denies any shortness of breath or chest pain. Does have some vague abdominal pain. Denies any hematemesis or blood per rectum. She has never had a fractured clavicle. PHYSICAL EXAMINATION: GENERAL: It is a relatively tall white woman, who is interactive. She has a heart rate in the low 100s. She has been initiated on Levophed. NECK: Her trachea is midline. There is mild jugular venous distention. ABDOMEN: She has a broad large abdomen. EXTREMITIES: She has some peripheral edema. LAB STUDIES: Reviewed. Her white count is 5.3, hematocrit 29.4, and platelets are 125,000. ASSESSMENT AND PLAN: I discussed with the patient the recommendation by her physician for central venous catheterization. She last received anticoagulant yesterday. She might still be relatively anticoagulated. I would recommend central venous catheterization through the right internal jugular vein, and if not successful through a subclavian approach. The risks of bleeding, infection, pneumothorax, and other unforeseen complications were reviewed with her in detail. She understands and agrees to proceed. Electronically Signed By: NOLA MICHEL MD 02/21/20 1401 PATIENT NAME: DILSHAD COCHRAN CONSULTATION DATE OF : 35 REPORT #: [id number] PHYSICIAN: NOLA MICHEL MD PCP: TINO SILVEIRA DO REPORT IS CONFIDENTIAL AND NOT TO BE RELEASED WITHOUT AUTHORIZATION [address] [address] Signed MD ROBERTH Vizcaino/MODL /[id number] cc: MD Tino James DO Copies: RACHNA DOMINGO ARIAN DO ~ Electronically Signed By: NOLA MICHEL MD 02/21/20 1401 PATIENT NAME: DILSHAD COCHRAN CONSULTATION DATE OF : 35 REPORT #: [id number] PHYSICIAN: NOLA MICHEL MD PCP: TINO SILVEIRA DO REPORT IS CONFIDENTIAL AND NOT TO BE RELEASED WITHOUT AUTHORIZATION
== END 2020-02-19 17:40 | disposition short-term general hospital (02) | DRG 871 ==
LOC: ED 18:25 → CCU 02-19 00:34
PROVIDERS: ADMIT Student in an Organized Health Care Education/Training Program; ATTEND Student in an Organized Health Care Education/Training Program
PROC: 3E043XZ Introduction of Vasopressor into Central Vein, Percutaneous Approach (ICD-10-PCS; principal; 2020-02-19)
PROC: 02HV33Z Insertion of Infusion Device into Superior Vena Cava, Percutaneous Approach (ICD-10-PCS; 2020-02-19)
DX: A41.9 Sepsis, unspecified organism (principal); R65.21 Severe sepsis with septic shock; G93.41 Metabolic encephalopathy; N13.6 Pyonephrosis; N17.9 Acute kidney failure, unspecified; E87.1 Hypo-osmolality and hyponatremia; Z20.828 Contact with and (suspected) exposure to other viral communicable diseases; E03.9 Hypothyroidism, unspecified; E11.9 Type 2 diabetes mellitus without complications; I11.0 Hypertensive heart disease with heart failure; I50.9 Heart failure, unspecified; I48.91 Unspecified atrial fibrillation; R16.2 Hepatomegaly with splenomegaly, not elsewhere classified; Z66 Do not resuscitate; Z88.4 Allergy status to anesthetic agent; Z88.5 Allergy status to narcotic agent; Z88.8 Allergy status to other drugs, medicaments and biological substances; Z79.01 Long term (current) use of anticoagulants; Z79.84 Long term (current) use of oral hypoglycemic drugs; Z79.899 Other long term (current) drug therapy
CPT/HCPCS: 36415; 51702; 71045; 73552; 74176; 76705; 80048; 80053; 81001; 82140; 83605; 83690; 83735; 83880; 83935; 84300; 84484; 85025; 85610; 87040; 87077; 87088; 87186; 99285-25; C9803; J0696; J1650; J1815; J1940; J2270; J3475; J7030; J7050; J7121; U0003